=== PATIENT | female | born 1935 | race Caucasian/White ===

== ENCOUNTER → 2016-08-23 | Outpatient (CLI) | payer MEDICARE ==
[~2016-08-23] MED LIST: ACHD5005 PO; AML5T; AMLO5TAB2 PO; BCL10T PO; CHOL2000 PO; CLON0.5T3 PO; CND32T; CODE-54 PO; GLIM4TAB PO; GLMP4T; GLYBURIDE/METFORMIN; HCT25T; HCT25T PO; INSU100C7 SQ; LISI20TA PO; LVT.05T PO; MAGN400C PO; MAGN400T6 PO; MELO-195 PO; MTF500T; MTF500T PO; NF-TYLARTH PO; OMEP20CA12; OMEP20TA2 PO; PRAV40TA PO; PRAV80TA2 PO; ROPI0.5T2 PO; ROSU10TA12; SITA100T PO; THYROID; TRAM50TA2 PO
--- NOTE | 2016-08-23 20:59 | Diagnostic Imaging Report ---
INDICATION: Abnormal calcifications. At this time there are no current complaints. EXAMINATION: Right breast digital diagnostic mammogram with CAD. The current study was also evaluated with a Computer Aided Detection (CAD) system. COMPARISON: This study was compared to the prior exams of 02/07/16, 07/14/15, 02/08/15 and 07/15/14. FINDINGS: The previous studies noted a small group of microcalcifications deep in the medial aspect of the right breast. Compression/magnification views of these calcifications show that they do not appear to have changed significantly since the prior exam. These calcifications have a generally benign appearance although they have increased slightly in number since the previous study of 07/15/14. If a tissue diagnosis is desired, then a stereotactic biopsy could be performed. If there is no intervention at this time, then a short-term (6 month) followup mammogram would be recommended for further study. The overall appearance of the right breast is otherwise stable. No new abnormality has developed. IMPRESSION: 1. The calcifications in the right breast are most likely benign, although technically indeterminate. Recommendations as above. 2. These results were discussed with Dr. Roxana No. ACR BI-RADS Category 4A: Low suspicion of malignancy. Follow Up Interval: Now Result letter will be mailed to the patient. Note: At least 10% of breast cancer is not imaged by mammography. Dictated by: Dictated on workstation # [id number]
== END ==
LOC: RAD 13:19
PROVIDERS: ATTEND Nurse Practitioner Family
DX: R92.1 Mammographic calcification found on diagnostic imaging of breast (principal)

== ENCOUNTER 2016-10-25 08:31 | Inpatient (IN) | payer MEDICARE ==
[~2016-10-25] VITALS: Ht 152.4 cm; Wt 80.3 kg
[~2016-10-25 08:31] MED LIST changes: +AMLO10TA2 PO; +INSU100I10 SQ; +LEVO50TA6 PO; +LISI40TA PO; +LOVA40TA2 PO; +MELO15TA39 PO; +METF500T4 PO
[2016-10-25] MEDS ORDERED: ENOXAPARIN 40 MG/0.4 ML (LOVENOX) SYR SC SCH (09:45)
[2016-10-25] MEDS ORDERED: fentaNYL INJECTION 100 MCG/2 ML AMP IVP PRN (09:45)
[2016-10-25] MEDS ORDERED: PROMETHAZINE INJ 25 MG/ML (PHENERGAN) AMP IVP PRN (09:45)
[2016-10-25] MEDS ORDERED: CATHETER FLUSH 10 ML SYR IV PRN (09:45)
[2016-10-25] MEDS ORDERED: HYDROcodone/APAP 5 MG/325 MG (LORTAB) TAB PO PRN (09:45)
[2016-10-25] MEDS ORDERED: ONDANSETRON 4 MG/2 ML (SDV) Z0FRAN IVP PRN (09:45)
[2016-10-25] MEDS ORDERED: PANTOPRAZOLE 40 MG/10 ML (PROTONIX) VIAL IV SCH ×2 (09:45→18:30)
[2016-10-25] MEDS ORDERED: clonazePAM 0.5 MG (KlonoPIN) TAB PO PRN (09:45)
[2016-10-25] MEDS ORDERED: PIPERACILLIN SODIUM/TAZOBACTAM 4.5 GM in NS (IVPB) 100 ML IV SCH (09:45)
[2016-10-25] MEDS ORDERED: ACETAMINOPHEN 325 MG TABLET/CAPLET (TYLENOL) PO PRN (09:45)
[2016-10-25] MEDS ORDERED: MAGNESIUM OXIDE (MAG-OX)400 MG TAB PO SCH (10:15)
[2016-10-25] MEDS: NS IV 1000 ML 1,000 ML IV SCH ×2 (10:42→16:40)
--- NOTE | 2016-10-25 11:13 | Physical Therapy Progress Note ---
Therapy Progress Note Date Seen by Provider: Oct 25, 2016 Time Seen by Provider: 11:10 Evaluation order received, chart reviewed. Patient at sink brushing her teeth, I believe she just got through with a shower. Evaluation attempted but patient says emphatically No, come back later!!! Will try back this afternoon. BRETT SCHMITT PT Oct 25, 2016 11:13
[2016-10-25] MEDS: inSUlin ASPART (NovoLOG) 1 UNIT/0.01 ML (CHARGE PER UNIT) SC SCH ×3 (11:53→20:59)
[2016-10-25] MEDS: MELOXICAM 7.5 MG (MOBIC) TABLET PO SCH (11:53)
[2016-10-25] MEDS: amLODIPine 10 MG (NORVASC) TAB PO SCH (11:53)
[2016-10-25] MEDS: MAGNESIUM OXIDE (MAG-OX)400 MG TAB PO SCH (11:53)
[2016-10-25] MEDS: PIPERACILLIN SODIUM/TAZOBACTAM 4.5 GM in NS (IVPB) 100 ML IV SCH ×2 (11:54→20:55)
[2016-10-25 12:08] VITALS: BP 148/80
--- NOTE | 2016-10-25 14:30 | Progress Note (SOAP) ---
Subjective Date Seen by Provider: Oct 25, 2016 Time Seen by Provider: 14:00 Subjective/Events-last exam doing well. no complaints at this time. tolerating diet. afebrile. Objective Exam Vital Signs Date Time Temp Pulse Resp B/P (MAP) Pulse Ox O2 Delivery O2 Flow Rate FiO2 10/25/16 12:08 99.3 73 20 148/80 95 Capillary Refill : General Appearance: No Apparent Distress HEENT: PERRL/EOMI Neck: Full Range of Motion Respiratory: Chest Non Tender, Normal Breath Sounds Cardiovascular: Regular Rate, Rhythm Gastrointestinal: normal bowel sounds, soft Extremity: Normal Capillary Refill Neurologic/Psychiatric: Alert, Oriented x3 Skin: Normal Color Lymphatic: No Adenopathy Assessment/Plan Assessment/Plan Assess & Plan/Chief Complaint diverticular abscess. responding well with IV abx. SWB now and will continue IV abx. colonoscopy as outpatient. gallbladder as OP if become symptomatic. JACKIE CHAU MD Oct 25, 2016 2:30 pm
--- NOTE | 2016-10-25 15:07 | Physical Therapy Evaluation ---
PT Evaluation-General Medical Diagnosis Admission Date Oct 25, 2016 at 09:37 Medical Diagnosis: sepsis, diverticular abscess Onset Date: Oct 22, 2016 Therapy Diagnosis Therapy Diagnosis: impaired mobility, endurance, strength Height/Weight Height (Feet): 5 Height (Inches): 0.00 Weight (Pounds): 177 Weight (Ounces): 2.0 Referral Physician: Roxana No MD Reason for Referral: Evaluation/Treatment Medical History Pertinent Medical History: Arthritis, DM, GERD, HTN, Hypothroidism Additional Medical History high cholesterol, UTI-chronic, [place], surg (thyroid, lap horace, cataracts, D&C, abdominal, orthopedic) Current History went to ER with 48 hours of illness and nausea, abdominal discomfort and chills and hot flashes Reviewed History: Yes Social History Home: Single Level Current Living Status: Alone Entry Into Home: Level Entry Prior/Core FIM Prior Level of Function Functional Powell Measure 0=Not Assessed/NA 4=Minimal Assistance 1=Total Assistance 5=Supervision or Setup 2=Maximal Assistance 6=Modified Powell 3=Moderate Assistance 7=Complete Powell Bed Mobility: 7 Transfers (B,C,W/C) (FIM): 7 Gait: 7 PT Evaluation-Current Subjective Patient in recliner pre tx, agrees to PT, no complaints of pain. Pt/Family Goals to get her infection better and go home Objective Patient Orientation: Person, Place, Situation Attachments: IV ROM/Strength ROM Lower Extremities WNL Strenght Lower Extremities right lower extremity (hip flexion 3+/5, knee flexion 4/5, knee extension 4/5, dorsiflexion 4-/5), left lower extremity (hip flexion 3+/5, knee flexion 4/5, knee extension 4/5, dorsiflexion 4-/5) Integumentary/Posture Bowel Incontinence: No Bladder Incontinence: No Neuromuscular (Tone, Coordination, Reflexes) WNL Sensory Vision: Wears Glasses Hearing: Impaired Sensation Right Lower Extremit: Impaired Sensation Left Lower Extremity: Impaired Sensation Lower Extremities Patient has intact light sensation bilaterally but states she has had protective sensation tested in her feet and she did not have that Transfers Functional Powell Measure 0=Not Assessed/NA 4=Minimal Assistance 1=Total Assistance 5=Supervision or Setup 2=Maximal Assistance 6=Modified Powell 3=Moderate Assistance 7=Complete Powell Transfers (B, C, W/C) (FIM): 5 Sit to/from Stand: 5 Sit to Stand (QC): 4 Gait Does the Patient Walk?: Yes Mode of Locomotion: Walk Anticipated Mode of Locomotion: Walk Gait (FIM): 4 Distance: 800' Walk 50 ft with 2 Turns(QC): 4 Walk 150 ft (QC): 4 Gait Level of Assist: 4 Gait Persons Needed: 1 Gait Assistive Device: None Comments/Gait Description CGA, patient has some unsteadiness when she is not paying attention to her ambulation Balance Sitting Static: Normal Sitting Dynamic: Normal Standing Static: Fair Standing Dynamic: Fair Assessment/Needs Patient has impaired mobility, strength, endurance, balance, she should probably be using a rolling walker from now on for safety. Rehab Potential: Fair PT Telegraph Dispatcher Goals Residential Goals PT Residential Goals Time Frame: Nov 01, 2016 Transfers (B,C,W/C) (FIM): 6 Sit to Lying (QC): 6 Lying-Sitting on Side/Bed(QC): 6 Sit to Stand (QC): 6 Rollin Does the Patient Walk: Yes Gait (FIM): 5 Distance: 800' Walk 50ft with 2 Turns (QC): 4 Walk 150 ft (QC): 4 Gait Level of Assist: 5 Gait Assistive Device: FWW PT Plan Problem List Problem List: Activity Tolerance, Functional Strength, Safety, Balance, Gait, Transfer, Bed Mobility Treatment/Plan Treatment Plan: Continue Plan of Care Treatment Plan: Bed Mobility, Education, Functional Activity Kevin, Functional Strength, Gait, Safety, Therapeutic Exercise, Transfers Treatment Duration: Nov 01, 2016 # of days/week 5-6 Visits Per Week: 5-6 Minutes/Day (M-F): 15-30 Minutes/Day (Sat/Santillan): 15-30 Pt/Family Agrees w/Plan: Yes Safety Risks/Education Patient Education: Gait Training, Transfer Techniques, Correct Positioning, Safety Issues Teaching Recipient: Patient Teaching Methods: Demonstration, Discussion Response to Teaching: Reinforcement Needed Discharge Recommendations Plan Patient will perform bed mobility and transfer training, balance and endurance training, functional strengthening, gait training, and education, to improve functional mobility and independence at home. Therapy D/C Recommendations: Assisted Living, Home w/ Family Support Time/GCodes Time In: 1435 Time Out: 1505 Total Billed Treatment Time: 30 Total Billed Treatment 1 visit CARMENCITAL 15' GT 15' BRETT SCHMITT PT Oct 25, 2016 15:07
[2016-10-25 18:22] VITALS: BP 150/77
[2016-10-25] MEDS: PANTOPRAZOLE 40 MG (PROTONIX) TAB PO SCH (20:59)
[2016-10-25] MEDS: inSUlin DETERMIR 1 UNIT/0.01 ML (LEVEMIR) CHARGE PER UNIT SQ SCH (20:59)
[2016-10-25] MEDS: ENOXAPARIN 40 MG/0.4 ML (LOVENOX) SYR SC SCH (20:59)
[2016-10-26] MEDS: PIPERACILLIN SODIUM/TAZOBACTAM 4.5 GM in NS (IVPB) 100 ML IV SCH ×3 (04:55→20:18)
[2016-10-26] MEDS: NS IV 1000 ML 1,000 ML IV SCH ×2 (04:56→13:29)
[2016-10-26] MEDS: inSUlin ASPART (NovoLOG) 1 UNIT/0.01 ML (CHARGE PER UNIT) SC SCH ×4 (06:06→21:26)
[2016-10-26 06:07] VITALS: BP 159/79
[2016-10-26] MEDS: LEVOTHYROXINE 50 MCG (LEVOTHROID) TAB PO SCH (06:10)
[2016-10-26] MEDS: VITAMIN D3 1,000 UNITS (CHOLECALCIFEROL) TABLET PO SCH (06:10)
[2016-10-26] MEDS: MAGNESIUM OXIDE (MAG-OX)400 MG TAB PO SCH (06:10)
--- NOTE | 2016-10-26 08:29 | Progress Note (SOAP) ---
Subjective Date Seen by Provider: Oct 26, 2016 Time Seen by Provider: 09:00 Subjective/Events-last exam PT REPORTS THAT SHE IS FEELING BETTER, BUT STILL HAS SOME "TWINGES OF PAIN" IN HER ABDOMEN Review of Systems General: Fatigue HEENT: No Head Aches Pulmonary: No Dyspnea, No Cough Cardiovascular: No: Chest Pain, Palpitations Gastrointestinal: Abdominal Pain, No: Nausea Genitourinary: No Dysuria Neurological: No: Confusion, Weakness Objective Exam Vital Signs Date Time Temp Pulse Resp B/P (MAP) Pulse Ox O2 Delivery O2 Flow Rate FiO2 10/26/16 06:07 97.2 84 19 159/79 97 10/25/16 18:22 99.3 77 18 150/77 96 10/25/16 16:15 99.1 10/25/16 12:08 99.3 73 20 148/80 95 I & O 10/26/16 07:00 Intake Total 1920 ml Output Total 500 ml Balance 1420 ml Capillary Refill : General Appearance: No Apparent Distress, WD/WN HEENT: PERRL/EOMI, Pharynx Normal Neck: Full Range of Motion, Supple Respiratory: Chest Non Tender, Lungs Clear, Normal Breath Sounds, No Accessory Muscle Use Cardiovascular: Regular Rate, Rhythm Gastrointestinal: normal bowel sounds, tenderness Extremity: Normal Capillary Refill, No Calf Tenderness, No Pedal Edema Neurologic/Psychiatric: Alert, Oriented x3, No Motor/Sensory Deficits, Normal Mood/Affect Skin: Warm/Dry Lymphatic: No Adenopathy Results Lab Laboratory Tests 10/25/16 16:19: Glucometer 154H 10/25/16 20:50: Glucometer 250H 10/26/16 05:58: Glucometer 58*L 10/26/16 06:34: Glucometer 135H Assessment/Plan Assessment/Plan Assess & Plan/Chief Complaint SEPSIS DUE TO ECOLI LACTIC ACIDOSIS LEUKOCYTOSIS DIVERTICULITIS WITH ABSCESS URINARY TRACT INFECTION ECOLI ELEVATED LIVER ENZYMES CHOLELITHIASIS NAUSEA ABDOMINAL PAIN HYPERTENSION DIABETES MELLITUS HYPERLIPIDEMIA ESOPHAGEAL REFLUX DISEASE SEPSIS WITH LACTIC ACIDOSIS - SYMPTOMS IMPROVED - PT ADMITTED TO THE HOSPITAL, SEPSIS PROTOCOL INITIATED, BLOOD CULTURES PENDING, URINE CULTURE SHOWS ECOLI. CONTINUE WITH ZOSYN IV. LEUKOCYTOSIS - MONITOR WHITE BLOOD CELL COUNT. ABDOMINAL PAIN AND DIVERTICULITIS WITH ABSCESS - CHECKED REPEAT CT OF ABDOMEN AND PELVIS WITH ORAL AND IV CONTRAST - SHOWED DIVERTICULAR ABSCESS - 4.6 X 2.7 X 3 CM IN SIGMOID COLON. - CONTINUE WITH IV ZOSYN. NAUSEA - ZOFRAN AND PHENERGAN IV ORDERED. UTI WITH ECOLI - ON ZOSYN, CONTINUE ANTIBIOTICS. HYPERTENSION - CHRONIC PROBLEM FOR PATIENT - PT CURRENTLY HYPOTENSIVE - WILL CONTINUE ON IV FLUIDS DIABETES MELLITUS - ANOTHER CHRONIC PROBLEM FOR PATIENT - WILL ADDRESS WITH SLIDING SCALE INSULIN PROTOCOL. HYPERLIPIDEMIA - CHRONIC ISSUE FOR PATIENT - CURRENTLY TAKES PRAVASTATIN AT HOME , WILL RESTART IN A FEW DAYS ONCE TAKING BETTER PO. ESOPHAGEAL REFLUX DISEASE - STARTED ON PROTONIX BID. DVT PROPHYLAXIS WITH SCD'S AND LOVENOX. TINA LEON MD Oct 26, 2016 08:29
[2016-10-26] MEDS: amLODIPine 10 MG (NORVASC) TAB PO SCH (08:57)
[2016-10-26] MEDS: MELOXICAM 7.5 MG (MOBIC) TABLET PO SCH (08:57)
[2016-10-26] MEDS: lisINopril 20 MG (ZESTRIL) TAB PO SCH (08:57)
[2016-10-26] MEDS: PANTOPRAZOLE 40 MG (PROTONIX) TAB PO SCH ×2 (08:57→21:25)
[2016-10-26] MEDS ORDERED: NON-FORMULARY MEDICATION 1 EA EA (Meloxicam 15 MG) PO SCH (09:00)
[2016-10-26] MEDS ORDERED: LEVOTHYROXINE 50 MCG (LEVOTHROID) TAB PO SCH (09:00)
[2016-10-26] MEDS ORDERED: CHOLECALCIFEROL 2000 UNIT PO SCH (09:00)
--- NOTE | 2016-10-26 11:23 | Physical Therapy Daily Note ---
PT Daily Note-Current Subjective Patient is up ad valencia in room. Agrees to PT. Pain Numeric Pain Scale: 0-No Pain Location: No Pain Reported Mental Status Patient Orientation: Normal For Age Attachments: IV Transfers Functional Evans Measure 0=Not Assessed/NA 4=Minimal Assistance 1=Total Assistance 5=Supervision or Setup 2=Maximal Assistance 6=Modified [place] 3=Moderate Assistance 7=Complete IndependenceIRFPAI Quality Coding Scale 6 Independent with activity with or without an assistive device 5 Patient requires set up or clean up by helper. Patient completes activity by themselves 4 Supervision or touching assist (CGA). [place] provide cues , steadying assist 3 The helper provides less than half the effort to complete the activity 2 The helper provides more than half the effort to complete the activity 1 Dependent. The helper does all the effort to complete an activity 7 Patient refused to complete or attempt activity 9 The patient did not perform the activity before the current illness or injury 88 Not attempted due to Medical conditions or safety concerns Transfers (B, C, W/C) (FIM): 7 Scootin Roll Left to Right (QC): 6 Supine to/from Sit: 7 Sit to/from Stand: 7 Sit to Lying (QC): 6 Sit to Stand (QC): 6 Chair/Gvj-ky-Fohhp Xfer(QC): 6 Gait Training Does the Patient Walk?: Yes Gait (FIM): 7 Distance (FIM): 3=150 ft Distance: 800' Walk 50 ft with 2 Turns(QC): 6 Walk 150 ft (QC): 6 Gait Level of Assist: 7 Gait Assistive Device: None Assessment Patient is currently at independent LOF safely with all gross motor skills. PT to dismiss patient from services at this time. SWB coordinator notified. PT Shelter Goals Shelter Goals PT Acquisitions Analyst Goals Time Frame: Nov 01, 2016 Transfers (B,C,W/C) (FIM): 6 (met 10/26/16) Sit to Lying (QC): 6 (met 7) Lying-Sitting on Side/Bed(QC): 6 (met 10/26/16) Sit to Stand (QC): 6 (met 10/26/16) Rollin (met 10/26/16) Does the Patient Walk: Yes Gait (FIM): 5 (met 10/26/16) Distance: 800' Walk 50ft with 2 Turns (QC): 4 (met 10/26/16) Walk 150 ft (QC): 4 (met 10/26/16) Gait Level of Assist: 5 (met 10/26/16) Gait Assistive Device: FWW PT Plan Treatment/Plan Treatment Plan: Discontinue PT, goals met Treatment Plan: Bed Mobility, Education, Functional Activity Kevin, Functional Strength, Gait, Safety, Therapeutic Exercise, Transfers Treatment Duration: Nov 01, 2016 Visits Per Week: 5-6 Minutes/Day (M-F): 15-30 Minutes/Day (Sat/Santillan): 15-30 Time/GCodes Time In: 946 Time Out: 1001 Total Billed Treatment Time: 15 Total Billed Treatment 1 visit FA 15 min SHERRON KHALIL PT Oct 26, 2016 11:23
--- NOTE | 2016-10-26 11:24 | Therapy Team Discharge Summary ---
Therapy Discharge Summary Discharge Recommendations Date of Discharge 10/26/16 (from PT services) Therapy D/C Recommendations: Assisted Living, Home w/ Family Support Physical Therapy Patient is currently at independent LOF safely with all gross motor skills. PT to dismiss patient from services at this time. SWB coordinator notified. PT Cat Scan Technologist Goals Cat Scan Technologist Goals PT Senior Care Goals Time Frame: Nov 01, 2016 Transfers (B,C,W/C) (FIM): 6 (met 10/26/16) Sit to Lying (QC): 6 (met ) Lying-Sitting on Side/Bed(QC): 6 (met 10/26/16) Sit to Stand (QC): 6 (met 10/26/16) Rollin (met 10/26/16) Does the Patient Walk: Yes Gait (FIM): 5 (met 10/26/16) Distance: 800' Walk 50ft with 2 Turns (QC): 4 (met 10/26/16) Walk 150 ft (QC): 4 (met 10/26/16) Gait Level of Assist: 5 (met 10/26/16) Gait Assistive Device: FWW OT Cat Scan Technologist Goals Senior Care Goals 1=Demonstrate adherence to instructed precautions during ADL tasks. 2=Patient will verbalize/demonstrate understanding of assistive devices/ modifications for ADL. 3=Patient will improve strength/tolerance for activity to enable patient to perform ADL's. SHERRON MCKEON PT Oct 26, 2016 11:24
[2016-10-26 18:05] VITALS: BP 150/74
[2016-10-26] MEDS: SIMvastatin 20 MG (ZOCOR) TAB PO SCH (21:25)
[2016-10-26] MEDS: inSUlin DETERMIR 1 UNIT/0.01 ML (LEVEMIR) CHARGE PER UNIT SQ SCH (21:26)
[2016-10-26] MEDS: ENOXAPARIN 40 MG/0.4 ML (LOVENOX) SYR SC SCH (21:26)
[2016-10-27] MEDS: NS IV 1000 ML 1,000 ML IV SCH ×3 (01:54→21:45)
[2016-10-27] MEDS: PIPERACILLIN SODIUM/TAZOBACTAM 4.5 GM in NS (IVPB) 100 ML IV SCH ×3 (04:26→20:50)
[2016-10-27] MEDS: inSUlin ASPART (NovoLOG) 1 UNIT/0.01 ML (CHARGE PER UNIT) SC SCH ×4 (05:29→22:11)
[2016-10-27] MEDS: LEVOTHYROXINE 50 MCG (LEVOTHROID) TAB PO SCH (05:46)
[2016-10-27] MEDS: MAGNESIUM OXIDE (MAG-OX)400 MG TAB PO SCH (05:46)
[2016-10-27] MEDS: VITAMIN D3 1,000 UNITS (CHOLECALCIFEROL) TABLET PO SCH (05:46)
[2016-10-27 06:25] VITALS: BP 151/72
[2016-10-27] MEDS: amLODIPine 10 MG (NORVASC) TAB PO SCH (09:51)
[2016-10-27] MEDS: MELOXICAM 7.5 MG (MOBIC) TABLET PO SCH (09:51)
[2016-10-27] MEDS: lisINopril 20 MG (ZESTRIL) TAB PO SCH (09:51)
[2016-10-27] MEDS: PANTOPRAZOLE 40 MG (PROTONIX) TAB PO SCH ×2 (09:51→20:49)
--- NOTE | 2016-10-27 10:16 | Progress Note (SOAP) ---
Subjective Date Seen by Provider: Oct 27, 2016 Time Seen by Provider: 09:15 Subjective/Events-last exam PT REPORTS THAT SHE IS STILL HAVING THE DISCOMFORT IN HER LEFT LOWER ABDOMEN, BUT SHE IS FEELING BETTER TODAY. SHE DENIES CHEST PAIN OR SHORTNESS OF BREATH, BOWELS ARE MOVING. Review of Systems General: Fatigue, No Malaise Pulmonary: No Dyspnea, No Cough Cardiovascular: No: Chest Pain Gastrointestinal: Abdominal Pain Genitourinary: No Dysuria Neurological: No: Confusion, Weakness Objective Exam Vital Signs Date Time Temp Pulse Resp B/P (MAP) Pulse Ox O2 Delivery O2 Flow Rate FiO2 10/27/16 06:25 99.1 72 18 151/72 93 10/26/16 18:05 98.9 73 22 150/74 96 I & O 10/27/16 07:00 Intake Total 3480 ml Balance 3480 ml Capillary Refill : General Appearance: No Apparent Distress, WD/WN HEENT: PERRL/EOMI, Pharynx Normal Neck: Full Range of Motion, Supple Respiratory: Chest Non Tender, Lungs Clear, Normal Breath Sounds, No Accessory Muscle Use Cardiovascular: Regular Rate, Rhythm, No Edema Gastrointestinal: normal bowel sounds, tenderness (LLQ) Extremity: Normal Capillary Refill, Normal Inspection, Normal Range of Motion, Non Tender, No Calf Tenderness, No Pedal Edema Neurologic/Psychiatric: Alert, Oriented x3, No Motor/Sensory Deficits, Normal Mood/Affect Skin: Warm/Dry Lymphatic: No Adenopathy Results Lab Laboratory Tests 10/26/16 10:49: Glucometer 98 10/26/16 16:03: Glucometer 180H 10/26/16 21:12: Glucometer 207H 10/27/16 05:27: Glucometer 100 Assessment/Plan Assessment/Plan Assess & Plan/Chief Complaint SEPSIS DUE TO ECOLI LACTIC ACIDOSIS LEUKOCYTOSIS DIVERTICULITIS WITH ABSCESS URINARY TRACT INFECTION ECOLI ELEVATED LIVER ENZYMES CHOLELITHIASIS NAUSEA ABDOMINAL PAIN HYPERTENSION DIABETES MELLITUS HYPERLIPIDEMIA ESOPHAGEAL REFLUX DISEASE SEPSIS WITH LACTIC ACIDOSIS - SYMPTOMS IMPROVED - PT ADMITTED TO THE HOSPITAL, SEPSIS PROTOCOL INITIATED, BLOOD CULTURES PENDING, URINE CULTURE SHOWS ECOLI. CONTINUE WITH ZOSYN IV. LEUKOCYTOSIS - MONITOR WHITE BLOOD CELL COUNT. ABDOMINAL PAIN AND DIVERTICULITIS WITH ABSCESS - CHECKED REPEAT CT OF ABDOMEN AND PELVIS WITH ORAL AND IV CONTRAST - SHOWED DIVERTICULAR ABSCESS - 4.6 X 2.7 X 3 CM IN SIGMOID COLON. - CONTINUE WITH IV ZOSYN. - REPEAT CT SCAN ON SUNDAY. NAUSEA - ZOFRAN AND PHENERGAN IV ORDERED. UTI WITH ECOLI - ON ZOSYN, CONTINUE ANTIBIOTICS. HYPERTENSION - WILL CONTINUE ON IV FLUIDS - RESTARTED HOME MEDICATIONS, MONITOR PRESSURES DIABETES MELLITUS - ANOTHER CHRONIC PROBLEM FOR PATIENT - WILL ADDRESS WITH SLIDING SCALE INSULIN PROTOCOL. HYPERLIPIDEMIA - CHRONIC ISSUE FOR PATIENT - CURRENTLY TAKES PRAVASTATIN AT HOME , WILL RESTART IN A FEW DAYS ONCE TAKING BETTER PO. ESOPHAGEAL REFLUX DISEASE - STARTED ON PROTONIX BID. DVT PROPHYLAXIS WITH SCD'S AND LOVENOX. TINA LEON MD Oct 27, 2016 10:16
[2016-10-27 18:45] VITALS: BP 147/73
[2016-10-27] MEDS: SIMvastatin 20 MG (ZOCOR) TAB PO SCH (20:49)
[2016-10-27] MEDS: ENOXAPARIN 40 MG/0.4 ML (LOVENOX) SYR SC SCH (20:49)
[2016-10-27] MEDS: inSUlin DETERMIR 1 UNIT/0.01 ML (LEVEMIR) CHARGE PER UNIT SQ SCH (22:11)
[2016-10-28] MEDS: PIPERACILLIN SODIUM/TAZOBACTAM 4.5 GM in NS (IVPB) 100 ML IV SCH ×3 (04:47→20:20)
[2016-10-28 06:00] VITALS: BP 158/79
[2016-10-28] MEDS: MAGNESIUM OXIDE (MAG-OX)400 MG TAB PO SCH (06:17)
[2016-10-28] MEDS: LEVOTHYROXINE 50 MCG (LEVOTHROID) TAB PO SCH (06:17)
[2016-10-28] MEDS: VITAMIN D3 1,000 UNITS (CHOLECALCIFEROL) TABLET PO SCH (06:18)
[2016-10-28] MEDS: inSUlin ASPART (NovoLOG) 1 UNIT/0.01 ML (CHARGE PER UNIT) SC SCH ×4 (06:26→21:20)
[2016-10-28] MEDS: NS IV 1000 ML 1,000 ML IV SCH (08:30)
[2016-10-28] MEDS: MELOXICAM 7.5 MG (MOBIC) TABLET PO SCH (08:30)
[2016-10-28] MEDS: amLODIPine 10 MG (NORVASC) TAB PO SCH (08:30)
[2016-10-28] MEDS: lisINopril 20 MG (ZESTRIL) TAB PO SCH (08:30)
[2016-10-28] MEDS: PANTOPRAZOLE 40 MG (PROTONIX) TAB PO SCH ×2 (08:33→20:20)
--- NOTE | 2016-10-28 12:15 | Progress Note (SOAP) ---
Subjective Date Seen by Provider: Oct 28, 2016 Time Seen by Provider: 12:10 Subjective/Events-last exam F/U diverticulitis c diverticular abscess, HTN. C/o mild LLQ abd pain, multiple urination and 1 BM this AM. Taking orals well. Objective Exam Vital Signs Date Time Temp Pulse Resp B/P (MAP) Pulse Ox O2 Delivery O2 Flow Rate FiO2 10/28/16 06:00 99.3 89 18 158/79 98 Room Air 10/27/16 18:45 98.9 85 20 147/73 97 Room Air I & O 10/28/16 07:00 Intake Total 1560 ml Balance 1560 ml Capillary Refill : General Appearance: No Apparent Distress Neck: Supple Respiratory: Lungs Clear Cardiovascular: Regular Rate, Rhythm, No Murmur Peripheral Pulses: 2+ Dorsalis Pedis (R), 2+ Left Dors-Pedis (L) Gastrointestinal: normal bowel sounds, soft, tenderness (LLQ) Extremity: No Normal Capillary Refill, No Normal Inspection, No Normal Range of Motion, No Non Tender, No No Calf Tenderness, No No Pedal Edema, No Calf Tenderness, No Inflammation, No Pedal Edema, No Pelvis Stable, No Slow Capillary Refill, No Swelling, No Other Neurologic/Psychiatric: Alert, Oriented x3 Skin: Normal Color, Warm/Dry Results Lab Laboratory Tests 10/27/16 16:21: Glucometer 188H 10/27/16 22:02: Glucometer 213H 10/28/16 06:24: Glucometer 68L 10/28/16 07:26: Glucometer 191H 10/28/16 11:01: Glucometer 219H Assessment/Plan Assessment/Plan Assess & Plan/Chief Complaint 1) Diverticulits c diverticular abscess -continue ABX, check CBC in AM. Heplock IV as taking PO well c adequate Urine output. 2) HTN- continue lisinopril and amloipine and add low dose coreg. SHANE VICENTE DO Oct 28, 2016 12:15
[2016-10-28] MEDS: CARVEDILOL 3.125 MG (COREG) TABLET PO SCH ×2 (12:47→20:25)
[2016-10-28 17:49] VITALS: BP 160/78
[2016-10-28] MEDS: SIMvastatin 20 MG (ZOCOR) TAB PO SCH (20:20)
[2016-10-28] MEDS: ENOXAPARIN 40 MG/0.4 ML (LOVENOX) SYR SC SCH (20:20)
[2016-10-28] MEDS: inSUlin DETERMIR 1 UNIT/0.01 ML (LEVEMIR) CHARGE PER UNIT SQ SCH (21:20)
[2016-10-29] MEDS: PIPERACILLIN SODIUM/TAZOBACTAM 4.5 GM in NS (IVPB) 100 ML IV SCH ×3 (03:24→20:47)
[2016-10-29] MEDS: VITAMIN D3 1,000 UNITS (CHOLECALCIFEROL) TABLET PO SCH (06:02)
[2016-10-29] MEDS: LEVOTHYROXINE 50 MCG (LEVOTHROID) TAB PO SCH (06:02)
[2016-10-29] MEDS: MAGNESIUM OXIDE (MAG-OX)400 MG TAB PO SCH (06:03)
[2016-10-29 06:08] LABS: BASOPHILS % (AUTO) 0 % (0-10); EOSINOPHILS # (AUTO) 0.1 10^3/uL (0.0-0.3); EOSINOPHILS % (AUTO) 2 % (0-10); LYMPHOCYTES # (AUTO) 2.4 X 10^3 (1.0-4.0); LYMPHOCYTES % (AUTO) 32 % (12-44); MEAN CORPUSCULAR HEMOGLOBIN 31 PG (25-34); MEAN CORPUSCULAR HGB CONC 34 G/DL (32-36); MEAN CORPUSCULAR VOLUME 91 FL (80-99); MONOCYTES # (AUTO) 0.9 X 10^3 (0.0-1.0); MONOCYTES % (AUTO) 12 % (0-12); NEUTROPHILS % (AUTO) 53 % (42-75); PLATELET COUNT 297 10^3/uL (130-400); RED BLOOD COUNT 3.81 10^6/uL (4.35-5.85); RED CELL DISTRIBUTION WIDTH 12.8 % (10.0-14.5); WHITE BLOOD COUNT 7.4 10^3/uL (4.3-11.0)
[2016-10-29 06:16] VITALS: BP 147/66
[2016-10-29 06:29] LABS: ALANINE AMINOTRANSFERASE 34 U/L (0-55); ALBUMIN 3.2 G/DL (3.2-4.5); ANION GAP 11 MMOL/L (5-14); ASPARTATE AMINO TRANSFERASE 21 U/L (5-34); BILIRUBIN,TOTAL 0.6 MG/DL (0.1-1.0); BLOOD UREA NITROGEN 3 MG/DL (7-18); BUN/CREATININE RATIO 4; CALCIUM 8.9 MG/DL (8.5-10.1); CARBON DIOXIDE 29 MMOL/L (21-32); CHLORIDE 106 MMOL/L (98-107); CREATININE SERUM 0.79 MG/DL (0.60-1.30); GFR ESTIMATED > 60; GLUCOSE 77 MG/DL (70-105); SODIUM 146 MMOL/L (135-145); TOTAL PROTEIN 6.2 G/DL (6.4-8.2)
[2016-10-29 06:34] LABS: POTASSIUM 2.4 MMOL/L (3.6-5.0)
[2016-10-29] MEDS: inSUlin ASPART (NovoLOG) 1 UNIT/0.01 ML (CHARGE PER UNIT) SC SCH ×4 (06:35→21:37)
[2016-10-29] MEDS ORDERED: KCL 10 MEQ TAB (MICRO K) PO NR ×2 (08:00→12:00)
[2016-10-29] MEDS: lisINopril 20 MG (ZESTRIL) TAB PO SCH (08:35)
[2016-10-29] MEDS: amLODIPine 10 MG (NORVASC) TAB PO SCH (08:35)
[2016-10-29] MEDS: MELOXICAM 7.5 MG (MOBIC) TABLET PO SCH (08:35)
[2016-10-29] MEDS: CARVEDILOL 3.125 MG (COREG) TABLET PO SCH ×2 (08:35→20:47)
[2016-10-29] MEDS: PANTOPRAZOLE 40 MG (PROTONIX) TAB PO SCH ×2 (08:35→20:47)
[2016-10-29 16:42] LABS: MAGNESIUM 1.5 MG/DL (1.8-2.4); POTASSIUM 3.1 MMOL/L (3.6-5.0)
[2016-10-29] MEDS: MAGNESIUM 1 GM/100 ML IVPB 100 ML IV SCH ×2 (17:24→18:30)
[2016-10-29] MEDS ORDERED: KCL 10 MEQ TAB (MICRO K) PO ONE (17:30)
[2016-10-29 17:41] VITALS: BP 134/68
[2016-10-29] MEDS: ENOXAPARIN 40 MG/0.4 ML (LOVENOX) SYR SC SCH (20:47)
[2016-10-29] MEDS: SIMvastatin 20 MG (ZOCOR) TAB PO SCH (20:47)
[2016-10-29] MEDS: inSUlin DETERMIR 1 UNIT/0.01 ML (LEVEMIR) CHARGE PER UNIT SQ SCH (21:52)
[2016-10-30] MEDS: PIPERACILLIN SODIUM/TAZOBACTAM 4.5 GM in NS (IVPB) 100 ML IV SCH ×2 (04:17→13:00)
[2016-10-30] MEDS: LEVOTHYROXINE 50 MCG (LEVOTHROID) TAB PO SCH (05:56)
[2016-10-30] MEDS: MAGNESIUM OXIDE (MAG-OX)400 MG TAB PO SCH (05:56)
[2016-10-30] MEDS: VITAMIN D3 1,000 UNITS (CHOLECALCIFEROL) TABLET PO SCH (05:56)
[2016-10-30 06:00] VITALS: BP 101/55
[2016-10-30 06:11] LABS: ANION GAP 11 MMOL/L (5-14); BLOOD UREA NITROGEN 5 MG/DL (7-18); BUN/CREATININE RATIO 6; CARBON DIOXIDE 25 MMOL/L (21-32); CHLORIDE 110 MMOL/L (98-107); CREATININE SERUM 0.82 MG/DL (0.60-1.30); GFR ESTIMATED > 60; GLUCOSE 97 MG/DL (70-105); POTASSIUM 3.9 MMOL/L (3.6-5.0); SODIUM 146 MMOL/L (135-145)
[2016-10-30] MEDS: inSUlin ASPART (NovoLOG) 1 UNIT/0.01 ML (CHARGE PER UNIT) SC SCH ×3 (06:18→16:43)
--- NOTE | 2016-10-30 08:11 | Discharge Summary ---
Diagnosis/Chief Complaint Date of Admission Oct 25, 2016 at 09:37 Date of Discharge Discharge Date: Oct 30, 2016 Discharge Time: 16:00 Admission Diagnosis Admission Diagnosis SEPSIS DUE TO ECOLI LACTIC ACIDOSIS LEUKOCYTOSIS DIVERTICULITIS WITH ABSCESS URINARY TRACT INFECTION ECOLI ELEVATED LIVER ENZYMES CHOLELITHIASIS NAUSEA ABDOMINAL PAIN HYPERTENSION DIABETES MELLITUS HYPERLIPIDEMIA ESOPHAGEAL REFLUX DISEASE Discharge Diagnosis SEPSIS DUE TO ECOLI LACTIC ACIDOSIS LEUKOCYTOSIS DIVERTICULITIS WITH ABSCESS URINARY TRACT INFECTION ECOLI ELEVATED LIVER ENZYMES CHOLELITHIASIS NAUSEA ABDOMINAL PAIN HYPERTENSION DIABETES MELLITUS HYPERLIPIDEMIA ESOPHAGEAL REFLUX DISEASE Reason Hospital Visit PT IS AN 81 Y/O FEMALE WHO IS KNOWN TO ME FROM CLINIC. SHE HAS A DIVERTICULAR ABSCESS - URINARY TRACT INFECTION - CONTINUED NEED OF IV ANTIBIOTICS AND THERAPY FOR STRENGTHENING. Discharge Summary Consultations Discharge Physical Examination Allergies: Coded Allergies: No Known Drug Allergies (Verified , 02/27/07) Vitals & I&Os Vital Signs Date Time Temp Pulse Resp B/P (MAP) Pulse Ox O2 Delivery O2 Flow Rate FiO2 10/30/16 17:27 98.9 83 18 158/77 96 Room Air General Appearance: Alert, Oriented X3, Cooperative HEENT: Atraumatic, PERRLA Respiratory: Clear to Auscultation Cardiovascular: Regular Rate Abdominal: Normal Bowel Sounds, Soft, Other (nontender - llq) Extremities: No Clubbing, No Cyanosis Skin: No Rashes, No Breakdown Neuro: Strength at 5/5 X4 Ext Psych/Mental Status: Mental Status NL Hospital Course SEPSIS DUE TO ECOLI LACTIC ACIDOSIS LEUKOCYTOSIS DIVERTICULITIS WITH ABSCESS URINARY TRACT INFECTION ECOLI ELEVATED LIVER ENZYMES CHOLELITHIASIS NAUSEA ABDOMINAL PAIN HYPERTENSION DIABETES MELLITUS HYPERLIPIDEMIA ESOPHAGEAL REFLUX DISEASE SEPSIS WITH LACTIC ACIDOSIS - SYMPTOMS IMPROVED - PT ADMITTED TO THE HOSPITAL, SEPSIS PROTOCOL INITIATED, BLOOD CULTURES PENDING, URINE CULTURE SHOWS ECOLI. CONTINUE WITH ZOSYN IV. LEUKOCYTOSIS - MONITOR WHITE BLOOD CELL COUNT. ABDOMINAL PAIN AND DIVERTICULITIS WITH ABSCESS - CHECKED REPEAT CT OF ABDOMEN AND PELVIS WITH ORAL AND IV CONTRAST - SHOWED DIVERTICULAR ABSCESS - 4.6 X 2.7 X 3 CM IN SIGMOID COLON. - CONTINUE WITH IV ZOSYN. - REPEAT CT SCAN SHOWED NO CHANGE IN DIVERTICULAR ABSCESS SIZE - PT TO START ON ORAL ANTIBIOTICS OUTPATIENT - FOLLOW UP WITH DR. CHAU IN 2 WEEKS NAUSEA - ZOFRAN AND PHENERGAN IV ORDERED. UTI WITH ECOLI - ON ZOSYN, CONTINUE ANTIBIOTICS. - . HYPERTENSION - WILL CONTINUE ON IV FLUIDS - RESTARTED HOME MEDICATIONS, MONITOR PRESSURES DIABETES MELLITUS - ANOTHER CHRONIC PROBLEM FOR PATIENT - WILL ADDRESS WITH SLIDING SCALE INSULIN PROTOCOL. HYPERLIPIDEMIA - CHRONIC ISSUE FOR PATIENT - CURRENTLY TAKES PRAVASTATIN AT HOME , WILL RESTART IN A FEW DAYS ONCE TAKING BETTER PO. ESOPHAGEAL REFLUX DISEASE - STARTED ON PROTONIX BID. DVT PROPHYLAXIS WITH SCD'S AND LOVENOX. Pending Labs Laboratory Tests 10/30/16 11:31: Glucometer 74 10/30/16 16:37: Glucometer 192 Discharge Condition at discharge IMPROVING Instructions to patient/family Please see electonic discharge instructions given to patient. Discharge Medications Reviewed and agree with Discharge Medication list on patient's Discharge Instruction sheet TINA LEON MD Oct 30, 2016 08:11
[2016-10-30] MEDS ORDERED: CIPR500T4 PO (08:17)
[2016-10-30] MEDS ORDERED: METR500T21 PO (08:17)
[2016-10-30] MEDS ORDERED: LACT1CAP53 PO (08:17)
[2016-10-30] MEDS ORDERED: METF500T4 PO (08:17)
--- NOTE | 2016-10-30 08:20 | Discharge Inst-Complex ---
PDI Med Rec & Follow Up Appt. New Medications: Ciprofloxacin HCl (Ciprofloxacin HCl) 500 Mg Tablet 500 MG PO BID for 7 Days, #14 TAB Lactobacillus Acidophilus (Acidophilus Probiotic) 1 Mg Tablet 1 MG PO TIDAC, #60 TAB Metronidazole (Metronidazole) 500 Mg Tablet 500 MG PO TID for 10 Days, #30 TAB Changed Medications: Metformin HCl (Metformin HCl) 500 Mg Tablet 500 MG PO BID for 30 Days, #60 TAB 6 Refills (Changed from: Refills: ) RESTART ON 11/01/16 Continued Medications: Amlodipine Besylate (Amlodipine Besylate) 10 Mg Tablet 10 MG PO DAILY Cholecalciferol (Vitamin D) 2,000 Unit Capsule 2000 UNIT PO DAILY Clonazepam (Clonazepam) 0.5 Mg Tablet 0.5 MG PO HS Insulin Glargine,Hum.rec.anlog (Lantus Solostar) 100 Unit/1 Ml Insuln.pen 18 UNITS SQ HS Levothyroxine Sodium (Levothyroxine Sodium) 50 Mcg Tablet 50 MCG PO DAILY Lisinopril (Lisinopril) 40 Mg Tablet 40 MG PO DAILY Lovastatin (Lovastatin) 40 Mg Tablet 40 MG PO HS Magnesium Oxide (Mag Ox 400) 400 Mg Tablet 400 MG PO Q48H Magnesium Oxide (Magnesium) 400 Mg Capsule 800 MG PO Q48H TAKES 2 (400MG) TABLETS EVERY OTHER DAY Meloxicam (Meloxicam) 15 Mg Tablet 15 MG PO DAILY Tramadol HCl (Tramadol HCl) 50 Mg Tablet 50 MG PO Q8H PRN for PAIN-MODERATE Prescription: Transmitted to Pharmacy Patient Instructions: hold metformin until 11/01/16 low residue, low gas producing diet until after appt with Dr. morales Activity, Diet and PDI Resume Normal Activity: Yes Discharge Diet: Low Residue Drink 6-8 Glasses of Fluid/Day: Yes Driving Instructions: No Driving for 24 Hours Return to The Hospital For: any concern for worsening illness, increase in abdominal pain, severe bloating, or concern for lifethreatening illness or injury Symptoms to Reoprt to : Pain Increased, Fever Over 101 Degrees F, Pain/ Pressure in Chest, Cough Up/Vomit Blood, Diarrhea(Persistant), Shortness of Breath For Problems or Questions: Contact Your Physician, Go to Emergency Room TINA LEON MD Oct 30, 2016 08:20
[2016-10-30] MEDS: CARVEDILOL 3.125 MG (COREG) TABLET PO SCH (09:30)
[2016-10-30] MEDS ORDERED: CATHETER FLUSH 10 ML SYR IV PRN (09:30)
[2016-10-30] MEDS: lisINopril 20 MG (ZESTRIL) TAB PO SCH (09:30)
[2016-10-30] MEDS ORDERED: NS 100 ML (IVPB) BAG IV ONE (09:30)
[2016-10-30] MEDS ORDERED: IOHEXOL 350 MG/ML 100 ML (OMNIPAQUE 350) VIAL IV ONE (09:30)
[2016-10-30] MEDS: amLODIPine 10 MG (NORVASC) TAB PO SCH (09:30)
[2016-10-30] MEDS: PANTOPRAZOLE 40 MG (PROTONIX) TAB PO SCH (09:30)
[2016-10-30] MEDS: MELOXICAM 7.5 MG (MOBIC) TABLET PO SCH (09:35)
--- NOTE | 2016-10-30 11:43 | Diagnostic Imaging Report ---
PROCEDURE: CT abdomen and pelvis with contrast. TECHNIQUE: Multiple contiguous axial images were obtained through the abdomen and pelvis after administration of intravenous contrast. INDICATION: Followup diverticular abscess. 100 mL of Omnipaque 350 administered intravenously. COMPARISON: 10/23/2016. FINDINGS: The lung bases appear clear. The liver, the gallbladder, the spleen, the adrenals, and the pancreas appear unremarkable. The kidneys have symmetric enhancement and excretion. No hydronephrosis. The abdominal aorta is normal in caliber. No para-aortic significantly enlarged lymph node is seen. Oral contrast is opacifying most small bowel loops and the proximal colon. There is no bowel obstruction. In the sigmoid colon there is still significant thickening and enhancement. There is improvement in the inflammatory changes in the pelvis. There is a persistent adjacent abscess measuring 4.6 x 4.6 x 3.7 cm. It is minimally larger compared to the previous study with multiloculated appearance. There is no significant free fluid or fluid collection in the abdomen or pelvis. Background diverticulosis seen. The urinary bladder appears unremarkable. Tiny umbilical fat-containing hernia. The osseous structures, scoliosis, and prominent degenerative changes of the lumbar spine. IMPRESSION: Sigmoid diverticulitis with an adjacent multiloculated abscess minimally larger compared to 10/23/2016, exam. The inflammation otherwise in adjacent tissues within the pelvis has improved. Dictated by: Dictated on workstation # [id number]
[2016-10-30 17:27] VITALS: BP 158/77
[2016-10-30 19:00] VITALS: BP 158/77
== END 2016-10-30 19:20 | disposition home or self-care (01) | DRG 872 ==
LOC: 4TH 09:37 → ENPENDDIS 10-30 14:00 → EDPENDDISTM 10-30 16:00
PROVIDERS: ADMIT Family Medicine; ATTEND Family Medicine
DX: A41.51 Sepsis due to Escherichia coli [E. coli] (principal); R65.20 Severe sepsis without septic shock; K57.80 Diverticulitis of intestine, part unspecified, with perforation and abscess without bleeding; K80.10 Calculus of gallbladder with chronic cholecystitis without obstruction; N39.0 Urinary tract infection, site not specified; E87.2 Acidosis; I10 Essential (primary) hypertension; E11.9 Type 2 diabetes mellitus without complications; E78.5 Hyperlipidemia, unspecified; K21.9 Gastro-esophageal reflux disease without esophagitis; E89.0 Postprocedural hypothyroidism; M19.91 Primary osteoarthritis, unspecified site; M54.5 Low back pain; H91.90 Unspecified hearing loss, unspecified ear; Z79.4 Long term (current) use of insulin; D72.829 Elevated white blood cell count, unspecified; I95.9 Hypotension, unspecified
CPT/HCPCS: 36415; 74177; 80048; 80053; 82962; 83735; 84132; 85025; 94664

== ENCOUNTER 2016-11-27 05:40 | Outpatient (CLI) | payer MEDICARE ==
[~2016-11-27] VITALS: Ht 152.4 cm; Wt 80.3 kg
[~2016-11-27 05:40] MED LIST changes: +ACIDOPHILUS PROB1 M1 PO; +CIPR500T4 PO; +METR500T21 PO
[2016-11-27] MEDS ORDERED: METF500T4 PO (11:06)
[2016-11-29] MEDS ORDERED: METR500T21 PO (12:04)
[2016-11-29] MEDS ORDERED: CIPR-225 PO (12:04)
== END 2016-11-27 11:08 ==
LOC: PREOP 05:40
PROVIDERS: ATTEND Surgery
DX: Z01.818 Encounter for other preprocedural examination; Z86.010 Personal history of colon polyps; Z87.19 Personal history of other diseases of the digestive system; Z80.0 Family history of malignant neoplasm of digestive organs

== ENCOUNTER 2016-11-29 08:52 | Day surgery (SDC) | payer MEDICARE ==
[~2016-11-29] VITALS: Ht 152.4 cm; Wt 80.3 kg
[2016-11-29] MEDS ORDERED: NS IV 500 ML 500 ML ONE (08:59)
--- OUTSIDE RECORDS SUMMARY | 2016-11-29 09:01 | XMS REPORT | Continuity of Care Document ---
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 (moles/volume) 3.6 mmol/L 3.6-5.0 Serum or plasma chloride measurement (moles/volume) 110 mmol /L 98-107 Carbon dioxide 16 mmol/L 21-32 Serum or plasma anion gap determination (moles/volume) 13 mmol/L 5-14 Serum or plasma urea nitrogen measurement (mass/volume) 20 mg/dL 7-18 Serum or plasma creatinine measurement (mass/volume) 1.24 mg /dL 0.60-1.30 Serum or plasma urea nitrogen/creatinine mass ratio 16 NRG Serum or plasma creatinine measurement with calculation of estimated glomerular filtration rate 42 NRG Serum or plasma glucose measurement (mass/volume) 223 mg/dL 70-105 Serum or plasma calcium measurement (mass/volume) 7.9 mg/dL 8.5-10.1 Serum or plasma total bilirubin measurement (mass/volume) 1.0 mg/dL 0.1-1.0 Serum or plasma alkaline phosphatase measurement (enzymatic activity/volume) 148 U/L 40-136 Serum or plasma aspartate aminotransferase measurement (enzymatic activity/ volume) 348 U/L 5-34 Serum or plasma alanine aminotransferase measurement (enzymatic activity/volume ) 221 U/L 0-55 Serum or plasma protein measurement (mass/volume) 5.6 g/dL 6.4-8.2 Serum or plasma albumin measurement (mass/volume) 2.9 g/dL 3.2-4.5 Serum or plasma phosphate measurement (mass/volume) - 10/23/16 03:43 Serum or plasma phosphate measurement (mass/volume) 2.9 mg/ dL 2.3-4.7 Magnesium - 10/23/16 03:43 Magnesium 1.5 mg/dL 1.8-2.4 Blood manual differential performed detection - 10/23/16 03:43 Blood monocytes/100 leukocytes 3 % NRG Manual blood segmented neutrophils/100 leukocytes 57 % NRG Blood band neutrophils/100 leukocytes 38 % NRG Manual blood lymphocytes/100 leukocytes 2 % NRG Blood erythrocyte morphology finding identification NORMAL NRG Blood lactic acid measurement (moles/volume) - 10/23/16 06:00 Blood lactic acid measurement (moles/volume) 2.96 mmol/L 0.50-2.00 Blood lactic acid measurement (moles/volume) - 10/23/16 10:12 Blood lactic acid measurement (moles/volume) 2.51 mmol/L 0.50-2.00 Capillary blood glucose measurement by glucometer (mass/volume) - 10/23/16 10: 42 Capillary blood glucose measurement by glucometer (mass/volume) 161 mg/dL 70-110 Capillary blood glucose measurement by glucometer (mass/volume) - 10/23/16 12: 14 Capillary blood glucose measurement by glucometer (mass/volume) 123 mg/dL 70-110 Serum or plasma lactate measurement (moles/volume) - 10/23/16 13:21 Serum or plasma lactate measurement (moles/volume) 1.09 mmol /L 0.50-2.00 Capillary blood glucose measurement by glucometer (mass/volume) - 10/23/16 18: 07 Capillary blood glucose measurement by glucometer (mass/volume) 86 mg/dL 70-110 Complete blood count (CBC) with automated white blood cell (WBC) differential - 10/24/16 04:20 Blood leukocytes automated count (number/volume) 11.5 10*3/ uL 4.3-11.0 Blood erythrocytes automated count (number/volume) 3.16 10*6 /uL 4.35-5.85 Venous blood hemoglobin measurement (mass/volume) 9.9 g/dL 11.5-16.0 Blood hematocrit (volume fraction) 30 % 35-52 Automated erythrocyte mean corpuscular volume 95 [foz_us] 80-99 Automated erythrocyte mean corpuscular hemoglobin (mass per erythrocyte) 31 pg 25-34 Automated erythrocyte mean corpuscular hemoglobin concentration measurement ( mass/volume) 33 g/dL 32-36 Automated erythrocyte distribution width ratio 13.1 % 10.0-14.5 Automated blood platelet count (count/volume) 152 10*3/uL 130-400 Automated blood platelet mean volume measurement 11.2 [foz_ us] 7.4-10.4 Automated blood neutrophils/100 leukocytes 84 % 42-75 Automated blood lymphocytes/100 leukocytes 10 % 12-44 Blood monocytes/100 leukocytes 7 % 0-12 Automated blood eosinophils/100 leukocytes 0 % 0-10 Automated blood basophils/100 leukocytes 0 % 0-10 Blood neutrophils automated count (number/volume) 9.6 10*3 1.8-7.8 Blood lymphocytes automated count (number/volume) 1.1 10*3 1.0-4.0 Blood monocytes automated count (number/volume) 0.8 10*3 0.0-1.0 Automated eosinophil count 0.0 10*3/uL 0.0-0.3 Automated blood basophil count (count/volume) 0.0 10*3/uL 0.0-0.1 PT panel in platelet poor plasma by coagulation assay - 10/24/16 04:20 Prothrombin time (PT) in platelet poor plasma by coagulation assay 14.8 s 12.2-14.7 INR in platelet poor plasma or blood by coagulation assay 1.2 0.8-1.4 Activated partial thromboplastin time (aPTT) in platelet poor plasma bycoagulation assay - 10/24/16 04:20 Activated partial thromboplastin time (aPTT) in platelet poor plasma bycoagulation assay 37 s 24-35 Comprehensive metabolic panel - 10/24/16 04:20 Serum or plasma sodium measurement (moles/volume) 143 mmol/ L 135-145 Serum or plasma potassium measurement (moles/volume) 3.4 mmol/L 3.6-5.0 Serum or plasma chloride measurement (moles/volume) 119 mmol /L 98-107 Carbon dioxide 17 mmol/L 21-32 Serum or plasma anion gap determination (moles/volume) 7 mmol/L 5-14 Serum or plasma urea nitrogen measurement (mass/volume) 12 mg/dL 7-18 Serum or plasma creatinine measurement (mass/volume) 0.83 mg /dL 0.60-1.30 Serum or plasma urea nitrogen/creatinine mass ratio 14 NRG Serum or plasma creatinine measurement with calculation of estimated glomerular filtration rate > NRG Serum or plasma glucose measurement (mass/volume) 91 mg/dL 70-105 Serum or plasma calcium measurement (mass/volume) 7.8 mg/dL 8.5-10.1 Serum or plasma total bilirubin measurement (mass/volume) 0.7 mg/dL 0.1-1.0 Serum or plasma alkaline phosphatase measurement (enzymatic activity/volume) 111 U/L 40-136 Serum or plasma aspartate aminotransferase measurement (enzymatic activity/ volume) 88 U/L 5-34 Serum or plasma alanine aminotransferase measurement (enzymatic activity/volume ) 115 U/L 0-55 Serum or plasma protein measurement (mass/volume) 4.9 g/dL 6.4-8.2 Serum or plasma albumin measurement (mass/volume) 2.5 g/dL 3.2-4.5 Magnesium - 10/24/16 04:20 Magnesium 1.8 mg/dL 1.8-2.4 Capillary blood glucose measurement by glucometer (mass/volume) - 10/24/16 11: 51 Capillary blood glucose measurement by glucometer (mass/volume) 122 mg/dL 70-110 Capillary blood glucose measurement by glucometer (mass/volume) - 10/24/16 15: 27 Capillary blood glucose measurement by glucometer (mass/volume) 136 mg/dL 70-110 Capillary blood glucose measurement by glucometer (mass/volume) - 10/24/16 20: 43 Capillary blood glucose measurement by glucometer (mass/volume) 114 mg/dL 70-110 Automated blood complete blood count (hemogram) panel - 10/25/16 05:30 Blood leukocytes automated count (number/volume) 9.5 10*3/ uL 4.3-11.0 Blood erythrocytes automated count (number/volume) 3.24 10*6 /uL 4.35-5.85 Venous blood hemoglobin measurement (mass/volume) 10.3 g/dL 11.5-16.0 Blood hematocrit (volume fraction) 30 % 35-52 Automated erythrocyte mean corpuscular volume 94 [foz_us] 80-99 Automated erythrocyte mean corpuscular hemoglobin (mass per erythrocyte) 32 pg 25-34 Automated erythrocyte mean corpuscular hemoglobin concentration measurement ( mass/volume) 34 g/dL 32-36 Automated erythrocyte distribution width ratio 12.9 % 10.0-14.5 Automated blood platelet count (count/volume) 182 10*3/uL 130-400 Automated blood platelet mean volume measurement 11.2 [foz_ us] 7.4-10.4 Comprehensive metabolic panel - 10/25/16 05:30 Serum or plasma sodium measurement (moles/volume) 144 mmol/ L 135-145 Serum or plasma potassium measurement (moles/volume) 3.0 mmol/L 3.6-5.0 Serum or plasma chloride measurement (moles/volume) 117 mmol /L 98-107 Carbon dioxide 17 mmol/L 21-32 Serum or plasma anion gap determination (moles/volume) 10 mmol/L 5-14 Serum or plasma urea nitrogen measurement (mass/volume) 8 mg /dL 7-18 Serum or plasma creatinine measurement (mass/volume) 0.75 mg /dL 0.60-1.30 Serum or plasma urea nitrogen/creatinine mass ratio 11 NRG Serum or plasma creatinine measurement with calculation of estimated glomerular filtration rate > NRG Serum or plasma glucose measurement (mass/volume) 116 mg/dL 70-105 Serum or plasma calcium measurement (mass/volume) 8.6 mg/dL 8.5-10.1 Serum or plasma total bilirubin measurement (mass/volume) 0.6 mg/dL 0.1-1.0 Serum or plasma alkaline phosphatase measurement (enzymatic activity/volume) 114 U/L 40-136 Serum or plasma aspartate aminotransferase measurement (enzymatic activity/ volume) 46 U/L 5-34 Serum or plasma alanine aminotransferase measurement (enzymatic activity/volume ) 79 U/L 0-55 Serum or plasma protein measurement (mass/volume) 5.3 g/dL 6.4-8.2 Serum or plasma albumin measurement (mass/volume) 2.8 g/dL 3.2-4.5 Magnesium - 10/25/16 05:30 Magnesium 1.5 mg/dL 1.8-2.4 Capillary blood glucose measurement by glucometer (mass/volume) - 10/25/16 11: 22 Capillary blood glucose measurement by glucometer (mass/volume) 194 mg/dL 70-110 Capillary blood glucose measurement by glucometer (mass/volume) - 10/25/16 16: 19 Capillary blood glucose measurement by glucometer (mass/volume) 154 mg/dL 70-110 Capillary blood glucose measurement by glucometer (mass/volume) - 10/25/16 20: 50 Capillary blood glucose measurement by glucometer (mass/volume) 250 mg/dL 70-110 Capillary blood glucose measurement by glucometer (mass/volume) - 10/26/16 05: 58 Capillary blood glucose measurement by glucometer (mass/volume) 58 mg/dL 70-110 Capillary blood glucose measurement by glucometer (mass/volume) - 10/26/16 06: 34 Capillary blood glucose measurement by glucometer (mass/volume) 135 mg/dL 70-110 Capillary blood glucose measurement by glucometer (mass/volume) - 10/26/16 10: 49 Capillary blood glucose measurement by glucometer (mass/volume) 98 mg/dL 70-110 Capillary blood glucose measurement by glucometer (mass/volume) - 10/26/16 16: 03 Capillary blood glucose measurement by glucometer (mass/volume) 180 mg/dL 70-110 Capillary blood glucose measurement by glucometer (mass/volume) - 10/26/16 21: 12 Capillary blood glucose measurement by glucometer (mass/volume) 207 mg/dL 70-110 Capillary blood glucose measurement by glucometer (mass/volume) - 10/27/16 05: 27 Capillary blood glucose measurement by glucometer (mass/volume) 100 mg/dL 70-110 Capillary blood glucose measurement by glucometer (mass/volume) - 10/27/16 11: 00 Capillary blood glucose measurement by glucometer (mass/volume) 143 mg/dL 70-110 Capillary blood glucose measurement by glucometer (mass/volume) - 10/27/16 16: 21 Capillary blood glucose measurement by glucometer (mass/volume) 188 mg/dL 70-110 Capillary blood glucose measurement by glucometer (mass/volume) - 10/27/16 22: 02 Capillary blood glucose measurement by glucometer (mass/volume) 213 mg/dL 70-110 Capillary blood glucose measurement by glucometer (mass/volume) - 10/28/16 06: 24 Capillary blood glucose measurement by glucometer (mass/volume) 68 mg/dL 70-110 Capillary blood glucose measurement by glucometer (mass/volume) - 10/28/16 07: 26 Capillary blood glucose measurement by glucometer (mass/volume) 191 mg/dL 70-110 Capillary blood glucose measurement by glucometer (mass/volume) - 10/28/16 11: 01 Capillary blood glucose measurement by glucometer (mass/volume) 219 mg/dL 70-110 Capillary blood glucose measurement by glucometer (mass/volume) - 10/28/16 16: 23 Capillary blood glucose measurement by glucometer (mass/volume) 141 mg/dL 70-110 Capillary blood glucose measurement by glucometer (mass/volume) - 10/28/16 21: 11 Capillary blood glucose measurement by glucometer (mass/volume) 213 mg/dL 70-110 Complete blood count (CBC) with automated white blood cell (WBC) differential - 10/29/16 06:00 Blood leukocytes automated count (number/volume) 7.4 10*3/ uL 4.3-11.0 Blood erythrocytes automated count (number/volume) 3.81 10*6 /uL 4.35-5.85 Venous blood hemoglobin measurement (mass/volume) 11.9 g/dL 11.5-16.0 Blood hematocrit (volume fraction) 35 % 35-52 Automated erythrocyte mean corpuscular volume 91 [foz_us] 80-99 Automated erythrocyte mean corpuscular hemoglobin (mass per erythrocyte) 31 pg 25-34 Automated erythrocyte mean corpuscular hemoglobin concentration measurement ( mass/volume) 34 g/dL 32-36 Automated erythrocyte distribution width ratio 12.8 % 10.0-14.5 Automated blood platelet count (count/volume) 297 10*3/uL 130-400 Automated blood platelet mean volume measurement 10.0 [foz_ us] 7.4-10.4 Automated blood neutrophils/100 leukocytes 53 % 42-75 Automated blood lymphocytes/100 leukocytes 32 % 12-44 Blood monocytes/100 leukocytes 12 % 0-12 Automated blood eosinophils/100 leukocytes 2 % 0-10 Automated blood basophils/100 leukocytes 0 % 0-10 Blood neutrophils automated count (number/volume) 4.0 10*3 1.8-7.8 Blood lymphocytes automated count (number/volume) 2.4 10*3 1.0-4.0 Blood monocytes automated count (number/volume) 0.9 10*3 0.0-1.0 Automated eosinophil count 0.1 10*3/uL 0.0-0.3 Automated blood basophil count (count/volume) 0.0 10*3/uL 0.0-0.1 Comprehensive metabolic panel - 10/29/16 06:00 Serum or plasma sodium measurement (moles/volume) 146 mmol/ L 135-145 Serum or plasma potassium measurement (moles/volume) 2.4 mmol/L 3.6-5.0 Serum or plasma chloride measurement (moles/volume) 106 mmol /L 98-107 Carbon dioxide 29 mmol/L 21-32 Serum or plasma anion gap determination (moles/volume) 11 mmol/L 5-14 Serum or plasma urea nitrogen measurement (mass/volume) 3 mg /dL 7-18 Serum or plasma creatinine measurement (mass/volume) 0.79 mg /dL 0.60-1.30 Serum or plasma urea nitrogen/creatinine mass ratio 4 NRG Serum or plasma creatinine measurement with calculation of estimated glomerular filtration rate > NRG Serum or plasma glucose measurement (mass/volume) 77 mg/dL 70-105 Serum or plasma calcium measurement (mass/volume) 8.9 mg/dL 8.5-10.1 Serum or plasma total bilirubin measurement (mass/volume) 0.6 mg/dL 0.1-1.0 Serum or plasma alkaline phosphatase measurement (enzymatic activity/volume) 99 U/L 40-136 Serum or plasma aspartate aminotransferase measurement (enzymatic activity/ volume) 21 U/L 5-34 Serum or plasma alanine aminotransferase measurement (enzymatic activity/volume ) 34 U/L 0-55 Serum or plasma protein measurement (mass/volume) 6.2 g/dL 6.4-8.2 Serum or plasma albumin measurement (mass/volume) 3.2 g/dL 3.2-4.5 Capillary blood glucose measurement by glucometer (mass/volume) - 10/29/16 11: 10 Capillary blood glucose measurement by glucometer (mass/volume) 157 mg/dL 70-110 Capillary blood glucose measurement by glucometer (mass/volume) - 10/29/16 16: 13 Capillary blood glucose measurement by glucometer (mass/volume) 320 mg/dL 70-110 Serum or plasma potassium measurement (moles/volume) - 10/29/16 16:15 Serum or plasma potassium measurement (moles/volume) 3.1 mmol/L 3.6-5.0 Magnesium - 10/29/16 16:15 Magnesium 1.5 mg/dL 1.8-2.4 Capillary blood glucose measurement by glucometer (mass/volume) - 10/29/16 21: 29 Capillary blood glucose measurement by glucometer (mass/volume) 128 mg/dL 70-110 Whole blood basic metabolic panel - 10/30/16 05:36 Serum or plasma sodium measurement (moles/volume) 146 mmol/ L 135-145 Serum or plasma potassium measurement (moles/volume) 3.9 mmol/L 3.6-5.0 Serum or plasma chloride measurement (moles/volume) 110 mmol /L 98-107 Carbon dioxide 25 mmol/L 21-32 Serum or plasma anion gap determination (moles/volume) 11 mmol/L 5-14 Serum or plasma urea nitrogen measurement (mass/volume) 5 mg /dL 7-18 Serum or plasma creatinine measurement (mass/volume) 0.82 mg /dL 0.60-1.30 Serum or plasma urea nitrogen/creatinine mass ratio 6 NRG Serum or plasma creatinine measurement with calculation of estimated glomerular filtration rate > NRG Serum or plasma glucose measurement (mass/volume) 97 mg/dL 70-105 Serum or plasma calcium measurement (mass/volume) 9.0 mg/dL 8.5-10.1 Capillary blood glucose measurement by glucometer (mass/volume) - 10/30/16 11: 31 Capillary blood glucose measurement by glucometer (mass/volume) 74 mg/dL 70-110 Capillary blood glucose measurement by glucometer (mass/volume) - 10/30/16 16: 37 Capillary blood glucose measurement by glucometer (mass/volume) 192 mg/dL 70-110 Encounters ACCT No. Visit Date/Time Discharge Status Pt. Type Provider Facility Loc./Unit Complaint [id number] 10/22/2016 14:52:00 2016 09:25:00 DIS Inpatient CAROLYN WHITLOCK, TINA [facility] 4TH SEVERE SEPSIS [id number] 02/08/2015 13:47:00 2014 23:59:59 CLS Outpatient AUGUST GARCIA [facility] RAD BILATERAL SCREENING MAMMOGRAM [id number] 11/26/2014 11:04:00 2014 13:11:00 DIS Outpatient CODY LYNN MD [facility] REHAB LUMBAR LAMINECTOMY [id number] 09/23/2014 18:14:00 2014 21:16:00 DIS Emergency LESTER TRIVEDI MD [facility] ER L LEG SWELLING [id number] 09/15/2014 04:42:00 2014 23:59:59 CLS Outpatient TINA LEON MD [facility] LABNPT [id number] 09/14/2014 11:07:00 2014 12:45:00 DIS Inpatient CODY LYNN MD [facility] SURGICAL STENOSIS [id number] 08/31/2014 11:42:00 2014 23:59:59 CLS Outpatient CODY LYNN MD [facility] PREOP STENOSIS [id number] 01/06/2014 11:22:00 2013 23:59:59 CLS Outpatient MARTINEZ MASTERS MD [facility] RAD RT CACIFICATIONS [id number] 12/29/2013 08:56:00 2013 23:59:59 CLS Outpatient MARTINEZ MASTERS MD [facility] RAD ABNORMAL MAMMO [id number] 12/23/2013 11:37:00 2013 23:59:59 CLS Outpatient MARTINEZ MASTERS MD [facility] RAD SCREENING [id number] 11/04/2013 07:35:00 2013 13:45:00 DIS Outpatient DEEPTI MURRIETA DO [facility] SDC THICKENED ENDOMETRIUM [id number] 10/28/2013 08:31:00 2013 23:59:59 CLS Outpatient DEEPTI MURRIETA DO [facility] PREOP THICKENED ENDOMETRIUM [id number] 10/14/2013 09:31:00 2013 23:59:59 CLS Outpatient DEEPTI MURRIETA DO [facility] RAD ENDOMETRIOSIS [id number] 09/17/2013 17:33:00 2013 23:59:59 CLS Outpatient MATRINEZ MASTERS MD [facility] RAD POSITIVE D-DIMER,RT CALF PAIN [id number] 03/10/2013 09:06:00 2012 23:59:59 CLS Outpatient MARTINEZ MASTERS MD [facility] RAD INCREASED ABD GIRTH [id number] 11/29/2016 11:00:00 PEN Preadmit KANDI WHITLOCK, JACKIE [facility] ENDO DIVERTICULITIS, HISTORY POLYPS, FAM HX CA [id number] 10/25/2016 09:37:00 ACT Inpatient CAROLYN WHITLOKC, TINA L[place] [facility] 4TH SWB-DIVERTICULAR ABSCESS [id number] 08/23/2016 13:19:00 ACT Outpatient HELLEN CHACON APRN [facility] RAD 6 MO F/U [id number] 02/07/2016 13:26:00 ACT Outpatient HELLEN CHACON APRN [facility] RAD FOLLOW UP TO ABNORMAL MAMMO [id number] 07/14/2015 13:55:00 ACT Outpatient HELLEN CHACON APRN [facility] RAD 6 MONTH FOLLOW UP,DENSITY IN RIGHT BREAST [id number] 07/15/2014 13:26:00 Document Registration [id number] 05/15/2012 10:57:00 Document Registration [id number] 03/18/2012 14:26:00 Document Registration [id number] 02/01/2012 05:55:00 Document Registration [id number] 01/25/2012 07:30:00 Document Registration [id number] 11/02/2011 06:59:00 Document Registration [id number] 11/01/2011 07:44:00 Document Registration [id number] 05/11/2011 12:42:00 Document Registration [id number] 05/05/2010 10:37:00 Document Registration [id number] 02/14/2010 05:54:00 Document Registration [id number] 02/09/2010 07:34:00 Document Registration [id number] 11/30/2009 08:28:00 Document Registration
[2016-11-29 09:08] VITALS: BP 134/68
[2016-11-29] MEDS ORDERED: NS IV 500 ML 500 ML IV PRN (09:15)
[2016-11-29] MEDS ORDERED: LIDOCAINE JELLY 2% (XYLOCAINE) 5 ML TUBE MM PRN (09:15)
[2016-11-29] MEDS ORDERED: fentaNYL INJECTION 100 MCG/2 ML AMP ONE ×2 (10:44→10:45)
[2016-11-29] MEDS ORDERED: LIDOCAINE JELLY 2% (XYLOCAINE) 5 ML TUBE ONE (10:44)
--- NOTE | 2016-11-29 10:44 | Progress Note-Pre Operative ---
Pre-Operative Progress Note H&P Reviewed The H&P was reviewed, patient examined and no changes noted. Date Seen by Provider: Nov 29, 2016 Time Seen by Provider: 10:00 Date H&P Reviewed: Nov 29, 2016 Time H&P Reviewed: 10:00 Pre-Operative Diagnosis: pelvic mass JACKIE CHAU MD Nov 29, 2016 10:44 am
--- NOTE | 2016-11-29 10:44 | Conscious Sedation/ASA ---
Conscious Sedation Pre-Proced Time Reviewed: 10:00 ASA Class: 2 Airway Mallampati Classification: ([place] appropriate class) I. II. III, IV Lungs Heart ASA score ASA 1: a normal healthy patient ASA 2: a patient with a mild systemic disease (mid diabetes, controlled hypertension, obesity ASA 3: a patient with a severe systemic disease that limits activity (angina , COPD, prior Myocardial infarction) ASA 4: a patient with an incapacitating disease that is a constant threat to life (CHF, renal failure) ASA 5: a moribund patient not expected to survive 24 hrs. (ruptured aneurysm) ASA 6: a declared brain patient whose organs are being harvested. For emergent operations, add the letter E after the classification Grade 2 Sedation Plan: Analgesia, Amnesia, Plan communicated to team members, Discussed options with patient/fam, Discussed risks with patient/fam Note The patient is an appropriate candidate to undergo the planned procedure, sedation, and anesthesia. The patient immediately re-assessed prior to indication. JACKIE CHAU MD Nov 29, 2016 10:44 am
[2016-11-29] MEDS ORDERED: morphine INJ 10 MG/ML 1ML (SYR OR VIAL) IV PRN (10:45)
[2016-11-29] MEDS ORDERED: ONDANSETRON 4 MG/2 ML (SDV) Z0FRAN IV PRN (10:45)
[2016-11-29] MEDS ORDERED: MIDAZOLAM 2 MG/2 ML (VERSED) VIAL ONE ×5 (10:45→11:01)
[2016-11-29] MEDS ORDERED: HYDROcodone/APAP 5 MG/325 MG (LORTAB) TAB PO PRN (10:45)
[2016-11-29] MEDS ORDERED: ACETAMINOPHEN 325 MG TABLET/CAPLET (TYLENOL) PO PRN (10:45)
[2016-11-29] MEDS: fentaNYL INJECTION 100 MCG/2 ML AMP IVP PRN ×4 (11:00→11:25)
[2016-11-29] MEDS: MIDAZOLAM 2 MG/2 ML (VERSED) VIAL IVP PRN ×5 (11:02→11:15)
--- NOTE | 2016-11-29 12:02 | Progress Note-Post Operative ---
Post-Operative Progess Note Surgeon (s)/Radio Interference Expert (s) Surgeon JACKIE CHAU MD Radio Interference Expert: none Pre-Operative Diagnosis pelvic mass Post-Operative Diagnosis same, diverticulitis, near obstructive mass. Procedure & Operative Findings Date of Procedure 11/29/16 Procedure Performed/Findings Sigmoidoscopy with bx and submucosal injection. Anesthesia Type CS Estimated Blood Loss Estimated blood loss (mL): minimal Specimens/Packing Specimens Removed sigmoid mass. JACKIE CHAU MD Nov 29, 2016 12:02 pm
[2016-11-29] MEDS ORDERED: CIPR-225 PO (12:04)
[2016-11-29] MEDS ORDERED: METR500T21 PO (12:04)
--- NOTE | 2016-11-29 12:05 | Discharge Inst-Surgical ---
D/C Lap Instructions-KANDI New, Converted, or Re-Newed RX: RX on Chart Follow Up Appt in 2 weeks Activity as tolerated High Fiber Diet 25g or more per day Avoid Alcohol, Caffeine, Spicy [place] and Acid foods. Drink 64 fluid oz or more of fluids per day. Symptoms to Report: Fever over 101 degree F, Nausea/Vomiting If any problems/questions: Contact your physician or go to Emergency Room JACKIE CHAU MD Nov 29, 2016 12:05 pm
[2016-11-29 12:15] VITALS: BP 117/68
[2016-11-29 12:50] VITALS: BP 120/69
[2016-11-29 12:55] VITALS: BP 120/69
--- NOTE | 2016-11-30 13:36 | PROCEDURE REPORT ---
PROCEDURE PHYSICIAN: JACKIE SALAZAR DATE OF PROCEDURE: 11/29/2016 ATTENDING PHYSICIAN: Dr. No. PREOPERATIVE DIAGNOSIS: Pelvic mass. POSTOPERATIVE DIAGNOSIS: Pelvic mass with near obstructing lesion with significant diverticulosis, and what also appears to be active an diverticulitis. Colonic neoplasm cannot be excluded. PROCEDURE: Sigmoidoscopy with biopsy and submucosal injection. SURGEON: Dr. Salazar. ANESTHESIA: Conscious sedation. ESTIMATED BLOOD LOSS: Minimal. FINDINGS: Moderate to severe sigmoid diverticulosis and the near obstructing lesion of the sigmoid colon with multiple diverticula and fibrinoexudative rind which may indicate an active diverticulitis versus a possible mass. The endoscope was attempted to pass through this however this was strictured down and we decided to proceed with biopsy, submucosal injection as well as a repeat CT scan. DISPOSITION: The patient tolerated the procedure well. Mrs. Magalys Jeronimo is an 81-year-old female who presented to the emergency department on 10/22/2016 with a 2 day history of not feeling well. She had reported fevers and chills as well as pain in the left lower abdominal quadrant and nausea. A CT scan was performed and she did have 6.3 cm lesion of the pelvis adjacent to the sigmoid colon. This was hard to determine if this was diverticular abscess versus a colonic neoplasm versus an ovarian neoplasm. She was placed on IV antibiotics and fluids and did improve. She had reported having a previous history of constipation, as well as the last colonoscopy approximately 5 years ago which she believes to be normal. She also reports that she did have one in approximately in 2006 where polyps were identified and found to be benign. She does not report any family history of colon cancer. PROCEDURE: The patient was brought to the endoscopy suite, laid in the left lateral decubitus position. After adequate IV pain and sedative medications and conscious sedation anesthesia, a digital rectal examination was performed. No significant hemorrhoids were identified. Normal sphincter tone was felt and there were no palpable masses. The endoscope was then intubated into the anus and the rectum gently insufflated. The endoscope was then advanced through the valves of Gross the rectum with no polyps or any neoplasms identified. At the distal sigmoid colon a significant diverticulosis identified. As we proceeded more proximal there was what appeared to be an area of stricture, as well as a fibrinoexudative rind consistent with healing diverticulitis; however, a neoplasm could not be excluded. An attempt was made to pass through this; however this was strictured and we did not proceed further. Biopsies were taken of this area using forceps and electrocautery with visualization of good hemostasis. This was also some mucosal injection of black spot ink. The endoscope was slowly withdrawn while taking a second look and suctioning of residual air with no additional findings. The patient tolerated the procedure well. The inflammatory mass identified on CT scan during her last admission appears to still be there. We will proceed with Cipro and Flagyl b.i.d. for the next 10 days. However also schedule a follow-up CT scan with IV contrast within the next week. We will also await the biopsy results. Job ID: [id number] Dictated Date: 11/29/2016 12:11:19 Shade Bander Date: 11/30/2016 13:19:15 / russell
== END 2016-11-29 13:00 | disposition home or self-care (01) ==
LOC: ENDO 08:52
PROVIDERS: ATTEND Surgery
DX: K63.5 Polyp of colon (principal); K57.32 Diverticulitis of large intestine without perforation or abscess without bleeding; K21.9 Gastro-esophageal reflux disease without esophagitis; E78.00 Pure hypercholesterolemia, unspecified; I10 Essential (primary) hypertension; E11.9 Type 2 diabetes mellitus without complications; E03.9 Hypothyroidism, unspecified; Z79.899 Other long term (current) drug therapy
CPT/HCPCS: 88305

== ENCOUNTER → 2016-11-30 | Outpatient (CLI) | payer MEDICARE ==
[~2016-11-30] MED LIST changes: +CATHETER FLUSH 10 ML SYR IV PRN; +CIPR-225 PO; +IOHEXOL 350 MG/ML 100 ML (OMNIPAQUE 350) VIAL IV ONE; +NS 100 ML (IVPB) BAG IV ONE
[2016-11-30 11:49] LABS: BASOPHILS % (AUTO) 0 % (0-10); EOSINOPHILS # (AUTO) 0.1 10^3/uL (0.0-0.3); EOSINOPHILS % (AUTO) 1 % (0-10); LYMPHOCYTES # (AUTO) 2.8 X 10^3 (1.0-4.0); LYMPHOCYTES % (AUTO) 34 % (12-44); MEAN CORPUSCULAR HEMOGLOBIN 32 PG (25-34); MEAN CORPUSCULAR HGB CONC 34 G/DL (32-36); MEAN CORPUSCULAR VOLUME 93 FL (80-99); MEAN PLATELET VOLUME 10.3 FL (7.4-10.4); MONOCYTES # (AUTO) 0.7 X 10^3 (0.0-1.0); MONOCYTES % (AUTO) 8 % (0-12); NEUTROPHILS # (AUTO) 4.7 X 10^3 (1.8-7.8); NEUTROPHILS % (AUTO) 57 % (42-75); PLATELET COUNT 246 10^3/uL (130-400); RED BLOOD COUNT 4.35 10^6/uL (4.35-5.85); RED CELL DISTRIBUTION WIDTH 13.6 % (10.0-14.5); WHITE BLOOD COUNT 8.2 10^3/uL (4.3-11.0)
[2016-11-30 12:05] LABS: CALCIUM 10.4 MG/DL (8.5-10.1); CREATININE SERUM 0.99 MG/DL (0.60-1.30); POTASSIUM 4.3 MMOL/L (3.6-5.0)
--- NOTE | 2016-11-30 14:18 | Diagnostic Imaging Report ---
PROCEDURE: CT abdomen and pelvis with and without contrast. TECHNIQUE: Precontrast acquisitions were acquired through the abdomen and pelvis. Multiple contiguous axial images were obtained through the abdomen and pelvis after the administration of intravenous contrast. INDICATION: Pelvic mass. 75 mL of Omnipaque 350 is administered intravenously. COMPARISON: 10/30/16 FINDINGS: The lung bases appear clear. The liver, the gallbladder, the spleen, and the adrenal glands appear unremarkable. The pancreas appears unremarkable. The kidneys have symmetric enhancement and contrast excretion. There is no hydronephrosis. The abdominal aorta is normal in caliber. No para-aortic significantly enlarged lymph nodes are seen. There is no bowel obstruction. There is diverticulosis. In the sigmoid region, there is less prominent wall thickening compared to the previous exam of 10/30/2016. There is a 4.6 x 2.2 cm area of soft tissue thickening seen in the left adnexa adjacent to the sigmoid colon. The previously seen fluid collection is resolved. This could be related to mild inflammation about in the tissues around the left adnexa. Its central aspect near the sigmoid colon demonstrates air bubbles which could relate to diverticula or a persistent sinus tract. A small persistent sinus tract is not entirely excluded. No drainable abscess is seen at this time. The right side of the pelvis and right adnexa demonstrate no significant abnormality. The appendix is normal. There is a tiny fat-containing umbilical hernia. The osseous structures demonstrate advanced degenerative changes. Sclerotic focus prominent in L4 vertebral body measuring 1 cm is stable from the prior exam, probably an incidental bony island. IMPRESSION: 1. There is improvement in findings of diverticulitis of the sigmoid colon with decreased but not completely resolved wall thickening. Correlation with colonoscopy is recommended to rule out lack of underlying lesion. 2. There is improvement in the previously suspected abscess along the left adnexa region with persistent enhancing nonspecific tissue, which is likely related to tissue inflammation and healing. Its central aspect demonstrates air bubbles which could relate to diverticula or a persistent sinus tract. No drainable abscess or significant fluid collection is seen. CT pelvis with rectal contrast can confirm a persistent sinus tract if needed. Dictated by: Dictated on workstation # [id number]
== END ==
LOC: RAD 11:30
PROVIDERS: ATTEND Surgery
DX: K57.32 Diverticulitis of large intestine without perforation or abscess without bleeding (principal); R19.09 Other intra-abdominal and pelvic swelling, mass and lump
CPT/HCPCS: 36415; 74178; 80048; 85025

== ENCOUNTER → 2016-12-19 | Outpatient (CLI) | payer MEDICARE ==
[~2016-12-19] MED LIST changes: -CATHETER FLUSH 10 ML SYR IV PRN; +DIATRIZOATE MEGLUM/SODIUM 37% 120 ML (GASTROGRAFIN) PO ONE; -IOHEXOL 350 MG/ML 100 ML (OMNIPAQUE 350) VIAL IV ONE; -NS 100 ML (IVPB) BAG IV ONE
--- NOTE | 2016-12-19 14:14 | Diagnostic Imaging Report ---
PROCEDURE: CT pelvis without intravenous and with rectal contrast. TECHNIQUE: Multiple contiguous axial images were obtained through the pelvis without the use of intravenous and with the use of rectal contrast. Sagittal and coronal reformations were performed. INDICATION: Pelvic mass. COMPARISON: 11/30/2016. FINDINGS: There is rectal contrast seen passing into the proximal colon through an area of narrowing within the sigmoid colon lined by thickened colonic wall. When compared to previous exam, there is improvement in the inflammatory changes in the surrounding fat. To the left side of this sigmoid colon segment, there is an area of abnormality with thickened rim of tissue and central air bubbles. This is probably communicating with the sigmoid colon through a small channel representing a sinus tract. This is not a large communication as the contrast within the colon does not extend into this lesion. This is also not associated with a significant fluid collection or abscess. Numerous diverticula are seen with no evidence of an acute episode of diverticulitis. Minimal fluid content, however, in it is present. This is inseparable from the left adnexa. The urinary bladder appears unremarkable. Osseous structures demonstrate advanced degenerative changes in the lumbar spine and SI joints. IMPRESSION: 1. Findings compatible with sequelae of diverticulitis with remaining wall thickening in the sigmoid colon and suggestion of sigmoid luminal narrowing or stricture. Correlate with sigmoidoscopy. 2. There is also suggestion of a sinus tract that probably communicates with the sigmoid colon through a very small channel surrounded by thickened soft tissue, inseparable from the left adnexa. Dictated by: Dictated on workstation # [id number]
== END ==
LOC: RAD 13:00
PROVIDERS: ATTEND Surgery
DX: K57.32 Diverticulitis of large intestine without perforation or abscess without bleeding (principal); R93.3 Abnormal findings on diagnostic imaging of other parts of digestive tract
CPT/HCPCS: 72192

== ENCOUNTER 2016-12-29 11:39 | Outpatient (CLI) | payer MEDICARE ==
[~2016-12-29] VITALS: Ht 152.4 cm; Wt 67.1 kg
[~2016-12-29 11:39] MED LIST changes: -DIATRIZOATE MEGLUM/SODIUM 37% 120 ML (GASTROGRAFIN) PO ONE
[2016-12-29 11:55] VITALS: BP 138/69
[2016-12-29] MEDS ORDERED: CIPR500T4 PO (12:19)
[2016-12-29] MEDS ORDERED: METR500T21 PO (12:19)
== END 2016-12-29 12:15 | disposition home or self-care (01) ==
LOC: PREOP 11:39
PROVIDERS: ATTEND Surgery
DX: Z01.818 Encounter for other preprocedural examination (principal); Z11.2 Encounter for screening for other bacterial diseases; K57.32 Diverticulitis of large intestine without perforation or abscess without bleeding
CPT/HCPCS: 87081

== ENCOUNTER 2017-01-04 08:40 | Inpatient (IN) | payer MEDICARE ==
[~2017-01-04] VITALS: Ht 152.4 cm; Wt 77.7 kg
[2017-01-04] VITALS (10 sets, daily range): BP systolic 125–162; BP diastolic 61–86
[2017-01-04] MEDS ORDERED: ceFAZolin 1 GM/NS 50 ML IVPB IV ONE ×2 (09:00)
[2017-01-04] MEDS ORDERED: CATHETER FLUSH 10 ML SYR IV PRN (09:00)
[2017-01-04] MEDS ORDERED: metroNIDAZOLE 500 MG/100 ML IVPB (PRE-MIX) IV ONE (09:00)
[2017-01-04] MEDS ORDERED: LACTATED RINGERS 1,000 ML IV PRN ×2 (09:05→11:34)
[2017-01-04] MEDS ORDERED: BUP/EPI 0.5% 1:200,000 (MARCAINE) 10ML VIAL IJ ONE (11:43)
[2017-01-04] MEDS ORDERED: ATRACURIUM 50 MG/5 ML (TRACRIUM) IV ONE ×2 (12:11→14:18)
[2017-01-04] MEDS ORDERED: LACTATED RINGERS 1,000 ML IV ONE ×3 (12:14→16:37)
[2017-01-04] MEDS ORDERED: LIDOCAINE PF 2% 5 ML (XYLOCAINE) VIAL ONE ×3 (12:14→13:09)
[2017-01-04] MEDS ORDERED: SEVOFLURANE (ULTANE) 15 ML INHAL SOLN ONE ×10 (12:14→16:38)
[2017-01-04] MEDS ORDERED: proPOfol 200 MG/20 ML (DIPRIVAN) VIAL IV ONE (12:14)
[2017-01-04] MEDS ORDERED: MIDAZOLAM 2 MG/2 ML (VERSED) VIAL ONE (12:14)
[2017-01-04] MEDS ORDERED: fentaNYL INJECTION 100 MCG/2 ML AMP ONE ×3 (12:14→19:37)
[2017-01-04] MEDS ORDERED: HURRICAINE EXT TUBE (BENZOCAINE) ONE (12:14)
--- NOTE | 2017-01-04 13:16 | Progress Note-Pre Operative ---
Pre-Operative Progress Note H&P Reviewed The H&P was reviewed, patient examined and no changes noted. Date Seen by Provider: Jan 04, 2017 Time Seen by Provider: 13:00 Date H&P Reviewed: Jan 04, 2017 Time H&P Reviewed: 13:00 Pre-Operative Diagnosis: sigmoid colonic mass JACKIE CHAU MD Jan 04, 2017 1:16 pm
[2017-01-04] MEDS ORDERED: ONDANSETRON 4 MG/2 ML (SDV) Z0FRAN ONE ×2 (15:23→16:25)
[2017-01-04] MEDS ORDERED: morphine INJ 10 MG/ML 1ML (SYR OR VIAL) ONE (15:23)
[2017-01-04] MEDS ORDERED: GLYCOPYRROLATE 0.2 MG/ML (ROBINUL) 2 ML VIAL ONE (16:31)
[2017-01-04] MEDS ORDERED: NEOSTIGMINE (BLOXIVERZ ) 1 MG/1ML 10 ML VIAL ONE (16:31)
[2017-01-04] MEDS ORDERED: ROCURONIUM 50 MG/5 ML (ZEMURON) VIAL IV ONE (16:38)
[2017-01-04] MEDS ORDERED: ceFAZolin 1,000 MG (ANCEF) VIAL ONE (16:41)
[2017-01-04] MEDS ORDERED: metroNIDAZOLE 500MG/100ML IVPB 100 ML ONE (16:41)
--- NOTE | 2017-01-04 16:59 | Progress Note-Post Operative ---
Post-Operative Progess Note Surgeon (s)/Gas Station Manager (s) Surgeon JACKIE CHAU MD Gas Station Manager: apolinar morrison GRAIN UNLOADER MACHINE Pre-Operative Diagnosis sigmoid colonic mass Post-Operative Diagnosis sigmoid colonic mass, left ovarian mass. Procedure & Operative Findings Date of Procedure 01/04/17 Procedure Performed/Findings laparoscopic low anterior colorectal resection with en-bloc left tubo- oophorectomy. Anesthesia Type GET Estimated Blood Loss Estimated blood loss (mL): minimal Specimens/Packing Specimens Removed sigmoid-colon, left tube and ovary, proximal and distal rings. JACKIE CHAU MD Jan 04, 2017 4:59 pm
[2017-01-04] MEDS ORDERED: RT-ALBUTEROL SULF 2.5 MG/3 ML PRE-MIX VIAL INH SCH (17:00)
[2017-01-04] MEDS ORDERED: fentaNYL INJECTION 5,000 MCG in NS (IVPB) 0 ML IV SCH (17:00)
[2017-01-04] MEDS ORDERED: PROMETHAZINE INJ 25 MG/ML (PHENERGAN) AMP IVP PRN (17:15)
[2017-01-04] MEDS ORDERED: HYDROmorphone (DILAUDID) 2 MG/ML VIAL IVP PRN (17:15)
[2017-01-04] MEDS ORDERED: ONDANSETRON 4 MG/2 ML (SDV) Z0FRAN IVP PRN (17:15)
[2017-01-04] MEDS: MEPERIDINE (DEMEROL) INJ 50 MG/ML IVP PRN ×2 (17:16→17:42)
[2017-01-04] MEDS: morphine INJ 10 MG/ML 1ML (SYR OR VIAL) IVP PRN ×2 (17:22→17:31)
--- NOTE | 2017-01-04 17:31 | Diagnostic Imaging Report ---
INDICATION: Central line placement. FINDINGS: Portable chest shows placement of a central line from the left. The tip is in the SVC at the level of the innominate vein. Chest is otherwise normal. IMPRESSION: Central line tip is in the SVC. Dictated by: Dictated on workstation # [id number]
[2017-01-04] MEDS: 1/2 NS W/KCL 20 MEQ/L 1,000 ML IV SCH (17:53)
[2017-01-04] MEDS: RT-ALBUTEROL SULF 2.5 MG/3 ML PRE-MIX VIAL INH SCH ×2 (18:53→21:37)
[2017-01-04] MEDS ORDERED: fentaNYL INJECTION 100 MCG/2 ML AMP IVP ONE (19:45)
[2017-01-04] MEDS: fentaNYL PCA 300 MCG/30 ML VIAL IV PRN (20:17)
[2017-01-04] MEDS ORDERED: ENOXAPARIN 30 MG/0.3 ML (LOVENOX) SYR SC SCH (21:00)
[2017-01-04] MEDS: oxyCODONE 20 MG/1 ML ORAL CONC (RoxiCODONE) CHARGE PER 1 ML PO PRN (21:14)
[2017-01-04] MEDS: meTOprolol 5 MG/5 ML (LOPRESSOR) VIAL IVP SCH (21:14)
[2017-01-05] VITALS (17 sets, daily range): BP systolic 92–148; BP diastolic 43–113
[2017-01-05] MEDS: inSUlin (REGULAR) HUMAN 1 UNIT/0.01 ML (CHARGE PER UNIT) SC SCH ×6 (00:08→20:12)
[2017-01-05] MEDS: 1/2 NS W/KCL 20 MEQ/L 1,000 ML IV SCH ×4 (00:09→15:42)
[2017-01-05] MEDS ORDERED: NS IV 1000 ML 1,000 ML ONE ×2 (00:17→06:07)
[2017-01-05] MEDS: ceFAZolin 2 GM/50 ML NS 50 ML IV SCH ×3 (00:54→18:13)
[2017-01-05] MEDS: meTOprolol 5 MG/5 ML (LOPRESSOR) VIAL IVP SCH ×6 (00:54→20:12)
[2017-01-05] MEDS: metroNIDAZOLE 500MG/100ML IVPB 100 ML IV SCH ×3 (00:54→17:12)
[2017-01-05 00:57] LABS: MEAN PLATELET VOLUME 10.8 FL (7.4-10.4); RED BLOOD COUNT 3.66 10^6/uL (4.35-5.85); RED CELL DISTRIBUTION WIDTH 13.3 % (10.0-14.5)
[2017-01-05 01:17] LABS: ALBUMIN 3.2 GM/DL (3.2-4.5); CALCIUM 8.4 MG/DL (8.5-10.1); CREATININE SERUM 1.01 MG/DL (0.60-1.30); MAGNESIUM 1.6 MG/DL (1.8-2.4); PHOSPHORUS 3.2 MG/DL (2.3-4.7); POTASSIUM 4.5 MMOL/L (3.6-5.0)
--- NOTE | 2017-01-05 01:58 | OPERATIVE REPORT ---
DATE OF SERVICE: 01/04/2017 ATTENDING PRIMARY CARE PHYSICIAN: Dr. Roxana No. PREOPERATIVE DIAGNOSIS: Near obstructing sigmoid colonic mass as well as a left ovarian mass. POSTOPERATIVE DIAGNOSIS: Near obstructing sigmoid colonic mass as well as a left ovarian mass. PROCEDURE: Placement of left subclavian central venous catheter, laparoscopic low anterior colorectal resection with en bloc resection of the left tube and ovary as well as mass. SURGEON: Dr. Salazar. CARTON STAMPER: Angelo Cabrera APRN. ANESTHESIA: General endotracheal. ESTIMATED BLOOD LOSS: 100 mL. FINDINGS: A large mass encompassing the sigmoid colon as well as the left ovary and tubes. There were some mild inflammatory changes as well. We could not differentiate this mass from a severe diverticulitis; however, this lesion is concerning for a neoplasm. DISPOSITION: The patient tolerated the procedure well. The patient is an 81-year-old female who initially presented to [facility] Emergency Department on 10/22/2016 with a two-day history of fever, chills as well as intermittent left lower abdominal quadrant pain and nausea. A CT scan showed a 6.3 cm lesion of the pelvis adjacent to the sigmoid colon. It was hard to determine what this lesion represented, however, may have been a diverticular abscess versus the colonic neoplasm versus an ovarian neoplasm. She was placed on IV antibiotics as well as IV fluids and did improve. She had reported that she had had a colonoscopy approximately 5 years previous and believe that to be normal. She states that the one before that was in 2006 where polyps were identified; however, benign. She does report a family history of colon cancer with her mother having the disease. On 11/29/2016, she underwent a sigmoidoscopy with biopsy with submucosal injection. Findings were moderate to severe sigmoid diverticulosis as well as a near obstructing lesion of the sigmoid colon with multiple diverticula and fibrinopurulent exudative rind which may indicate an active diverticulitis versus a possible neoplastic mass. The endoscope was attempted to pass through this area; however, unable to. Biopsies were taken as well as a submucosal injection. A repeat CT scan was also performed, which showed persistence of the lesion. Biopsies came back negative for malignancy. We then had her undergo a CT scan with rectal contrast on 12/19/2016, which again showed narrowing of the sigmoid colon lined by a thickened colonic wall as well as an area of abnormality and thickened rim of tissue with central air bubbles left of the sigmoid colon segment. She states that she has decreased her appetite somewhat and has lost some weight; however, does not have signs of obstruction. She is tolerating a regular diet and having normal bowel movements at this time. Due to the near obstructing nature of the lesion as well as the inability to properly identify the lesion, the patient was given the choices of conservative management versus surgery and she wished to proceed with excision of the mass. DESCRIPTION OF PROCEDURE: The patient was brought to the operating room, laid supine on the table. After adequate IV pain and sedative medications and general endotracheal intubation, the chest and neck were prepped and draped in standard surgical fashion. The left subclavian vein was cannulated with drawing of venous blood. The guidewire was then inserted without any resistance. The cannulated needle removed and a small transverse skin incision made using an 11 blade. A tract was then created using a venous dilator. Using the Seldinger technique, a triple lumen central venous catheter was placed over the guidewire using the Seldinger technique. The guidewire was then removed and all three ports sammie venous blood and flushed briskly without any resistance. The catheter was sutured to the skin using 3-0 silk interrupted sutures. The catheter was then cleaned and covered with sterile gauze followed by Op-Site. The abdomen and perineum were then prepped and draped in standard surgical fashion. The patient was placed in modified lithotomy position. 0.5% Marcaine with epinephrine was used to anesthetize the overlying skin in the left upper abdominal quadrant. A small transverse skin incision made using a 15 blade. An 0-silk suture was applied to the medial aspect of the incision for retraction and a Veress needle inserted with a low opening pressure of 0 mmHg and the abdomen was insufflated to 15 mmHg pressure. The Veress needle removed and a 5 mm Xcel trocar placed followed by a 5 mm 45 degree angle laparoscope visualizing the peritoneal cavity. A large phlegmon was identified at the sigmoid colon, which was also encompassing the entirety of the left ovary and tube. This was very hard and worrisome for neoplastic process. There were no peritoneal implants throughout the greater omentum, peritoneal lining or visceral lining as well as no obvious liver lesions indicate carcinomatosis from a tubo-ovarian source. There was no obvious lymphadenopathy as well. Under direct visualization, we then proceeded to place a supraumbilical 10 mm port after the skin and peritoneum were anesthetized using 0.5% Marcaine and a transverse skin incision made using a 15 blade. In a similar manner, a 10 mm suprapubic port was placed. The patient was then placed in Trendelenburg position as well as plane left side up, right side down. We then proceeded with dissection. The sigmoid colon as well as the large phlegmon encompassing the tubes and ovaries were then dissected en bloc using Sonicision. The iliac vein and artery were identified and spared as was the left ureter. The peritoneal reflection was dissected as well using the Sonicision as well as a total mesorectal excision using the Sonicision with visualization of good hemostasis. First we proceeded with excision of the left tube and ovary using a MAXIMO 3.5mm thickness 60 mm in length stapler. We then proceeded to staple and transect the proximal colon with the same stapler and reload. Good hemostasis was observed. The 5 mm port incision was then extended and the sigmoid rectum as well as the phlegmonous mass was then eviscerated out of the abdomen and excised using a 10 blade after a pursestring suture was applied to good area of colon encompassing minimal diverticulosis. The specimen was excised with a 10 blade and sent to pathology. The distal colon was dilated to 31 mm and it was decided to use a 29 mm EEA stapler. The anvil was placed and the pursestring tie. This portion of the bowel was then placed back into the abdomen and sharp towel clamps were applied to the skin. We then went to the rectum and placed the EEA stapler and the stem opened under direct visualization. The stem was then connected to the anvil, closed without tension, fired and removed with both proximal and distal anastomotic rings identified and intact. The area was then copiously irrigated and suctioned out with visualization of good hemostasis. A 19-Welsh Perez-Rivera drain was placed near the area of the anastomosis and brought out through the suprapubic 10 mm port site. The abdomen was desufflated. The two 10 mm port site fascia and peritoneum were then closed under direct visualization using a Grant-Eduin device and 0 Vicryl suture. The larger extended incision along the left upper abdomen was closed using #1 looped PDS suture. All skin incisions were closed using skin abigail. Wounds were then cleaned and covered with dry sterile dressing. The patient tolerated the procedure well. We will get a post-procedure chest x-ray after placement of central venous catheter. We will also start DVT prophylaxis with calf SCDs, early ambulation as well as Lovenox injections. We will continue with bowel rest with NG tube decompression, IV fluids and wait for bowel function before removing the NG tube and starting a clear liquid diet. We will also consult her primary care physician for medical management including diabetes. Job ID: [id number] DocumentID: [id number] Dictated Date: 01/04/2017 17:20:03 Elevator Constructor Supervisor Date: 01/04/2017 19:52:42 Dictated By: JACKIE SALAZAR MD MTDD
[2017-01-05] MEDS ORDERED: NS IV 1000 ML 1,000 ML IV SCH ×2 (02:00→07:45)
[2017-01-05] MEDS: RT-ALBUTEROL SULF 2.5 MG/3 ML PRE-MIX VIAL INH SCH ×6 (02:10→22:00)
[2017-01-05] MEDS: MAGNESIUM 1 GM/100 ML IVPB 100 ML IV SCH (02:57)
[2017-01-05] MEDS ORDERED: ONDANSETRON 4 MG/2 ML (SDV) Z0FRAN ONE (05:28)
[2017-01-05] MEDS: ONDANSETRON 4 MG/2 ML (SDV) Z0FRAN IVP PRN (05:36)
[2017-01-05] MEDS: oxyCODONE 20 MG/1 ML ORAL CONC (RoxiCODONE) CHARGE PER 1 ML PO PRN ×2 (05:39→09:38)
[2017-01-05] MEDS ORDERED: MAGNESIUM 1 GM/100 ML IVPB 100 ML IV SCH (06:00)
[2017-01-05] MEDS ORDERED: POTASSIUM CL 10MEQ/50ML IVPB 50 ML IV SCH (06:00)
[2017-01-05] MEDS ORDERED: KCL 20 MEQ TAB (K-DUR) PO SCH (06:00)
[2017-01-05] MEDS ORDERED: NS IV 1000 ML 1,000 ML IV ONE (06:15)
[2017-01-05] MEDS: fentaNYL PCA 300 MCG/30 ML VIAL IV PRN ×3 (06:51→14:52)
[2017-01-05 07:28] LABS: BASOPHILS % (AUTO) 0 % (0-10); EOSINOPHILS % (AUTO) 0 % (0-10); LYMPHOCYTES # (AUTO) 1.7 X 10^3 (1.0-4.0); LYMPHOCYTES % (AUTO) 17 % (12-44); MEAN CORPUSCULAR HEMOGLOBIN 32 PG (25-34); MEAN CORPUSCULAR HGB CONC 34 G/DL (32-36); MEAN CORPUSCULAR VOLUME 94 FL (80-99); MEAN PLATELET VOLUME 10.6 FL (7.4-10.4); MONOCYTES % (AUTO) 10 % (0-12); NEUTROPHILS # (AUTO) 7.1 X 10^3 (1.8-7.8); NEUTROPHILS % (AUTO) 72 % (42-75); PLATELET COUNT 234 10^3/uL (130-400); RED BLOOD COUNT 3.46 10^6/uL (4.35-5.85); RED CELL DISTRIBUTION WIDTH 13.4 % (10.0-14.5); WHITE BLOOD COUNT 9.9 10^3/uL (4.3-11.0)
[2017-01-05 07:48] LABS: CALCIUM 8.1 MG/DL (8.5-10.1); CREATININE SERUM 1.08 MG/DL (0.60-1.30); MAGNESIUM 2.3 MG/DL (1.8-2.4); POTASSIUM 4.5 MMOL/L (3.6-5.0)
--- NOTE | 2017-01-05 07:52 | Diagnostic Imaging Report ---
INDICATION: Shortness of air. TECHNIQUE: Single view chest 5:48 AM. CORRELATION STUDY: 01/04/2017 FINDINGS: Left-sided Dxxnhj-q-Qkwn catheter is stable. Heart size, mediastinum and vasculature appearing unchanged given difference in technique. Slight area of nodularity left perihilar region unchanged. Some crowding in the lung bases likely hypoventilation with atelectasis. IMPRESSION: 1. Relatively stable portable chest demonstrates no acute abnormality. Dictated by: Dictated on workstation # [id number]
[2017-01-05] MEDS: PANTOPRAZOLE 40 MG/10 ML (PROTONIX) VIAL IV SCH (09:38)
[2017-01-05] MEDS: ENOXAPARIN 30 MG/0.3 ML (LOVENOX) SYR SC SCH ×2 (09:40→20:12)
[2017-01-05] MEDS: diphenhydrAMINE 50 MG/ML INJ (BENADRYL) IVP PRN (09:47)
--- NOTE | 2017-01-05 11:19 | Progress Note (SOAP) ---
Subjective Date Seen by Provider: Jan 05, 2017 Time Seen by Provider: 11:00 Subjective/Events-last exam doing better. pain better controlled with increased fentanyl CCU NURSE. mild SS drain output. Objective Exam Vital Signs Date Time Temp Pulse Resp B/P (MAP) Pulse Ox O2 Delivery O2 Flow Rate FiO2 01/05/17 10:54 92 Room Air 01/05/17 08:00 Room Air 01/05/17 07:18 99 Room Air 01/05/17 07:00 82 01/05/17 07:00 100.1 86 27 133/85 98 Room Air 01/05/17 07:00 27 01/05/17 06:51 23 01/05/17 06:00 71 23 147/113 100 Room Air 01/05/17 05:00 71 18 99/48 95 Room Air 01/05/17 04:00 Room Air 01/05/17 04:00 79 26 92/50 94 Room Air 01/05/17 04:00 98.4 01/05/17 03:00 82 18 110/57 97 Room Air 01/05/17 02:11 95 Room Air 01/05/17 02:00 68 17 123/65 96 Room Air 01/05/17 01:00 78 13 116/58 95 Room Air 01/05/17 01:00 78 01/05/17 00:00 84 11 118/63 93 Room Air 01/05/17 00:00 Room Air 01/04/17 23:00 89 23 130/70 93 Room Air 01/04/17 22:00 87 18 125/61 96 Room Air 01/04/17 21:38 95 Room Air 01/04/17 21:00 15 01/04/17 21:00 81 15 152/78 100 Room Air 01/04/17 20:17 15 01/04/17 20:00 Room Air 01/04/17 20:00 93 23 161/74 99 Room Air 01/04/17 19:00 80 16 145/77 100 Room Air 01/04/17 19:00 80 01/04/17 18:53 100 Room Air 01/04/17 18:45 73 17 143/64 99 Room Air 01/04/17 18:30 68 25 140/68 100 Room Air 01/04/17 18:15 67 18 139/68 100 Room Air 01/04/17 18:05 Room Air 01/04/17 18:00 98.8 67 10 141/70 100 Room Air I & O 01/06/17 06:59 Intake Total 1060 ml Output Total 850 ml Balance 210 ml Capillary Refill : General Appearance: No Apparent Distress HEENT: PERRL/EOMI Neck: Full Range of Motion Respiratory: Chest Non Tender, Lungs Clear Cardiovascular: Regular Rate, Rhythm Gastrointestinal: soft, tenderness, other (wounds clean/dry) Extremity: Normal Capillary Refill Neurologic/Psychiatric: Alert, Oriented x3 Skin: Normal Color Lymphatic: No Adenopathy Results Lab Laboratory Tests 01/04/17 12:24: Glucometer 100 01/04/17 21:22: Glucometer 255H 01/05/17 00:45: White Blood Count 12.0H, Red Blood Count 3.66L, Hemoglobin 11.5, Hematocrit 34L , Mean Corpuscular Volume 93, Mean Corpuscular Hemoglobin 31, Mean Corpuscular Hemoglobin Concent 34, Red Cell Distribution Width 13.3, Platelet Count 241, Mean Platelet Volume 10.8H, Sodium Level 134L, Potassium Level 4.5, Chloride Level 106, Carbon Dioxide Level 18L, Anion Gap 10, Blood Urea Nitrogen 8, Creatinine 1.01, Estimat Glomerular Filtration Rate 53, BUN/Creatinine Ratio 8, Glucose Level 264H, Lactic Acid Level 1.89, Calcium Level 8.4L, Phosphorus Level 3.2, Magnesium Level 1.6L, Albumin 3.2 01/05/17 07:15: White Blood Count 9.9, Red Blood Count 3.46L, Hemoglobin 11.0L, Hematocrit 32L, Mean Corpuscular Volume 94, Mean Corpuscular Hemoglobin 32, Mean Corpuscular Hemoglobin Concent 34, Red Cell Distribution Width 13.4, Platelet Count 234, Mean Platelet Volume 10.6H, Sodium Level 134L, Potassium Level 4.5, Chloride Level 108H, Carbon Dioxide Level 17L, Anion Gap 9, Blood Urea Nitrogen 8, Creatinine 1.08, Estimat Glomerular Filtration Rate 49, BUN/Creatinine Ratio 7, Glucose Level 135H, Calcium Level 8.1L, Magnesium Level 2.3, Neutrophils (%) ( Auto) 72, Lymphocytes (%) (Auto) 17, Monocytes (%) (Auto) 10, Eosinophils (%) ( Auto) 0, Basophils (%) (Auto) 0, Neutrophils # (Auto) 7.1, Lymphocytes # (Auto) 1.7, Monocytes # (Auto) 1.0, Eosinophils # (Auto) 0.0, Basophils # (Auto) 0.0 Assessment/Plan Assessment/Plan Assess & Plan/Chief Complaint s/p lap LAR and en-bloc left tubo-oophorectomy. ambulate and OOB-chair. continue DVT prophylaxis. transfer to floor. Clinical Quality Measures DVT/VTE Risk/Contraindication: Risk Factor Score Per Nursin RFS Level Per Nursing on Admit: 4+=Very High JACKIE CHAU MD Jan 05, 2017 11:18 am
[2017-01-05] MEDS ORDERED: METOCLOPRAMIDE INJ 10 MG/2 ML (REGLAN) IVP PRN (17:00)
[2017-01-06] VITALS: BP 138/83
[2017-01-06] MEDS: inSUlin (REGULAR) HUMAN 1 UNIT/0.01 ML (CHARGE PER UNIT) SC SCH ×5 (00:03→18:00)
[2017-01-06] MEDS: meTOprolol 5 MG/5 ML (LOPRESSOR) VIAL IVP SCH ×6 (00:20→20:38)
[2017-01-06] MEDS: fentaNYL PCA 300 MCG/30 ML VIAL IV PRN ×3 (00:20→12:49)
[2017-01-06] MEDS: 1/2 NS W/KCL 20 MEQ/L 1,000 ML IV SCH ×4 (00:36→21:57)
[2017-01-06] MEDS: RT-ALBUTEROL SULF 2.5 MG/3 ML PRE-MIX VIAL INH SCH ×4 (02:18→14:45)
[2017-01-06 04:36] VITALS: BP 140/72
[2017-01-06 08:00] VITALS: BP 135/86
[2017-01-06] MEDS: ENOXAPARIN 30 MG/0.3 ML (LOVENOX) SYR SC SCH ×2 (08:25→20:38)
[2017-01-06] MEDS: PANTOPRAZOLE 40 MG/10 ML (PROTONIX) VIAL IV SCH (08:25)
--- NOTE | 2017-01-06 12:08 | Progress Note ---
Subjective Date Seen by Provider: Jan 06, 2017 Time Seen by Provider: 12:06 Subjective/Events-last exam Patient with a little more pain today with increasing activity. Sitting in chair and moving to bed. Using incentive spirometer some. AWILDA serous/sang. Denies n/v fever sweats chills shortness of breath or chest pain. No flatus or BM. Objective Exam Vital Signs Date Time Temp Pulse Resp B/P (MAP) Pulse Ox O2 Delivery O2 Flow Rate FiO2 01/06/17 10:54 96 Room Air 01/06/17 08:00 98.4 97 20 135/86 96 Room Air 01/06/17 07:04 93 Room Air 01/06/17 04:40 16 01/06/17 04:36 99.8 97 16 140/72 94 Room Air 01/06/17 02:19 98 Room Air 01/06/17 01:00 74 01/06/17 00:20 16 01/06/17 00:00 Room Air 01/06/17 00:00 99.3 80 16 138/83 96 Room Air 01/05/17 21:00 16 01/05/17 20:45 98.9 01/05/17 20:00 Room Air 01/05/17 19:20 100.0 84 20 125/68 95 Room Air 01/05/17 19:00 81 01/05/17 18:30 27 01/05/17 18:19 95 Room Air 01/05/17 16:42 133/61 01/05/17 15:55 99.3 77 18 148/63 94 Room Air 01/05/17 15:23 100.1 01/05/17 15:14 94 Room Air 01/05/17 14:52 18 01/05/17 14:31 100.1 91 18 115/54 96 Room Air 01/05/17 13:50 Room Air Capillary Refill : General Appearance: No Apparent Distress HEENT: PERRL/EOMI Neck: Full Range of Motion Respiratory: Chest Non Tender, Lungs Clear Cardiovascular: Regular Rate, Rhythm Gastrointestinal: soft, distended (slight), tenderness, other (wounds clean/dry ) Extremity: Normal Capillary Refill Neurologic/Psychiatric: Alert, Oriented x3 Skin: Normal Color Lymphatic: No Adenopathy Results Lab Laboratory Tests 01/05/17 12:06: Glucometer 178H 01/05/17 15:56: Glucometer 119H 01/05/17 20:03: Glucometer 152H 01/05/17 23:57: Glucometer 133H 01/06/17 04:02: Glucometer 128H 01/06/17 08:19: Glucometer 146H Assessment/Plan Assessment/Plan Assessment/Plan s/p lap LAR and en-bloc left tubo-oophorectomy. ambulate and OOB-chair. continue DVT prophylaxis. await bowel function pain control Clinical Quality Measures DVT/VTE Risk/Contraindication: Risk Factor Score Per Nursin RFS Level Per Nursing on Admit: 4+=Very High STEFAN BLACK DO Jan 06, 2017 12:08
[2017-01-06] MEDS ORDERED: morphine INJ 4 MG/ML 1 ML (VIAL/SYRINGE) IVP NR (13:00)
[2017-01-06] MEDS: morphine PCA 30 MG/30 ML VIAL IV PRN (14:50)
--- NOTE | 2017-01-06 15:06 | Consultation ---
History of Present Illness History of Present Illness Patient Consulted On(michelle/time) 01/06/17 15:01 Date Seen by Provider: Jan 06, 2017 Time Seen by Provider: 15:01 Reason for Visit: abdominal pain left lower quadrant History of Present Illness 81 yo F admitted for abdominal issues including colonic stenosis, recent diverticulitis- with intention of surgical intervention for a left lower quadrant mass. Dr. No was consulted as PCP for medical management specifically diabetes. Pt is on lantus 18units at bedtime and metformin as her home regimen- we will hold the metformin while inpt and do regular insulin sliding scale while pt is not eating. Pt underwent laparoscopic low anterior colorectal resection with en-bloc left tubo-oophorectomy on 01/04/[address] Salazar. A sigmoid colon mass and left ovarian mass have been sent to pathology for identification as there is concern for malignancy. Pt also has hypothyroidism from history of thyroidectomy- she is on levothyroxine. Pt currently complaining abdominal pain- Allergies and Home Medications Allergies Coded Allergies: No Known Drug Allergies (Verified , 02/27/07) Home Medications Amlodipine Besylate 10 Mg Tablet, 10 MG PO DAILY, (Reported) Cholecalciferol 2,000 Unit Capsule, 2,000 UNIT PO DAILY, (Reported) Clonazepam 0.5 Mg Tablet, 0.5 MG PO HS, (Reported) Insulin Glargine,Hum.rec.anlog 100 Unit/1 Ml Insuln.pen, 18 UNITS SQ HS, ( Reported) Levothyroxine Sodium 50 Mcg Tablet, 50 MCG PO DAILY, (Reported) Lisinopril 40 Mg Tablet, 40 MG PO DAILY, (Reported) Lovastatin 40 Mg Tablet, 40 MG PO DAILY, (Reported) Magnesium Oxide 400 Mg Capsule, 800 MG PO Q48H, (Reported) TAKES 2 (400MG) TABLETS EVERY OTHER DAY Meloxicam 15 Mg Tablet, 15 MG PO DAILY, (Reported) Metformin HCl 500 Mg Tablet, 500 MG PO BID, (Reported) Tramadol HCl 50 Mg Tablet, 50 MG PO Q8H PRN for PAIN-MODERATE, (Reported) Past Guoqsla-[id number]-Glpqyf Hx Patient Social History Alcohol Use: Denies Use Recreational Drug Use: No Smoking Status: Never a Smoker 2nd Hand Smoke Exposure: No Recent Foreign Travel: No Contact w/Someone Who Travel: No Recent Infectious Disease Expo: No Recent Hopitalizations: No Physical Abuse Screen: No Sexual Abuse: No Immunizations Up To Date Tetanus Booster (TDap): Unknown Seasonal Allergies Seasonal Allergies: No Surgeries HX Surgeries: Yes (L3-L5 Lami 2014, / THYROID REMOVED, LAP TUSHAR, CATARACTS , D&C) Surgeries: Abdominal, Orthopedic Respiratory Hx Respiratory Disorders: No Cardiovascular Hx Cardiac Disorders: Yes Cardiac Disorders: High Cholesterol, Hypertension Neurological Hx Neurological Disorders: No Reproductive System Hx Reproductive Disorders: No Sexually Transmitted Disease: No HIV/AIDS: No Female Reproductive Disorders: Denies Genitourinary Hx Genitourinary Disorders: No Genitourinary Disorders: UTI-Chronic Gastrointestinal Hx Gastrointestinal Disorders: Yes (HX OF LAP TUSHAR) Gastrointestinal Disorders: Gastroesophageal Reflux, Diverticulosis Musculoskeletal Hx Musculoskeletal Disorders: Yes (ARTHRITIS/HAS ALOT OF LOW BACK PAIN RADIATING DOWN HER LEG) Musculoskeletal Disorders: Arthritis, Chronic Back Pain Endocrine Hx Endocrine Disorders: Yes Endocrine Disorders: Diabetes, Insulin dep, Hypothyroidsim HEENT HX ENT Disorders: Yes (GLASSES) HEENT Disorders: Cataract Loss of Vision: Denies Hearing Impairment: Hard of Hearing Cancer Hx Cancer: No Psychosocial Hx Psychiatric Problems: No Integumentary HX Skin/Integumentary Disorder: No Blood Transfusions Hx Blood Disorders: No Adverse Reaction to a Blood Tr: No Family Medical History Significant Family History: Heart Disease Family Medial History: Cardiovascular disease 19 FATHER Colon cancer 19 MOTHER Diabetes mellitus 19 MOTHER G8 BROTHER FH: cancer 19 MOTHER (brain) G8 BROTHER (prostate, ) G8 SISTER (breast) Myocardial infarction 19 FATHER Review of Systems Review of Systems General: No Chills, No Night Sweats HEENT: No Head Aches Pulmonary: No Dyspnea, No Cough Cardiovascular: No: Chest Pain, Palpitations, Orthopnea Gastrointestinal: Nausea, Abdominal Pain Genitourinary: No Dysuria Musculoskeletal: No: neck pain, shoulder pain Neurological: Weakness Physical Exam Vital Signs Vital Sign - Last 12Hours 01/04/17 01/06/17 09:21 14:47 Temp 99.3 Pulse 92 Resp 16 B/P (MAP) 162/86 Pulse Ox 100 O2 Delivery Room Air O2 Flow Rate 2.00 Capillary Refill : General Appearance: Mild Distress HEENT: PERRL/EOMI Neck: Supple Respiratory: Chest Non Tender, Lungs Clear, Normal Breath Sounds Cardiovascular: Regular Rate, Rhythm, No Edema Gastrointestinal: Soft, Distended, Tenderness Rectal: Deferred Back: No CVA Tenderness Extremity: Non Tender, No Calf Tenderness Neurologic/Psychiatric: Alert, Oriented x3, Normal Mood/Affect Skin: Warm/Dry Assessment/Plan Assessment/Plan Assessment/Plan 81 yo F left lower quadrant pain- surgery is managing pain. left lower quadrant mass- sigmoid colonic, left ovarian mass sent to pathology -diabetes melllitus with hyperglycemia- regular insulin sliding scale, holding metformin, will substitute levemir (for lantus) hypertension- resuming home meds. lisinopril 40mg, amlodipine 10mg, metoprolol 5mg hyperlipidemia- will resume statin on discharge hypothyroidism-continue levothyroxine 50mcg GERD- protonix 40mg Dispo: surgery managing pain, blood sugars overall good on SSI. will start levemir 10 units qhs -await pathology results form left ovarian and sigmoid mass. -will follow along. Appreciate the consult. Problems: Clinical Quality Measures DVT/VTE Risk/Contraindication: Risk Factor Score Per Nursin RFS Level Per Nursing on Admit: 4+=Very High REINA LYNCH MD Jan 06, 2017 15:06
[2017-01-06 16:03] VITALS: BP 128/62
[2017-01-06] MEDS ORDERED: MILK OF MAGNESIA 400 MG/5 ML 30 ML UDC PO PRN (17:00)
[2017-01-06 20:00] VITALS: BP 146/73
[2017-01-06] MEDS: clonazePAM 0.5 MG (KlonoPIN) TAB PO SCH (20:38)
[2017-01-06] MEDS ORDERED: inSUlin DETERMIR 1 UNIT/0.01 ML (LEVEMIR) CHARGE PER UNIT SQ SCH (21:00)
[2017-01-07] VITALS (8 sets, daily range): BP systolic 108–176; BP diastolic 61–92
[2017-01-07] MEDS: inSUlin (REGULAR) HUMAN 1 UNIT/0.01 ML (CHARGE PER UNIT) SC SCH ×4 (00:35→18:05)
[2017-01-07] MEDS: meTOprolol 5 MG/5 ML (LOPRESSOR) VIAL IVP SCH ×6 (00:35→21:18)
[2017-01-07] MEDS: 1/2 NS W/KCL 20 MEQ/L 1,000 ML IV SCH ×3 (04:42→18:34)
[2017-01-07] MEDS: LEVOTHYROXINE 50 MCG (LEVOTHROID) TAB PO SCH (06:22)
[2017-01-07] MEDS: ONDANSETRON 4 MG/2 ML (SDV) Z0FRAN IVP PRN (08:02)
[2017-01-07] MEDS: ENOXAPARIN 30 MG/0.3 ML (LOVENOX) SYR SC SCH ×2 (08:04→21:19)
[2017-01-07] MEDS: PANTOPRAZOLE 40 MG/10 ML (PROTONIX) VIAL IV SCH (08:14)
[2017-01-07] MEDS ORDERED: lisINopril 20 MG (ZESTRIL) TAB PO SCH (09:00)
[2017-01-07] MEDS: morphine PCA 30 MG/30 ML VIAL IV PRN (09:36)
--- NOTE | 2017-01-07 10:22 | Progress Note ---
Subjective Date Seen by Provider: Jan 07, 2017 Time Seen by Provider: 10:17 Subjective/Events-last exam Pain better controlled than yesterday. Hypoglycemic this am. Patient more distended. No flatus or bm. Having some nausea. Denies fever sweats chills shortness of breath or chest pain. Ambulating some. Using IS some. Objective Exam Vital Signs Date Time Temp Pulse Resp B/P (MAP) Pulse Ox O2 Delivery O2 Flow Rate FiO2 01/07/17 10:08 100 Nasal Cannula 2.00 01/07/17 09:54 20 01/07/17 08:00 98.8 89 20 171/76 98 Nasal Cannula 2.00 01/07/17 07:00 95 01/07/17 06:10 98 Nasal Cannula 2.00 01/07/17 04:25 99.6 01/07/17 04:00 100.0 93 15 142/65 98 Nasal Cannula 2.00 01/07/17 02:19 98 Nasal Cannula 2.00 01/07/17 01:00 78 01/07/17 00:00 99.5 91 22 145/65 91 Nasal Cannula 2.00 01/06/17 22:27 97 Nasal Cannula 2.00 01/06/17 21:00 20 01/06/17 21:00 Room Air 01/06/17 20:00 99.5 97 20 146/73 94 Nasal Cannula 2.00 01/06/17 19:00 87 01/06/17 18:39 99 Nasal Cannula 2.00 01/06/17 16:03 99.3 99 22 128/62 98 Nasal Cannula 2.00 01/06/17 14:50 26 01/06/17 14:47 100 Nasal Cannula 2.00 01/06/17 13:00 94 01/06/17 12:49 20 01/06/17 10:54 96 Room Air 01/06/17 10:30 32 Capillary Refill : General Appearance: No Apparent Distress HEENT: PERRL/EOMI Neck: Supple Respiratory: Chest Non Tender, Lungs Clear, Normal Breath Sounds Cardiovascular: Regular Rate, Rhythm, No Edema Gastrointestinal: soft, distended (more distended today), tenderness, other ( wounds clean/dry) Extremity: Non Tender, No Calf Tenderness Neurologic/Psychiatric: Alert, Oriented x3, Normal Mood/Affect Skin: Warm/Dry Lymphatic: No Adenopathy Results Lab Laboratory Tests 01/06/17 12:05: Glucometer 144H 01/06/17 16:07: Glucometer 119H 01/07/17 00:26: Glucometer 148H 01/07/17 04:30: Magnesium Level 1.4L 01/07/17 06:03: Glucometer 61L 01/07/17 06:49: Glucometer 75 Assessment/Plan Assessment/Plan Assessment/Plan s/p lap LAR and en-bloc left tubo-oophorectomy. likely postoperative ileus await bowel function ambulate and OOB-chair. continue DVT prophylaxis. 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 Clinical Quality Measures DVT/VTE Risk/Contraindication: Risk Factor Score Per Nursin RFS Level Per Nursing on Admit: 4+=Very High STEFAN BLACK DO Jan 07, 2017 10:22
--- NOTE | 2017-01-07 11:32 | Progress Note (SOAP) ---
Subjective Subjective Date Seen by Provider: Jan 07, 2017 Time Seen by Provider: 11:41 81 yo F no overnight events- she did have a blood sugar of 61 this AM after getting levemir 10units - this was stopped- Blood sugars today normal. Pt's pain is improved. But she is having more nausea, belching, hiccups and a little headache. Not passing flatus or bowel movement. Review of Systems General: No Chills, No Night Sweats HEENT: Head Aches (mild) Pulmonary: No Dyspnea, No Cough Cardiovascular: No: Chest Pain, Palpitations, Orthopnea Gastrointestinal: Nausea, Abdominal Pain, No: Vomiting Genitourinary: No Dysuria Musculoskeletal: No: neck pain, shoulder pain Neurological: Weakness Objective Exam Vital Signs Vital Signs Date Time Temp Pulse Resp B/P (MAP) Pulse Ox O2 Delivery O2 Flow Rate FiO2 01/07/17 10:08 100 Nasal Cannula 2.00 01/07/17 09:54 20 01/07/17 08:00 98.8 89 20 171/76 98 Nasal Cannula 2.00 01/07/17 07:00 95 01/07/17 06:10 98 Nasal Cannula 2.00 01/07/17 04:25 99.6 01/07/17 04:00 100.0 93 15 142/65 98 Nasal Cannula 2.00 01/07/17 02:19 98 Nasal Cannula 2.00 01/07/17 01:00 78 01/07/17 00:00 99.5 91 22 145/65 91 Nasal Cannula 2.00 01/06/17 22:27 97 Nasal Cannula 2.00 01/06/17 21:00 20 01/06/17 21:00 Room Air 01/06/17 20:00 99.5 97 20 146/73 94 Nasal Cannula 2.00 01/06/17 19:00 87 01/06/17 18:39 99 Nasal Cannula 2.00 01/06/17 16:03 99.3 99 22 128/62 98 Nasal Cannula 2.00 01/06/17 14:50 26 01/06/17 14:47 100 Nasal Cannula 2.00 01/06/17 13:00 94 01/06/17 12:49 20 General Appearance: No Apparent Distress HEENT: PERRL/EOMI Neck: Supple Respiratory: Chest Non Tender, Lungs Clear, Normal Breath Sounds Cardiovascular: Regular Rate, Rhythm, No Edema Gastrointestinal: Soft, Distended, Tenderness Rectal: Deferred Back: No CVA Tenderness Extremity: Non Tender, No Calf Tenderness Neurologic/Psychiatric: Alert, Oriented x3, Normal Mood/Affect Skin: Warm/Dry Lymphatic: No Adenopathy Results Lab Laboratory Tests 01/06/17 12:05: Glucometer 144H 01/06/17 16:07: Glucometer 119H 01/07/17 00:26: Glucometer 148H 01/07/17 04:30: Magnesium Level 1.4L 01/07/17 06:03: Glucometer 61L 01/07/17 06:49: Glucometer 75 Assessment/Plan Assessment/Plan Assessment/Plan 81 yo F left lower quadrant pain- surgery is managing pain. 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 lisinopril 40mg, amlodipine 10mg, metoprolol 5mg hyperlipidemia- will resume statin on discharge hypothyroidism-continue levothyroxine 50mcg GERD- protonix 40mg hypomagnesemia- replacing Dispo: surgery managing pain, blood sugars overall good on SSI. -await pathology results form left ovarian and sigmoid mass. -will follow along. Appreciate the consult. Problems: Clinical Quality Measures DVT/VTE Risk/Contraindication: Risk Factor Score Per Nursin RFS Level Per Nursing on Admit: 4+=Very High REINA LYNCH MD Jan 07, 2017 11:32
[2017-01-07] MEDS: MAGNESIUM 1 GM/100 ML IVPB 100 ML IV SCH ×2 (11:33→12:56)
[2017-01-07] MEDS: amLODIPine 10 MG (NORVASC) TAB PO SCH (13:39)
[2017-01-07] MEDS: clonazePAM 0.5 MG (KlonoPIN) TAB PO SCH (21:18)
[2017-01-08] MEDS: morphine PCA 30 MG/30 ML VIAL IV PRN ×2 (02:37→17:10)
[2017-01-08 03:50] VITALS: BP 132/80
[2017-01-08 04:35] VITALS: BP 115/67
[2017-01-08] MEDS: meTOprolol 5 MG/5 ML (LOPRESSOR) VIAL IVP SCH ×6 (04:36→20:10)
[2017-01-08 04:57] LABS: MEAN PLATELET VOLUME 10.9 FL (7.4-10.4); RED BLOOD COUNT 3.45 10^6/uL (4.35-5.85); RED CELL DISTRIBUTION WIDTH 13.8 % (10.0-14.5); WHITE BLOOD COUNT 11.2 10^3/uL (4.3-11.0)
[2017-01-08 05:06] LABS: CALCIUM 8.2 MG/DL (8.5-10.1); CREATININE SERUM 0.94 MG/DL (0.60-1.30); MAGNESIUM 1.5 MG/DL (1.8-2.4)
[2017-01-08] MEDS: inSUlin (REGULAR) HUMAN 1 UNIT/0.01 ML (CHARGE PER UNIT) SC SCH ×4 (05:25→17:37)
[2017-01-08] MEDS: LEVOTHYROXINE 50 MCG (LEVOTHROID) TAB PO SCH (05:36)
[2017-01-08] MEDS: 1/2 NS W/KCL 20 MEQ/L 1,000 ML IV SCH ×2 (05:37)
[2017-01-08 05:56] LABS: CALCIUM 8.2 MG/DL (8.5-10.1); CREATININE SERUM 0.97 MG/DL (0.60-1.30); POTASSIUM 5.9 MMOL/L (3.6-5.0)
[2017-01-08] MEDS ORDERED: MAGNESIUM 1 GM/100 ML IVPB 100 ML IV ONE (06:15)
[2017-01-08] MEDS ORDERED: FUROSEMIDE 40 MG/4 ML INJ (LASIX) ONE (06:27)
[2017-01-08] MEDS: NS IV 1000 ML 1,000 ML IV SCH ×3 (06:38→20:04)
[2017-01-08] MEDS ORDERED: FUROSEMIDE 40 MG/4 ML INJ (LASIX) IVP ONE (06:45)
[2017-01-08 07:45] VITALS: BP 126/58
--- NOTE | 2017-01-08 08:53 | Progress Note (SOAP) ---
Subjective Date Seen by Provider: Jan 08, 2017 Time Seen by Provider: 08:30 Subjective/Events-last exam PT IS AN 81 Y/O FEMALE WHO IS KNOWN TO ME FROM CLINIC. SHE PRESENTED TO THE HOSPITAL FOR SURGICAL INTERVENTION OF DIVERTICULAR ABSCESS AFTER FAILED IMPROVEMENT POST 6 WEEKS OF IV ANTIBIOTIC THERAPY. TODAY MK STATES THAT SHE FEELS WEAK, HAS ABDOMINAL PAIN, NO BOWEL MOVEMENT. Review of Systems General: Fatigue, Malaise HEENT: No Head Aches Pulmonary: No Dyspnea, No Cough Cardiovascular: No: Chest Pain, Palpitations Gastrointestinal: Abdominal Pain, No: Nausea Neurological: Weakness, No: Confusion Objective Exam Vital Signs Date Time Temp Pulse Resp B/P (MAP) Pulse Ox O2 Delivery O2 Flow Rate FiO2 01/08/17 07:45 96.4 103 19 126/58 96 Room Air 01/08/17 07:45 90 01/08/17 06:36 94 Room Air 01/08/17 05:37 18 01/08/17 04:35 90 115/67 01/08/17 03:50 98.5 99 18 132/80 97 Room Air 01/08/17 02:37 18 01/08/17 02:02 96 Room Air 01/08/17 01:00 98 01/07/17 23:53 99.0 99 18 110/69 96 Room Air 01/07/17 22:45 94 Room Air 01/07/17 21:18 105 108/61 01/07/17 21:00 Room Air 01/07/17 20:00 98.6 96 19 113/68 98 Nasal Cannula 2.00 01/07/17 19:00 99 01/07/17 18:55 93 Room Air 01/07/17 18:33 16 01/07/17 16:00 98.4 102 16 161/72 98 Nasal Cannula 2.00 01/07/17 14:15 95 Room Air 01/07/17 13:00 93 01/07/17 10:08 100 Nasal Cannula 2.00 01/07/17 09:54 20 01/07/17 09:00 98 Room Air Capillary Refill : General Appearance: No Apparent Distress, WD/WN HEENT: PERRL/EOMI, Pharynx Normal Neck: Full Range of Motion, Supple Respiratory: Chest Non Tender, Lungs Clear, Normal Breath Sounds, No Accessory Muscle Use Cardiovascular: Regular Rate, Rhythm Gastrointestinal: other (NO BOWEL SOUNDS, DISTENDED, TYMPANIC) Extremity: Normal Capillary Refill, Non Tender, No Calf Tenderness, No Pedal Edema Neurologic/Psychiatric: Alert, Oriented x3, No Motor/Sensory Deficits, Normal Mood/Affect Skin: Warm/Dry Lymphatic: No Adenopathy Results Lab Laboratory Tests 01/07/17 11:38: Glucometer 87 01/07/17 18:01: Glucometer 115H 01/07/17 23:59: Glucometer 129H 01/08/17 04:30: White Blood Count 11.2H, Red Blood Count 3.45L, Hemoglobin 10.8L, Hematocrit 33L , Mean Corpuscular Volume 96, Mean Corpuscular Hemoglobin 31, Mean Corpuscular Hemoglobin Concent 33, Red Cell Distribution Width 13.8, Platelet Count 269, Mean Platelet Volume 10.9H, Sodium Level 123*L, Potassium Level 6.0H, Chloride Level 102, Carbon Dioxide Level 12L, Anion Gap 9, Blood Urea Nitrogen 11, Creatinine 0.94, Estimat Glomerular Filtration Rate 57, BUN/Creatinine Ratio 12 , Glucose Level 138H, Calcium Level 8.2L, Magnesium Level 1.5L 01/08/17 05:30: Sodium Level 124*L, Potassium Level 5.9H, Chloride Level 102, Carbon Dioxide Level 12L, Anion Gap 10, Blood Urea Nitrogen 11, Creatinine 0.97, Estimat Glomerular Filtration Rate 55, BUN/Creatinine Ratio 11, Glucose Level 139H, Calcium Level 8.2L Assessment/Plan Assessment/Plan Assess & Plan/Chief Complaint DIVERTICULAR ABSCESS POST OP DAY #3 HYPONATREMIA HYPERTENSION HYPERKALEMIA DIABETES MELLITUS HYPOTHYROIDISM ELEVATED WHITE COUNT DIVERTICULAR ABSCESS POST OP DAY #3 - SIGNIFICANT ABDOMINAL DRAIN OUTPUT WITH WEEPING FROM LOWER ABDOMINAL SURGICAL SITE, SUPPORTIVE CARE, FREQUENT DRAIN CHECKS BY STAFF, INCREASE PHYSICAL ACTIVITY - WILL HAVE STAFF WALK HER THREE TIMES TODAY. HYPONATREMIA AND HYPERKALEMIA AND HYPOMAGNESEMIA - CHANGED IV FLUIDS THIS MORNING FROM 1/2 NORMAL PLUS POTASSIUM TO NORMAL SALINE, CONTINUE WITH MAGNESIUM. CHECK LABS IN THE MORNING. HYPERTENSION - MONITOR BLOOD PRESSURES, STOP LISINOPRIL, CONTINUE WITH AMLODIPINE, IV METOPROLOL PRN. DIABETES MELLITUS - MONITOR SYMPTOMS OF DM WILL NPO, WHEN TAKING ORAL MEDS, WILL RESTART INSULIN. HYPOTHYROIDISM - ON LEVOTHYROXINE. ELEVATED WHITE COUNT UP FROM 9 ON 01/07 UP TO 11 TODAY 01/08 - CHECK LABS TOMORROW MORNING. Clinical Quality Measures DVT/VTE Risk/Contraindication: Risk Factor Score Per Nursin RFS Level Per Nursing on Admit: 4+=Very High TINA LEON MD Jan 08, 2017 08:53
[2017-01-08] MEDS: amLODIPine 10 MG (NORVASC) TAB PO SCH ×4 (09:46→10:50)
[2017-01-08] MEDS: ENOXAPARIN 30 MG/0.3 ML (LOVENOX) SYR SC SCH ×2 (09:46→20:11)
[2017-01-08] MEDS: PANTOPRAZOLE 40 MG/10 ML (PROTONIX) VIAL IV SCH (09:46)
[2017-01-08 10:42] LABS: CALCIUM 8.3 MG/DL (8.5-10.1); CREATININE SERUM 1.09 MG/DL (0.60-1.30); POTASSIUM 5.3 MMOL/L (3.6-5.0)
--- NOTE | 2017-01-08 10:44 | Physical Therapy Evaluation ---
PT Evaluation-General Medical Diagnosis Admission Date Jan 04, 2017 at 08:40 Medical Diagnosis: diverticular abscess Onset Date: Jan 04, 2017 Therapy Diagnosis Therapy Diagnosis: generalized weakness/debility Height/Weight Height (Feet): 5 Height (Inches): 0.00 Weight (Pounds): 171 Weight (Ounces): 4.0 Precautions Precautions/Isolations: Fall Prevention, Standard Precautions Referral Physician: Marybel Reason for Referral: Evaluation/Treatment Medical History Pertinent Medical History: Arthritis, DM, GERD, HTN, Hypothroidism Additional Medical History multiple hospital admits for abdominal pain and procedures Current History s/p drainage/removal diverticular abscess Reviewed History: Yes Social History Home: Apartment Current Living Status: Alone Entry Into Home: Level Entry Prior/Core FIM Prior Level of Function Functional [place] Measure 0=Not Assessed/NA 4=Minimal Assistance 1=Total Assistance 5=Supervision or Setup 2=Maximal Assistance 6=Modified [place] 3=Moderate Assistance 7=Complete [place] Bed Mobility: 6 Transfers (B,C,W/C) (FIM): 6 Gait: 6 uses FWW PLOF PT Evaluation-Current Subjective Patient initially declined PT intervention, however, with much encouragement, patient reluctantly agrees. 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 Objective Patient Orientation: Normal For Age Problem Solving: Fair Attachments: Drains, Penny Catheter, IV ROM/Strength ROM Lower Extremities bilateral LE WNL Strenght Lower Extremities right knee extension/flexion 4-/5; hip flexion NT due to abdominal pain; ankle dorsi/plantarflexion 4-/5 left knee extension/flexion 4-/5; hip flexion NT due to abdominal pain; ankle dorsi/plantarflexion 4-/5 Integumentary/Posture Integumentary refer to nursing notes Bladder Incontinence: Penny Cath Posture flexed hip posture due to lower abdominal pain Neuromuscular (Tone, Coordination, Reflexes) grossly intact Sensory Vision: Functional Hearing: Impaired Sensation Right Lower Extremit: Intact Sensation Left Lower Extremity: Intact Transfers Functional [place] Measure 0=Not Assessed/NA 4=Minimal Assistance 1=Total Assistance 5=Supervision or Setup 2=Maximal Assistance 6=Modified [place] 3=Moderate Assistance 7=Complete [place] Transfers (B, C, W/C) (FIM): 4 Scootin Rollin Supine to/from Sit: 4 Sit to/from Stand: 5 CGA with bed mobility; gait belt no placed due to multiple abdominal incisions and patient refusal. Gait Mode of Locomotion: Walk Anticipated Mode of Locomotion: Walk Gait (FIM): 5 Distance (FIM): 3=150 ft Distance: 150' Gait Level of Assist: 5 Gait Persons Needed: 1 Gait Assistive Device: FWW Comments/Gait Description very slow due to abdominal pain; safe and functional Balance Sitting Static: Normal Sitting Dynamic: Normal Standing Static: Normal Standing Dynamic: Normal Assessment/Needs 81 y.o. female, will benefit from skilled PT to address functional strength and mobility to improve current LOF and to safely return to home at maximum LOF. 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 Rehab Potential: Good PT Nursing Home Goals Supervisor Uranium Processing Goals PT Nursing Home Goals Time Frame: Jan 19, 2017 Transfers (B,C,W/C) (FIM): 6 Gait (FIM): 6 Gait distance (FIM): 3=150 ft Gait Level of Assist: 6 Gait Assistive Device: FWW PT Plan Problem List Problem List: Activity Tolerance Treatment/Plan Treatment Plan: Continue Plan of Care Treatment Plan: Bed Mobility, Education, Functional Activity Kevin, Functional Strength, Gait, Safety, Therapeutic Exercise, Transfers Treatment Duration: Jan 19, 2017 Frequency: Twice Daily (M-F) Estimated Hrs Per Day: .25 hour per day Patient and/or Family Agrees t: Yes Time/GCodes Time In: 1015 Time Out: 1035 Total Billed Treatment Time: 20 Total Billed Treatment 1 visit EVModC 20 min G Codes Necessary: No SHERRON MCKEON PT Jan 08, 2017 10:44
[2017-01-08 11:57] VITALS: BP 86/52
--- NOTE | 2017-01-08 15:36 | Physical Therapy Daily Note ---
PT Daily Note-Current Subjective Patient states she has ambulated x 2 today and reluctantly agrees. Pain Numeric Pain Scale: 5-Moderate Pain Location: Lower Location Body Site: Abdomen Pain Description: Acute Mental Status Patient Orientation: Normal For Age Attachments: Drains, Penny Catheter, IV Transfers Functional [place] Measure 0=Not Assessed/NA 4=Minimal Assistance 1=Total Assistance 5=Supervision or Setup 2=Maximal Assistance 6=Modified [place] 3=Moderate Assistance 7=Complete IndependenceIRFPAI Quality Coding Scale 6 Independent with activity with or without an assistive device 5 Patient requires set up or clean up by helper. Patient completes activity by themselves 4 Supervision or touching assist (CGA). [place] provide cues , steadying assist 3 The helper provides less than half the effort to complete the activity 2 The helper provides more than half the effort to complete the activity 1 Dependent. The helper does all the effort to complete an activity 7 Patient refused to complete or attempt activity 9 The patient did not perform the activity before the current illness or injury 88 Not attempted due to Medical conditions or safety concerns Transfers (B, C, W/C) (FIM): 4 Scootin Rollin Supine to/from Sit: 4 Sit to/from Stand: 5 Gait Training Gait (FIM): 5 Distance (FIM): 3=150 ft Distance: 250' Gait Level of Assist: 5 Gait Assistive Device: FWW safe and functional Assessment Current Status: Excellent Progress PT Assisted Goals Aerobics Teacher Goals PT Assisted Goals Time Frame: Jan 19, 2017 Transfers (B,C,W/C) (FIM): 6 Gait (FIM): 6 Gait distance (FIM): 3=150 ft Gait Level of Assist: 6 Gait Assistive Device: FWW PT Plan Treatment/Plan Treatment Plan: Continue Plan of Care Treatment Plan: Bed Mobility, Education, Functional Activity Kevin, Functional Strength, Gait, Safety, Therapeutic Exercise, Transfers Treatment Duration: Jan 19, 2017 Frequency: Twice Daily (M-F) Estimated Hrs Per Day: .25 hour per day Patient and/or Family Agrees t: Yes Time/GCodes Time In: 1520 Time Out: 1530 Total Billed Treatment Time: 10 Total Billed Treatment 1 visit FA 10 min SHERRON MCKEON PT Jan 08, 2017 15:36
[2017-01-08 16:00] VITALS: BP 103/63
--- NOTE | 2017-01-08 17:52 | Progress Note (SOAP) ---
Subjective Date Seen by Provider: Jan 08, 2017 Time Seen by Provider: 14:00 Subjective/Events-last exam doing better today. less abdominal cramping. no nausea/vomiting. electrolytes being corrected. pain controlled. Objective Exam Vital Signs Date Time Temp Pulse Resp B/P (MAP) Pulse Ox O2 Delivery O2 Flow Rate FiO2 01/08/17 17:10 20 01/08/17 16:00 97.3 98 20 103/63 97 Room Air 01/08/17 13:00 95 01/08/17 11:57 98.3 87 19 86/52 95 Room Air 01/08/17 10:19 93 Room Air 01/08/17 09:00 Room Air 01/08/17 07:45 96.4 103 19 126/58 96 Room Air 01/08/17 07:45 90 01/08/17 06:36 94 Room Air 01/08/17 05:37 18 01/08/17 04:35 90 115/67 01/08/17 03:50 98.5 99 18 132/80 97 Room Air 01/08/17 02:37 18 01/08/17 02:02 96 Room Air 01/08/17 01:00 98 01/07/17 23:53 99.0 99 18 110/69 96 Room Air 01/07/17 22:45 94 Room Air 01/07/17 21:18 105 108/61 01/07/17 21:00 Room Air 01/07/17 20:00 98.6 96 19 113/68 98 Nasal Cannula 2.00 01/07/17 19:00 99 01/07/17 18:55 93 Room Air 01/07/17 18:33 16 I & O 01/09/17 07:00 Intake Total 130 ml Output Total 1140 ml Balance -1010 ml Capillary Refill : General Appearance: No Apparent Distress HEENT: PERRL/EOMI Neck: Full Range of Motion Respiratory: Chest Non Tender, Lungs Clear, Normal Breath Sounds Cardiovascular: Regular Rate, Rhythm Gastrointestinal: normal bowel sounds, soft, distended Extremity: Normal Capillary Refill Neurologic/Psychiatric: Alert, Oriented x3 Skin: Normal Color Lymphatic: No Adenopathy Results Lab Laboratory Tests 01/07/17 18:01: Glucometer 115H 01/07/17 23:59: Glucometer 129H 01/08/17 04:30: White Blood Count 11.2H, Red Blood Count 3.45L, Hemoglobin 10.8L, Hematocrit 33L , Mean Corpuscular Volume 96, Mean Corpuscular Hemoglobin 31, Mean Corpuscular Hemoglobin Concent 33, Red Cell Distribution Width 13.8, Platelet Count 269, Mean Platelet Volume 10.9H, Sodium Level 123*L, Potassium Level 6.0H, Chloride Level 102, Carbon Dioxide Level 12L, Anion Gap 9, Blood Urea Nitrogen 11, Creatinine 0.94, Estimat Glomerular Filtration Rate 57, BUN/Creatinine Ratio 12 , Glucose Level 138H, Calcium Level 8.2L, Magnesium Level 1.5L 01/08/17 05:30: Sodium Level 124*L, Potassium Level 5.9H, Chloride Level 102, Carbon Dioxide Level 12L, Anion Gap 10, Blood Urea Nitrogen 11, Creatinine 0.97, Estimat Glomerular Filtration Rate 55, BUN/Creatinine Ratio 11, Glucose Level 139H, Calcium Level 8.2L 01/08/17 10:10: Sodium Level 125*L, Potassium Level 5.3H, Chloride Level 102, Carbon Dioxide Level 14L, Anion Gap 9, Blood Urea Nitrogen 12, Creatinine 1.09, Estimat Glomerular Filtration Rate 48, BUN/Creatinine Ratio 11, Glucose Level 171H, Calcium Level 8.3L, Magnesium Level 1.5L 01/08/17 11:53: Glucometer 143H 01/08/17 17:33: Glucometer 140H Assessment/Plan Assessment/Plan Assess & Plan/Chief Complaint s/p lap LAR and en-bloc left tubo-oophorectomy. ambulate and OOB-chair. continue DVT prophylaxis. await bowel fxn. correct electrolytes. drain output SS. monitor labs and path Clinical Quality Measures DVT/VTE Risk/Contraindication: Risk Factor Score Per Nursin RFS Level Per Nursing on Admit: 4+=Very High JACKIE CHAU MD Jan 08, 2017 5:52 pm
[2017-01-08 20:05] VITALS: BP 125/58
[2017-01-08] MEDS: clonazePAM 0.5 MG (KlonoPIN) TAB PO SCH (20:11)
[2017-01-09] VITALS: BP 144/64
[2017-01-09] MEDS: inSUlin (REGULAR) HUMAN 1 UNIT/0.01 ML (CHARGE PER UNIT) SC SCH ×4 (00:03→18:08)
[2017-01-09] MEDS: meTOprolol 5 MG/5 ML (LOPRESSOR) VIAL IVP SCH ×6 (00:03→20:26)
[2017-01-09] MEDS: NS IV 1000 ML 1,000 ML IV SCH ×4 (02:22→21:50)
[2017-01-09 04:04] VITALS: BP 145/64
[2017-01-09] MEDS: LEVOTHYROXINE 50 MCG (LEVOTHROID) TAB PO SCH (05:44)
[2017-01-09 06:08] LABS: MEAN PLATELET VOLUME 10.8 FL (7.4-10.4); RED BLOOD COUNT 3.34 10^6/uL (4.35-5.85); RED CELL DISTRIBUTION WIDTH 13.9 % (10.0-14.5); WHITE BLOOD COUNT 8.5 10^3/uL (4.3-11.0)
[2017-01-09 06:18] LABS: CALCIUM 8.3 MG/DL (8.5-10.1); CREATININE SERUM 1.03 MG/DL (0.60-1.30); MAGNESIUM 1.4 MG/DL (1.8-2.4)
[2017-01-09 08:00] VITALS: BP 135/63
--- NOTE | 2017-01-09 08:38 | Progress Note (SOAP) ---
Subjective Date Seen by Provider: Jan 09, 2017 Time Seen by Provider: 08:33 Subjective/Events-last exam PT IS AN 81 Y/O FEMALE WHO IS KNOWN TO ME FROM CLINIC. SHE HAD A DIVERTICULAR ABSCESS - HAD SURGERY FOR DRAINAGE OF ABSCESS AND FIXATION OF FISTULA. TODAY SHE STATES THAT SHE FEELS BETTER, HAS NOT PASSED GAS OR STOOL. STAFF NOTES THAT SHE IS MOVING BETTER TODAY THAN YESTERDAY. Review of Systems General: Fatigue HEENT: No Head Aches Pulmonary: No Dyspnea, No Cough Gastrointestinal: Abdominal Pain, No: Nausea Genitourinary: No Dysuria Neurological: Weakness, No: Confusion Objective Exam Vital Signs Date Time Temp Pulse Resp B/P (MAP) Pulse Ox O2 Delivery O2 Flow Rate FiO2 01/09/17 06:54 94 Room Air 01/09/17 06:00 18 01/09/17 04:04 98.6 103 19 145/64 96 Room Air 01/09/17 02:52 92 Room Air 01/09/17 01:00 90 01/09/17 00:00 99.1 97 20 144/64 97 Room Air 01/08/17 22:00 96 Room Air 01/08/17 20:05 96 Room Air 01/08/17 20:05 99.5 107 20 125/58 96 Room Air 01/08/17 19:00 106 01/08/17 18:32 20 01/08/17 18:30 95 Room Air 01/08/17 17:10 20 01/08/17 16:00 97.3 98 20 103/63 97 Room Air 01/08/17 13:00 95 01/08/17 11:57 98.3 87 19 86/52 95 Room Air 01/08/17 10:19 93 Room Air 01/08/17 09:00 Room Air Capillary Refill : General Appearance: No Apparent Distress, WD/WN HEENT: PERRL/EOMI, Pharynx Normal Neck: Full Range of Motion, Supple Respiratory: Chest Non Tender, Lungs Clear, Normal Breath Sounds, No Accessory Muscle Use Cardiovascular: Regular Rate, Rhythm Gastrointestinal: other (IMPROVED BOWEL SOUNDS, DISTENDED, TTP) Extremity: Normal Capillary Refill, No Calf Tenderness, No Pedal Edema Neurologic/Psychiatric: Alert, Oriented x3, No Motor/Sensory Deficits, Normal Mood/Affect Skin: Warm/Dry Lymphatic: No Adenopathy Results Lab Laboratory Tests 01/08/17 10:10: Sodium Level 125*L, Potassium Level 5.3H, Chloride Level 102, Carbon Dioxide Level 14L, Anion Gap 9, Blood Urea Nitrogen 12, Creatinine 1.09, Estimat Glomerular Filtration Rate 48, BUN/Creatinine Ratio 11, Glucose Level 171H, Calcium Level 8.3L, Magnesium Level 1.5L 01/08/17 11:53: Glucometer 143H 01/08/17 17:33: Glucometer 140H 01/09/17 00:02: Glucometer 117H 01/09/17 05:35: White Blood Count 8.5, Red Blood Count 3.34L, Hemoglobin 10.5L, Hematocrit 32L, Mean Corpuscular Volume 96, Mean Corpuscular Hemoglobin 31, Mean Corpuscular Hemoglobin Concent 33, Red Cell Distribution Width 13.9, Platelet Count 282, Mean Platelet Volume 10.8H, Sodium Level 128L, Potassium Level 5.0, Chloride Level 106, Carbon Dioxide Level 11L, Anion Gap 11, Blood Urea Nitrogen 14, Creatinine 1.03, Estimat Glomerular Filtration Rate 52, BUN/Creatinine Ratio 14 , Glucose Level 147H, Calcium Level 8.3L, Magnesium Level 1.4L Assessment/Plan Assessment/Plan Assess & Plan/Chief Complaint DIVERTICULAR ABSCESS POST OP DAY #4 HYPONATREMIA HYPERTENSION HYPERKALEMIA DIABETES MELLITUS HYPOTHYROIDISM ELEVATED WHITE COUNT DIVERTICULAR ABSCESS POST OP DAY #4 - SIGNIFICANT ABDOMINAL DRAIN OUTPUT WITH WEEPING FROM LOWER ABDOMINAL SURGICAL SITE, SUPPORTIVE CARE, FREQUENT DRAIN CHECKS BY STAFF, INCREASE PHYSICAL ACTIVITY - THERAPY ORDERED, AND BETWEEN PT AND NURSING STAFF, WE WILL HAVE HER AMBULATED AT LEAST THREE TIMES DAILY. MILD INCREASE IN TEMPERATURE - CHECK CHEST XRAY TODAY HYPONATREMIA AND HYPERKALEMIA AND HYPOMAGNESEMIA - IMPROVING SLIGHLY - CONTINUE WITH NORMAL SALINE, CONTINUE WITH REPLACEMENT WITH IV MAGNESIUM. CHECK LABS IN THE MORNING. HYPERTENSION - MONITOR BLOOD PRESSURES, STOPPED LISINOPRIL, CONTINUE WITH AMLODIPINE, IV METOPROLOL PRN. DIABETES MELLITUS - MONITOR SYMPTOMS OF DM PT CURRENTLY NPO, WILL RESTART INSULIN WHEN PT STARTS TO EAT. HYPOTHYROIDISM - ON LEVOTHYROXINE. ELEVATED WHITE COUNT - IMPROVED, MONITOR SYMPTOMS. TACHYCARDIA - DUE TO ACUTE ILLNESS - MONITOR HEART RATE CONTINUE WITH FLUIDS. SWING BED EVAL TODAY. Clinical Quality Measures DVT/VTE Risk/Contraindication: Risk Factor Score Per Nursin RFS Level Per Nursing on Admit: 4+=Very High TINA LEON MD Jan 09, 2017 08:38
[2017-01-09] MEDS: PANTOPRAZOLE 40 MG/10 ML (PROTONIX) VIAL IV SCH (09:07)
[2017-01-09] MEDS: amLODIPine 10 MG (NORVASC) TAB PO SCH (09:08)
[2017-01-09] MEDS: ENOXAPARIN 30 MG/0.3 ML (LOVENOX) SYR SC SCH ×2 (09:08→20:21)
[2017-01-09] MEDS: MAGNESIUM 1 GM/100 ML IVPB 100 ML IV SCH ×2 (09:19→10:25)
--- NOTE | 2017-01-09 09:22 | Physical Therapy Daily Note ---
PT Daily Note-Current Subjective Patient returned from [facility] and agrees to PT. Pain Numeric Pain Scale: 5-Moderate Pain Location: Lower Location Body Site: Abdomen Pain Description: Pressure Mental Status Patient Orientation: Normal For Age Attachments: Drains, Penny Catheter, IV Transfers Functional [place] Measure 0=Not Assessed/NA 4=Minimal Assistance 1=Total Assistance 5=Supervision or Setup 2=Maximal Assistance 6=Modified [place] 3=Moderate Assistance 7=Complete IndependenceIRFPAI Quality Coding Scale 6 Independent with activity with or without an assistive device 5 Patient requires set up or clean up by helper. Patient completes activity by themselves 4 Supervision or touching assist (CGA). [place] provide cues , steadying assist 3 The helper provides less than half the effort to complete the activity 2 The helper provides more than half the effort to complete the activity 1 Dependent. The helper does all the effort to complete an activity 7 Patient refused to complete or attempt activity 9 The patient did not perform the activity before the current illness or injury 88 Not attempted due to Medical conditions or safety concerns Transfers (B, C, W/C) (FIM): 5 Scootin Sit to/from Stand: 5 Bed to/from Chair: 5 Gait Training Gait (FIM): 5 Distance (FIM): 3=150 ft Distance: 275' Gait Level of Assist: 5 Gait Assistive Device: FWW slow, steady, functional Exercises Seated Therapy Exercises: Ankle pumps, Long arc quads Seated Reps: 25 (2 sets to improve functional mobility) Assessment Patient progressing with treatment plan. PT to continue to increase activity program to ensure safe return to home at [facility]. 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 PT Mcfp Goals Time Frame: Jan 19, 2017 Transfers (B,C,W/C) (FIM): 6 Gait (FIM): 6 Gait distance (FIM): 3=150 ft Gait Level of Assist: 6 Gait Assistive Device: FWW PT Plan Treatment/Plan Treatment Plan: Continue Plan of Care Treatment Plan: Bed Mobility, Education, Functional Activity Kevin, Functional Strength, Gait, Safety, Therapeutic Exercise, Transfers Treatment Duration: Jan 19, 2017 Frequency: Twice Daily (M-F) Estimated Hrs Per Day: .25 hour per day Patient and/or Family Agrees t: Yes Time/GCodes Time In: 845 Time Out: 908 Total Billed Treatment Time: 23 Total Billed Treatment 1 visit FA 15 min EX 8 min SHERRON MCKEON PT Jan 09, 2017 09:22
--- NOTE | 2017-01-09 10:58 | Diagnostic Imaging Report ---
EXAMINATION: PA and lateral chest. INDICATION: Fever. FINDINGS: The heart size is within normal limits and stable when compared to 01/05/2017. The prior exam did note crowding of the bronchovascular markings in both infrahilar regions. On this study, both lung bases do seem better aerated. There may be a very small amount of residual atelectasis/infiltrate in each lower lobe. There is no sign of a pleural effusion and the upper lungs remain clear. The mediastinum is not widened. The osseous structures are intact. The central venous catheter on the left noted previously remains in good position. IMPRESSION: The appearance of the chest has improved since the prior exam as the lung bases do seem better aerated. There may be a very small amount of residual atelectasis/infiltrate in each lower lobe. Clinical followup is recommended. Dictated by: Dictated on workstation # [id number]
[2017-01-09 12:00] VITALS: BP 132/53
--- NOTE | 2017-01-09 13:30 | Progress Note (SOAP) ---
Subjective Date Seen by Provider: Jan 09, 2017 Time Seen by Provider: 13:00 Subjective/Events-last exam doing ok. no BM yet. no nausea/vomiting. pain controlled. AWILDA output compared to urine by smell test and different. Objective Exam Vital Signs Date Time Temp Pulse Resp B/P (MAP) Pulse Ox O2 Delivery O2 Flow Rate FiO2 01/09/17 10:27 100 Room Air 01/09/17 08:00 99.1 97 18 135/63 98 Room Air 01/09/17 06:54 94 Room Air 01/09/17 06:00 18 01/09/17 04:04 98.6 103 19 145/64 96 Room Air 01/09/17 02:52 92 Room Air 01/09/17 01:00 90 01/09/17 00:00 99.1 97 20 144/64 97 Room Air 01/08/17 22:00 96 Room Air 01/08/17 20:05 96 Room Air 01/08/17 20:05 99.5 107 20 125/58 96 Room Air 01/08/17 19:00 106 01/08/17 18:32 20 01/08/17 18:30 95 Room Air 01/08/17 17:10 20 01/08/17 16:00 97.3 98 20 103/63 97 Room Air I & O 01/10/17 07:00 Intake Total 200 ml Balance 200 ml Capillary Refill : General Appearance: No Apparent Distress HEENT: PERRL/EOMI Neck: Full Range of Motion Respiratory: Chest Non Tender, Normal Breath Sounds Cardiovascular: Regular Rate, Rhythm Gastrointestinal: non tender, soft, distended, other (incisions clean/dry) Extremity: Normal Capillary Refill Neurologic/Psychiatric: Alert, Oriented x3 Skin: Normal Color Lymphatic: No Adenopathy Results Lab Laboratory Tests 01/08/17 17:33: Glucometer 140H 01/09/17 00:02: Glucometer 117H 01/09/17 05:35: White Blood Count 8.5, Red Blood Count 3.34L, Hemoglobin 10.5L, Hematocrit 32L, Mean Corpuscular Volume 96, Mean Corpuscular Hemoglobin 31, Mean Corpuscular Hemoglobin Concent 33, Red Cell Distribution Width 13.9, Platelet Count 282, Mean Platelet Volume 10.8H, Sodium Level 128L, Potassium Level 5.0, Chloride Level 106, Carbon Dioxide Level 11L, Anion Gap 11, Blood Urea Nitrogen 14, Creatinine 1.03, Estimat Glomerular Filtration Rate 52, BUN/Creatinine Ratio 14 , Glucose Level 147H, Calcium Level 8.3L, Magnesium Level 1.4L Assessment/Plan Assessment/Plan Assess & Plan/Chief Complaint s/p lap LAR and en-bloc left tubo-oophorectomy. ambulate and OOB-chair. continue DVT prophylaxis. await bowel fxn. correct electrolytes. AWILDA drain output compared to urine and odor different. most likely serous fluid. will continue to monitor. path benign severe diverticulitis. agree with SWB eval. Clinical Quality Measures DVT/VTE Risk/Contraindication: Risk Factor Score Per Nursin RFS Level Per Nursing on Admit: 4+=Very High JACKIE CHAU MD Jan 09, 2017 13:29
--- NOTE | 2017-01-09 14:13 | Physical Therapy Daily Note ---
PT Daily Note-Current Subjective Patient agrees to PT. Pain Numeric Pain Scale: 7 Location: Lower Location Body Site: Abdomen Pain Description: Acute Mental Status Patient Orientation: Normal For Age Attachments: Drains, Penny Catheter, IV Transfers Functional [place] Measure 0=Not Assessed/NA 4=Minimal Assistance 1=Total Assistance 5=Supervision or Setup 2=Maximal Assistance 6=Modified [place] 3=Moderate Assistance 7=Complete IndependenceIRFPAI Quality Coding Scale 6 Independent with activity with or without an assistive device 5 Patient requires set up or clean up by helper. Patient completes activity by themselves 4 Supervision or touching assist (CGA). [place] provide cues , steadying assist 3 The helper provides less than half the effort to complete the activity 2 The helper provides more than half the effort to complete the activity 1 Dependent. 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 Professor Of Business Administration Goals PT [facility] Goals Time Frame: Jan 19, 2017 Transfers (B,C,W/C) (FIM): 6 Gait (FIM): 6 Gait distance (FIM): 3=150 ft Gait Level of Assist: 6 Gait Assistive Device: FWW PT Plan Treatment/Plan Treatment Plan: Continue Plan of Care Treatment Plan: Bed Mobility, Education, Functional Activity Kevin, Functional Strength, Gait, Safety, Therapeutic Exercise, Transfers Treatment Duration: Jan 19, 2017 Frequency: Twice Daily (M-F) Estimated Hrs Per Day: .25 hour per day Patient and/or Family Agrees t: Yes Time/GCodes Time In: 1355 Time Out: 1405 Total Billed Treatment Time: 10 Total Billed Treatment 1 visit FA 10 min SHERRON MCKEON PT Jan 09, 2017 14:13
[2017-01-09] MEDS: oxyCODONE 20 MG/1 ML ORAL CONC (RoxiCODONE) CHARGE PER 1 ML PO PRN (14:15)
[2017-01-09 16:35] VITALS: BP 119/61
[2017-01-09] MEDS: clonazePAM 0.5 MG (KlonoPIN) TAB PO SCH (20:21)
[2017-01-09 20:25] VITALS: BP 105/54
[2017-01-09 21:39] LABS: BLOOD UREA NITROGEN 14 MG/DL (7-18); BUN/CREATININE RATIO 16; CREATININE SERUM 0.88 MG/DL (0.60-1.30); GFR ESTIMATED > 60
[2017-01-10] MEDS: oxyCODONE 20 MG/1 ML ORAL CONC (RoxiCODONE) CHARGE PER 1 ML PO PRN ×3 (00:01→14:40)
[2017-01-10] MEDS: meTOprolol 5 MG/5 ML (LOPRESSOR) VIAL IVP SCH ×6 (00:06→20:02)
[2017-01-10 00:30] VITALS: BP 129/58
[2017-01-10] MEDS: diphenhydrAMINE 50 MG/ML INJ (BENADRYL) IVP PRN (01:04)
[2017-01-10] MEDS: NS IV 1000 ML 1,000 ML IV SCH ×3 (03:47→18:21)
[2017-01-10 04:45] VITALS: BP 124/58
[2017-01-10 05:16] LABS: CALCIUM 8.1 MG/DL (8.5-10.1); CREATININE SERUM 0.92 MG/DL (0.60-1.30); MAGNESIUM 1.6 MG/DL (1.8-2.4); POTASSIUM 4.7 MMOL/L (3.6-5.0)
[2017-01-10] MEDS: inSUlin (REGULAR) HUMAN 1 UNIT/0.01 ML (CHARGE PER UNIT) SC SCH ×3 (05:48→18:32)
[2017-01-10] MEDS: LEVOTHYROXINE 50 MCG (LEVOTHROID) TAB PO SCH (05:50)
[2017-01-10 08:00] VITALS: BP 143/64
[2017-01-10] MEDS ORDERED: CATHETER FLUSH 10 ML SYR IV PRN (08:45)
[2017-01-10] MEDS ORDERED: IOHEXOL 350 MG/ML 100 ML (OMNIPAQUE 350) VIAL IV ONE (08:45)
[2017-01-10] MEDS ORDERED: NS 100 ML (IVPB) BAG IV ONE (08:45)
--- NOTE | 2017-01-10 09:04 | Progress Note (SOAP) ---
Subjective Date Seen by Provider: Jan 10, 2017 Time Seen by Provider: 08:50 Subjective/Events-last exam PT REPORTS THAT SHE IS FEELING STRANGE TODAY. SHE THINKS SHE IS HALLUCINATING - SHE REPORTS THAT THE TELEVISION SEEMS TO BE TELLING HER HOW AND WHEN TO ORDER FOOD. SHE STATES THAT SHE IS NOT DIZZY OR LIGHT HEADED, NO CHEST PAIN, NO SHORTNESS OF BREATH, JUST DOES NOT FEEL GOOD OVERALL. Review of Systems General: No Chills, Fatigue HEENT: No Head Aches Pulmonary: No Dyspnea, No Cough Cardiovascular: No: Chest Pain, Palpitations Gastrointestinal: Abdominal Pain, Other (NO BOWEL MOVEMENTS), No: Nausea Genitourinary: Frequency Neurological: Weakness, Confusion Objective Exam Vital Signs Date Time Temp Pulse Resp B/P (MAP) Pulse Ox O2 Delivery O2 Flow Rate FiO2 01/10/17 06:54 95 Room Air 01/10/17 04:45 97.9 99 18 124/58 95 Room Air 01/10/17 01:00 90 01/10/17 00:30 98.9 100 18 129/58 98 Room Air 01/09/17 20:30 96 Room Air 01/09/17 20:25 99.5 95 19 105/54 97 Room Air 01/09/17 19:00 94 01/09/17 18:58 97 Room Air 01/09/17 18:06 16 01/09/17 16:35 98.9 99 16 119/61 97 Room Air 01/09/17 14:29 99 Room Air 01/09/17 13:06 96 01/09/17 12:00 98.9 97 15 132/53 99 Room Air 01/09/17 10:27 100 Room Air Capillary Refill : General Appearance: No Apparent Distress, WD/WN, Anxious HEENT: PERRL/EOMI, Pharynx Normal Neck: Full Range of Motion, Supple Respiratory: Chest Non Tender, Lungs Clear, Normal Breath Sounds, No Accessory Muscle Use Cardiovascular: Regular Rate, Rhythm, Systolic Murmur Gastrointestinal: other (DECREASED BOWEL SOUNDS, YELLOW DRAINAGE IN AWILDA DRAIN) Extremity: Pedal Edema (TRACE) Neurologic/Psychiatric: Alert, Other (ORIENTED TO PERSON, PLACE TIME, BUT IS INTERMITTENTLY CONFUSED) Skin: Warm/Dry Lymphatic: No Adenopathy Results Lab Laboratory Tests 01/09/17 12:26: Glucometer 153H 01/09/17 18:01: Glucometer 150H 01/09/17 21:17: Blood Urea Nitrogen 14, Creatinine 0.88, Estimat Glomerular Filtration Rate > 60 , BUN/Creatinine Ratio 16 01/09/17 23:54: Glucometer 158H 01/10/17 04:20: Sodium Level 130L, Potassium Level 4.7, Chloride Level 109H, Carbon Dioxide Level 13L, Anion Gap 8, Blood Urea Nitrogen 14, Creatinine 0.92, Estimat Glomerular Filtration Rate 59, BUN/Creatinine Ratio 15, Glucose Level 127H, Calcium Level 8.1L, Magnesium Level 1.6L Assessment/Plan Assessment/Plan Assess & Plan/Chief Complaint DIVERTICULAR ABSCESS POST OP DAY #5 HYPONATREMIA HYPERTENSION HYPERKALEMIA DIABETES MELLITUS HYPOTHYROIDISM ELEVATED WHITE COUNT DIVERTICULAR ABSCESS POST OP DAY #5 - SIGNIFICANT ABDOMINAL DRAIN OUTPUT, SUPPORTIVE CARE, FREQUENT DRAIN CHECKS BY STAFF, INCREASE PHYSICAL ACTIVITY - THERAPY ORDERED, AND BETWEEN PT AND NURSING STAFF, WE WILL HAVE HER AMBULATED AT LEAST THREE TIMES DAILY. HYPONATREMIA AND HYPERKALEMIA AND HYPOMAGNESEMIA - IMPROVING SLIGHTLY - CONTINUE WITH NORMAL SALINE - DECREASE RATE, CONTINUE WITH REPLACEMENT WITH IV MAGNESIUM. CHECK LABS IN THE MORNING. HYPERTENSION - MONITOR BLOOD PRESSURES, STOPPED LISINOPRIL, CONTINUE WITH AMLODIPINE, IV METOPROLOL PRN. DIABETES MELLITUS - MONITOR SYMPTOMS OF DM PT CURRENTLY NPO, WILL RESTART INSULIN WHEN PT STARTS TO EAT. HYPOTHYROIDISM - ON LEVOTHYROXINE. ELEVATED WHITE COUNT - IMPROVED, MONITOR SYMPTOMS. TACHYCARDIA - DUE TO ACUTE ILLNESS - MONITOR HEART RATE CONTINUE WITH FLUIDS. SWING BED EVAL AND PLAN TO DISCHARGE TO SWING BED TOMORROW. Clinical Quality Measures DVT/VTE Risk/Contraindication: Risk Factor Score Per Nursin RFS Level Per Nursing on Admit: 4+=Very High TINA LEON MD Jan 10, 2017 09:04
--- NOTE | 2017-01-10 09:49 | Physician Query Clarification ---
PQ-Further Specificity Admission/Discharge Admission Date: Jan 04, 2017 at 08:40 Discharge Date: The medical record reflects the following clinical scenario: History/Risk Factors: Diverticulitis with abscess Phlegmon encompassing the left ovary and tube Clinical Findings: Pathology showing colon,sigmoid -severe diverticulitis with surrounding abscess formation Treatment: Removal of mass( sigmoid ), left ovary and left fallopian tube. Question: Can you further clarify, for coding specificity, whether your operative procedure removed all or only part of Sigmoid Colon? Please document below. 1. Laparoscopic Total Sigmoidectomy. 2. Laparoscopic Partial Sigmoidectomy. 3. Other, with explanation of the clinical findings. 4. Clinically undetermined, no explanation for the clinical findings. PHYSICIAN RESPONSE Can you specify per above: 1 In responding to this query, please exercise your independent professional judgment. The purpose of this communication is to more accurately reflect the complexity of your patients condition. The fact that a question is asked does not imply that any particular answer is desired or expected. Thank you for your timely response to this clarification. Requestors name: Luz Maria Mclaughlin [facility] Phone # ext [phone] or [phone] THIS PHYSICIAN QUERY FORM IS A PERMANENT PART OF THE MEDICAL RECORD LUZ MARIA MCLAUGHLIN Jan 10, 2017 09:49 JACKIE CHAU MD Jan 17, 2017 12:51
[2017-01-10] MEDS: PANTOPRAZOLE 40 MG/10 ML (PROTONIX) VIAL IV SCH (09:57)
[2017-01-10] MEDS: MAGNESIUM 1 GM/100 ML IVPB 100 ML IV SCH ×2 (09:57→11:10)
--- NOTE | 2017-01-10 10:26 | Physical Therapy Progress Note ---
Therapy Progress Note Patient is having some medical issues. Her nurse says that urine is draining into her AWILDA drain and she has some more testing due this morning. Patient is having a lot of pain. Recommends hold therapy this morning. Will check back this afternoon. BRETT SCHMITT PT Jan 10, 2017 10:26
--- NOTE | 2017-01-10 10:32 | Diagnostic Imaging Report ---
PROCEDURE: CT abdomen and pelvis with and without contrast. TECHNIQUE: Precontrast acquisitions were acquired through the abdomen and pelvis. Multiple contiguous axial images were obtained through the abdomen and pelvis after the administration of intravenous contrast. INDICATION: Abdominal pain. FINDINGS: The previous CT abdomen/pelvis exam performed on 11/30/2016 noted improvement in the findings of diverticulitis that were initially seen on the previous exam of 10/30/2016. There was also question of a small abscess in the left adnexa. The subsequent CT pelvis exam of 12/19/2016 indicated a sinus tract communicating between the sigmoid colon and the soft tissues in the left adnexa. Reportedly, the patient subsequently underwent a low anterior resection of the sigmoid colon. On the pre-intravenous contrast series of this exam, there is distortion of the mesenteric fat anterior to the aortic bifurcation. There is also a considerable amount of gas in both the large and small bowel. Most likely, this is due to a post operative ileus. There is also a small collection of fluid in this area measuring 2.0 x 3.7 cm. The suture lines involving the anastomosis between the rectum and the distal colon were also visualized. There is a Penny catheter within the bladder. Following injection of intravenous contrast, there was uptake by both kidneys. The delayed image revealed that there was excretion of the contrast by both kidneys as well. The 5 minute delayed image does show extravasation of the contrast from the left ureter at the level of the sacral promontory. The contrast accumulates just superior and posterior to the bladder. The area of extravasation measures approximately 3.3 x 3.4 cm. The right ureter is intact. The urinary bladder shows no abnormality. On the delayed series, there is a collection of fluid along the left psoas muscle measuring 6.8 x 2.2 cm. Just inferior and medial to this, there is another collection of fluid measuring 3.3 x 4.3 cm. Neither of these fluid collections contain any contrast on the delayed series and these may resent small hematomas or seromas. They do not appear to be infected. IMPRESSION: 1. There is extravasation of the contrast from the midportion of the left ureter. There is virtually no opacification of the distal left ureter and the left ureter may be completely torn in the region of the extravasation. 2. There is no sign of extravasation from the right ureter. 3. The fluid collections near the psoas muscle and in the left pelvis are of uncertain etiology but may be related to seromas or hematomas. They do not appear to be infected and there is no sign of contrast accumulation to suggest that they are related to urinomas. 4. These results were discussed with Dr. Salazar. Dictated by: Dictated on workstation # [id number]
[2017-01-10] MEDS: amLODIPine 10 MG (NORVASC) TAB PO SCH (10:52)
[2017-01-10] MEDS: ENOXAPARIN 30 MG/0.3 ML (LOVENOX) SYR SC SCH ×2 (11:02→20:01)
--- NOTE | 2017-01-10 11:45 | CONSULTATION REPORT ---
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 Her postoperative course was satisfactory, however, the drainage from the Hemovac started decreasing on 01/[address] Salazar sent the fluid to be checked for BUN and creatinine and it came back compatible with serum, definitely not the urine. However, he ordered a CT scan of the abdomen and pelvis with contrast which is highly suspicious for a leakage of urine from the mid ureter without a significant urinoma. The patient is afebrile and is not having abdominal pain. Her abdomen is soft. IMPRESSION: Possible laceration of the left mid ureter with leakage versus 3rd spacing. RECOMMENDATIONS: 1. Repeat the BUN and creatinine on the drainage fluid. 2. Would recommend a left percutaneous nephrostomy with a nephrostogram to achieve 2 purposes; 1, confirm the diagnosis of leakage or rule it out, 2; to drain the kidney and allow the healing of a possible laceration to the ureter, let it heal and deal with the consequence for example if she develops a stricture or so at that time. This was fully acceptable to Dr. Salazar and and was explained to the patient and later on will be also addressed and explained by Dr. Salazar himself. Job ID: [id number] DocumentID: [id number] Dictated Date: 01/10/2017 11:15:54 Chancery Clerk Date: 01/10/2017 11:44:38 Dictated By: ALEXANDRA KELLEY MD
[2017-01-10 12:00] VITALS: BP 121/56
--- NOTE | 2017-01-10 13:16 | Progress Note (SOAP) ---
Subjective Date Seen by Provider: Jan 10, 2017 Time Seen by Provider: 13:00 Subjective/Events-last exam doing ok. confused. good bowel sounds but no BM yet. left ureteral leak/injury and urology and IR consulted. percutaneuous left nephrostomy tube possible sunday. Objective Exam Vital Signs Date Time Temp Pulse Resp B/P (MAP) Pulse Ox O2 Delivery O2 Flow Rate FiO2 01/10/17 08:00 98.4 105 20 143/64 97 Room Air 01/10/17 06:54 95 Room Air 01/10/17 04:45 97.9 99 18 124/58 95 Room Air 01/10/17 01:00 90 01/10/17 00:30 98.9 100 18 129/58 98 Room Air 01/09/17 20:30 96 Room Air 01/09/17 20:25 99.5 95 19 105/54 97 Room Air 01/09/17 19:00 94 01/09/17 18:58 97 Room Air 01/09/17 18:06 16 01/09/17 16:35 98.9 99 16 119/61 97 Room Air 01/09/17 14:29 99 Room Air Capillary Refill : General Appearance: No Apparent Distress HEENT: PERRL/EOMI Neck: Full Range of Motion Respiratory: Chest Non Tender, Lungs Clear, Normal Breath Sounds Cardiovascular: Regular Rate, Rhythm Gastrointestinal: normal bowel sounds, soft, distended Extremity: Normal Capillary Refill Neurologic/Psychiatric: Alert, Oriented x3 Skin: Normal Color Lymphatic: No Adenopathy Results Lab Laboratory Tests 01/09/17 18:01: Glucometer 150H 01/09/17 21:17: Blood Urea Nitrogen 14, Creatinine 0.88, Estimat Glomerular Filtration Rate > 60 , BUN/Creatinine Ratio 16 01/09/17 23:54: Glucometer 158H 01/10/17 04:20: Blood Urea Nitrogen 14, Creatinine 0.92, Estimat Glomerular Filtration Rate 59, BUN/Creatinine Ratio 15, Sodium Level 130L, Potassium Level 4.7, Chloride Level 109H, Carbon Dioxide Level 13L, Anion Gap 8, Glucose Level 127H, Calcium Level 8.1L, Magnesium Level 1.6L 01/10/17 11:07: Body Fluid Creatinine 2 Assessment/Plan Assessment/Plan Assess & Plan/Chief Complaint s/p lap LAR and en-bloc left tubo-oophorectomy. ambulate and OOB-chair. continue DVT prophylaxis. await bowel fxn. correct electrolytes. path benign severe diverticulitis. CT with and without constrast with delayed films showed left ureteral leak/ injury. urology consulted. IR also consulted for percutaneous nephrostomy tube placement. Clinical Quality Measures DVT/VTE Risk/Contraindication: Risk Factor Score Per Nursin RFS Level Per Nursing on Admit: 4+=Very High JACKIE CHAU MD Jan 10, 2017 13:16
[2017-01-10] MEDS: METOCLOPRAMIDE INJ 10 MG/2 ML (REGLAN) IVP SCH ×3 (13:57→21:02)
[2017-01-10] MEDS: LEVOFLOXACIN 500 MG/100 ML IV 100 ML IV SCH (13:57)
--- NOTE | 2017-01-10 14:41 | Physical Therapy Daily Note ---
PT Daily Note-Current Subjective Pt was napping in recliner prior to tx and agreeable to PT. Pt was lethargic throughout tx. Pt was seated in recliner with nurse call, tray, all needs in reach post tx. Pain Comment: Pt reports she is having pain but is unable to rate due to confusion. Mental Status Patient Orientation: Person, Confused, Place, Situation Attachments: Drains, Penny Catheter, IV Transfers Functional [place] Measure 0=Not Assessed/NA 4=Minimal Assistance 1=Total Assistance 5=Supervision or Setup 2=Maximal Assistance 6=Modified [place] 3=Moderate Assistance 7=Complete IndependenceIRFPAI Quality Coding Scale 6 Independent with activity with or without an assistive device 5 Patient requires set up or clean up by helper. Patient completes activity by themselves 4 Supervision or touching assist (CGA). [place] provide cues , steadying assist 3 The helper provides less than half the effort to complete the activity 2 The helper provides more than half the effort to complete the activity 1 Dependent. The helper does all the effort to complete an activity 7 Patient refused to complete or attempt activity 9 The patient did not perform the activity before the current illness or injury 88 Not attempted due to Medical conditions or safety concerns Transfers (B, C, W/C) (FIM): 4 Sit to/from Stand: 4 Pt requires CGA with all transfers for safety. Min assist to stand. Gait Training Gait (FIM): 2 Distance (FIM): 1=up to 49 ft Distance: 15' Gait Level of Assist: 4 Gait Persons Needed: 1 Gait Assistive Device: FWW Pt ambulates with FWW and CGA for support. Assist guiding her walker and cues for direction. Treatments Pt completes gait training to increase functional mobility. Assessment Current Status: Poor Progress Pt had some medical issues in the morning which resulted in a decrease in ability to ambulate. 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 PT Detention Goals Time Frame: Jan 19, 2017 Transfers (B,C,W/C) (FIM): 6 Gait (FIM): 6 Gait distance (FIM): 3=150 ft Gait Level of Assist: 6 Gait Assistive Device: FWW PT Plan Problem List Problem List: Activity Tolerance, Functional Strength, Safety, Balance, Gait, Transfer, Bed Mobility Treatment/Plan Treatment Plan: Continue Plan of Care Treatment Plan: Bed Mobility, Education, Functional Activity Kevin, Functional Strength, Gait, Safety, Therapeutic Exercise, Transfers Treatment Duration: Jan 19, 2017 Frequency: Twice Daily (M-F) Estimated Hrs Per Day: .25 hour per day Patient and/or Family Agrees t: Yes Safety Risks/Education Patient Education: Gait Training, Transfer Techniques, Reviewed Precautions, Correct Positioning, Safety Issues Teaching Recipient: Patient Teaching Methods: Demonstration, Discussion Response to Teaching: Verbalize Understanding, Reinforcement Needed Time/GCodes Time In: 215 Time Out: 235 Total Billed Treatment Time: 20 Total Billed Treatment 1 visit 20 GT BRETT SCHMITT PT Jan 10, 2017 14:41
[2017-01-10 17:30] VITALS: BP 111/59
[2017-01-10 19:50] VITALS: BP 146/71
[2017-01-10] MEDS: clonazePAM 0.5 MG (KlonoPIN) TAB PO SCH (20:02)
[2017-01-11 00:13] VITALS: BP 145/73
[2017-01-11] MEDS: meTOprolol 5 MG/5 ML (LOPRESSOR) VIAL IVP SCH ×6 (00:15→20:37)
[2017-01-11] MEDS: fentaNYL INJECTION 100 MCG/2 ML AMP IVP PRN ×5 (00:16→17:14)
[2017-01-11] MEDS: inSUlin (REGULAR) HUMAN 1 UNIT/0.01 ML (CHARGE PER UNIT) SC SCH ×4 (02:08→18:40)
[2017-01-11 03:57] VITALS: BP 155/73
[2017-01-11 05:37] LABS: RED BLOOD COUNT 3.52 10^6/uL (4.35-5.85); RED CELL DISTRIBUTION WIDTH 13.7 % (10.0-14.5); WHITE BLOOD COUNT 13.3 10^3/uL (4.3-11.0)
[2017-01-11] MEDS: METOCLOPRAMIDE INJ 10 MG/2 ML (REGLAN) IVP SCH (05:37)
[2017-01-11] MEDS: LEVOTHYROXINE 50 MCG (LEVOTHROID) TAB PO SCH (05:37)
[2017-01-11 05:58] LABS: ALANINE AMINOTRANSFERASE 13 U/L (0-55); ALBUMIN 2.3 GM/DL (3.2-4.5); ANION GAP 8 MMOL/L (5-14); ASPARTATE AMINO TRANSFERASE 19 U/L (5-34); BILIRUBIN,TOTAL 0.4 MG/DL (0.1-1.0); BLOOD UREA NITROGEN 13 MG/DL (7-18); BUN/CREATININE RATIO 16; CALCIUM 8.6 MG/DL (8.5-10.1); CARBON DIOXIDE 13 MMOL/L (21-32); CHLORIDE 108 MMOL/L (98-107); CREATININE SERUM 0.82 MG/DL (0.60-1.30); GFR ESTIMATED > 60; GLUCOSE 180 MG/DL (70-105); MAGNESIUM 1.6 MG/DL (1.8-2.4); POTASSIUM 4.5 MMOL/L (3.6-5.0); SODIUM 129 MMOL/L (135-145); TOTAL PROTEIN 4.5 GM/DL (6.4-8.2)
[2017-01-11 08:00] VITALS: BP 146/66
--- NOTE | 2017-01-11 08:37 | Progress Note (SOAP) ---
Subjective Date Seen by Provider: Jan 11, 2017 Time Seen by Provider: 08:20 Subjective/Events-last exam PT REPORTS THAT SHE IS JUST NOT FEELING WELL TODAY. SHE DENIES CHEST PAIN, BUT DOES HAVE NAUSEA, ABDOMINAL PAIN, CONFUSION. Review of Systems General: Fatigue, Malaise HEENT: No Head Aches Pulmonary: Dyspnea, No Cough Cardiovascular: No: Chest Pain, Palpitations Gastrointestinal: Nausea, Abdominal Pain, Constipation Neurological: Weakness, No: Confusion Objective Exam Vital Signs Date Time Temp Pulse Resp B/P (MAP) Pulse Ox O2 Delivery O2 Flow Rate FiO2 01/11/17 08:00 97.3 98 20 146/66 98 Room Air 01/11/17 03:57 97.8 100 18 155/73 97 Room Air 01/11/17 01:00 85 01/11/17 00:13 98.1 99 18 145/73 97 Room Air 01/10/17 20:10 96 Room Air 01/10/17 19:50 98.9 91 18 146/71 98 Room Air 01/10/17 19:00 86 01/10/17 17:30 99.1 110 18 111/59 96 Room Air 01/10/17 13:40 95 01/10/17 12:00 97.8 92 20 121/56 96 Room Air Capillary Refill : General Appearance: No Apparent Distress, WD/WN HEENT: PERRL/EOMI Neck: Supple Respiratory: Chest Non Tender, Lungs Clear, Normal Breath Sounds, No Accessory Muscle Use Cardiovascular: Regular Rate, Rhythm, No Edema Gastrointestinal: distended (DECREASED BOWEL SOUNDS) Extremity: Normal Capillary Refill, No Calf Tenderness, No Pedal Edema Neurologic/Psychiatric: Alert, No Motor/Sensory Deficits Skin: Warm/Dry Lymphatic: No Adenopathy Results Lab Laboratory Tests 01/10/17 11:07: Body Fluid Creatinine 2 01/10/17 17:52: Glucometer 246H 01/11/17 05:30: White Blood Count 13.3H, Red Blood Count 3.52L, Hemoglobin 11.1L, Hematocrit 33L , Mean Corpuscular Volume 94, Mean Corpuscular Hemoglobin 32, Mean Corpuscular Hemoglobin Concent 34, Red Cell Distribution Width 13.7, Platelet Count 366, Mean Platelet Volume 10.0, Sodium Level 129L, Potassium Level 4.5, Chloride Level 108H, Carbon Dioxide Level 13L, Anion Gap 8, Blood Urea Nitrogen 13, Creatinine 0.82, Estimat Glomerular Filtration Rate > 60, BUN/Creatinine Ratio 16, Glucose Level 180H, Calcium Level 8.6, Magnesium Level 1.6L, Total Bilirubin 0.4, Aspartate Amino Transf (AST/SGOT) 19, Alanine Aminotransferase ( ALT/SGPT) 13, Alkaline Phosphatase 71, Total Protein 4.5L, Albumin 2.3L Assessment/Plan Assessment/Plan Assess & Plan/Chief Complaint DIVERTICULAR ABSCESS POST OP DAY #6 HYPONATREMIA HYPERTENSION HYPERKALEMIA DIABETES MELLITUS HYPOTHYROIDISM ELEVATED WHITE COUNT DIVERTICULAR ABSCESS POST OP DAY #6 - SIGNIFICANT ABDOMINAL DRAIN OUTPUT, SUPPORTIVE CARE, FREQUENT DRAIN CHECKS BY STAFF, INCREASE PHYSICAL ACTIVITY - THERAPY ORDERED, AND BETWEEN PT AND NURSING STAFF, WE WILL HAVE HER AMBULATED AT LEAST THREE TIMES DAILY. PLANS BY SURGERY STAFF IS FOR DRAIN IN LEFT KIDNEY TOMORROW. NG TUBE TO BE PLACED TODAY, DULCOLAX SUPPOSITORY. HYPONATREMIA AND HYPERKALEMIA AND HYPOMAGNESEMIA - IMPROVING SLIGHTLY - CONTINUE WITH NORMAL SALINE - DECREASE RATE, CONTINUE WITH REPLACEMENT WITH IV MAGNESIUM. CHECK LABS IN THE MORNING. HYPERTENSION - MONITOR BLOOD PRESSURES, STOPPED LISINOPRIL, CONTINUE WITH AMLODIPINE, IV METOPROLOL PRN. DIABETES MELLITUS - MONITOR SYMPTOMS OF DM PT CURRENTLY NPO, WILL RESTART INSULIN WHEN PT STARTS TO EAT. HYPOTHYROIDISM - ON LEVOTHYROXINE. ELEVATED WHITE COUNT - IMPROVED, MONITOR SYMPTOMS. TACHYCARDIA - DUE TO ACUTE ILLNESS - MONITOR HEART RATE CONTINUE WITH FLUIDS. SWING BED EVAL CANNOT PLACE YET DUE TO PLANS FOR INTERVENTION OF LEFT KIDNEY. Clinical Quality Measures DVT/VTE Risk/Contraindication: Risk Factor Score Per Nursin RFS Level Per Nursing on Admit: 4+=Very High TINA LEON MD Jan 11, 2017 08:37
--- NOTE | 2017-01-11 08:58 | Physical Therapy Daily Note ---
PT Daily Note-Current Subjective Patient is in bed and c/o 10/10 abdominal pain and states, "I just need to get up!" Pain Numeric Pain Scale: 10-Worst Possible Pain Location: Lower Location Body Site: Abdomen Pain Description: Pressure, Acute Comment: RN aware Mental Status Patient Orientation: Normal For Age Attachments: Penny Catheter, IV Transfers Functional [place] Measure 0=Not Assessed/NA 4=Minimal Assistance 1=Total Assistance 5=Supervision or Setup 2=Maximal Assistance 6=Modified [place] 3=Moderate Assistance 7=Complete IndependenceIRFPAI Quality Coding Scale 6 Independent with activity with or without an assistive device 5 Patient requires set up or clean up by helper. Patient completes activity by themselves 4 Supervision or touching assist (CGA). [place] provide cues , steadying assist 3 The helper provides less than half the effort to complete the activity 2 The helper provides more than half the effort to complete the activity 1 Dependent. The helper does all the effort to complete an activity 7 Patient refused to complete or attempt activity 9 The patient did not perform the activity before the current illness or injury 88 Not attempted due to Medical conditions or safety concerns Transfers (B, C, W/C) (FIM): 4 Scootin Supine to/from Sit: 4 Sit to/from Stand: 5 Bed to/from Chair: 5 Gait Training Gait (FIM): 5 Distance (FIM): 3=150 ft Distance: 250' Gait Level of Assist: 5 Gait Persons Needed: 1 Gait Assistive Device: FWW very slow and antalgic Exercises Seated Therapy Exercises: Ankle pumps, Long arc quads Seated Reps: 20 (to increase strength to improve mobility) Assessment Patient is up in recliner with needs met. Warm blankets placed on lower back and abdomen to relax and ease pain. Patient reports decrease in pain to 7/10 after treatment. 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 Double Ending Machine Operator Goals PT Retirement Goals Time Frame: Jan 19, 2017 Transfers (B,C,W/C) (FIM): 6 Gait (FIM): 6 Gait distance (FIM): 3=150 ft Gait Level of Assist: 6 Gait Assistive Device: FWW PT Plan Treatment/Plan Treatment Plan: Continue Plan of Care Treatment Plan: Bed Mobility, Education, Functional Activity Kevin, Functional Strength, Gait, Safety, Therapeutic Exercise, Transfers Treatment Duration: Jan 19, 2017 Frequency: Twice Daily (M-F) Estimated Hrs Per Day: .25 hour per day Patient and/or Family Agrees t: Yes Time/GCodes Time In: 815 Time Out: 838 Total Billed Treatment Time: 23 Total Billed Treatment 1 visit FA x 2 23 min SHERRON MCKEON PT Jan 11, 2017 08:58
[2017-01-11] MEDS: NS IV 1000 ML 1,000 ML IV SCH (09:10)
[2017-01-11] MEDS: PANTOPRAZOLE 40 MG/10 ML (PROTONIX) VIAL IV SCH (09:10)
[2017-01-11] MEDS: amLODIPine 10 MG (NORVASC) TAB PO SCH (09:10)
[2017-01-11] MEDS: ENOXAPARIN 30 MG/0.3 ML (LOVENOX) SYR SC SCH ×2 (09:10→20:37)
[2017-01-11] MEDS ORDERED: BISACODYL 10 MG SUPP (DULCOLAX) PR NR (09:37)
[2017-01-11 11:35] VITALS: BP 154/83
--- NOTE | 2017-01-11 12:17 | Progress Note-Urology ---
Progress Note-Urology Progress Notes/Assess & Plan Progress/Assessment & Plan DRAIN FLUID RECHECKED STILL COMPATIBLE WITH SERUM NOT URINE TO GET PCN TUBE AND NEPHROSTOGRAM TOMORROW Final Diagnosis POSSIBLE LT URETERAL INJURY ALEXANDRA KELLEY MD Jan 11, 2017 12:17 pm
[2017-01-11] MEDS: LEVOFLOXACIN 500 MG/100 ML IV 100 ML IV SCH (13:38)
[2017-01-11] MEDS ORDERED: CHLORASEPTIC SPRAY 177 ML LIQUID MC PRN (14:00)
--- NOTE | 2017-01-11 15:48 | Physical Therapy Progress Note ---
Therapy Progress Note Patient had NG tube placement and is not feeling well. No treatment per RN. PT will resume in a.m. SHERRON MCKEON PT Jan 11, 2017 15:48
[2017-01-11 16:00] VITALS: BP 145/63
--- NOTE | 2017-01-11 16:57 | Progress Note (SOAP) ---
Subjective Date Seen by Provider: Jan 11, 2017 Time Seen by Provider: 16:00 Subjective/Events-last exam doing ok. still has not had BM. AWILDA drain output still copious. no fever/chills. slight increase WBC. NGT placed due to ileus and abdominal distention. Objective Exam Vital Signs Date Time Temp Pulse Resp B/P (MAP) Pulse Ox O2 Delivery O2 Flow Rate FiO2 01/11/17 16:00 98.8 102 21 145/63 98 Room Air 01/11/17 11:35 97.6 97 18 154/83 98 Room Air 01/11/17 08:00 97.3 98 20 146/66 98 Room Air 01/11/17 08:00 Room Air 01/11/17 07:12 90 01/11/17 03:57 97.8 100 18 155/73 97 Room Air 01/11/17 01:00 85 01/11/17 00:13 98.1 99 18 145/73 97 Room Air 01/10/17 20:10 96 Room Air 01/10/17 19:50 98.9 91 18 146/71 98 Room Air 01/10/17 19:00 86 01/10/17 17:30 99.1 110 18 111/59 96 Room Air Capillary Refill : General Appearance: No Apparent Distress HEENT: PERRL/EOMI Neck: Full Range of Motion, Normal Inspection Respiratory: Lungs Clear, Normal Breath Sounds Cardiovascular: Regular Rate, Rhythm Gastrointestinal: soft, distended, other (wounds clean/dry) Extremity: Normal Capillary Refill Neurologic/Psychiatric: Alert, Oriented x3 Skin: Normal Color Lymphatic: No Adenopathy Results Lab Laboratory Tests 01/10/17 17:52: Glucometer 246H 01/11/17 05:30: White Blood Count 13.3H, Red Blood Count 3.52L, Hemoglobin 11.1L, Hematocrit 33L , Mean Corpuscular Volume 94, Mean Corpuscular Hemoglobin 32, Mean Corpuscular Hemoglobin Concent 34, Red Cell Distribution Width 13.7, Platelet Count 366, Mean Platelet Volume 10.0, Sodium Level 129L, Potassium Level 4.5, Chloride Level 108H, Carbon Dioxide Level 13L, Anion Gap 8, Blood Urea Nitrogen 13, Creatinine 0.82, Estimat Glomerular Filtration Rate > 60, BUN/Creatinine Ratio 16, Glucose Level 180H, Calcium Level 8.6, Magnesium Level 1.6L, Total Bilirubin 0.4, Aspartate Amino Transf (AST/SGOT) 19, Alanine Aminotransferase ( ALT/SGPT) 13, Alkaline Phosphatase 71, Total Protein 4.5L, Albumin 2.3L Assessment/Plan Assessment/Plan Assess & Plan/Chief Complaint s/p lap LAR and en-bloc left tubo-oophorectomy. ambulate and OOB-chair. continue DVT prophylaxis. await bowel fxn. correct electrolytes. path benign severe diverticulitis. CT with and without constrast with delayed films showed left ureteral leak/ injury. urology consulted. IR also consulted for percutaneous nephrostomy tube placement. continue NGT until develops definitive bowel function. continue reglan. Clinical Quality Measures DVT/VTE Risk/Contraindication: Risk Factor Score Per Nursin RFS Level Per Nursing on Admit: 4+=Very High JACKIE CHAU MD Jan 11, 2017 16:57
[2017-01-11 20:00] VITALS: BP 142/64
[2017-01-12] VITALS (13 sets, daily range): BP systolic 96–175; BP diastolic 41–92
[2017-01-12] MEDS: inSUlin (REGULAR) HUMAN 1 UNIT/0.01 ML (CHARGE PER UNIT) SC SCH ×4 (00:25→19:58)
[2017-01-12] MEDS: meTOprolol 5 MG/5 ML (LOPRESSOR) VIAL IVP SCH ×6 (00:31→21:11)
[2017-01-12] MEDS: fentaNYL INJECTION 100 MCG/2 ML AMP IVP PRN ×7 (01:52→17:26)
[2017-01-12] MEDS: NS IV 1000 ML 1,000 ML IV SCH ×2 (04:26→09:13)
[2017-01-12 05:08] LABS: BASOPHILS % (AUTO) 0 % (0-10); EOSINOPHILS % (AUTO) 0 % (0-10); LYMPHOCYTES # (AUTO) 0.9 X 10^3 (1.0-4.0); LYMPHOCYTES % (AUTO) 5 % (12-44); MEAN CORPUSCULAR HEMOGLOBIN 32 PG (25-34); MEAN CORPUSCULAR HGB CONC 34 G/DL (32-36); MEAN CORPUSCULAR VOLUME 92 FL (80-99); MEAN PLATELET VOLUME 10.1 FL (7.4-10.4); MONOCYTES % (AUTO) 6 % (0-12); NEUTROPHILS # (AUTO) 14.7 X 10^3 (1.8-7.8); NEUTROPHILS % (AUTO) 89 % (42-75); PLATELET COUNT 332 10^3/uL (130-400); RED BLOOD COUNT 3.23 10^6/uL (4.35-5.85); RED CELL DISTRIBUTION WIDTH 13.4 % (10.0-14.5); WHITE BLOOD COUNT 16.6 10^3/uL (4.3-11.0)
[2017-01-12 05:20] LABS: INR 1.7 (0.8-1.4); PROTHROMBIN TIME PATIENT 19.6 SEC (12.2-14.7)
[2017-01-12 05:31] LABS: ALANINE AMINOTRANSFERASE 11 U/L (0-55); ANION GAP 12 MMOL/L (5-14); ASPARTATE AMINO TRANSFERASE 18 U/L (5-34); BAND NEUTROPHILS 15 %; BILIRUBIN,TOTAL 0.4 MG/DL (0.1-1.0); BLOOD UREA NITROGEN 10 MG/DL (7-18); BUN/CREATININE RATIO 12; CALCIUM 8.1 MG/DL (8.5-10.1); CARBON DIOXIDE 13 MMOL/L (21-32); CHLORIDE 107 MMOL/L (98-107); CREATININE SERUM 0.83 MG/DL (0.60-1.30); GFR ESTIMATED > 60; GLUCOSE 175 MG/DL (70-105); LYMPHOCYTES % (MANUAL) 1 %; MAGNESIUM 1.1 MG/DL (1.8-2.4); NEUTROPHILS % (MANUAL) 82 %; SODIUM 132 MMOL/L (135-145); TOTAL PROTEIN 3.9 GM/DL (6.4-8.2)
[2017-01-12] MEDS: LEVOTHYROXINE 50 MCG (LEVOTHROID) TAB PO SCH (06:11)
[2017-01-12] MEDS ORDERED: MIDAZOLAM 2 MG/2 ML (VERSED) VIAL ONE (08:53)
[2017-01-12] MEDS ORDERED: LIDOCAINE 1% INJ 20 ML (XYLOCAINE) VIAL ONE (08:53)
[2017-01-12] MEDS: amLODIPine 10 MG (NORVASC) TAB PO SCH (09:12)
[2017-01-12] MEDS: PANTOPRAZOLE 40 MG/10 ML (PROTONIX) VIAL IV SCH (09:12)
[2017-01-12 09:27] LABS: INR 1.7 (0.8-1.4); PROTHROMBIN TIME PATIENT 19.6 SEC (12.2-14.7)
[2017-01-12] MEDS: metroNIDAZOLE 500MG/100ML IVPB 100 ML IV SCH ×2 (09:32→21:11)
--- NOTE | 2017-01-12 09:43 | Physical Therapy Progress Note ---
Therapy Progress Note Patient has declined in medical status and will have procedure. Hold PT per Dr. No until further orders. SHERRON MCKEON PT Jan 12, 2017 09:43
[2017-01-12] MEDS: CEFEPIME INJECTION 1,000 MG in NS (IVPB) 50 ML IV SCH (09:45)
[2017-01-12] MEDS ORDERED: NS IV 1000 ML 1,000 ML IV SCH (09:45)
[2017-01-12] MEDS ORDERED: LIDOCAINE 1% INJ 20 ML (XYLOCAINE) VIAL INJ ONE (09:45)
[2017-01-12 10:09] LABS: PHOSPHORUS 3.1 MG/DL (2.3-4.7)
[2017-01-12] MEDS: MIDAZOLAM 10 MG/2 ML (VERSED) VIAL IVP PRN ×2 (10:40→10:50)
[2017-01-12] MEDS ORDERED: IOHEXOL 300 MG/ML 30 ML (OMNIPAQUE 300) VIAL IV ONE (11:15)
--- NOTE | 2017-01-12 11:21 | Diagnostic Imaging Report ---
Procedure: Left nephrostogram and nephrostomy tube placement. Moderate IV conscious sedation. Indication: 81-year-old female with worsening abdominal pain and leukocytosis following recent low anterior resection with left ureteral injury. Prior to the procedure, the procedure as well as its risks, benefits, and alternatives were explained to the patient and written, witnessed informed consent was obtained. Prior to the procedure, the patient, procedure, and site were identified and verified in the presence of existing personnel. Proper timeout was performed. ASA code: 3. Conscious sedation: Intravenous moderate conscious sedation and analgesia was provided during the examination under the direct supervision of the doctor and administered by the sedation nurse. The patient was monitored with continuous direct observation, as well as appropriate physiologic monitoring throughout the exam. A total of 45 minutes of conscious sedation time was utilized. Fluoroscopy time: 69 seconds. Medications: Please see the nursing notes for times and dosages of intraoperative medications. Contrast media: 10 mL. Technique: The patient was placed on the fluoroscopy table in the prone position. The left flank was prepped and draped using maximal sterile barrier technique. Overlying soft tissues were anesthetized with 1% lidocaine. Utilizing sonographic guidance, a 21-gauge AccuStick needle was advanced into a peripheral calyx near the inferior pole left kidney. An image was archived. 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 Utilizing modified Seldinger technique, an 8.5 [place] nephrostomy tube was placed with the pigtail formed within the renal pelvis. Followup nephrostogram demonstrates good position of the tube. The tube was flushed with normal saline and placed to gravity drainage. The tube was secured in place with anchoring suture and adhesive dressing. Complications: None. Impression: 1. 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 2. Uneventful placement of an 8 [place] left nephrostomy tube with the pigtail formed within the renal pelvis and placed to gravity drainage. Dictated by: Dictated on workstation # [id number]
--- NOTE | 2017-01-12 11:27 | Progress Note (SOAP) ---
Subjective Date Seen by Provider: Jan 12, 2017 Time Seen by Provider: 09:00 Subjective/Events-last exam PATIENT IS SOMEWHAT CONFUSED THIS MORNING, GROGGY, SHE STATSE THAT SHE IS NOT HAVING ANY CHEST PAIN, DOES HAVE ABDOMINAL PAIN. SHE STATES THAT SHE THINKS SHE COULD HAVE A BOWEL MOVEMENT TODAY IF SAT UP ON THE COMMODE. Review of Systems General: No Chills, Fatigue, Malaise HEENT: No Dysphasia Pulmonary: No Dyspnea, No Cough Cardiovascular: No: Chest Pain, Palpitations Gastrointestinal: Abdominal Pain, Other (ABDOMINAL DISTENTION), No: Nausea Neurological: Weakness, Confusion Objective Exam Vital Signs Date Time Temp Pulse Resp B/P (MAP) Pulse Ox O2 Delivery O2 Flow Rate FiO2 01/12/17 08:00 99.8 109 16 175/74 96 Room Air 01/12/17 05:00 97.6 99 20 146/66 97 Room Air 01/12/17 01:00 98 01/12/17 00:00 99.6 109 16 138/62 97 Room Air 01/11/17 20:00 Room Air 01/11/17 20:00 99.6 97 18 142/64 96 Room Air 01/11/17 19:00 93 01/11/17 16:00 98.8 102 21 145/63 98 Room Air 01/11/17 13:00 87 01/11/17 11:35 97.6 97 18 154/83 98 Room Air I & O 01/13/17 07:00 Intake Total 400 ml Balance 400 ml Capillary Refill : General Appearance: WD/WN, Moderate Distress (DUE TO ABDOMINAL DISTENTION) HEENT: PERRL/EOMI Neck: Supple Respiratory: Chest Non Tender, Lungs Clear, Normal Breath Sounds, No Accessory Muscle Use Cardiovascular: Regular Rate, Rhythm Gastrointestinal: distended, tenderness, other (NO BOWEL SOUNDS) Extremity: Normal Capillary Refill Neurologic/Psychiatric: Alert Skin: Warm/Dry Results Lab Laboratory Tests 01/11/17 12:02: Glucometer 148H 01/11/17 18:18: Glucometer 131H 01/11/17 23:54: Glucometer 137H 01/12/17 04:58: White Blood Count 16.6H, Red Blood Count 3.23L, Hemoglobin 10.2L, Hematocrit 30L , Mean Corpuscular Volume 92, Mean Corpuscular Hemoglobin 32, Mean Corpuscular Hemoglobin Concent 34, Red Cell Distribution Width 13.4, Platelet Count 332, Mean Platelet Volume 10.1, Neutrophils (%) (Auto) 89H, Lymphocytes (%) (Auto) 5L , Monocytes (%) (Auto) 6, Eosinophils (%) (Auto) 0, Basophils (%) (Auto) 0, Neutrophils # (Auto) 14.7H, Lymphocytes # (Auto) 0.9L, Monocytes # (Auto) 1.0, Eosinophils # (Auto) 0.0, Basophils # (Auto) 0.0, Neutrophils % (Manual) 82, Lymphocytes % (Manual) 1, Monocytes % (Manual) 2, Band Neutrophils 15, Blood Morphology Comment NORMAL, Prothrombin Time 19.6H, INR Comment 1.7H, Activated Partial Thromboplast Time 38H, Sodium Level 132L, Potassium Level 4.0, Chloride Level 107, Carbon Dioxide Level 13L, Anion Gap 12, Blood Urea Nitrogen 10, Creatinine 0.83, Estimat Glomerular Filtration Rate > 60, BUN/Creatinine Ratio 12, Glucose Level 175H, Calcium Level 8.1L, Phosphorus Level 3.1, Magnesium Level 1.1L, Total Bilirubin 0.4, Aspartate Amino Transf (AST/SGOT) 18, Alanine Aminotransferase (ALT/SGPT) 11, Alkaline Phosphatase 76, Total Protein 3.9L, Albumin 2.0L, Triglycerides Level 89 01/12/17 09:05: Prothrombin Time 19.6H, INR Comment 1.7H Assessment/Plan Assessment/Plan Assess & Plan/Chief Complaint DIVERTICULAR ABSCESS POST OP DAY #7 HYPONATREMIA HYPERTENSION HYPERKALEMIA DIABETES MELLITUS HYPOTHYROIDISM ELEVATED WHITE COUNT DIVERTICULAR ABSCESS POST OP DAY #7 - SIGNIFICANT ABDOMINAL DRAIN OUTPUT, SUPPORTIVE CARE, FREQUENT DRAIN CHECKS BY STAFF,PLANS BY SURGERY STAFF IS FOR DRAIN IN LEFT KIDNEY TODAY. NG TUBE DRAINAGE DARK BROWN AND GREEN, CONTINUE WITH NG TUBE, START TPN TODAY DUE TO POOR INTAKE/NO INTAKE OVER THE PAST 72 HOURS, AND DECREASING ALBUMIN. DULCOLAX SUPPOSITORY PRN HYPONATREMIA AND HYPERKALEMIA AND HYPOMAGNESEMIA - IMPROVING SLIGHTLY - CONTINUE WITH NORMAL SALINE - AT DECREASED RATE, CONTINUE WITH REPLACEMENT WITH IV MAGNESIUM. CHECK LABS IN THE MORNING. HYPERTENSION - MONITOR BLOOD PRESSURES, STOPPED LISINOPRIL, CONTINUE WITH AMLODIPINE, IV METOPROLOL PRN. DIABETES MELLITUS - MONITOR SYMPTOMS OF DM PT CURRENTLY NPO, WILL RESTART INSULIN WHEN PT STARTS TO EAT. HYPOTHYROIDISM - ON LEVOTHYROXINE. ELEVATED WHITE COUNT - IMPROVED, MONITOR SYMPTOMS. TACHYCARDIA - DUE TO ACUTE ILLNESS - MONITOR HEART RATE CONTINUE WITH FLUIDS. SWING BED EVAL CANNOT PLACE YET DUE TO PLANS FOR INTERVENTION OF LEFT KIDNEY. Clinical Quality Measures DVT/VTE Risk/Contraindication: Risk Factor Score Per Nursin RFS Level Per Nursing on Admit: 4+=Very High TINA LEON MD Jan 12, 2017 11:27
[2017-01-12] MEDS ORDERED: MAGNESIUM 1 GM/100 ML IVPB 100 ML IV SCH (11:30)
[2017-01-12] MEDS ORDERED: TPN IV SCH (11:30)
[2017-01-12] MEDS: MAGNESIUM 1 GM/100 ML IVPB 100 ML IV SCH ×4 (12:34→18:18)
[2017-01-12] MEDS: BISACODYL 10 MG SUPP (DULCOLAX) PR PRN (12:59)
[2017-01-12] MEDS ORDERED: CHLORASEPTIC LOZENGE MM PRN (13:00)
--- NOTE | 2017-01-12 13:34 | Progress Note (SOAP) ---
Subjective Date Seen by Provider: Jan 12, 2017 Time Seen by Provider: 12:00 Subjective/Events-last exam doing ok, s/p perc nephrostomy tube placement. no fever/chills. small BM and flatus today. Objective Exam Vital Signs Date Time Temp Pulse Resp B/P (MAP) Pulse Ox O2 Delivery O2 Flow Rate FiO2 01/12/17 11:48 98.2 90 16 120/53 93 Room Air 01/12/17 10:55 100 18 154/72 99 Nasal Cannula 2.00 01/12/17 10:50 104 18 96/41 99 Nasal Cannula 2.00 01/12/17 10:45 100 18 155/75 100 Nasal Cannula 2.00 01/12/17 10:40 98 18 159/73 99 Nasal Cannula 2.00 01/12/17 10:35 98 18 152/74 99 Nasal Cannula 2.00 01/12/17 10:30 98 18 138/69 99 Nasal Cannula 2.00 01/12/17 10:25 98.8 98 18 155/75 99 Nasal Cannula 2.00 01/12/17 08:00 99.8 109 16 175/74 96 Room Air 01/12/17 07:00 100 01/12/17 05:00 97.6 99 20 146/66 97 Room Air 01/12/17 01:00 98 01/12/17 00:00 99.6 109 16 138/62 97 Room Air 01/11/17 20:00 Room Air 01/11/17 20:00 99.6 97 18 142/64 96 Room Air 01/11/17 19:00 93 01/11/17 16:00 98.8 102 21 145/63 98 Room Air I & O 01/13/17 07:00 Intake Total 400 ml Balance 400 ml Capillary Refill : General Appearance: No Apparent Distress HEENT: PERRL/EOMI Neck: Full Range of Motion Respiratory: Chest Non Tender, Lungs Clear Cardiovascular: Regular Rate, Rhythm Gastrointestinal: normal bowel sounds, soft Extremity: Normal Capillary Refill Neurologic/Psychiatric: Alert, Oriented x3 Skin: Normal Color Lymphatic: No Adenopathy Results Lab Laboratory Tests 01/11/17 18:18: Glucometer 131H 01/11/17 23:54: Glucometer 137H 01/12/17 04:58: White Blood Count 16.6H, Red Blood Count 3.23L, Hemoglobin 10.2L, Hematocrit 30L , Mean Corpuscular Volume 92, Mean Corpuscular Hemoglobin 32, Mean Corpuscular Hemoglobin Concent 34, Red Cell Distribution Width 13.4, Platelet Count 332, Mean Platelet Volume 10.1, Neutrophils (%) (Auto) 89H, Lymphocytes (%) (Auto) 5L , Monocytes (%) (Auto) 6, Eosinophils (%) (Auto) 0, Basophils (%) (Auto) 0, Neutrophils # (Auto) 14.7H, Lymphocytes # (Auto) 0.9L, Monocytes # (Auto) 1.0, Eosinophils # (Auto) 0.0, Basophils # (Auto) 0.0, Neutrophils % (Manual) 82, Lymphocytes % (Manual) 1, Monocytes % (Manual) 2, Band Neutrophils 15, Blood Morphology Comment NORMAL, Prothrombin Time 19.6H, INR Comment 1.7H, Activated Partial Thromboplast Time 38H, Sodium Level 132L, Potassium Level 4.0, Chloride Level 107, Carbon Dioxide Level 13L, Anion Gap 12, Blood Urea Nitrogen 10, Creatinine 0.83, Estimat Glomerular Filtration Rate > 60, BUN/Creatinine Ratio 12, Glucose Level 175H, Calcium Level 8.1L, Phosphorus Level 3.1, Magnesium Level 1.1L, Total Bilirubin 0.4, Aspartate Amino Transf (AST/SGOT) 18, Alanine Aminotransferase (ALT/SGPT) 11, Alkaline Phosphatase 76, Total Protein 3.9L, Albumin 2.0L, Triglycerides Level 89 01/12/17 09:05: Prothrombin Time 19.6H, INR Comment 1.7H 01/12/17 11:30: Prealbumin 4.3L Assessment/Plan Assessment/Plan Assess & Plan/Chief Complaint s/p lap LAR and en-bloc left tubo-oophorectomy. s/p left nephrostomy tube placement today. ambulate and OOB-chair. continue DVT prophylaxis. await bowel fxn. correct electrolytes. path benign severe diverticulitis. CT with and without constrast with delayed films showed left ureteral leak/ injury. urology consulted. IR also consulted for percutaneous nephrostomy tube placement. continue NGT until develops definitive bowel function. continue reglan. await more bowel fxn today then remove NGT and start clear. Clinical Quality Measures DVT/VTE Risk/Contraindication: Risk Factor Score Per Nursin RFS Level Per Nursing on Admit: 4+=Very High JACKIE CHAU MD Jan 12, 2017 1:34 pm
[2017-01-12] MEDS ORDERED: [UNRECOGNIZED DRUG - OTHER] IV SCH ×12 (17:00)
[2017-01-12] MEDS ORDERED: SODIUM CHLORIDE IV SCH ×12 (17:00)
[2017-01-12] MEDS ORDERED: SODIUM ACETATE IV SCH ×12 (17:00)
[2017-01-13 00:15] VITALS: BP 131/68
[2017-01-13] MEDS: meTOprolol 5 MG/5 ML (LOPRESSOR) VIAL IVP SCH ×6 (00:26→21:56)
[2017-01-13] MEDS: inSUlin (REGULAR) HUMAN 1 UNIT/0.01 ML (CHARGE PER UNIT) SC SCH ×4 (00:26→18:27)
[2017-01-13] MEDS: fentaNYL INJECTION 100 MCG/2 ML AMP IVP PRN ×4 (00:31→18:28)
[2017-01-13 04:15] VITALS: BP 148/71
[2017-01-13] MEDS: LEVOTHYROXINE 50 MCG (LEVOTHROID) TAB PO SCH (06:24)
[2017-01-13 06:55] LABS: BASOPHILS % (AUTO) 0 % (0-10); EOSINOPHILS % (AUTO) 0 % (0-10); LYMPHOCYTES # (AUTO) 0.4 X 10^3 (1.0-4.0); LYMPHOCYTES % (AUTO) 5 % (12-44); MEAN CORPUSCULAR HEMOGLOBIN 31 PG (25-34); MEAN CORPUSCULAR HGB CONC 34 G/DL (32-36); MEAN CORPUSCULAR VOLUME 91 FL (80-99); MEAN PLATELET VOLUME 9.9 FL (7.4-10.4); MONOCYTES # (AUTO) 0.5 X 10^3 (0.0-1.0); MONOCYTES % (AUTO) 5 % (0-12); NEUTROPHILS # (AUTO) 8.2 X 10^3 (1.8-7.8); NEUTROPHILS % (AUTO) 90 % (42-75); PLATELET COUNT 309 10^3/uL (130-400); RED BLOOD COUNT 2.78 10^6/uL (4.35-5.85); RED CELL DISTRIBUTION WIDTH 13.3 % (10.0-14.5); WHITE BLOOD COUNT 9.1 10^3/uL (4.3-11.0)
[2017-01-13 07:12] LABS: ALANINE AMINOTRANSFERASE 17 U/L (0-55); ALBUMIN 1.8 GM/DL (3.2-4.5); ANION GAP 8 MMOL/L (5-14); ASPARTATE AMINO TRANSFERASE 28 U/L (5-34); BILIRUBIN,TOTAL 0.3 MG/DL (0.1-1.0); BLOOD UREA NITROGEN 9 MG/DL (7-18); BUN/CREATININE RATIO 15; CALCIUM 7.6 MG/DL (8.5-10.1); CARBON DIOXIDE 19 MMOL/L (21-32); CHLORIDE 109 MMOL/L (98-107); GFR ESTIMATED > 60; GLUCOSE 223 MG/DL (70-105); MAGNESIUM 1.4 MG/DL (1.8-2.4); PHOSPHORUS 1.8 MG/DL (2.3-4.7); POTASSIUM 3.2 MMOL/L (3.6-5.0); SODIUM 136 MMOL/L (135-145); TOTAL PROTEIN 3.6 GM/DL (6.4-8.2)
[2017-01-13 08:25] VITALS: BP 142/63
[2017-01-13] MEDS: CEFEPIME INJECTION 1,000 MG in NS (IVPB) 50 ML IV SCH (08:29)
[2017-01-13] MEDS: ENOXAPARIN 30 MG/0.3 ML (LOVENOX) SYR SC SCH ×2 (08:29→21:57)
[2017-01-13] MEDS: MAGNESIUM 1 GM/100 ML IVPB 100 ML IV SCH ×4 (08:29→11:48)
[2017-01-13] MEDS: PANTOPRAZOLE 40 MG/10 ML (PROTONIX) VIAL IV SCH (08:29)
[2017-01-13] MEDS: amLODIPine 10 MG (NORVASC) TAB PO SCH (08:30)
[2017-01-13] MEDS: metroNIDAZOLE 500MG/100ML IVPB 100 ML IV SCH ×2 (08:30→21:57)
--- NOTE | 2017-01-13 09:50 | Progress Note (SOAP) ---
Subjective Date Seen by Provider: Jan 13, 2017 Time Seen by Provider: 09:40 Subjective/Events-last exam PT IS AN 81 Y/O FEMALE WHO IS KNOWN TO ME FROM CLINIC. SHE STATES THAT SHE IS FEELING MUCH BETTER TODAY. SHE REPORTS THAT HER STOMACH PAIN IS STILL PERSISTENT, BUT IT IS BETTER TODAY THAN YESTERDAY. SHE IS COMPLAINING OF PAIN NEAR THE NEPHROSTOMY SITE. SHE REPORTS THAT HER LEGS FEEL BETTER AND SHE DENIES CHEST PAIN, SHORTNESS OF BREATH. Review of Systems General: No Chills, Fatigue HEENT: No Head Aches Pulmonary: No Dyspnea, No Cough Cardiovascular: No: Chest Pain, Palpitations Gastrointestinal: Abdominal Pain, No: Nausea Musculoskeletal: No: back pain Neurological: Weakness, No: Confusion Objective Exam Vital Signs Date Time Temp Pulse Resp B/P (MAP) Pulse Ox O2 Delivery O2 Flow Rate FiO2 01/13/17 08:25 101.9 94 20 142/63 95 Room Air 01/13/17 07:00 93 01/13/17 04:15 98.6 101 20 148/71 95 Room Air 01/13/17 01:00 95 01/13/17 00:15 99.3 94 20 131/68 Room Air 01/12/17 20:30 96 Room Air 01/12/17 20:30 98.7 96 20 154/69 96 Room Air 01/12/17 19:00 91 01/12/17 16:00 97.3 115 20 126/92 96 Room Air 01/12/17 13:00 87 01/12/17 11:48 98.2 90 16 120/53 93 Room Air 01/12/17 10:55 100 18 154/72 99 Nasal Cannula 2.00 01/12/17 10:50 104 18 96/41 99 Nasal Cannula 2.00 01/12/17 10:45 100 18 155/75 100 Nasal Cannula 2.00 01/12/17 10:40 98 18 159/73 99 Nasal Cannula 2.00 01/12/17 10:35 98 18 152/74 99 Nasal Cannula 2.00 01/12/17 10:30 98 18 138/69 99 Nasal Cannula 2.00 01/12/17 10:25 98.8 98 18 155/75 99 Nasal Cannula 2.00 Capillary Refill : General Appearance: No Apparent Distress, WD/WN HEENT: PERRL/EOMI, Pharynx Normal Neck: Full Range of Motion, Supple Respiratory: Chest Non Tender, Lungs Clear, Normal Breath Sounds, No Accessory Muscle Use Cardiovascular: Regular Rate, Rhythm, No Edema Gastrointestinal: soft, tenderness, other (DECREASED BOWEL SOUNDS) Extremity: No Calf Tenderness, Pedal Edema Neurologic/Psychiatric: Alert, Oriented x3, No Motor/Sensory Deficits, Normal Mood/Affect Skin: Warm/Dry Lymphatic: No Adenopathy Results Lab Laboratory Tests 01/12/17 11:30: Prealbumin 4.3L 01/12/17 11:31: Glucometer 116H 01/12/17 19:12: Glucometer 240H 01/13/17 00:22: Glucometer 186H 01/13/17 06:30: White Blood Count 9.1, Red Blood Count 2.78L, Hemoglobin 8.7L, Hematocrit 25L, Mean Corpuscular Volume 91, Mean Corpuscular Hemoglobin 31, Mean Corpuscular Hemoglobin Concent 34, Red Cell Distribution Width 13.3, Platelet Count 309, Mean Platelet Volume 9.9, Neutrophils (%) (Auto) 90H, Lymphocytes (%) (Auto) 5L , Monocytes (%) (Auto) 5, Eosinophils (%) (Auto) 0, Basophils (%) (Auto) 0, Neutrophils # (Auto) 8.2H, Lymphocytes # (Auto) 0.4L, Monocytes # (Auto) 0.5, Eosinophils # (Auto) 0.0, Basophils # (Auto) 0.0, Sodium Level 136, Potassium Level 3.2L, Chloride Level 109H, Carbon Dioxide Level 19L, Anion Gap 8, Blood Urea Nitrogen 9, Creatinine 0.60, Estimat Glomerular Filtration Rate > 60, BUN/ Creatinine Ratio 15, Glucose Level 223H, Calcium Level 7.6L, Phosphorus Level 1.8L, Magnesium Level 1.4L, Total Bilirubin 0.3, Aspartate Amino Transf (AST/ SGOT) 28, Alanine Aminotransferase (ALT/SGPT) 17, Alkaline Phosphatase 76, Total Protein 3.6L, Albumin 1.8L 01/13/17 06:32: Glucometer 213H Assessment/Plan Assessment/Plan Assess & Plan/Chief Complaint DIVERTICULAR ABSCESS POST OP DAY #8 LEFT URETERAL INJURY HYPONATREMIA HYPERTENSION HYPERKALEMIA DIABETES MELLITUS HYPOTHYROIDISM ELEVATED WHITE COUNT DIVERTICULAR ABSCESS POST OP DAY #8 - SIGNIFICANT ABDOMINAL DRAIN OUTPUT, SUPPORTIVE CARE, FREQUENT DRAIN CHECKS BY STAFF,PLANS BY SURGERY STAFF IS FOR DRAIN IN LEFT KIDNEY TODAY. NG TUBE DRAINAGE DARK BROWN AND GREEN, NG TUBE REMOVED YESTERDAY, STARTED TPN ON SUNDAY DUE TO POOR INTAKE/NO INTAKE. DULCOLAX SUPPOSITORY PRN LEFT URETERAL INJURY - DISCUSSED WITH DR. KELLEY AND DR. CHAU TODAY - THE PLAN IS FOR PATIENT TO HAVE REPEAT URETERAL EVALUATION ON SUNDAY. HYPONATREMIA AND HYPERKALEMIA AND HYPOMAGNESEMIA - IMPROVING SLIGHTLY - CONTINUE WITH NORMAL SALINE - AT DECREASED RATE, CONTINUE WITH REPLACEMENT WITH IV MAGNESIUM. CHECK LABS IN THE MORNING. HYPERTENSION - MONITOR BLOOD PRESSURES, STOPPED LISINOPRIL, CONTINUE WITH AMLODIPINE, IV METOPROLOL PRN. DIABETES MELLITUS - MONITOR SYMPTOMS OF DM PT CURRENTLY NPO, WILL RESTART INSULIN WHEN PT STARTS TO EAT. HYPOTHYROIDISM - ON LEVOTHYROXINE. ELEVATED WHITE COUNT - IMPROVED, MONITOR SYMPTOMS. TACHYCARDIA - DUE TO ACUTE ILLNESS - MONITOR HEART RATE CONTINUE WITH FLUIDS. Clinical Quality Measures DVT/VTE Risk/Contraindication: Risk Factor Score Per Nursin RFS Level Per Nursing on Admit: 4+=Very High TINA LEON MD Jan 13, 2017 09:50
--- NOTE | 2017-01-13 11:33 | Progress Note-Urology ---
Progress Note-Urology Progress Notes/Assess & Plan Progress/Assessment & Plan HAD SUCCESSFUL PLACEMENT OF LT NEPHROSTOMY TUBE. RADIOLOGIST DESCRIBED COMPLETE TRANSECTION OF MID TO DISTAL URETER. I CANNOT DETERMINE THAT BY HARD FILMS. NEED TO DISCUSS WITH RADIOLOGIST ON SUNDAY AND IF ANY QUESTIONS WE WILL PERFORM FORMAL NEPHROSTOGRAM AND MANAGE ACCORDINGLY. WE HAD A LENGTHY DISCUSSION, DR LEON AND MYSELF WITH PATIENT AND NIECE ABOUT THE PROBLEM AND POSSIBILITIES OF TREATMENT DEPENDING ON ABOVE. I ALSO DISCUSS REFERRAL TO TERTIARY CENTER NOW OR LATER DEPENDING ON ABOVE AND PATIENT COURSE, INCLUDING [facility], [facility], OR [facility]. THEY FULLY UNDERSTOOD AND ALL THEIR QUESTIONS ANSWERED. Final Diagnosis LT URETERAL INJURY ALEXANDRA KELLEY MD Jan 13, 2017 11:33
[2017-01-13] MEDS: POTASSIUM PHOSPHATE INJ 6.8 MM in NS (IVPB) 50 ML IV SCH ×5 (11:48→18:28)
[2017-01-13 12:00] VITALS: BP 142/65
--- NOTE | 2017-01-13 12:01 | Progress Note ---
Subjective Time Seen by Provider: 11:51 Subjective/Events-last exam Pt seen and examined. States she is eating jello, no nausea or vomiting. She is passing flatus but still no BM. States she just got back from walk. Pain is well controlled. Review of Systems General: No Chills, No Night Sweats Cardiovascular: No: Chest Pain Gastrointestinal: Constipation, No: Nausea, Vomiting Objective Exam Vital Signs Date Time Temp Pulse Resp B/P (MAP) Pulse Ox O2 Delivery O2 Flow Rate FiO2 01/13/17 08:25 101.9 94 20 142/63 95 Room Air 01/13/17 07:00 93 01/13/17 04:15 98.6 101 20 148/71 95 Room Air 01/13/17 01:00 95 01/13/17 00:15 99.3 94 20 131/68 Room Air 01/12/17 20:30 96 Room Air 01/12/17 20:30 98.7 96 20 154/69 96 Room Air 01/12/17 19:00 91 01/12/17 16:00 97.3 115 20 126/92 96 Room Air 01/12/17 13:00 87 I & O 01/14/17 07:00 Intake Total 450 ml Balance 450 ml Capillary Refill : General Appearance: No Apparent Distress HEENT: PERRL/EOMI Respiratory: Chest Non Tender, Lungs Clear Cardiovascular: Regular Rate, Rhythm Gastrointestinal: normal bowel sounds, soft, other (incision clean, dry and intact) Neurologic/Psychiatric: Alert, Oriented x3 Skin: Normal Color Results Lab Laboratory Tests 01/12/17 19:12: Glucometer 240H 01/13/17 00:22: Glucometer 186H 01/13/17 06:30: White Blood Count 9.1, Red Blood Count 2.78L, Hemoglobin 8.7L, Hematocrit 25L, Mean Corpuscular Volume 91, Mean Corpuscular Hemoglobin 31, Mean Corpuscular Hemoglobin Concent 34, Red Cell Distribution Width 13.3, Platelet Count 309, Mean Platelet Volume 9.9, Neutrophils (%) (Auto) 90H, Lymphocytes (%) (Auto) 5L , Monocytes (%) (Auto) 5, Eosinophils (%) (Auto) 0, Basophils (%) (Auto) 0, Neutrophils # (Auto) 8.2H, Lymphocytes # (Auto) 0.4L, Monocytes # (Auto) 0.5, Eosinophils # (Auto) 0.0, Basophils # (Auto) 0.0, Sodium Level 136, Potassium Level 3.2L, Chloride Level 109H, Carbon Dioxide Level 19L, Anion Gap 8, Blood Urea Nitrogen 9, Creatinine 0.60, Estimat Glomerular Filtration Rate > 60, BUN/ Creatinine Ratio 15, Glucose Level 223H, Calcium Level 7.6L, Phosphorus Level 1.8L, Magnesium Level 1.4L, Total Bilirubin 0.3, Aspartate Amino Transf (AST/ SGOT) 28, Alanine Aminotransferase (ALT/SGPT) 17, Alkaline Phosphatase 76, Total Protein 3.6L, Albumin 1.8L 01/13/17 06:32: Glucometer 213H Assessment/Plan Assessment/Plan Assessment/Plan s/p lap LAR and en-bloc left tubo-oophorectomy. s/p left nephrostomy tube placement Encouraged pt ton continue ambulating; she is OOB-chair now. Increase IS use,continue DVT prophylaxis,await bowel fxn. correct electrolytes. Path benign severe diverticulitis. CT with and without constrast with delayed films showed left ureteral leak/ injury. urology consulted. IR also consulted for percutaneous nephrostomy tube placement. continue NGT until develops definitive bowel function. continue reglan. await more bowel fxn today then remove NGT and start clear. Clinical Quality Measures DVT/VTE Risk/Contraindication: Risk Factor Score Per Nursin RFS Level Per Nursing on Admit: 4+=Very High NIKI JOSÉ DO Jan 13, 2017 12:01
--- NOTE | 2017-01-13 15:06 | Physical Therapy Daily Note ---
PT Daily Note-Current Subjective Pt c/o 5/10 low abdominal pain but she also says she knows walking is important. Transfers Functional [place] Measure 0=Not Assessed/NA 4=Minimal Assistance 1=Total Assistance 5=Supervision or Setup 2=Maximal Assistance 6=Modified [place] 3=Moderate Assistance 7=Complete IndependenceIRFPAI Quality Coding Scale 6 Independent with activity with or without an assistive device 5 Patient requires set up or clean up by helper. Patient completes activity by themselves 4 Supervision or touching assist (CGA). [place] provide cues , steadying assist 3 The helper provides less than half the effort to complete the activity 2 The helper provides more than half the effort to complete the activity 1 Dependent. The helper does all the effort to complete an activity 7 Patient refused to complete or attempt activity 9 The patient did not perform the activity before the current illness or injury 88 Not attempted due to Medical conditions or safety concerns Transfers (B, C, W/C) (FIM): 4 needed minimal assist to come to sitting at edge of bed Gait Training Gait (FIM): 4 Distance (FIM): 3=150 ft Distance: 200 Gait Level of Assist: 4 Gait Persons Needed: 1 Gait Assistive Device: FWW slow, forward flexed posture Assessment Current Status: Good Progress Pt is motivated to improve function and return home. She showed good progress following a medical procedure yesterday. Pt will benefit from continued therapy to promote dc to home. PT Cryptographer Goals Cryptographer Goals PT Cryptographer Goals Time Frame: Jan 19, 2017 Transfers (B,C,W/C) (FIM): 6 Gait (FIM): 6 Gait distance (FIM): 3=150 ft Gait Level of Assist: 6 Gait Assistive Device: FWW PT Plan Treatment/Plan Treatment Plan: Continue Plan of Care Treatment Plan: Bed Mobility, Education, Functional Activity Kevin, Functional Strength, Gait, Safety, Therapeutic Exercise, Transfers Treatment Duration: Jan 19, 2017 Frequency: Twice Daily (M-F) Estimated Hrs Per Day: .25 hour per day Patient and/or Family Agrees t: Yes Time/GCodes Time In: 1045 Time Out: 1110 Total Billed Treatment Time: 25 Total Billed Treatment visit, gait x 25 min RAYMUNDO ZHOU PT Jan 13, 2017 15:06
[2017-01-13] MEDS: NS IV 1000 ML 1,000 ML IV SCH (15:46)
[2017-01-13] MEDS ORDERED: SODIUM CHLORIDE IV SCH ×12 (17:00)
[2017-01-13] MEDS ORDERED: SODIUM ACETATE IV SCH ×12 (17:00)
[2017-01-13] MEDS ORDERED: [UNRECOGNIZED DRUG - OTHER] IV SCH ×12 (17:00)
[2017-01-13 17:35] VITALS: BP 129/60
[2017-01-13] MEDS: ACETAMINOPHEN 500 MG TAB (TYLENOL) PO PRN (18:28)
[2017-01-13 19:30] VITALS: BP 121/58
[2017-01-14] VITALS (7 sets, daily range): BP systolic 117–147; BP diastolic 57–75
[2017-01-14] MEDS: fentaNYL INJECTION 100 MCG/2 ML AMP IVP PRN ×5 (00:30→20:49)
[2017-01-14] MEDS: meTOprolol 5 MG/5 ML (LOPRESSOR) VIAL IVP SCH ×6 (00:30→20:48)
[2017-01-14] MEDS: inSUlin (REGULAR) HUMAN 1 UNIT/0.01 ML (CHARGE PER UNIT) SC SCH ×3 (00:45→12:40)
[2017-01-14] MEDS: LEVOTHYROXINE 50 MCG (LEVOTHROID) TAB PO SCH (06:11)
[2017-01-14 06:12] LABS: BASOPHILS % (AUTO) 0 % (0-10); EOSINOPHILS # (AUTO) 0.1 10^3/uL (0.0-0.3); EOSINOPHILS % (AUTO) 1 % (0-10); LYMPHOCYTES # (AUTO) 0.9 X 10^3 (1.0-4.0); LYMPHOCYTES % (AUTO) 10 % (12-44); MEAN CORPUSCULAR HEMOGLOBIN 31 PG (25-34); MEAN CORPUSCULAR HGB CONC 34 G/DL (32-36); MEAN CORPUSCULAR VOLUME 91 FL (80-99); MEAN PLATELET VOLUME 9.7 FL (7.4-10.4); MONOCYTES # (AUTO) 0.8 X 10^3 (0.0-1.0); MONOCYTES % (AUTO) 9 % (0-12); NEUTROPHILS # (AUTO) 7.2 X 10^3 (1.8-7.8); NEUTROPHILS % (AUTO) 80 % (42-75); PLATELET COUNT 327 10^3/uL (130-400); RED CELL DISTRIBUTION WIDTH 13.8 % (10.0-14.5)
[2017-01-14 07:00] LABS: ALANINE AMINOTRANSFERASE 23 U/L (0-55); ALBUMIN 1.9 GM/DL (3.2-4.5); ANION GAP 7 MMOL/L (5-14); ASPARTATE AMINO TRANSFERASE 42 U/L (5-34); BILIRUBIN,TOTAL 0.2 MG/DL (0.1-1.0); BLOOD UREA NITROGEN 11 MG/DL (7-18); BUN/CREATININE RATIO 20; CALCIUM 7.1 MG/DL (8.5-10.1); CARBON DIOXIDE 24 MMOL/L (21-32); CHLORIDE 104 MMOL/L (98-107); CREATININE SERUM 0.55 MG/DL (0.60-1.30); GFR ESTIMATED > 60; GLUCOSE 167 MG/DL (70-105); MAGNESIUM 1.5 MG/DL (1.8-2.4); PHOSPHORUS 2.7 MG/DL (2.3-4.7); POTASSIUM 3.2 MMOL/L (3.6-5.0); SODIUM 135 MMOL/L (135-145); TOTAL PROTEIN 3.7 GM/DL (6.4-8.2)
[2017-01-14] MEDS ORDERED: SUCRALFATE 1 GM (CARAFATE) TAB PO STA (07:43)
[2017-01-14] MEDS: MAGNESIUM 1 GM/100 ML IVPB 100 ML IV SCH ×5 (08:20→15:50)
[2017-01-14] MEDS: CEFEPIME INJECTION 1,000 MG in NS (IVPB) 50 ML IV SCH (08:20)
--- NOTE | 2017-01-14 08:50 | Progress Note (SOAP) ---
Subjective Date Seen by Provider: Jan 14, 2017 Time Seen by Provider: 08:50 Subjective/Events-last exam PT IS AN 82 Y/O FEMALE WHO IS KNOWN TO ME FROM CLINIC. SHE STATES THAT SHE HAS HAD SOME DISCOMFORT IN HER ABDOMEN OFF AND ON TODAY. SHE REPORTS THAT SHE HAD AN EPISODE OF CHEST PAIN, ALL TESTING NEGATIVE THIS MORNING. Review of Systems General: No Chills, No Night Sweats, Fatigue HEENT: No Head Aches Pulmonary: No Dyspnea, No Cough Cardiovascular: Chest Pain (NOW RESOLVED) Gastrointestinal: Abdominal Pain, No: Nausea Genitourinary: No Dysuria Neurological: Weakness, No: Confusion Objective Exam Vital Signs Date Time Temp Pulse Resp B/P (MAP) Pulse Ox O2 Delivery O2 Flow Rate FiO2 01/14/17 04:00 99.8 86 20 139/64 96 Room Air 01/13/17 19:30 101.1 95 20 121/58 96 Room Air 01/13/17 17:35 101.8 92 20 129/60 96 Room Air 01/13/17 12:00 99.5 89 20 142/65 91 Room Air Capillary Refill : General Appearance: No Apparent Distress, WD/WN HEENT: PERRL/EOMI, Pharynx Normal Neck: Full Range of Motion, Supple Respiratory: Chest Non Tender, Lungs Clear, Normal Breath Sounds Cardiovascular: Regular Rate, Rhythm Gastrointestinal: normal bowel sounds, non tender, soft Extremity: Normal Capillary Refill, No Pedal Edema Neurologic/Psychiatric: Alert, Oriented x3, No Motor/Sensory Deficits, Normal Mood/Affect Skin: Warm/Dry Lymphatic: No Adenopathy Results Lab Laboratory Tests 01/13/17 11:44: Glucometer 267H 01/13/17 17:34: Glucometer 220H 01/14/17 00:39: Glucometer 166H 01/14/17 06:00: White Blood Count 9.0, Red Blood Count 3.00L, Hemoglobin 9.4L, Hematocrit 27L, Mean Corpuscular Volume 91, Mean Corpuscular Hemoglobin 31, Mean Corpuscular Hemoglobin Concent 34, Red Cell Distribution Width 13.8, Platelet Count 327, Mean Platelet Volume 9.7, Neutrophils (%) (Auto) 80H, Lymphocytes (%) (Auto) 10L , Monocytes (%) (Auto) 9, Eosinophils (%) (Auto) 1, Basophils (%) (Auto) 0, Neutrophils # (Auto) 7.2, Lymphocytes # (Auto) 0.9L, Monocytes # (Auto) 0.8, Eosinophils # (Auto) 0.1, Basophils # (Auto) 0.0, Sodium Level 135, Potassium Level 3.2L, Chloride Level 104, Carbon Dioxide Level 24, Anion Gap 7, Blood Urea Nitrogen 11, Creatinine 0.55L, Estimat Glomerular Filtration Rate > 60, BUN /Creatinine Ratio 20, Glucose Level 167H, Calcium Level 7.1L, Phosphorus Level 2.7, Magnesium Level 1.5L, Total Bilirubin 0.2, Aspartate Amino Transf (AST/SGOT ) 42H, Alanine Aminotransferase (ALT/SGPT) 23, Alkaline Phosphatase 86, Total Protein 3.7L, Albumin 1.9L 01/14/17 06:03: Glucometer 167H 01/14/17 08:13: Troponin I < 0.30 Assessment/Plan Assessment/Plan Assess & Plan/Chief Complaint DIVERTICULAR ABSCESS POST OP DAY #9 LEFT URETERAL INJURY HYPONATREMIA HYPERTENSION HYPERKALEMIA DIABETES MELLITUS HYPOTHYROIDISM ELEVATED WHITE COUNT DIVERTICULAR ABSCESS POST OP DAY #9 - SIGNIFICANT ABDOMINAL DRAIN OUTPUT, SUPPORTIVE CARE, FREQUENT DRAIN CHECKS BY STAFF,PLANS BY SURGERY STAFF IS FOR DRAIN IN LEFT KIDNEY TODAY. NG TUBE DRAINAGE DARK BROWN AND GREEN, NG TUBE REMOVED YESTERDAY, STARTED TPN ON SUNDAY DUE TO POOR INTAKE/NO INTAKE. DULCOLAX SUPPOSITORY PRN TPN STOPPED TODAY. LEFT URETERAL INJURY - DISCUSSED WITH DR. KELLEY AND DR. CHAU - THE PLAN IS FOR PATIENT TO HAVE REPEAT URETERAL EVALUATION ON SUNDAY. HYPONATREMIA AND HYPERKALEMIA AND HYPOMAGNESEMIA - IMPROVING SLIGHTLY - CONTINUE WITH NORMAL SALINE - AT DECREASED RATE, CONTINUE WITH REPLACEMENT WITH IV MAGNESIUM. CHECK LABS IN THE MORNING. HYPERTENSION - MONITOR BLOOD PRESSURES, STOPPED LISINOPRIL, CONTINUE WITH AMLODIPINE, IV METOPROLOL PRN. DIABETES MELLITUS - WILL RESTART INSULIN WHEN PT STARTS TO EAT MORE EFFECTIVELY HYPOTHYROIDISM - ON LEVOTHYROXINE. ELEVATED WHITE COUNT - IMPROVED, MONITOR SYMPTOMS. TACHYCARDIA - DUE TO ACUTE ILLNESS - MONITOR HEART RATE CONTINUE WITH FLUIDS. Clinical Quality Measures DVT/VTE Risk/Contraindication: Risk Factor Score Per Nursin RFS Level Per Nursing on Admit: 4+=Very High TINA LEON MD Jan 14, 2017 08:50
--- NOTE | 2017-01-14 09:23 | Diagnostic Imaging Report ---
EXAM: CHEST PA/LAT (2 VIEW) INDICATION: Fever. Weakness. COMPARISON: Chest radiographs 01/09/2017. FINDINGS: Mild residual atelectasis or infiltrate in the medial right lung base. No pleural effusion or pneumothorax. Normal heart size and pulmonary vascularity. Calcified aorta. Left subclavian CVC tip at the confluence. No acute osseous findings. IMPRESSION: Mild atelectasis or infiltrate in the right lung base. Dictated by: Dictated on workstation # [id number]
--- NOTE | 2017-01-14 10:02 | Progress Note-Urology ---
Progress Note-Urology Progress Notes/Assess & Plan Progress/Assessment & Plan SPIKED FEVER LAST NIGHT MANAGED PROPERLY BY DR LEON. PATIENT AND NIECE ELECTED [facility] FOR POSSIBLE FUTURE NEED. I WILL DISCUSS WITH RADIOLOGIST NEPHROSTOGRAM ISSUES Final Diagnosis LT URETERAL INJURY ALEXANDRA KELLEY MD Jan 14, 2017 10:02
[2017-01-14] MEDS: metroNIDAZOLE 500MG/100ML IVPB 100 ML IV SCH ×2 (10:27→20:48)
[2017-01-14] MEDS: amLODIPine 10 MG (NORVASC) TAB PO SCH (10:27)
[2017-01-14] MEDS: PANTOPRAZOLE 40 MG/10 ML (PROTONIX) VIAL IV SCH (10:27)
[2017-01-14] MEDS: ENOXAPARIN 30 MG/0.3 ML (LOVENOX) SYR SC SCH ×2 (10:27→20:49)
--- NOTE | 2017-01-14 11:45 | Progress Note ---
Subjective Time Seen by Provider: 10:41 Subjective/Events-last exam Pt seen and examined, sitting in chair comfortably. She states she had very bad abdominal pain for about 2 1/2 hours this am, but it is gone now. Tolerating clears. Her central line was leaking, so it was D/C'd. Review of Systems General: No Chills, No Night Sweats HEENT: Head Aches, No Visual Changes Cardiovascular: No: Chest Pain Gastrointestinal: Nausea, Vomiting, Abdominal Pain Objective Exam Vital Signs Date Time Temp Pulse Resp B/P (MAP) Pulse Ox O2 Delivery O2 Flow Rate FiO2 01/14/17 08:00 98.4 84 24 147/64 92 Room Air 01/14/17 04:00 99.8 86 20 139/64 96 Room Air 01/14/17 00:30 99.6 87 20 137/75 96 Room Air 01/13/17 20:45 Room Air 01/13/17 19:30 101.1 95 20 121/58 96 Room Air 01/13/17 17:35 101.8 92 20 129/60 96 Room Air 01/13/17 12:00 99.5 89 20 142/65 91 Room Air Capillary Refill : General Appearance: No Apparent Distress, Chronically ill HEENT: PERRL/EOMI, Pharynx Normal Neck: Full Range of Motion, Supple Respiratory: Chest Non Tender, Lungs Clear, Normal Breath Sounds, No Accessory Muscle Use Cardiovascular: Regular Rate, Rhythm, No Edema Gastrointestinal: soft, distended (very mild), tenderness (with deep palpation) , other (incisions are clean dry and intact) Extremity: No Calf Tenderness, Pedal Edema Neurologic/Psychiatric: Alert, Oriented x3, No Motor/Sensory Deficits, Normal Mood/Affect Skin: Warm/Dry Results Lab Laboratory Tests 01/13/17 11:44: Glucometer 267H 01/13/17 17:34: Glucometer 220H 01/14/17 00:39: Glucometer 166H 01/14/17 06:00: White Blood Count 9.0, Red Blood Count 3.00L, Hemoglobin 9.4L, Hematocrit 27L, Mean Corpuscular Volume 91, Mean Corpuscular Hemoglobin 31, Mean Corpuscular Hemoglobin Concent 34, Red Cell Distribution Width 13.8, Platelet Count 327, Mean Platelet Volume 9.7, Neutrophils (%) (Auto) 80H, Lymphocytes (%) (Auto) 10L , Monocytes (%) (Auto) 9, Eosinophils (%) (Auto) 1, Basophils (%) (Auto) 0, Neutrophils # (Auto) 7.2, Lymphocytes # (Auto) 0.9L, Monocytes # (Auto) 0.8, Eosinophils # (Auto) 0.1, Basophils # (Auto) 0.0, Sodium Level 135, Potassium Level 3.2L, Chloride Level 104, Carbon Dioxide Level 24, Anion Gap 7, Blood Urea Nitrogen 11, Creatinine 0.55L, Estimat Glomerular Filtration Rate > 60, BUN /Creatinine Ratio 20, Glucose Level 167H, Calcium Level 7.1L, Phosphorus Level 2.7, Magnesium Level 1.5L, Total Bilirubin 0.2, Aspartate Amino Transf (AST/SGOT ) 42H, Alanine Aminotransferase (ALT/SGPT) 23, Alkaline Phosphatase 86, Total Protein 3.7L, Albumin 1.9L 01/14/17 06:03: Glucometer 167H 01/14/17 08:13: Troponin I < 0.30 01/14/17 09:52: Lactic Acid Level 1.98 Assessment/Plan Assessment/Plan Assessment/Plan S/P LAR for ruptured Diverticulitis. Plan to increase PO intake, especially Ensure to increase protein intake. Left Ureteral injury - plan to repeat ureterogram tomorrow and may get transferred to [facility] - replace with IV Clinical Quality Measures DVT/VTE Risk/Contraindication: Risk Factor Score Per Nursin RFS Level Per Nursing on Admit: 4+=Very High NIKI JOSÉ DO Jan 14, 2017 11:45
[2017-01-14] MEDS: POTASSIUM CL 10MEQ/50ML IVPB 50 ML IV SCH ×5 (12:22→18:32)
[2017-01-14] MEDS: HYOSCYAMINE 0.125 MG (LEVSIN) TAB PO PRN ×2 (12:40→20:59)
[2017-01-14 13:10] LABS: BILIRUBIN,URINE NEGATIVE (NEGATIVE); KETONES,URINE 1+ (NEGATIVE); LEUKOCYTE ESTERASE ,URINE 3+ (NEGATIVE); NITRITE,URINE NEGATIVE (NEGATIVE); PH,URINE 5 (5-9); PROTEIN,URINE 2+ (NEGATIVE); UROBILINOGEN,URINE NORMAL (NORMAL)
[2017-01-14 13:11] LABS: BILIRUBIN,URINE NEGATIVE (NEGATIVE); KETONES,URINE NEGATIVE (NEGATIVE); LEUKOCYTE ESTERASE ,URINE 3+ (NEGATIVE); NITRITE,URINE NEGATIVE (NEGATIVE); PH,URINE 5 (5-9); PROTEIN,URINE 3+ (NEGATIVE); UROBILINOGEN,URINE NORMAL (NORMAL)
[2017-01-14 13:25] LABS: YEAST,URINE LARGE /HPF
[2017-01-14 13:26] LABS: YEAST,URINE MODERATE /HPF
[2017-01-14] MEDS: fluCOnazole (DIFLUCAN) 100 MG TAB PO SCH (15:49)
[2017-01-14] MEDS: LACTOBACILLUS Acidoph/Bulgar (LACTINEX/FLORANEX) TAB PO SCH (16:43)
[2017-01-14] MEDS: ACETAMINOPHEN 500 MG TAB (TYLENOL) PO PRN (16:43)
[2017-01-14] MEDS: NS IV 1000 ML 1,000 ML IV SCH (16:43)
[2017-01-14] MEDS: inSUlin ASPART (NovoLOG) 1 UNIT/0.01 ML (CHARGE PER UNIT) SC SCH ×2 (18:32→20:50)
[2017-01-15] MEDS: meTOprolol 5 MG/5 ML (LOPRESSOR) VIAL IVP SCH ×3 (00:24→11:11)
[2017-01-15] MEDS: fentaNYL INJECTION 100 MCG/2 ML AMP IVP PRN ×4 (04:38→22:24)
[2017-01-15 04:39] VITALS: BP 133/65
[2017-01-15] MEDS: HYOSCYAMINE 0.125 MG (LEVSIN) TAB PO PRN ×3 (06:33→20:37)
[2017-01-15] MEDS: LEVOTHYROXINE 50 MCG (LEVOTHROID) TAB PO SCH (06:34)
[2017-01-15] MEDS: LACTOBACILLUS Acidoph/Bulgar (LACTINEX/FLORANEX) TAB PO SCH ×3 (06:34→16:55)
[2017-01-15] MEDS: inSUlin ASPART (NovoLOG) 1 UNIT/0.01 ML (CHARGE PER UNIT) SC SCH ×4 (06:34→20:37)
[2017-01-15 08:00] VITALS: BP 137/63
--- NOTE | 2017-01-15 08:50 | Progress Note (SOAP) ---
Subjective Date Seen by Provider: Jan 15, 2017 Time Seen by Provider: 09:10 Subjective/Events-last exam PT REPORTS INTERMITTENT ABDOMINAL CRAMPING - EPISODIC, NOT CONSTANT PAIN. SHE DENIES CHEST PAIN, DENIES NAUSEA, DENIES LEG PAIN Review of Systems General: Fatigue HEENT: No Head Aches Pulmonary: No Dyspnea, No Cough Cardiovascular: No: Chest Pain, Palpitations Gastrointestinal: Abdominal Pain, No: Nausea Genitourinary: No Dysuria Neurological: Weakness, No: Confusion Objective Exam Vital Signs Date Time Temp Pulse Resp B/P (MAP) Pulse Ox O2 Delivery O2 Flow Rate FiO2 01/15/17 04:39 98.2 91 20 133/65 96 Room Air 01/14/17 23:35 99.2 72 18 126/68 95 Room Air 01/14/17 20:30 Room Air 01/14/17 19:20 98.7 71 16 117/61 97 Room Air 01/14/17 15:41 100.4 92 18 145/74 97 Room Air 01/14/17 12:00 99.8 72 20 120/57 95 Room Air Capillary Refill : General Appearance: No Apparent Distress, WD/WN HEENT: PERRL/EOMI Neck: Full Range of Motion, Supple Respiratory: Chest Non Tender, Lungs Clear Cardiovascular: Regular Rate, Rhythm Gastrointestinal: normal bowel sounds, soft, distended, tenderness Extremity: Pedal Edema Neurologic/Psychiatric: Alert, Oriented x3, No Motor/Sensory Deficits Skin: Warm/Dry Lymphatic: No Adenopathy Results Lab Laboratory Tests 01/14/17 09:52: Lactic Acid Level 1.98 01/14/17 11:00: Urine Color YELLOW, Urine Clarity VERY CLOUDYH, Urine pH 5, Urine Specific [place] 1.015L, Urine Protein 3+H, Urine Glucose (UA) NEGATIVE, Urine Ketones NEGATIVE, Urine Nitrite NEGATIVE, Urine Bilirubin NEGATIVE, Urine Urobilinogen NORMAL, Urine Leukocyte Esterase 3+H, Urine RBC (Auto) 5+H, Urine RBC 25-50H, Urine WBC 10-25H, Urine Squamous Epithelial Cells NONE, Urine Crystals NONE, Urine Bacteria NEGATIVE, Urine Casts NONE, Urine Mucus NEGATIVE, Urine Yeast MODERATEH, Urine Culture Indicated YES 01/14/17 11:40: Glucometer 164H 01/14/17 12:20: Urine Color YELLOW, Urine Clarity VERY CLOUDYH, Urine pH 5, Urine Specific [place] 1.020, Urine Protein 2+H, Urine Glucose (UA) NEGATIVE, Urine Ketones 1+H , Urine Nitrite NEGATIVE, Urine Bilirubin NEGATIVE, Urine Urobilinogen NORMAL, Urine Leukocyte Esterase 3+H, Urine RBC (Auto) 3+H, Urine RBC 5-10H, Urine WBC 5 -10H, Urine Squamous Epithelial Cells NONE, Urine Crystals NONE, Urine Bacteria NEGATIVE, Urine Casts NONE, Urine Mucus NEGATIVE, Urine Yeast LARGEH, Urine Culture Indicated YES 01/14/17 16:56: Glucometer 343H 01/14/17 18:29: Glucometer 289H 01/14/17 20:45: Glucometer 271H 01/15/17 05:45: Glucometer 169H Microbiology 01/14/17 Urine Culture - Preliminary, Resulted Yeast Species Assessment/Plan Assessment/Plan Assess & Plan/Chief Complaint DIVERTICULAR ABSCESS POST OP LEFT URETERAL INJURY HYPONATREMIA HYPERTENSION HYPERKALEMIA DIABETES MELLITUS HYPOTHYROIDISM ELEVATED WHITE COUNT DIVERTICULAR ABSCESS POST OP - SIGNIFICANT ABDOMINAL DRAIN OUTPUT, SUPPORTIVE CARE, FREQUENT DRAIN CHECKS BY STAFF,PLANS BY SURGERY STAFF IS FOR DRAIN IN LEFT KIDNEY TODAY. NG TUBE DRAINAGE DARK BROWN AND GREEN, NG TUBE REMOVED YESTERDAY, STARTED TPN ON SUNDAY DUE TO POOR INTAKE/NO INTAKE. DULCOLAX SUPPOSITORY PRN LEFT URETERAL INJURY - DISCUSSED WITH DR. KELLEY AND DR. CHAU - THE PLAN IS FOR PATIENT TO HAVE REPEAT URETERAL EVALUATION ON TODAY. HYPONATREMIA AND HYPERKALEMIA AND HYPOMAGNESEMIA - IMPROVING SLIGHTLY - CONTINUE WITH NORMAL SALINE - AT DECREASED RATE, CONTINUE WITH REPLACEMENT WITH IV MAGNESIUM. CHECK LABS IN THE MORNING. HYPERTENSION - MONITOR BLOOD PRESSURES, STOPPED LISINOPRIL, CONTINUE WITH AMLODIPINE, IV METOPROLOL PRN. DIABETES MELLITUS - WILL RESTART INSULIN WHEN PT STARTS TO EAT MORE EFFECTIVELY HYPOTHYROIDISM - ON LEVOTHYROXINE. ELEVATED WHITE COUNT - IMPROVED, MONITOR SYMPTOMS. TACHYCARDIA - DUE TO ACUTE ILLNESS - MONITOR HEART RATE CONTINUE WITH FLUIDS. Clinical Quality Measures DVT/VTE Risk/Contraindication: Risk Factor Score Per Nursin RFS Level Per Nursing on Admit: 4+=Very High TINA LEON MD Jan 15, 2017 08:50
--- NOTE | 2017-01-15 09:07 | Progress Note-Urology ---
Progress Note-Urology Progress Notes/Assess & Plan Progress/Assessment & Plan DISCUSSED CASE WITH RADIOLOGIST WHO AGREED ON NEPHROSTOGRAM THIS AM Final Diagnosis LT URETERAL INJURY ALEXANDRA KELLEY MD Jan 15, 2017 09:07
[2017-01-15 09:11] LABS: RED BLOOD COUNT 3.36 10^6/uL (4.35-5.85); RED CELL DISTRIBUTION WIDTH 13.6 % (10.0-14.5); WHITE BLOOD COUNT 9.9 10^3/uL (4.3-11.0)
--- NOTE | 2017-01-15 09:36 | Physical Therapy Daily Note ---
PT Daily Note-Current Transfers Functional [place] Measure 0=Not Assessed/NA 4=Minimal Assistance 1=Total Assistance 5=Supervision or Setup 2=Maximal Assistance 6=Modified [place] 3=Moderate Assistance 7=Complete IndependenceIRFPAI Quality Coding Scale 6 Independent with activity with or without an assistive device 5 Patient requires set up or clean up by helper. Patient completes activity by themselves 4 Supervision or touching assist (CGA). [place] provide cues , steadying assist 3 The helper provides less than half the effort to complete the activity 2 The helper provides more than half the effort to complete the activity 1 Dependent. The helper does all the effort to complete an activity 7 Patient refused to complete or attempt activity 9 The patient did not perform the activity before the current illness or injury 88 Not attempted due to Medical conditions or safety concerns Assessment Current Status: Hold Per Dr/Nursing Patient is on hold per Dr. No due to uncontrolled abdominal pain and patient's inability to participate with therapy at this time. PT will continue to monitor patient status and resume when medically stable. PT Short Term Goals Short Term Goals Time Frame: Jan 15, 2017 PT [employer] Goals Senior Care Goals PT Senior Care Goals Time Frame: Jan 19, 2017 Transfers (B,C,W/C) (FIM): 6 Gait (FIM): 6 Gait distance (FIM): 3=150 ft Gait Level of Assist: 6 Gait Assistive Device: FWW PT Plan Treatment/Plan Treatment Plan: Modify Plan, see comments (see assessment) Treatment Plan: Bed Mobility, Education, Functional Activity Kevin, Functional Strength, Gait, Safety, Therapeutic Exercise, Transfers Treatment Duration: Jan 19, 2017 Frequency: Twice Daily (M-F) Estimated Hrs Per Day: .25 hour per day Patient and/or Family Agrees t: Yes Time/GCodes Time In: 935 Time Out: 936 Total Billed Treatment Time: 1 Total Billed Treatment hold SHERRON MCKEON PT Jan 15, 2017 09:36
[2017-01-15 09:38] LABS: ALANINE AMINOTRANSFERASE 23 U/L (0-55); ALBUMIN 2.1 GM/DL (3.2-4.5); ANION GAP 11 MMOL/L (5-14); ASPARTATE AMINO TRANSFERASE 23 U/L (5-34); BILIRUBIN,TOTAL 0.4 MG/DL (0.1-1.0); BLOOD UREA NITROGEN 8 MG/DL (7-18); BUN/CREATININE RATIO 14; CALCIUM 7.2 MG/DL (8.5-10.1); CARBON DIOXIDE 21 MMOL/L (21-32); CHLORIDE 102 MMOL/L (98-107); CREATININE SERUM 0.58 MG/DL (0.60-1.30); GFR ESTIMATED > 60; GLUCOSE 255 MG/DL (70-105); MAGNESIUM 1.5 MG/DL (1.8-2.4); SODIUM 134 MMOL/L (135-145)
[2017-01-15] MEDS: PANTOPRAZOLE 40 MG/10 ML (PROTONIX) VIAL IV SCH (10:00)
[2017-01-15] MEDS: fluCOnazole (DIFLUCAN) 100 MG TAB PO SCH (10:00)
[2017-01-15] MEDS: amLODIPine 10 MG (NORVASC) TAB PO SCH (10:00)
[2017-01-15] MEDS: ENOXAPARIN 30 MG/0.3 ML (LOVENOX) SYR SC SCH ×2 (10:00→20:37)
[2017-01-15] MEDS: metroNIDAZOLE 500MG/100ML IVPB 100 ML IV SCH ×2 (10:04→20:37)
[2017-01-15] MEDS: CEFEPIME INJECTION 1,000 MG in NS (IVPB) 50 ML IV SCH (10:11)
[2017-01-15] MEDS: LORazepam INJ 2 MG/ML (ATIVAN) VIAL IVP PRN ×2 (11:11→22:38)
--- NOTE | 2017-01-15 11:53 | Diagnostic Imaging Report ---
INDICATION: Fever. COMPARISON: 01/14/2017 FINDINGS: Frontal and lateral radiographic views of the chest were obtained. Lungs are now clear. There is no focal consolidation, large effusion, nor pneumothorax. Cardiac silhouette and pulmonary vasculature are within normal limits. There is calcified aortic atherosclerosis. Bony structures show no gross acute abnormalities. IMPRESSION: 1. No acute cardiopulmonary process. Dictated by: Dictated on workstation # [id number]
[2017-01-15 12:00] VITALS: BP 111/63
[2017-01-15] MEDS ORDERED: IOHEXOL 300 MG/ML 50 ML (OMNIPAQUE 300) VIAL IV ONE (12:15)
[2017-01-15] MEDS: NS IV 1000 ML 1,000 ML IV SCH (12:35)
--- NOTE | 2017-01-15 13:21 | Diagnostic Imaging Report ---
INDICATION: Left ureteral injury. FINDINGS: The patient was placed on the table in the prone position. A nephrostogram was performed in the patient's indwelling nephrostomy tube catheter. The proximal collecting system is unremarkable. The nephrostomy tube is in satisfactory position. The proximal ureter is normal in course and caliber. The ureter appears to be completely transected just below the iliac brim. There is extravasation of contrast in the pelvis. 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 No contrast is seen distal to this level or within the bladder. Dictated by: Dictated on workstation # [id number]
[2017-01-15] MEDS: KCL 20 MEQ TAB (K-DUR) PO SCH (15:09)
--- NOTE | 2017-01-15 15:28 | Progress Note (SOAP) ---
Subjective Date Seen by Provider: Jan 15, 2017 Time Seen by Provider: 15:00 Subjective/Events-last exam doing ok. tolerating diet and having BM's. mild intermittent crampy abdominal pain. no fever/chills. Objective Exam Vital Signs Date Time Temp Pulse Resp B/P (MAP) Pulse Ox O2 Delivery O2 Flow Rate FiO2 01/15/17 12:00 99.2 71 18 111/63 92 Room Air 01/15/17 08:00 99.2 76 20 137/63 100 Room Air 01/15/17 04:39 98.2 91 20 133/65 96 Room Air 01/14/17 23:35 99.2 72 18 126/68 95 Room Air 01/14/17 20:30 Room Air 01/14/17 19:20 98.7 71 16 117/61 97 Room Air 01/14/17 15:41 100.4 92 18 145/74 97 Room Air Capillary Refill : General Appearance: No Apparent Distress HEENT: PERRL/EOMI Neck: Full Range of Motion Respiratory: Chest Non Tender, Lungs Clear, Normal Breath Sounds Cardiovascular: Regular Rate, Rhythm Gastrointestinal: normal bowel sounds, soft, other (wounds, clean/dry) Extremity: Normal Capillary Refill Neurologic/Psychiatric: Alert, Oriented x3 Skin: Normal Color Lymphatic: No Adenopathy Results Lab Laboratory Tests 01/14/17 16:56: Glucometer 343H 01/14/17 18:29: Glucometer 289H 01/14/17 20:45: Glucometer 271H 01/15/17 05:45: Glucometer 169H 01/15/17 09:04: White Blood Count 9.9, Red Blood Count 3.36L, Hemoglobin 10.3L, Hematocrit 31L, Mean Corpuscular Volume 91, Mean Corpuscular Hemoglobin 31, Mean Corpuscular Hemoglobin Concent 34, Red Cell Distribution Width 13.6, Platelet Count 326, Mean Platelet Volume 10.0, Sodium Level 134L, Potassium Level 3.0L, Chloride Level 102, Carbon Dioxide Level 21, Anion Gap 11, Blood Urea Nitrogen 8, Creatinine 0.58L, Estimat Glomerular Filtration Rate > 60, BUN/Creatinine Ratio 14, Glucose Level 255H, Calcium Level 7.2L, Magnesium Level 1.5L, Total Bilirubin 0.4, Aspartate Amino Transf (AST/SGOT) 23, Alanine Aminotransferase ( ALT/SGPT) 23, Alkaline Phosphatase 83, Total Protein 4.0L, Albumin 2.1L 01/15/17 11:11: Glucometer 229H Microbiology 01/14/17 Blood Culture - Preliminary, Resulted No growth 01/14/17 Urine Culture - Preliminary, Resulted Yeast Species Assessment/Plan Assessment/Plan Assess & Plan/Chief Complaint s/p lap LAR and en-bloc left tubo-oophorectomy. s/p left nephrostomy tube placement today. continue ambulation. continue DVT prophylaxis. correct electrolytes. path benign severe diverticulitis. CT with and without constrast with delayed films showed left ureteral leak/ injury. urology consulted. IR also consulted for percutaneous nephrostomy tube placement. dr. Mendez talked with dr. Navarrete at [facility]. recommend possible end to end repair over stent at outpatient after completely healed from colon resection in 6-8 weeks. will d/c montano in am then monitor AWILDA urine output. Clinical Quality Measures DVT/VTE Risk/Contraindication: Risk Factor Score Per Nursin RFS Level Per Nursing on Admit: 4+=Very High JACKIE CHAU MD Jan 15, 2017 15:28
[2017-01-15 16:15] VITALS: BP 131/76
[2017-01-15 19:30] VITALS: BP 122/71
[2017-01-16] VITALS: BP 138/74
[2017-01-16 04:00] VITALS: BP 132/82
[2017-01-16] MEDS: HYOSCYAMINE 0.125 MG (LEVSIN) TAB PO PRN ×2 (05:07→23:44)
[2017-01-16] MEDS: fentaNYL INJECTION 100 MCG/2 ML AMP IVP PRN ×3 (05:07→23:44)
[2017-01-16] MEDS: LEVOTHYROXINE 50 MCG (LEVOTHROID) TAB PO SCH (06:01)
[2017-01-16] MEDS: PANTOPRAZOLE 40 MG (PROTONIX) TAB PO SCH (06:01)
[2017-01-16] MEDS: KCL 20 MEQ TAB (K-DUR) PO SCH (06:01)
[2017-01-16] MEDS: inSUlin ASPART (NovoLOG) 1 UNIT/0.01 ML (CHARGE PER UNIT) SC SCH ×4 (06:02→20:35)
[2017-01-16] MEDS: LACTOBACILLUS Acidoph/Bulgar (LACTINEX/FLORANEX) TAB PO SCH ×3 (06:02→17:33)
[2017-01-16 08:58] VITALS: BP 147/65
--- NOTE | 2017-01-16 09:12 | Progress Note (SOAP) ---
Subjective Date Seen by Provider: Jan 16, 2017 Time Seen by Provider: 09:00 Subjective/Events-last exam PT REPORTS THAT SHE IS FEELING BETTER, DOES HAVE SOME ABDOMINAL BLOATING, BUT SHE HAS BEEN OTHERWISE FEELING BETTER. NO CHEST PAIN, INTERMITTENT ABDOMINAL PAIN, BUT HAVING BOWEL MOVEMENT AND SOME GAS PRODUCTION. Review of Systems General: No Chills, Fatigue HEENT: No Head Aches Pulmonary: No Dyspnea, No Cough Cardiovascular: No: Chest Pain Gastrointestinal: Abdominal Pain, Other (BLOATING), No: Nausea Neurological: Weakness Objective Exam Vital Signs Date Time Temp Pulse Resp B/P (MAP) Pulse Ox O2 Delivery O2 Flow Rate FiO2 01/16/17 08:58 99.1 89 20 147/65 100 Room Air 01/16/17 04:00 99.1 92 18 132/82 96 Room Air 01/16/17 00:00 99.1 89 21 138/74 95 Room Air 01/15/17 20:35 Room Air 01/15/17 19:30 99.1 91 18 122/71 97 Room Air 01/15/17 16:15 99.3 92 20 131/76 98 Room Air 01/15/17 12:00 99.2 71 18 111/63 92 Room Air Capillary Refill : General Appearance: No Apparent Distress, WD/WN HEENT: PERRL/EOMI, Pharynx Normal Neck: Full Range of Motion, Supple Respiratory: Chest Non Tender, Lungs Clear, Normal Breath Sounds Cardiovascular: Regular Rate, Rhythm Gastrointestinal: normal bowel sounds, distended, tenderness Extremity: Pedal Edema Neurologic/Psychiatric: Alert, Oriented x3, No Motor/Sensory Deficits, Normal Mood/Affect, public improvement inspector II-XII Norm as Tested, Other (HARD OF HEARING) Skin: Warm/Dry Lymphatic: No Adenopathy Results Lab Laboratory Tests 01/15/17 11:11: Glucometer 229H 01/15/17 16:13: Glucometer 272H 01/15/17 20:23: Glucometer 204H 01/16/17 05:32: Magnesium Level 1.3L 01/16/17 05:49: Glucometer 188H Microbiology 01/14/17 Blood Culture - Preliminary, Resulted Yeast Species 01/14/17 Urine Culture - Preliminary, Resulted Sukumar Albicans Assessment/Plan Assessment/Plan Assess & Plan/Chief Complaint DIVERTICULAR ABSCESS POST OP DAY #11 LEFT URETERAL INJURY HYPONATREMIA HYPERTENSION HYPERKALEMIA DIABETES MELLITUS HYPOTHYROIDISM ELEVATED WHITE COUNT SUKUMAR ALBICANS IN URINE, NEPHROSTOMY TUBE, AND BLOOD CULTURES DIVERTICULAR ABSCESS POST OP DAY #11 - SIGNIFICANT ABDOMINAL DRAIN OUTPUT, SUPPORTIVE CARE, FREQUENT DRAIN CHECKS BY STAFF, DULCOLAX SUPPOSITORY PRN CANDIDAL SEPSIS - IN BLOOD, URINE, TREATING WITH DIFLUCAN. LEFT URETERAL INJURY - DISCUSSED WITH DR. KELLEY AND DR. CHAU - PT HAS COMPLETE TRANSECTION OF THE URETER, PLAN - PER DR. KELLEY IS TO HAVE PATIENT GO UP TO [facility] IN ABOUT 6 WEEKS FOR EVALUATION PRIOR TO PLANNED REPAIR OF THE URETER. KEEP NEPHROSTOMY TUBE IN PLACE TO DRAIN URINE FROM LEFT KIDNEY. HYPONATREMIA AND HYPERKALEMIA AND HYPOMAGNESEMIA - IMPROVING SLIGHTLY - CONTINUE WITH NORMAL SALINE - AT DECREASED RATE, CONTINUE WITH REPLACEMENT WITH IV MAGNESIUM. CHECK LABS IN THE MORNING. HYPERTENSION - MONITOR BLOOD PRESSURES, STOPPED LISINOPRIL, CONTINUE WITH AMLODIPINE. DIABETES MELLITUS - WILL RESTART INSULIN WHEN PT STARTS TO EAT MORE EFFECTIVELY HYPOTHYROIDISM - ON LEVOTHYROXINE. ELEVATED WHITE COUNT - IMPROVED, MONITOR SYMPTOMS. TACHYCARDIA - DUE TO ACUTE ILLNESS - MONITOR HEART RATE CONTINUE WITH FLUIDS. BLOATING - RX FOR SIMETHICONE TODAY. Clinical Quality Measures DVT/VTE Risk/Contraindication: Risk Factor Score Per Nursin RFS Level Per Nursing on Admit: 4+=Very High TINA LEON MD Jan 16, 2017 09:12
--- NOTE | 2017-01-16 09:24 | Progress Note-Urology ---
Progress Note-Urology Progress Notes/Assess & Plan Progress/Assessment & Plan CONTINUES IMPROVING AND GETTING STRONGER. ON DIFLUCAN FOR YEAST INFECTIONS. I EXPLAINED TO PATIENT THAT I TALKED WITH DR MABRY AT [facility] WHO AGREED WITH OUR PLAN AND WILL SEE HER THERE IN ABOUT 6 WEEKS TO PLAN REPAIR. Final Diagnosis LT URETERAL INJURY ALEXANDRA KELLEY MD Jan 16, 2017 09:24
[2017-01-16] MEDS ORDERED: SIMETHICONE 80 MG (MYLICON) CHEW PO NR (09:30)
--- NOTE | 2017-01-16 09:35 | Physical Therapy Daily Note ---
PT Daily Note-Current Subjective Patient's pain is more controlled on this date. She agrees to PT. Pain Numeric Pain Scale: 3 Location: Left, Lower Location Body Site: Side Pain Description: Ache, Pressure Mental Status Patient Orientation: Normal For Age Transfers Functional [place] Measure 0=Not Assessed/NA 4=Minimal Assistance 1=Total Assistance 5=Supervision or Setup 2=Maximal Assistance 6=Modified [place] 3=Moderate Assistance 7=Complete IndependenceIRFPAI Quality Coding Scale 6 Independent with activity with or without an assistive device 5 Patient requires set up or clean up by helper. Patient completes activity by themselves 4 Supervision or touching assist (CGA). [place] provide cues , steadying assist 3 The helper provides less than half the effort to complete the activity 2 The helper provides more than half the effort to complete the activity 1 Dependent. The helper does all the effort to complete an activity 7 Patient refused to complete or attempt activity 9 The patient did not perform the activity before the current illness or injury 88 Not attempted due to Medical conditions or safety concerns Transfers (B, C, W/C) (FIM): 5 Scootin Sit to/from Stand: 5 Gait Training Gait (FIM): 5 Distance (FIM): 3=150 ft Distance: 350' Gait Level of Assist: 5 Gait Assistive Device: FWW slow, steady, functional Assessment Current Status: Excellent Progress PT Short Term Goals Short Term Goals Time Frame: Jan 15, 2017 PT Leather [employer]er Goals Residential Goals PT Residential Goals Time Frame: Jan 19, 2017 Transfers (B,C,W/C) (FIM): 6 Gait (FIM): 6 Gait distance (FIM): 3=150 ft Gait Level of Assist: 6 Gait Assistive Device: FWW PT Plan Treatment/Plan Treatment Plan: Continue Plan of Care Treatment Plan: Bed Mobility, Education, Functional Activity Kevin, Functional Strength, Gait, Safety, Therapeutic Exercise, Transfers Treatment Duration: Jan 19, 2017 Frequency: Twice Daily (M-F) Estimated Hrs Per Day: .25 hour per day Patient and/or Family Agrees t: Yes Time/GCodes Time In: 850 Time Out: 913 Total Billed Treatment Time: 23 Total Billed Treatment 1 visit FA x 2 23 min SHERRON MCKEON PT Jan 16, 2017 09:35
[2017-01-16] MEDS: ENOXAPARIN 30 MG/0.3 ML (LOVENOX) SYR SC SCH ×2 (10:02→20:36)
[2017-01-16] MEDS: amLODIPine 10 MG (NORVASC) TAB PO SCH (10:02)
[2017-01-16] MEDS: fluCOnazole (DIFLUCAN) 100 MG TAB PO SCH (10:03)
[2017-01-16] MEDS: CEFEPIME INJECTION 1,000 MG in NS (IVPB) 50 ML IV SCH (10:03)
[2017-01-16] MEDS: metroNIDAZOLE 500MG/100ML IVPB 100 ML IV SCH (10:42)
--- NOTE | 2017-01-16 11:20 | Progress Note (SOAP) ---
Subjective Date Seen by Provider: Jan 16, 2017 Time Seen by Provider: 11:00 Subjective/Events-last exam doing well. has been able to urinate on own since montano removed. tolerating diet and having BM's. no fever/chills. Objective Exam Vital Signs Date Time Temp Pulse Resp B/P (MAP) Pulse Ox O2 Delivery O2 Flow Rate FiO2 01/16/17 08:58 99.1 89 20 147/65 100 Room Air 01/16/17 04:00 99.1 92 18 132/82 96 Room Air 01/16/17 00:00 99.1 89 21 138/74 95 Room Air 01/15/17 20:35 Room Air 01/15/17 19:30 99.1 91 18 122/71 97 Room Air 01/15/17 16:15 99.3 92 20 131/76 98 Room Air 01/15/17 12:00 99.2 71 18 111/63 92 Room Air Capillary Refill : General Appearance: No Apparent Distress HEENT: PERRL/EOMI Neck: Full Range of Motion Respiratory: Chest Non Tender, Lungs Clear, Normal Breath Sounds Cardiovascular: Regular Rate, Rhythm Gastrointestinal: normal bowel sounds, soft Extremity: Normal Capillary Refill Neurologic/Psychiatric: Alert, Oriented x3 Skin: Normal Color Lymphatic: No Adenopathy Results Lab Laboratory Tests 01/15/17 16:13: Glucometer 272H 01/15/17 20:23: Glucometer 204H 01/16/17 05:32: Magnesium Level 1.3L 01/16/17 05:49: Glucometer 188H 01/16/17 10:47: Glucometer 273H Microbiology 01/14/17 Blood Culture - Preliminary, Resulted Yeast Species 01/14/17 Urine Culture - Preliminary, Resulted [place] Albicans Assessment/Plan Assessment/Plan Assess & Plan/Chief Complaint s/p lap LAR and en-bloc left tubo-oophorectomy. s/p left nephrostomy tube placement today. continue ambulation. continue DVT prophylaxis. path benign severe diverticulitis. CT with and without constrast with delayed films showed left ureteral leak/ injury. urology consulted. IR also consulted for percutaneous nephrostomy tube placement. dr. Mendez talked with dr. Navarrete at [facility]. recommend possible end to end repair over stent as outpatient after completely healed from colon resection in 6-8 weeks. pt has been able to urinate after montano removal. will now monitor AWILDA urine output. once this drainage stops, will then remove. nephrostomy tube will stay in place until ureteral repair surgery. plan is to increase ADL's until can go home with home health. Clinical Quality Measures DVT/VTE Risk/Contraindication: Risk Factor Score Per Nursin RFS Level Per Nursing on Admit: 4+=Very High JACKIE CHAU MD Jan 16, 2017 11:20 am
[2017-01-16 12:00] VITALS: BP 132/60
[2017-01-16] MEDS: SIMETHICONE 80 MG (MYLICON) CHEW PO SCH ×3 (14:25→20:36)
[2017-01-16] MEDS: LORazepam INJ 2 MG/ML (ATIVAN) VIAL IVP PRN (14:26)
--- NOTE | 2017-01-16 14:34 | Physical Therapy Daily Note ---
PT Daily Note-Current Subjective Patient agrees to PT. Pain Numeric Pain Scale: 5-Moderate Pain Location: Left, Lower Location Body Site: Abdomen Pain Description: Ache, Pressure Mental Status Patient Orientation: Normal For Age Transfers Functional [place] Measure 0=Not Assessed/NA 4=Minimal Assistance 1=Total Assistance 5=Supervision or Setup 2=Maximal Assistance 6=Modified [place] 3=Moderate Assistance 7=Complete IndependenceIRFPAI Quality Coding Scale 6 Independent with activity with or without an assistive device 5 Patient requires set up or clean up by helper. Patient completes activity by themselves 4 Supervision or touching assist (CGA). [place] provide cues , steadying assist 3 The helper provides less than half the effort to complete the activity 2 The helper provides more than half the effort to complete the activity 1 Dependent. The helper does all the effort to complete an activity 7 Patient refused to complete or attempt activity 9 The patient did not perform the activity before the current illness or injury 88 Not attempted due to Medical conditions or safety concerns Transfers (B, C, W/C) (FIM): 5 Scootin Sit to/from Stand: 5 Gait Training Gait (FIM): 5 Distance (FIM): 3=150 ft Distance: 500' Gait Level of Assist: 5 Gait Assistive Device: FWW slow, steady, safe and functional Assessment Current Status: Excellent Progress PT Short Term Goals Short Term Goals Time Frame: Jan 15, 2017 PT In[employer] Goals Senior Living Goals PT Inclusion Internship Goals Time Frame: Jan 19, 2017 Transfers (B,C,W/C) (FIM): 6 Gait (FIM): 6 Gait distance (FIM): 3=150 ft Gait Level of Assist: 6 Gait Assistive Device: FWW PT Plan Treatment/Plan Treatment Plan: Continue Plan of Care Treatment Plan: Bed Mobility, Education, Functional Activity Kevin, Functional Strength, Gait, Safety, Therapeutic Exercise, Transfers Treatment Duration: Jan 19, 2017 Frequency: Twice Daily (M-F) Estimated Hrs Per Day: .25 hour per day Patient and/or Family Agrees t: Yes Time/GCodes Time In: 1403 Time Out: 1426 Total Billed Treatment Time: 23 Total Billed Treatment 1 visit FA x 2 23 min SHERRON MCKEON PT Jan 16, 2017 14:34
[2017-01-16 16:00] VITALS: BP 137/63
[2017-01-16 20:00] VITALS: BP_SYST 132; BP_SYST 133; BP_DIAS 61; BP_DIAS 64
[2017-01-16] MEDS: metroNIDAZOLE 500 MG (FLAGYL) TAB PO SCH (20:36)
[2017-01-17] VITALS (7 sets, daily range): BP systolic 99–144; BP diastolic 58–73
[2017-01-17] MEDS: LORazepam INJ 2 MG/ML (ATIVAN) VIAL IVP PRN ×2 (00:22→05:01)
[2017-01-17] MEDS: HYOSCYAMINE 0.125 MG (LEVSIN) TAB PO PRN (04:16)
[2017-01-17] MEDS: fentaNYL INJECTION 100 MCG/2 ML AMP IVP PRN ×2 (04:16→08:08)
[2017-01-17] MEDS: LACTOBACILLUS Acidoph/Bulgar (LACTINEX/FLORANEX) TAB PO SCH ×3 (06:20→18:15)
[2017-01-17] MEDS: KCL 20 MEQ TAB (K-DUR) PO SCH (06:20)
[2017-01-17] MEDS: PANTOPRAZOLE 40 MG (PROTONIX) TAB PO SCH (06:20)
[2017-01-17] MEDS: inSUlin ASPART (NovoLOG) 1 UNIT/0.01 ML (CHARGE PER UNIT) SC SCH ×4 (06:20→21:27)
[2017-01-17] MEDS: LEVOTHYROXINE 50 MCG (LEVOTHROID) TAB PO SCH (06:20)
[2017-01-17 06:36] LABS: MEAN PLATELET VOLUME 10.2 FL (7.4-10.4); RED BLOOD COUNT 3.01 10^6/uL (4.35-5.85); RED CELL DISTRIBUTION WIDTH 13.6 % (10.0-14.5); WHITE BLOOD COUNT 10.4 10^3/uL (4.3-11.0)
[2017-01-17 06:44] LABS: ANION GAP 10 MMOL/L (5-14); BLOOD UREA NITROGEN 3 MG/DL (7-18); BUN/CREATININE RATIO 5; CALCIUM 7.2 MG/DL (8.5-10.1); CARBON DIOXIDE 23 MMOL/L (21-32); CHLORIDE 103 MMOL/L (98-107); CREATININE SERUM 0.63 MG/DL (0.60-1.30); GFR ESTIMATED > 60; GLUCOSE 290 MG/DL (70-105); MAGNESIUM 1.2 MG/DL (1.8-2.4); POTASSIUM 2.8 MMOL/L (3.6-5.0); SODIUM 136 MMOL/L (135-145)
[2017-01-17] MEDS: amLODIPine 10 MG (NORVASC) TAB PO SCH (08:08)
[2017-01-17] MEDS: CEFEPIME INJECTION 1,000 MG in NS (IVPB) 50 ML IV SCH (08:08)
[2017-01-17] MEDS: fluCOnazole (DIFLUCAN) 100 MG TAB PO SCH (08:08)
[2017-01-17] MEDS: metroNIDAZOLE 500 MG (FLAGYL) TAB PO SCH ×2 (08:09→21:55)
[2017-01-17] MEDS: SIMETHICONE 80 MG (MYLICON) CHEW PO SCH ×4 (08:09→21:55)
[2017-01-17] MEDS: ENOXAPARIN 30 MG/0.3 ML (LOVENOX) SYR SC SCH ×2 (08:17→21:55)
--- NOTE | 2017-01-17 09:03 | Progress Note (SOAP) ---
Subjective Date Seen by Provider: Jan 17, 2017 Time Seen by Provider: 09:00 Subjective/Events-last exam PT IS AN 82 Y/O FEMALE WHO IS HOSPITALIZED AFTER PERSISTENT ABDOMINAL ABSCESS - IS POST OP - HAD INCREASED PAIN- FOUND TO HAVE TRANSECTION OF URETER. TODAY SHE STATES THAT SHE IS FEELING BETTER, STILL HAVING SOME ABDOMINAL DISCOMFORT IN HER ABDOMEN - INTERMITTENT CRAMPING. Review of Systems General: Fatigue HEENT: No Head Aches, No Dysphasia Pulmonary: No Dyspnea, No Cough Cardiovascular: No: Chest Pain, Palpitations Gastrointestinal: Abdominal Pain, No: Nausea Genitourinary: No Dysuria Neurological: Weakness, No: Confusion Objective Exam Vital Signs Date Time Temp Pulse Resp B/P (MAP) Pulse Ox O2 Delivery O2 Flow Rate FiO2 01/17/17 07:46 99.7 90 20 135/73 99 Room Air 01/17/17 04:45 99.6 98 20 113/66 97 Room Air 01/17/17 00:40 98.2 88 22 116/67 98 Room Air 01/16/17 20:40 Room Air 01/16/17 20:00 100.4 100 18 133/64 98 Room Air 01/16/17 16:00 98.5 100 20 137/63 98 Room Air 01/16/17 12:00 99.5 94 20 132/60 98 Room Air Capillary Refill : General Appearance: No Apparent Distress, WD/WN HEENT: PERRL/EOMI Neck: Supple Respiratory: Chest Non Tender, Lungs Clear, Normal Breath Sounds Cardiovascular: Regular Rate, Rhythm Gastrointestinal: normal bowel sounds, soft, tenderness Extremity: Pedal Edema (TRACE) Neurologic/Psychiatric: Alert, Oriented x3, No Motor/Sensory Deficits Skin: Warm/Dry Lymphatic: No Adenopathy Results Lab Laboratory Tests 01/16/17 10:47: Glucometer 273H 01/16/17 17:26: Glucometer 249H 01/16/17 20:21: Glucometer 219H 01/17/17 05:33: Glucometer 304H 01/17/17 06:14: White Blood Count 10.4, Red Blood Count 3.01L, Hemoglobin 9.4L, Hematocrit 28L, Mean Corpuscular Volume 91, Mean Corpuscular Hemoglobin 31, Mean Corpuscular Hemoglobin Concent 34, Red Cell Distribution Width 13.6, Platelet Count 386, Mean Platelet Volume 10.2, Sodium Level 136, Potassium Level 2.8L, Chloride Level 103, Carbon Dioxide Level 23, Anion Gap 10, Blood Urea Nitrogen 3L, Creatinine 0.63, Estimat Glomerular Filtration Rate > 60, BUN/Creatinine Ratio 5 , Glucose Level 290H, Calcium Level 7.2L, Magnesium Level 1.2L Microbiology 01/14/17 Blood Culture - Preliminary, Resulted Yeast Species 01/14/17 Urine Culture - Preliminary, Resulted Sukumar Albicans Assessment/Plan Assessment/Plan Assess & Plan/Chief Complaint DIVERTICULAR ABSCESS POST OP DAY #12 LEFT URETERAL INJURY - COMPLETE TRANSECTION OF LEFT URETER HYPONATREMIA HYPERTENSION HYPERKALEMIA DIABETES MELLITUS HYPOTHYROIDISM ELEVATED WHITE COUNT SUKUMAR ALBICANS IN URINE, NEPHROSTOMY TUBE, AND BLOOD CULTURES DIVERTICULAR ABSCESS POST OP DAY #12 - SIGNIFICANT ABDOMINAL DRAIN OUTPUT, SUPPORTIVE CARE, FREQUENT DRAIN CHECKS BY STAFF, DULCOLAX SUPPOSITORY PRN CANDIDAL SEPSIS - IN BLOOD, URINE, TREATING WITH DIFLUCAN. LEFT URETERAL INJURY - DISCUSSED WITH DR. KELLEY AND DR. CHAU - PT HAS COMPLETE TRANSECTION OF THE URETER, PLAN - PER DR. KELLEY IS TO HAVE PATIENT GO UP TO [facility] IN ABOUT 6 WEEKS FOR EVALUATION PRIOR TO PLANNED REPAIR OF THE URETER. KEEP NEPHROSTOMY TUBE IN PLACE TO DRAIN URINE FROM LEFT KIDNEY. HYPONATREMIA AND HYPERKALEMIA AND HYPOMAGNESEMIA - IMPROVING SLIGHTLY - CONTINUE WITH NORMAL SALINE - AT DECREASED RATE, CONTINUE WITH REPLACEMENT WITH IV MAGNESIUM. CHECK LABS IN THE MORNING. HYPERTENSION - MONITOR BLOOD PRESSURES, STOPPED LISINOPRIL, CONTINUE WITH AMLODIPINE. DIABETES MELLITUS - WILL RESTART INSULIN WHEN PT STARTS TO EAT MORE EFFECTIVELY HYPOTHYROIDISM - ON LEVOTHYROXINE. ELEVATED WHITE COUNT - IMPROVED, MONITOR SYMPTOMS. TACHYCARDIA - DUE TO ACUTE ILLNESS - MONITOR HEART RATE CONTINUE WITH FLUIDS. BLOATING - RX FOR SIMETHICONE TODAY. Clinical Quality Measures DVT/VTE Risk/Contraindication: Risk Factor Score Per Nursin RFS Level Per Nursing on Admit: 4+=Very High TINA LEON MD Jan 17, 2017 09:03
[2017-01-17] MEDS ORDERED: HYDROcodone/APAP 5 MG/325 MG (LORTAB) TAB PO NR (09:15)
--- NOTE | 2017-01-17 10:26 | Physical Therapy Daily Note ---
PT Daily Note-Current Subjective Pt was sitting in recliner prior to tx and agreeable to PT. Pt reports being in less pain than this morning but is unable to rate current pain. Pt is sitting in recliner with nurse call, tray, all needs within reach post tx. Mental Status Patient Orientation: Normal For Age Attachments: Drains Transfers Functional [place] Measure 0=Not Assessed/NA 4=Minimal Assistance 1=Total Assistance 5=Supervision or Setup 2=Maximal Assistance 6=Modified [place] 3=Moderate Assistance 7=Complete IndependenceIRFPAI Quality Coding Scale 6 Independent with activity with or without an assistive device 5 Patient requires set up or clean up by helper. Patient completes activity by themselves 4 Supervision or touching assist (CGA). [place] provide cues , steadying assist 3 The helper provides less than half the effort to complete the activity 2 The helper provides more than half the effort to complete the activity 1 Dependent. The helper does all the effort to complete an activity 7 Patient refused to complete or attempt activity 9 The patient did not perform the activity before the current illness or injury 88 Not attempted due to Medical conditions or safety concerns Transfers (B, C, W/C) (FIM): 5 Scootin Sit to/from Stand: 5 Pt is SBA with all transfers. Gait Training Distance (FIM): 3=150 ft Distance: 500' Gait Level of Assist: 5 Gait Persons Needed: 1 Gait Assistive Device: FWW Pt ambulates with FWW and SBA for safety. Treatments Pt completes gait training to increase functional mobility and independence. Assessment Current Status: Good Progress Improving ambulation and endurance. PT Short Term Goals Short Term Goals Time Frame: Jan 15, 2017 PT Halfway Goals Able Bodied [place] Goals PT Able Bodied [place] Goals Time Frame: Jan 19, 2017 Transfers (B,C,W/C) (FIM): 6 Gait (FIM): 6 Gait distance (FIM): 3=150 ft Gait Level of Assist: 6 Gait Assistive Device: FWW PT Plan Problem List Problem List: Activity Tolerance, Functional Strength, Safety, Balance, Gait, Transfer, Bed Mobility, ROM Treatment/Plan Treatment Plan: Continue Plan of Care Treatment Plan: Bed Mobility, Education, Functional Activity Kevin, Functional Strength, Gait, Safety, Therapeutic Exercise, Transfers Treatment Duration: Jan 19, 2017 Frequency: Twice Daily (M-F) Estimated Hrs Per Day: .25 hour per day Patient and/or Family Agrees t: Yes Safety Risks/Education Patient Education: Gait Training, Transfer Techniques, Reviewed Precautions, Correct Positioning, Safety Issues Teaching Recipient: Patient Teaching Methods: Demonstration, Discussion Response to Teaching: Verbalize Understanding, Reinforcement Needed Time/GCodes Time In: 1005 Time Out: 1020 Total Billed Treatment Time: 15 Total Billed Treatment 1 visit GT 15 BRETT SCHMITT PT Jan 17, 2017 10:26
[2017-01-17] MEDS: HYDROcodone/APAP 5 MG/325 MG (LORTAB) TAB PO SCH ×2 (15:02→21:55)
--- NOTE | 2017-01-17 15:10 | Progress Note (SOAP) ---
Subjective Date Seen by Provider: Jan 17, 2017 Time Seen by Provider: 11:00 Subjective/Events-last exam doing ok. having intermittent crampy abdominal pain most likely related to irritable bowel. will have nursing separate and record AWILDA vs. nephrostomy tube output. Objective Exam Vital Signs Date Time Temp Pulse Resp B/P (MAP) Pulse Ox O2 Delivery O2 Flow Rate FiO2 01/17/17 12:00 99.6 106 20 99/60 97 Room Air 01/17/17 08:00 Room Air 01/17/17 07:46 99.7 90 20 135/73 99 Room Air 01/17/17 04:45 99.6 98 20 113/66 97 Room Air 01/17/17 00:40 98.2 88 22 116/67 98 Room Air 01/16/17 20:40 Room Air 01/16/17 20:00 100.4 100 18 133/64 98 Room Air 01/16/17 16:00 98.5 100 20 137/63 98 Room Air Capillary Refill : General Appearance: No Apparent Distress HEENT: PERRL/EOMI Neck: Full Range of Motion Respiratory: Chest Non Tender, Lungs Clear, Normal Breath Sounds Cardiovascular: Regular Rate, Rhythm Gastrointestinal: normal bowel sounds, non tender, soft Extremity: Normal Capillary Refill Neurologic/Psychiatric: Alert, Oriented x3 Skin: Normal Color Lymphatic: No Adenopathy Results Lab Laboratory Tests 01/16/17 17:26: Glucometer 249H 01/16/17 20:21: Glucometer 219H 01/17/17 05:33: Glucometer 304H 01/17/17 06:14: White Blood Count 10.4, Red Blood Count 3.01L, Hemoglobin 9.4L, Hematocrit 28L, Mean Corpuscular Volume 91, Mean Corpuscular Hemoglobin 31, Mean Corpuscular Hemoglobin Concent 34, Red Cell Distribution Width 13.6, Platelet Count 386, Mean Platelet Volume 10.2, Sodium Level 136, Potassium Level 2.8L, Chloride Level 103, Carbon Dioxide Level 23, Anion Gap 10, Blood Urea Nitrogen 3L, Creatinine 0.63, Estimat Glomerular Filtration Rate > 60, BUN/Creatinine Ratio 5 , Glucose Level 290H, Calcium Level 7.2L, Magnesium Level 1.2L Microbiology 01/14/17 Blood Culture - Preliminary, Resulted Kell Albicans 01/14/17 Urine Culture - Final, Complete Klel Albicans Assessment/Plan Assessment/Plan Assess & Plan/Chief Complaint s/p lap LAR and en-bloc left tubo-oophorectomy. s/p left nephrostomy tube placement today. continue ambulation. continue DVT prophylaxis. path benign severe diverticulitis. CT with and without constrast with delayed films showed left ureteral leak/ injury. urology consulted. IR also consulted for percutaneous nephrostomy tube placement. dr. Mendez talked with dr. Navarrete at [facility]. recommend possible end to end repair over stent as outpatient after completely healed from colon resection in 6-8 weeks. pt has been able to urinate after montano removal. will now monitor AWILDA urine output. once this drainage stops, will then remove. nephrostomy tube will stay in place until ureteral repair surgery. plan is to increase ADL's until can go home with home health. record separate AWILDA and nephrostomy tube urine outputs. can give ativan for anxiety or crampy abd pain PRN. Clinical Quality Measures DVT/VTE Risk/Contraindication: Risk Factor Score Per Nursin RFS Level Per Nursing on Admit: 4+=Very High JACKIE CHAU MD Jan 17, 2017 3:10 pm
--- NOTE | 2017-01-17 15:52 | Physical Therapy Daily Note ---
PT Daily Note-Current Subjective Pt sitting on toilet upon arrival. Pt agrees to PT for walk. Pain Numeric Pain Scale: 6 Location: Dorsal Location Body Site: Back Comment: Pt reports pain in kidney area. Mental Status Patient Orientation: Person, Place, Time, Situation Attachments: Drains Transfers Functional [place] Measure 0=Not Assessed/NA 4=Minimal Assistance 1=Total Assistance 5=Supervision or Setup 2=Maximal Assistance 6=Modified [place] 3=Moderate Assistance 7=Complete IndependenceIRFPAI Quality Coding Scale 6 Independent with activity with or without an assistive device 5 Patient requires set up or clean up by helper. Patient completes activity by themselves 4 Supervision or touching assist (CGA). [place] provide cues , steadying assist 3 The helper provides less than half the effort to complete the activity 2 The helper provides more than half the effort to complete the activity 1 Dependent. The helper does all the effort to complete an activity 7 Patient refused to complete or attempt activity 9 The patient did not perform the activity before the current illness or injury 88 Not attempted due to Medical conditions or safety concerns Scootin Sit to/from Stand: 5 Weight Bearing Weight Bearing Restriction: Full Weight Bearing Location Restriction: LE Bilateral Gait Training Distance (FIM): 3=150 ft Distance: 400' Gait Level of Assist: 5 Gait Persons Needed: 1 Gait Assistive Device: FWW Pt walks with normalized gait but report pain in kidney region that limits participation in tx. Treatments Pt transfers from toilet to standing and ambulates using FWW at SBA. Pt returns to room to rest in recliner at end of tx with all needs met. Assessment Current Status: Good Progress Pt able to ambulate well despite pain in kidneys. PT Short Term Goals Short Term Goals Time Frame: Jan 15, 2017 PT Care Home Goals Care Home Goals PT Provider Network Analyst Goals Time Frame: Jan 19, 2017 Transfers (B,C,W/C) (FIM): 6 Gait (FIM): 6 Gait distance (FIM): 3=150 ft Gait Level of Assist: 6 Gait Assistive Device: FWW PT Plan Problem List Problem List: Activity Tolerance Treatment/Plan Treatment Plan: Continue Plan of Care Treatment Plan: Bed Mobility, Education, Functional Activity Kevin, Functional Strength, Gait, Safety, Therapeutic Exercise, Transfers Treatment Duration: Jan 19, 2017 Frequency: Twice Daily (M-F) Estimated Hrs Per Day: .25 hour per day Patient and/or Family Agrees t: Yes Safety Risks/Education Patient Education: Gait Training, Safety Issues Teaching Recipient: Patient Teaching Methods: Discussion Response to Teaching: Verbalize Understanding Time/GCodes Time In: 1530 Time Out: 1545 Total Billed Treatment Time: 15 Total Billed Treatment visit, GT (15m) GILL SUAREZ GAME ARTIST Jan 17, 2017 15:52
[2017-01-18] MEDS: fentaNYL INJECTION 100 MCG/2 ML AMP IVP PRN ×6 (02:09→21:15)
[2017-01-18] MEDS: HYOSCYAMINE 0.125 MG (LEVSIN) TAB PO PRN (04:29)
[2017-01-18 06:11] VITALS: BP 122/63
[2017-01-18 06:14] VITALS: BP 122/63
[2017-01-18] MEDS: inSUlin ASPART (NovoLOG) 1 UNIT/0.01 ML (CHARGE PER UNIT) SC SCH ×4 (07:10→21:49)
[2017-01-18] MEDS: PANTOPRAZOLE 40 MG (PROTONIX) TAB PO SCH (07:10)
[2017-01-18] MEDS: LACTOBACILLUS Acidoph/Bulgar (LACTINEX/FLORANEX) TAB PO SCH ×3 (07:10→16:34)
[2017-01-18] MEDS: LEVOTHYROXINE 50 MCG (LEVOTHROID) TAB PO SCH (07:11)
[2017-01-18] MEDS: KCL 20 MEQ TAB (K-DUR) PO SCH (07:11)
[2017-01-18 08:00] VITALS: BP 137/84
--- NOTE | 2017-01-18 08:56 | Progress Note (SOAP) ---
Subjective Date Seen by Provider: Jan 18, 2017 Time Seen by Provider: 09:10 Subjective/Events-last exam PT NOT IN ROOM, FOUND AMBULATING HALLWAY WITH PHYSICAL THERAPY . PT ON WALKER - AMBULATING QUITE WELL, BUT WITH POOR POSTURE DUE TO ABDOMINAL DISCOMFORT. SHE STATES THAT SHE IS FEELING BETTER, HER ULTIMATE GOAL WOULD BE TO GO HOME WITH HOME HEALTH, BUT IS REALIZING THAT SHE CANNOT GO HOME BECAUSE SHE WOULD NEED MORE HELP THAN SHE CAN CURRENTLY GET FROM HOME HEALTH HER FAMILY ALL HAVE GAS MAIN AND LINE FITTER JOBS THAT THEY CANNOT PUT ON HOLD TO BE AT HOME WITH HER. SHE STATES THAT IF SHE HAD TO GO TO A [facility], SHE WOULD LIKE A PRIVATE ROOM. Review of Systems General: Fatigue HEENT: No Head Aches, No Dysphasia, No Sore Throat Pulmonary: No Dyspnea, No Cough Cardiovascular: No: Chest Pain, Palpitations Gastrointestinal: Abdominal Pain (INTERMITTENT - CRAMPING PAIN IN ABDOMEN, WORSE AFTER EATING.), No: Nausea Genitourinary: No Dysuria Neurological: Weakness, No: Confusion Objective Exam Vital Signs Date Time Temp Pulse Resp B/P (MAP) Pulse Ox O2 Delivery O2 Flow Rate FiO2 01/18/17 08:00 99.4 102 20 137/84 99 Room Air 01/18/17 06:14 98.7 87 18 122/63 9 Room Air 01/18/17 06:11 98.7 87 18 122/63 97 Room Air 01/17/17 23:50 99.2 95 18 121/58 98 Room Air 01/17/17 20:45 99.5 110 18 144/73 98 Room Air 01/17/17 16:35 99.1 105 18 121/66 98 Room Air 01/17/17 12:00 99.6 106 20 99/60 97 Room Air Capillary Refill : General Appearance: No Apparent Distress, WD/WN HEENT: PERRL/EOMI, Pharynx Normal Neck: Full Range of Motion, Supple Respiratory: Chest Non Tender, Lungs Clear, Normal Breath Sounds, No Accessory Muscle Use, No Respiratory Distress Cardiovascular: Regular Rate, Rhythm Gastrointestinal: normal bowel sounds, soft, tenderness (NEAR NEPHROSTOMY TUBE SITE LATERAL LEFT FLANK) Extremity: Pedal Edema (1+) Neurologic/Psychiatric: Alert, Oriented x3, Normal Mood/Affect Skin: Warm/Dry Lymphatic: No Adenopathy Results Lab Laboratory Tests 01/17/17 10:59: Glucometer 215H 01/17/17 16:37: Glucometer 380H 01/17/17 20:55: Glucometer 152H 01/18/17 05:08: Glucometer 299H 01/18/17 07:18: Magnesium Level 1.1L Microbiology 01/14/17 Blood Culture - Preliminary, Resulted Sukumar Albicans 01/14/17 Urine Culture - Final, Complete Sukumar Albicans Assessment/Plan Assessment/Plan Assess & Plan/Chief Complaint DIVERTICULAR ABSCESS POST OP DAY #13 LEFT URETERAL INJURY HYPONATREMIA HYPERTENSION HYPERKALEMIA DIABETES MELLITUS HYPOTHYROIDISM ELEVATED WHITE COUNT SUKUMAR ALBICANS IN URINE, NEPHROSTOMY TUBE, AND BLOOD CULTURES DIVERTICULAR ABSCESS POST OP DAY #13 - SIGNIFICANT ABDOMINAL DRAIN OUTPUT, SUPPORTIVE CARE, FREQUENT DRAIN CHECKS BY STAFF, DULCOLAX SUPPOSITORY PRN CANDIDAL SEPSIS - IN BLOOD, URINE, TREATING WITH DIFLUCAN. LEFT URETERAL INJURY - DISCUSSED WITH DR. KELLEY AND DR. CHAU - PT HAS COMPLETE TRANSECTION OF THE URETER, PLAN - PER DR. KELLEY IS TO HAVE PATIENT GO UP TO [facility] IN ABOUT 6 WEEKS FOR EVALUATION PRIOR TO PLANNED REPAIR OF THE URETER. KEEP NEPHROSTOMY TUBE IN PLACE TO DRAIN URINE FROM LEFT KIDNEY. AWILDA DRAIN ALSO IN PLACE, DRAINING URINE FROM ABDOMEN WELL. HYPONATREMIA AND HYPERKALEMIA AND HYPOMAGNESEMIA - IMPROVING SLIGHTLY - CONTINUE WITH ORAL SUPPLEMENTATION HYPERTENSION - MONITOR BLOOD PRESSURES, STOPPED LISINOPRIL, CONTINUE WITH AMLODIPINE. DIABETES MELLITUS - WILL RESTART INSULIN AT [facility] HYPOTHYROIDISM - ON LEVOTHYROXINE. ELEVATED WHITE COUNT - IMPROVED, MONITOR SYMPTOMS. TACHYCARDIA - DUE TO ACUTE ILLNESS - MONITOR HEART RATE CONTINUE WITH FLUIDS. BLOATING - RX FOR SIMETHICONE. EDEMA - ON LASIX TODAY. PLAN FOR [facility] - AFTER TALKING WITH [facility] AND PT MAY HAVE HER DOG VISIT HER IN THE [facility]. PLANNING ON DISCHARGE TO [place] ON SUNDAY. Clinical Quality Measures DVT/VTE Risk/Contraindication: Risk Factor Score Per Nursin RFS Level Per Nursing on Admit: 4+=Very High TINA LEON MD Jan 18, 2017 08:56
[2017-01-18] MEDS: fluCOnazole (DIFLUCAN) 100 MG TAB PO SCH (09:11)
[2017-01-18] MEDS: amLODIPine 10 MG (NORVASC) TAB PO SCH (09:11)
[2017-01-18] MEDS: metroNIDAZOLE 500 MG (FLAGYL) TAB PO SCH ×2 (09:11→21:26)
[2017-01-18] MEDS: HYDROcodone/APAP 5 MG/325 MG (LORTAB) TAB PO SCH ×3 (09:11→21:26)
[2017-01-18] MEDS: SIMETHICONE 80 MG (MYLICON) CHEW PO SCH ×4 (09:11→21:26)
[2017-01-18] MEDS: CEFEPIME INJECTION 1,000 MG in NS (IVPB) 50 ML IV SCH (09:12)
[2017-01-18] MEDS: ENOXAPARIN 30 MG/0.3 ML (LOVENOX) SYR SC SCH ×2 (09:12→21:27)
--- NOTE | 2017-01-18 09:54 | Physical Therapy Daily Note ---
PT Daily Note-Current Subjective Patient is up in recliner and agrees to PT. Pain Numeric Pain Scale: 3 Location: Lower Location Body Site: Abdomen Pain Description: Ache, Pressure Mental Status Patient Orientation: Normal For Age Transfers Functional [place] Measure 0=Not Assessed/NA 4=Minimal Assistance 1=Total Assistance 5=Supervision or Setup 2=Maximal Assistance 6=Modified [place] 3=Moderate Assistance 7=Complete IndependenceIRFPAI Quality Coding Scale 6 Independent with activity with or without an assistive device 5 Patient requires set up or clean up by helper. Patient completes activity by themselves 4 Supervision or touching assist (CGA). [place] provide cues , steadying assist 3 The helper provides less than half the effort to complete the activity 2 The helper provides more than half the effort to complete the activity 1 Dependent. The helper does all the effort to complete an activity 7 Patient refused to complete or attempt activity 9 The patient did not perform the activity before the current illness or injury 88 Not attempted due to Medical conditions or safety concerns Transfers (B, C, W/C) (FIM): 6 Scootin Sit to/from Stand: 6 Gait Training Gait (FIM): 6 Distance (FIM): 3=150 ft Distance: 500' Gait Level of Assist: 6 Gait Assistive Device: FWW safe and functional Assessment Current Status: Excellent Progress Dr. No in to assess patient upon completion of treatment. Patient will dismiss to [place] tomorrow for continued care. PT Short Term Goals Short Term Goals Time Frame: Jan 15, 2017 PT [facility] Goals Manager Maintenance Goals PT Manager Maintenance Goals Time Frame: Jan 19, 2017 Transfers (B,C,W/C) (FIM): 6 Gait (FIM): 6 Gait distance (FIM): 3=150 ft Gait Level of Assist: 6 Gait Assistive Device: FWW PT Plan Treatment/Plan Treatment Plan: Continue Plan of Care Treatment Plan: Bed Mobility, Education, Functional Activity Kevin, Functional Strength, Gait, Safety, Therapeutic Exercise, Transfers Treatment Duration: Jan 19, 2017 Frequency: Twice Daily (M-F) Estimated Hrs Per Day: .25 hour per day Patient and/or Family Agrees t: Yes Time/GCodes Time In: 900 Time Out: 910 Total Billed Treatment Time: 10 Total Billed Treatment 1 visit FA 10 min SHERRON MCKEON PT Jan 18, 2017 09:54
[2017-01-18] MEDS ORDERED: FUROSEMIDE 40 MG/4 ML INJ (LASIX) IVP NR (10:11)
[2017-01-18] MEDS: MAGNESIUM 1 GM/100 ML IVPB 100 ML IV SCH ×4 (10:27→13:29)
--- NOTE | 2017-01-18 10:29 | Progress Note-Urology ---
Progress Note-Urology Progress Notes/Assess & Plan Progress/Assessment & Plan TO NH TODAY WAS EXCELLENT IDEA Final Diagnosis LT URETERAL INJURY ALEXANDRA KELLEY MD Jan 18, 2017 10:29 am
[2017-01-18] MEDS: BISACODYL 10 MG SUPP (DULCOLAX) PR PRN (10:48)
[2017-01-18 12:00] VITALS: BP 114/64
--- NOTE | 2017-01-18 14:21 | Physical Therapy Daily Note ---
PT Daily Note-Current Subjective Patient agrees to PT. Pain Numeric Pain Scale: 8 Location: Left, Lower Location Body Site: Side Pain Description: Pressure, Sharp Mental Status Patient Orientation: Normal For Age Attachments: IV Transfers Functional [place] Measure 0=Not Assessed/NA 4=Minimal Assistance 1=Total Assistance 5=Supervision or Setup 2=Maximal Assistance 6=Modified [place] 3=Moderate Assistance 7=Complete IndependenceIRFPAI Quality Coding Scale 6 Independent with activity with or without an assistive device 5 Patient requires set up or clean up by helper. Patient completes activity by themselves 4 Supervision or touching assist (CGA). [place] provide cues , steadying assist 3 The helper provides less than half the effort to complete the activity 2 The helper provides more than half the effort to complete the activity 1 Dependent. The helper does all the effort to complete an activity 7 Patient refused to complete or attempt activity 9 The patient did not perform the activity before the current illness or injury 88 Not attempted due to Medical conditions or safety concerns Transfers (B, C, W/C) (FIM): 6 Scootin Sit to/from Stand: 6 Gait Training Gait (FIM): 6 Distance (FIM): 3=150 ft Distance: 500' Gait Level of Assist: 6 Gait Assistive Device: FWW safe and functional Assessment Current Status: Excellent Progress PT Short Term Goals Short Term Goals Time Frame: Jan 15, 2017 PT [facility] Goals Automobile Contract Clerk Goals PT [facility] Goals Time Frame: Jan 19, 2017 Transfers (B,C,W/C) (FIM): 6 Gait (FIM): 6 Gait distance (FIM): 3=150 ft Gait Level of Assist: 6 Gait Assistive Device: FWW PT Plan Treatment/Plan Treatment Plan: Continue Plan of Care Treatment Plan: Bed Mobility, Education, Functional Activity Kevin, Functional Strength, Gait, Safety, Therapeutic Exercise, Transfers Treatment Duration: Jan 19, 2017 Frequency: Twice Daily (M-F) Estimated Hrs Per Day: .25 hour per day Patient and/or Family Agrees t: Yes Time/GCodes Time In: 1400 Time Out: 1410 Total Billed Treatment Time: 10 Total Billed Treatment 1 visit FA 10 min SHERRON MCKEON PT Jan 18, 2017 14:21
[2017-01-18 16:00] VITALS: BP 115/65
--- NOTE | 2017-01-18 17:39 | Progress Note (SOAP) ---
Subjective Date Seen by Provider: Jan 18, 2017 Time Seen by Provider: 17:30 Subjective/Events-last exam doing ok. tolerating diet. having BM's. pain controlled for the most part except intermittent crampy episodes. no fever/chills. Objective Exam Vital Signs Date Time Temp Pulse Resp B/P (MAP) Pulse Ox O2 Delivery O2 Flow Rate FiO2 01/18/17 12:00 98.8 104 20 114/64 99 Room Air 01/18/17 08:00 99.4 102 20 137/84 99 Room Air 01/18/17 08:00 Room Air 01/18/17 06:14 98.7 87 18 122/63 9 Room Air 01/18/17 06:11 98.7 87 18 122/63 97 Room Air 01/17/17 23:50 99.2 95 18 121/58 98 Room Air 01/17/17 20:45 99.5 110 18 144/73 98 Room Air 01/17/17 20:30 99 Room Air I & O 01/19/17 07:00 Intake Total 1190 ml Output Total 830 ml Balance 360 ml Capillary Refill : General Appearance: No Apparent Distress HEENT: PERRL/EOMI Neck: Full Range of Motion Respiratory: Chest Non Tender, Normal Breath Sounds Cardiovascular: Regular Rate, Rhythm Gastrointestinal: normal bowel sounds, soft Extremity: Normal Capillary Refill Neurologic/Psychiatric: Alert, Oriented x3 Skin: Normal Color Lymphatic: No Adenopathy Results Lab Laboratory Tests 01/17/17 20:55: Glucometer 152H 01/18/17 05:08: Glucometer 299H 01/18/17 07:18: Magnesium Level 1.1L 01/18/17 11:00: Glucometer 258H 01/18/17 15:57: Glucometer 354H Microbiology 01/14/17 Blood Culture - Preliminary, Resulted Kell Albicans 01/14/17 Urine Culture - Final, Complete Kell Albicans Assessment/Plan Assessment/Plan Assess & Plan/Chief Complaint s/p lap LAR and en-bloc left tubo-oophorectomy. s/p left nephrostomy tube placement today. continue ambulation. continue DVT prophylaxis. path benign severe diverticulitis. CT with and without constrast with delayed films showed left ureteral leak/ injury. urology consulted. IR also consulted for percutaneous nephrostomy tube placement. dr. Mendez talked with dr. Navarrete at [facility]. recommend possible end to end repair over stent as outpatient after completely healed from colon resection in 6-8 weeks. pt has been able to urinate after montano removal. will now monitor AWILDA urine output. once this drainage stops, will then remove. nephrostomy tube will stay in place until ureteral repair surgery. plan is to increase ADL's until can go home with home health. record separate AWILDA and nephrostomy tube urine outputs. can give ativan for anxiety or crampy abd pain PRN. home with HH tomorrow. Clinical Quality Measures DVT/VTE Risk/Contraindication: Risk Factor Score Per Nursin RFS Level Per Nursing on Admit: 3=High JACKIE CHAU MD Jan 18, 2017 5:39 pm
[2017-01-18] MEDS: LORazepam INJ 2 MG/ML (ATIVAN) VIAL IVP PRN (21:15)
[2017-01-18 23:50] VITALS: BP 131/60
[2017-01-19 03:40] VITALS: BP 131/52
[2017-01-19] MEDS: KCL 20 MEQ TAB (K-DUR) PO SCH (06:00)
[2017-01-19] MEDS: PANTOPRAZOLE 40 MG (PROTONIX) TAB PO SCH (06:00)
[2017-01-19] MEDS: LEVOTHYROXINE 50 MCG (LEVOTHROID) TAB PO SCH (06:00)
[2017-01-19] MEDS: LACTOBACILLUS Acidoph/Bulgar (LACTINEX/FLORANEX) TAB PO SCH ×2 (06:01→11:21)
[2017-01-19] MEDS: inSUlin ASPART (NovoLOG) 1 UNIT/0.01 ML (CHARGE PER UNIT) SC SCH ×2 (06:53→11:20)
[2017-01-19 08:00] VITALS: BP 120/59
[2017-01-19] MEDS: HYDROcodone/APAP 5 MG/325 MG (LORTAB) TAB PO SCH (08:24)
[2017-01-19] MEDS: amLODIPine 10 MG (NORVASC) TAB PO SCH (09:26)
[2017-01-19] MEDS: SIMETHICONE 80 MG (MYLICON) CHEW PO SCH ×2 (09:26→12:50)
[2017-01-19] MEDS: fluCOnazole (DIFLUCAN) 100 MG TAB PO SCH (09:26)
[2017-01-19] MEDS: ENOXAPARIN 30 MG/0.3 ML (LOVENOX) SYR SC SCH (09:28)
[2017-01-19] MEDS: LORazepam INJ 2 MG/ML (ATIVAN) VIAL IVP PRN (09:40)
[2017-01-19] MEDS ORDERED: ACET-77 PO (09:53)
[2017-01-19] MEDS ORDERED: SIME80TA16 PO (09:53)
[2017-01-19] MEDS ORDERED: POTA20TA8 PO (09:53)
[2017-01-19] MEDS ORDERED: ACID1TAB PO (09:53)
[2017-01-19] MEDS ORDERED: HYOS0.1296 PO (09:53)
[2017-01-19] MEDS ORDERED: HYDR-3812 PO (09:53)
[2017-01-19] MEDS ORDERED: CLON0.5T3 PO (09:53)
[2017-01-19] MEDS ORDERED: FLUC100T6 PO (09:53)
[2017-01-19] MEDS ORDERED: BISA10SU12 PR (09:53)
--- NOTE | 2017-01-19 09:57 | Discharge Inst-Skilled Nursing ---
Discharge Inst-Skilled NF Patient Instructions Patient Problems: DIVERTICULAR ABSCESS POST OP LEFT URETERAL INJURY - COMPLETE TRANSECTION OF LEFT URETER - NEPHROSTOMY TUBE IN LEFT SIDE, AWILDA DRAIN IN LEFT LOWER ABDOMEN DRAINING URINE HYPONATREMIA HYPERTENSION HYPERKALEMIA DIABETES MELLITUS HYPOTHYROIDISM ELEVATED WHITE COUNT SUKUMAR ALBICANS IN URINE, NEPHROSTOMY TUBE, AND BLOOD CULTURES Goal: INCREASED STRENGTH, IMPROVED AMBULATION, IMPROVED PAIN CONTROL, GOAL IS FOR PATIENT TO SAFELY BE ABLE TO RETURN TO HOME. Patient Instructions: APPT WITH ALLIE IN 2 WEEKS, CAROLYN IN 1 WEEK, KANDI [address] CHAU WILL GIVE INSTRUCTIONS ON CARE AND CLEANING OF THE NEPHROSTOMY AND AWILDA DRAINS Consult/Follow Up/Orders Follow Up Appt.: APPT WITH ALLIE IN 2 WEEKS, CAROLYN IN 1 WEEK, KANDI 1 WEEK [place] [facility] [place] I certify that SNF services are required to be given on an inpatient basis because of the above named patient's need for fdc care on a continuing basis for the conditions(s) for which he/she was receiving inpatient hospital services prior to his/her transfer to the [facility]. [facility] Facility Order: Nursing Services, Chef & Owner-Evaluate & Treat, Physical Therapy-Evaluate & Treat, Speech Language-Evaluate & Treat Discharge Diet: Regular Diet Daily Activity as Tolerated: Yes New & Resume Previous Orders New & Resume Previous Orders ACCU CHECK TID X 1 WEEK THEN BID THEREAFTER Tina No Jan 19, 2017 09:53 Medication List: Active Scripts Active Floranex Tablet (L. Acidophilus/Bulgaricus) 1 Each Tablet 1 Tab.chew PO BID 30 Days Bisac-Evac (Bisacodyl) 10 Mg Supp.rect 10 Mg ND DAILY PRN 30 Days Simethicone 80 Mg Tab.chew 80 Mg PO PCHS 30 Days Klor-Con M20 (Potassium Chloride) 20 Meq Tab.er.prt 40 Meq PO DAILY@0700 30 Days Acetaminophen 500 Mg Tablet 500 Mg PO Q6HR PRN 30 Days Hydrocodon -Acetaminophen 5-325 (Hydrocodone/Acetaminophen) 1 Each Tablet 1 Tab PO TID 30 Days Oscimin (Hyoscyamine Sulfate) 0.125 Mg Tablet 0.125 Mg PO AC PRN 30 Days Fluconazole 100 Mg Tablet 100 Mg PO DAILY 5 Days Clonazepam 0.5 Mg Tablet 0.5 Mg PO UD 30 Days ONE PILL SCHEDULED AT HS AND PT MAY TAKE 2 PILL TID PRN ANXIETY OR ABDOMINAL CRAMPING Reported Metformin HCl 500 Mg Tablet 500 Mg PO BID Tramadol HCl 50 Mg Tablet 50 Mg PO Q8H PRN Amlodipine Besylate 10 Mg Tablet 10 Mg PO DAILY Lovastatin 40 Mg Tablet 40 Mg PO DAILY Meloxicam 15 Mg Tablet 15 Mg PO DAILY Lisinopril 40 Mg Tablet 40 Mg PO DAILY Levothyroxine Sodium 50 Mcg Tablet 50 Mcg PO DAILY Lantus Solostar (Insulin Glargine,Hum.rec.anlog) 100 Unit/1 Ml Insuln.pen 18 Units SQ HS Magnesium (Magnesium Oxide) 400 Mg Capsule 800 Mg PO Q48H TAKES 2 (400MG) TABLETS EVERY OTHER DAY Vitamin D (Cholecalciferol) 2,000 Unit Capsule 2,000 Unit PO DAILY Lab results: Laboratory Tests Test 01/18/17 11:00 01/18/17 15:57 01/18/17 21:33 01/19/17 05:46 Range/Units Glucometer 258 H 354 H 204 H 220 H 70-110 MG/DL Test 01/19/17 05:56 Range/Units Magnesium Level 1.7 L 1.8-2.4 MG/DL My orders: Orders - TINA NO MD Furosemide Injection (Lasix Injection) (01/18/17 10:11) Consulting Physician D/C Order (01/19/17 09:45) TINA NO MD Jan 19, 2017 09:57
--- NOTE | 2017-01-19 10:12 | Discharge Summary ---
Diagnosis/Chief Complaint Date of Admission Jan 04, 2017 at 08:40 Date of Discharge Discharge Date: Jan 19, 2017 Discharge Time: 12:00 Admission Diagnosis Admission Diagnosis sigmoid colonic mass, left ovarian mass. DIVERTICULAR ABSCESS Discharge Diagnosis DIVERTICULAR ABSCESS POST OP DAY #14 LEFT URETERAL INJURY - COMPLETE TRANSECTION OF LEFT URETER HYPONATREMIA HYPERTENSION HYPERKALEMIA DIABETES MELLITUS HYPOTHYROIDISM ELEVATED WHITE COUNT SUKUMAR ALBICANS IN URINE, NEPHROSTOMY TUBE, AND BLOOD CULTURES Reason Hospital Visit 82 Y/O FEMALE WHO WAS ADMITTED TO THE HOSPITAL FOR DIVERTICULAR ABSCESS WITH SIGMOID COLONIC MASS APPEARANCE WITH LEFT OVARIAN MASS FOUND ON SURGICAL EVALUATION - FOUND TO BE BENIGN ABSCESS ON COLON AND MASS. Discharge Summary Procedures: SEE DR. CHAU'S OPERATIVE NOTE - LEFT NEPHROSTOMY TUBE PLACEMENT Consultations DR. CHAU ADMITTING PHYSICIAN DR. LEON, DR. KELLEY Discharge Physical Examination Allergies: Coded Allergies: No Known Drug Allergies (Verified , 02/27/07) Vitals & I&Os Vital Signs Date Time Temp Pulse Resp B/P (MAP) Pulse Ox O2 Delivery O2 Flow Rate FiO2 01/19/17 08:00 99.1 104 16 120/59 99 Room Air General Appearance: Alert, Oriented X3, Cooperative, No Acute Distress HEENT: Atraumatic, PERRLA, Mucous Memb Moist/[place] Respiratory: Clear to Auscultation, Normal Air Movement Cardiovascular: Regular Rate Abdominal: Normal Bowel Sounds, Soft Extremities: No Clubbing, No Cyanosis, Other (TRACE EDEMA) Skin: No Rashes Neuro: Normal Speech, Strength at 5/5 X4 Ext, Cranial Nerves 3-12 NL Psych/Mental Status: Mental Status NL, Mood NL Hospital Course DIVERTICULAR ABSCESS POST OP DAY #13 LEFT URETERAL INJURY HYPONATREMIA HYPERTENSION HYPERKALEMIA DIABETES MELLITUS HYPOTHYROIDISM ELEVATED WHITE COUNT SUKUMAR ALBICANS IN URINE, NEPHROSTOMY TUBE, AND BLOOD CULTURES DIVERTICULAR ABSCESS POST OP DAY #13 - SIGNIFICANT ABDOMINAL DRAIN OUTPUT, SUPPORTIVE CARE, FREQUENT DRAIN CHECKS BY STAFF, DULCOLAX SUPPOSITORY PRN CANDIDAL SEPSIS - IN BLOOD, URINE, TREATING WITH DIFLUCAN. LEFT URETERAL INJURY - DISCUSSED WITH DR. KELLEY AND DR. CHAU - PT HAS COMPLETE TRANSECTION OF THE URETER, PLAN - PER DR. KELLEY IS TO HAVE PATIENT GO UP TO [facility] IN ABOUT 6 WEEKS FOR EVALUATION PRIOR TO PLANNED REPAIR OF THE URETER. KEEP NEPHROSTOMY TUBE IN PLACE TO DRAIN URINE FROM LEFT KIDNEY. AWILDA DRAIN ALSO IN PLACE, DRAINING URINE FROM ABDOMEN WELL. HYPONATREMIA AND HYPERKALEMIA AND HYPOMAGNESEMIA - IMPROVING SLIGHTLY - CONTINUE WITH ORAL SUPPLEMENTATION HYPERTENSION - MONITOR BLOOD PRESSURES, STOPPED LISINOPRIL, CONTINUE WITH AMLODIPINE OUTPATIENT DIABETES MELLITUS - WILL RESTART INSULIN AT PRISON HYPOTHYROIDISM - ON LEVOTHYROXINE. ELEVATED WHITE COUNT - IMPROVED, MONITOR SYMPTOMS. TACHYCARDIA - DUE TO ACUTE ILLNESS - MONITOR HEART RATE CONTINUE WITH FLUIDS. BLOATING - RX FOR SIMETHICONE. EDEMA - ON LASIX TODAY. PLAN FOR PRISON TODAY - AFTER TALKING WITH NIECE - THEY ARE WANTING [facility] DUE TO PRIVATE ROOM AND PT MAY HAVE HER DOG VISIT HER IN THE PRISON. - SURGICAL NOTE FROM DR. KELLEY FOLLOWS: PHYSICIAN: ALEXANDRA KELLEY MD Progress Note-Urology Progress Notes/Assess & Plan Progress/Assessment & Plan CONTINUES IMPROVING AND GETTING STRONGER. ON DIFLUCAN FOR YEAST INFECTIONS. I EXPLAINED TO PATIENT THAT I TALKED WITH DR NAVARRETE AT [facility] WHO AGREED WITH OUR PLAN AND WILL SEE HER THERE IN ABOUT 6 WEEKS TO PLAN REPAIR. Final Diagnosis LT URETERAL INJURY SURGICAL NOTE FROM DR. CHAU FOLLOWS: Assessment/Plan Assess & Plan/Chief Complaint s/p lap LAR and en-bloc left tubo-oophorectomy. s/p left nephrostomy tube placement today. continue ambulation. continue DVT prophylaxis. path benign severe diverticulitis. CT with and without constrast with delayed films showed left ureteral leak/ injury. urology consulted. IR also consulted for percutaneous nephrostomy tube placement. dr. Kelley talked with dr. Navarrete at [facility]. recommend possible end to end repair over stent as outpatient after completely healed from colon resection in 6-8 weeks. pt has been able to urinate after montano removal. will now monitor AWILDA urine output. once this drainage stops, will then remove. nephrostomy tube will stay in place until ureteral repair surgery. plan is to increase ADL's until can go home with home health. record separate AWILDA and nephrostomy tube urine outputs. can give ativan for anxiety or crampy abd pain PRN. home with tomorrow. JACKIE CHAU MD Jan 18, 2017 5:39 pm <Created by JACKIE CHAU MD> <Electronically signed by JACKIE CHAU MD> 01/18/17 [id number] Pending Labs Laboratory Tests 01/19/17 05:46: Glucometer 220 01/19/17 05:56: Magnesium Level 1.7 Discharge Condition at discharge IMPROVING SLOWLY - NEEDS PRISON Instructions to patient/family Please see electonic discharge instructions given to patient. Discharge Medications Reviewed and agree with Discharge Medication list on patient's Discharge Instruction sheet Medication List: Active Scripts Active Floranex Tablet (L. Acidophilus/Bulgaricus) 1 Each Tablet 1 Tab.chew PO BID 30 Days Bisac-Evac (Bisacodyl) 10 Mg Supp.rect 10 Mg [place] DAILY PRN 30 Days Simethicone 80 Mg Tab.chew 80 Mg PO PCHS 30 Days Klor-Con M20 (Potassium Chloride) 20 Meq Tab.er.prt 40 Meq PO DAILY@0700 30 Days Acetaminophen 500 Mg Tablet 500 Mg PO Q6HR PRN 30 Days Hydrocodon -Acetaminophen 5-325 (Hydrocodone/Acetaminophen) 1 Each Tablet 1 Tab PO TID 30 Days Oscimin (Hyoscyamine Sulfate) 0.125 Mg Tablet 0.125 Mg PO AC PRN 30 Days Fluconazole 100 Mg Tablet 100 Mg PO DAILY 5 Days Clonazepam 0.5 Mg Tablet 0.5 Mg PO UD 30 Days ONE PILL SCHEDULED AT HS AND PT MAY TAKE 1/2 PILL TID PRN ANXIETY OR ABDOMINAL CRAMPING Reported Metformin HCl 500 Mg Tablet 500 Mg PO BID Tramadol HCl 50 Mg Tablet 50 Mg PO Q8H PRN Amlodipine Besylate 10 Mg Tablet 10 Mg PO DAILY Lovastatin 40 Mg Tablet 40 Mg PO DAILY Meloxicam 15 Mg Tablet 15 Mg PO DAILY Lisinopril 40 Mg Tablet 40 Mg PO DAILY Levothyroxine Sodium 50 Mcg Tablet 50 Mcg PO DAILY Lantus Solostar (Insulin Glargine,Hum.rec.anlog) 100 Unit/1 Ml Insuln.pen 18 Units SQ HS Magnesium (Magnesium Oxide) 400 Mg Capsule 800 Mg PO Q48H TAKES 2 (400MG) TABLETS EVERY OTHER DAY Vitamin D (Cholecalciferol) 2,000 Unit Capsule 2,000 Unit PO DAILY Clinical Quality Measures DVT/VTE Risk/Contraindication: Risk Factor Score Per Nursin RFS Level Per Nursing on Admit: 3=High TINA LEON MD Jan 19, 2017 10:12
[2017-01-19] MEDS: fentaNYL INJECTION 100 MCG/2 ML AMP IVP PRN (10:16)
[2017-01-19] MEDS ORDERED: METHYLNALTREXONE 12 MG/0.6 ML (RELISTOR) VIAL SQ ONE (10:45)
[2017-01-19 12:00] VITALS: BP 126/58
--- NOTE | 2017-01-19 12:15 | Discharge Inst-Surgical ---
D/C Lap Instructions-KANDI New, Converted, or Re-Newed RX: RX on Chart Follow Up Appt in 1 week Activity as tolerated Incentive Spirometry use every 2 hours while awake Regular Diet record AWILDA drain and left urostomy tube drainage totals daily, drain sponge to both daily and PRN. Symptoms to Report: Fever over 101 degree F, Nausea/Vomiting Infection Signs and Symptoms to report: Increased redness, Foul odor of wound, Increased drainage Bathing instructions: May shower Operative Area Clean/Dry; Keep incision clean/dry If any problems/questions: Contact your physician or go to Emergency Room JACKIE CHAU MD Jan 19, 2017 12:15 pm
== END 2017-01-19 13:30 | DRG 329 ==
LOC: 4TH 08:40 → SURG 08:41 → ICU 18:10 → 4TH 01-05 13:45 → EDPENDDISTM 01-19 13:00
PROVIDERS: ADMIT Surgery; ATTEND Surgery
PROC: 0UT64ZZ Resection of Left Fallopian Tube, Percutaneous Endoscopic Approach (ICD-10-PCS; 2017-01-04)
PROC: 0DBP4ZX Excision of Rectum, Percutaneous Endoscopic Approach, Diagnostic (ICD-10-PCS; 2017-01-04)
PROC: 0DTN4ZZ Resection of Sigmoid Colon, Percutaneous Endoscopic Approach (ICD-10-PCS; principal; 2017-01-04 13:25)
PROC: 0UT14ZZ Resection of Left Ovary, Percutaneous Endoscopic Approach (ICD-10-PCS; 2017-01-04 13:25)
PROC: 0T9430Z Drainage of Left Kidney Pelvis with Drainage Device, Percutaneous Approach (ICD-10-PCS; 2017-01-12)
PROC: BT121ZZ Fluoroscopy of Left Kidney using Low Osmolar Contrast (ICD-10-PCS; 2017-01-12)
DX: K57.20 Diverticulitis of large intestine with perforation and abscess without bleeding (principal); N70.93 Salpingitis and oophoritis, unspecified; N99.72 Accidental puncture and laceration of a genitourinary system organ or structure during other procedure; B37.7 Candidal sepsis; B37.49 Other urogenital candidiasis; K56.7 Ileus, unspecified; E87.1 Hypo-osmolality and hyponatremia; I10 Essential (primary) hypertension; E11.65 Type 2 diabetes mellitus with hyperglycemia; E11.649 Type 2 diabetes mellitus with hypoglycemia without coma; R41.0 Disorientation, unspecified; R00.0 Tachycardia, unspecified; E78.00 Pure hypercholesterolemia, unspecified; K21.9 Gastro-esophageal reflux disease without esophagitis; E89.0 Postprocedural hypothyroidism; E78.5 Hyperlipidemia, unspecified; E87.5 Hyperkalemia; E83.42 Hypomagnesemia; F41.9 Anxiety disorder, unspecified; M19.91 Primary osteoarthritis, unspecified site; M54.9 Dorsalgia, unspecified; H91.90 Unspecified hearing loss, unspecified ear; R14.0 Abdominal distension (gaseous); R60.9 Edema, unspecified; Z86.010 Personal history of colon polyps; Z80.0 Family history of malignant neoplasm of digestive organs; Z79.4 Long term (current) use of insulin
CPT/HCPCS: 36415; 50430; 50433; 71010; 71020; 74178; 74425; 76942; 80048; 80053; 81000; 82040; 82565; 82570; 82962; 83605; 83735; 84100; 84134; 84478; 84484; 84520; 85007; 85025; 85027; 85610; 85730; 86850; 86900; 86901; 87040; 87077; 87088; 87106; 88305; 93005; 94640; 94664; 94760

== ENCOUNTER 2017-02-11 15:18 | Emergency (ER) | payer MEDICARE ==
[~2017-02-11] VITALS: Ht 152.4 cm; Wt 60.4 kg
[~2017-02-11 15:18] MED LIST changes: +ACET-77 PO; +ACID1TAB PO; +BISA10SU12 PR; +FLUC100T6 PO; +HYDR-3812 PO; +HYOS0.1296 PO; +POTA20TA8 PO; +SIME80TA16 PO
--- NOTE | 2017-02-11 16:51 | ED General ---
General Chief Complaint: Catheter/Drain/Tube Problems Stated Complaint: NEPHROSTOMY ISSUES Nursing Triage Note: Patient reports her nephrostomy tube is not draining as much and she has developed a 'lump' on her LUQ Nursing Sepsis Screen: No Definite Risk Source of Information: Patient, Family Exam Limitations: No Limitations History of Present Illness Time Seen by Provider: 16:20 Initial Comments 82 yo female patient presents to the ED with c/o her nephrostomy not draining as much as usual and is cloudy. Also c/o a "lump" in the LUQ that was not present before. Patient states she has been using weights and bands during PT. Denies abdominal pain. Niece states patient has an appointment with Dr. Zepeda on of this week and is waiting for the appointment to be scheduled with the specialist in [place]. Timing/Duration: 1 Day Allergies and Home Medications Allergies Coded Allergies: No Known Drug Allergies (Verified , 02/27/07) Home Medications Acetaminophen 500 Mg Tablet, 500 MG PO Q6HR PRN for PAIN-MILD for 30 Days, #120 Prescribed by: TINA LEON on 01/19/17952 Amlodipine Besylate 10 Mg Tablet, 10 MG PO DAILY, (Reported) Bisacodyl 10 Mg Supp.rect, 10 MG TN DAILY PRN for CONSTIPATION-4TH LINE for 30 Days, #30 Ref 1 Prescribed by: TINA LEON on 01/19/17952 Cefdinir 300 Mg Capsule, 300 MG PO BID, #14 Ref 0 Prescribed by: PATRICIA KINGSTON on 02/11/17 1808 Cholecalciferol 2,000 Unit Capsule, 2,000 UNIT PO DAILY, (Reported) Clonazepam 0.5 Mg Tablet, 0.5 MG PO UD for 30 Days, #90 ONE PILL SCHEDULED AT HS AND PT MAY TAKE 1/2 PILL TID PRN ANXIETY OR ABDOMINAL CRAMPING Prescribed by: TINA LEON on 01/19/17952 Fluconazole 100 Mg Tablet, 100 MG PO DAILY for 5 Days, #5 Prescribed by: TINA LEON on 01/19/1753 Hydrocodone/Acetaminophen 1 Each Tablet, 1 TAB PO TID for 30 Days, #90 Prescribed by: TINA LEON on 01/19/17 0953 Hyoscyamine Sulfate 0.125 Mg Tablet, 0.125 MG PO AC PRN for SPASMS for 30 Days, #90 Ref 1 Prescribed by: TINA LEON on 01/19/17 0953 Insulin Glargine,Hum.rec.anlog 100 Unit/1 Ml Insuln.pen, 18 UNITS SQ HS, ( Reported) L. Acidophilus/Bulgaricus 1 Each Tablet, 1 TAB.CHEW PO BID for 30 Days, #60 Ref 1 Prescribed by: TINA LEON on 01/19/17 0953 Levothyroxine Sodium 50 Mcg Tablet, 50 MCG PO DAILY, (Reported) Lisinopril 40 Mg Tablet, 40 MG PO DAILY, (Reported) Lovastatin 40 Mg Tablet, 40 MG PO DAILY, (Reported) Magnesium Oxide 400 Mg Capsule, 800 MG PO Q48H, (Reported) TAKES 2 (400MG) TABLETS EVERY OTHER DAY Potassium Chloride 20 Meq Tab.er.prt, 40 MEQ PO DAILY@0700 for 30 Days, #60 Ref 1 Prescribed by: TINA LEON on 01/19/17 0953 Simethicone 80 Mg Tab.chew, 80 MG PO PCHS for 30 Days, #120 Prescribed by: TINA LEON on 01/19/17 0953 Constitutional: No chills, No dizziness, No fever, No malaise Respiratory: No cough, No dyspnea on exertion, No short of breath Cardiovascular: No chest pain, No palpitations, No syncope Gastrointestinal: see HPI, No abdominal pain, No constipation, No diarrhea, No melena, No nausea, No vomiting Genitourinary: see HPI, No hematuria Musculoskeletal: No back pain Skin: no symptoms reported Psychiatric/Neurological: No Symptoms Reported All Other Systems Reviewed Negative Unless Noted: Yes (Negative excepted noted.) Past Mugpesn-Uujytv-Kwqgsg Hx Patient Social History Alcohol Use: Denies Use Recreational Drug Use: No Smoking Status: Never a Smoker 2nd Hand Smoke Exposure: No Recent Foreign Travel: No Contact w/Someone Who Travel: No Recent Infectious Disease Expo: No Recent Hopitalizations: No Immunizations Up To Date Tetanus Booster (TDap): Unknown Seasonal Allergies Seasonal Allergies: No Surgeries History of Surgeries: Yes (L3-L5 Lami 2014, 3/4 THYROID REMOVED, LAP TUSHAR, CATARACTS, D&C) Surgeries: Abdominal, Orthopedic Respiratory History of Respiratory Disorde: No Currently Using CPAP: No Currently Using BIPAP: No Cardiovascular History of Cardiac Disorders: Yes Cardiac Disorders: High Cholesterol, Hypertension Neurological History of Neurological Disord: No Reproductive System Hx Reproductive Disorders: No Sexually Transmitted Disease: No HIV/AIDS: No Female Reproductive Disorders: Denies Genitourinary History of Genitourinary Disor: Yes Genitourinary Disorders: UTI-Chronic Gastrointestinal History of Gastrointestinal Di: Yes (HX OF LAP TUSHAR) Gastrointestinal Disorders: Gastroesophageal Reflux, Diverticulosis Musculoskeletal History of Musculoskeletal Dis: Yes (ARTHRITIS/HAS ALOT OF LOW BACK PAIN RADIATING DOWN HER LEG) Musculoskeletal Disorders: Arthritis, Chronic Back Pain Endocrine History of Endocrine Disorders: Yes Endocrine Disorders: Diabetes, Insulin dep, Hypothyroidsim HEENT History of HEENT Disorders: Yes (corrected Laser eye surgery September 2016) HEENT Disorders: Cataract Loss of Vision: Denies Hearing Impairment: Hard of Hearing Cancer History of Cancer: No Psychosocial History of Psychiatric Problem: No Integumentary History of Skin or Integumenta: No Blood Transfusions History of Blood Disorders: No Adverse Reaction to a Blood Tr: No Reviewed Nursing Assessment Reviewed/Agree w Nursing PMH: Yes Family Medical History Significant Family History: Heart Disease Family Medial History: Cardiovascular disease 19 FATHER Colon cancer 19 MOTHER Diabetes mellitus 19 MOTHER G8 BROTHER FH: cancer 19 MOTHER (brain) G8 BROTHER (prostate, ) G8 SISTER (breast) Myocardial infarction 19 FATHER Physical Exam Vital Signs Vital Sign - Last 12Hours 02/11/17 15:24 Pulse 87 Resp 18 B/P (MAP) 117/54 Capillary Refill : Less Than 3 Seconds General Appearance: No Apparent Distress, WD/WN HEENT: PERRL/EOMI, Pharynx Normal Neck: Normal Inspection, Supple Respiratory: Lungs Clear, Normal Breath Sounds, No Accessory Muscle Use, No Respiratory Distress Cardiovascular: Regular Rate, Rhythm, No Murmur, Normal Peripheral Pulses Gastrointestinal: Normal Bowel Sounds, No Organomegaly, Non Tender, Soft, No Distended, No Guarding, Hernia (incision hernia noted in the LUQ without tenderness. well healed surgical scar of the LUQ with a fluctuant area of the lateral incision. No erythema, warmth, or tenderness noted. ), No Rebound Back: Normal Inspection, No CVA Tenderness Extremity: Normal Capillary Refill, No Calf Tenderness, No Pedal Edema Neurologic/Psychiatric: Alert, Oriented x3, Normal Mood/Affect Skin: Normal Color, Warm/Dry Progress/Results/Core Measures Results/Orders Lab Results Laboratory Tests Test 02/11/17 17:01 Range/Units Urine Color YELLOW Urine Clarity CLEAR Urine pH 7 5-9 Urine Specific [place] 1.010 L 1.016-1.022 Urine Protein NEGATIVE NEGATIVE Urine Glucose (UA) NEGATIVE NEGATIVE Urine Ketones NEGATIVE NEGATIVE Urine Nitrite NEGATIVE NEGATIVE Urine Bilirubin NEGATIVE NEGATIVE Urine Urobilinogen NORMAL NORMAL MG/DL Urine Leukocyte Esterase 3+ H NEGATIVE Urine RBC (Auto) NEGATIVE NEGATIVE Urine RBC NONE /HPF Urine WBC 5-10 H /HPF Urine Squamous Epithelial Cells 0-2 /HPF Urine Crystals NONE /LPF Urine Bacteria TRACE /HPF Urine Casts NONE /LPF Urine Mucus NEGATIVE /LPF Urine Culture Indicated YES Micro Results Microbiology 02/11/17 Urine Culture - Preliminary, Resulted Enterococcus Species 02/11/17 Gram Stain - Final, Resulted 02/11/17 Wound Culture - Preliminary, Resulted Gram Negative Israel Gram Negative Israel#2 Probable Enterococcus Species My Orders Orders - PATRICIA KINGSTON PA Ua Culture If Indicated (02/11/17 16:36) Ct Abdomen/Pelvis Wo (02/11/17 16:36) Urine Culture (02/11/17 17:01) Hydrocodone/Apap 5/325 Tablet (Lortab 5 (02/11/17 18:03) Rx-Cephalexin Capsule (Rx-Keflex Capsule (02/11/17 18:03) Wound Culture (02/11/17 18:03) Vital Signs/I&O Blood Pressure Mean: 75 Diagnostic Imaging Diagonstic Imaging: CT Plain Films/CT/US/NM/MRI: abdomen, pelvis Comments FINDINGS: There are limitations for evaluation of the abdominal organs, neoplastic processes, abscess, and limited evaluation of the vasculature relating to the lack of intravenous contrast. There are very mild linear opacities in the right middle lobe, right lower lobe and lingula which are compatible with very mild scarring or atelectasis. Additional visualized portions of the lung bases are clear. The heart is not enlarged. There is no identified pericardial effusion. The liver is normal in size and contour. The gallbladder is unremarkable. There is no identified intrahepatic or extrahepatic bile duct dilation. There is no dilation of the main pancreatic duct. Unremarkable noncontrast evaluation of the pancreatic parenchyma. The spleen is not enlarged. The adrenal glands are unremarkable. There is a left-sided nephrostomy tube. There is no hydronephrosis. There is no identified renal or ureteral stone. The urinary bladder is unremarkable in appearance. There are sutures at the level of the distal sigmoid colon and within the central pelvis. There is a left anterior abdominal wall hernia which does contain segments of large bowel. There is no associated obstruction. There is a fat-containing paraumbilical hernia. 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 There is a heterogeneous attenuation masslike area in the lower aspect of the abdomen centrally located which measures approximately 5.3 x 5.6 cm in size. On the prior exam, there was marked focal wall thickening of small bowel at this level with adjacent abnormal focal fluid. This is in the same distribution as noted on comparison CT abdomen and pelvis. The masslike area likely relates to a combination of abnormal small bowel wall thickening and subjacent abnormal focal fluid. The overall extent of the abnormalities is very similar to January 10, 2017. There is no identified free intraperitoneal air. There is no marked distention of the intestinal tract. There are extensive atherosclerotic calcifications. There is a small fat-containing left inguinal hernia. There is no identified lymph node in the abdomen or pelvis which specifically meets CT size criteria for adenopathy. There are postoperative changes of the lumbar spine. There is no identified acute bony abnormality. There is a lumbar dextroscoliosis. 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 IMPRESSION: CT ABDOMEN AND PELVIS: 1. Very prominent abnormal focal small bowel wall thickening at the level of the lower abdomen, centrally, with subjacent abnormal focal fluid. This is fairly similar in appearance comparing back to CT abdomen and pelvis of January 10, 2017. Differential diagnostic considerations would include an infectious or inflammatory enteritis. The subjacent fluid collection is not specific and measures approximately 2.8 x 2.7 cm in size. In the setting of infection, this may relate to phlegmon. Malignant etiology for the abnormal bowel wall thickening is a differential diagnostic consideration based on imaging. 2. Left anterior abdominal wall hernia which is at the area of focal patient concern which does contain segments of large bowel without associated obstruction. 3. Left nephrostomy tube noted. No hydronephrosis. Dictated by: Dictated on workstation # [id number] Reviewed: Reviewed by Me (radiology report reviewed by me) Departure Communication (Admissions) Progress Notes laboratory and diagnostic findings discussed with the patient and niece. plan for dsch to home. patient to f/u with dr. zepeda as previously scheduled. All return precautions were discussed with the patient and niece has described in the discharge instructions of this report. Both voice understanding and agree with the treatment plan. Impression Impression: Primary Impression: Incisional hernia without obstruction or gangrene Additional Impression: Urinary tract infection Qualified Codes: N30.00 - Acute cystitis without hematuria Disposition: HOME, SELF-CARE Condition: Improved Departure-Patient Inst. Decision time for Depature: 17:56 Referrals: TINA LEON MD (PCP/Family) Primary Care Physician JACKIE SALAZAR MD, ELIAS A MD Patient Instructions: Abdominal Hernia (DC), Urinary Tract Infection, Adult (DC ) Add. Discharge Instructions: All discharge instructions reviewed with patient and/or family. Voiced understanding. Medications as instructed. Continue usual medications and orders. Follow-up with Dr. Zepeda as previously scheduled this week. Follow-up with Dr. Salazar as an outpatient in his office. Call for appointment time. Return to the emergency department for worsened pain, fever, blood in the urine , decreased drainage from the nephrostomy tube, abdominal pain, vomiting, or any other concerns. Scripts Cefdinir (Cefdinir) 300 Mg Capsule 300 MG PO BID, #14 CAP 0 Refills Prov: PATRICIA KINGSTON 02/11/17 PATRICIA KINGSTON Feb 11, 2017 16:51
[2017-02-11 17:17] LABS: BILIRUBIN,URINE NEGATIVE (NEGATIVE); KETONES,URINE NEGATIVE (NEGATIVE); LEUKOCYTE ESTERASE ,URINE 3+ (NEGATIVE); NITRITE,URINE NEGATIVE (NEGATIVE); PH,URINE 7 (5-9); PROTEIN,URINE NEGATIVE (NEGATIVE); SQUAMOUS EPITHELIAL CELL,UR 0-2 /HPF; UROBILINOGEN,URINE NORMAL (NORMAL)
--- NOTE | 2017-02-11 17:32 | Diagnostic Imaging Report ---
PROCEDURE: CT abdomen and pelvis without contrast. TECHNIQUE: Multiple contiguous axial images were obtained through the abdomen and pelvis without the use of intravenous contrast. DATE: February 11, 2017. COMPARISON: CT abdomen and pelvis, January 10, 2017. INDICATION: 82-year-old female, palpable area of concern in the abdomen above the incision site. FINDINGS: There are limitations for evaluation of the abdominal organs, neoplastic processes, abscess, and limited evaluation of the vasculature relating to the lack of intravenous contrast. There are very mild linear opacities in the right middle lobe, right lower lobe and lingula which are compatible with very mild scarring or atelectasis. Additional visualized portions of the lung bases are clear. The heart is not enlarged. There is no identified pericardial effusion. The liver is normal in size and contour. The gallbladder is unremarkable. There is no identified intrahepatic or extrahepatic bile duct dilation. There is no dilation of the main pancreatic duct. Unremarkable noncontrast evaluation of the pancreatic parenchyma. The spleen is not enlarged. The adrenal glands are unremarkable. There is a left-sided nephrostomy tube. There is no hydronephrosis. There is no identified renal or ureteral stone. The urinary bladder is unremarkable in appearance. There are sutures at the level of the distal sigmoid colon and within the central pelvis. There is a left anterior abdominal wall hernia which does contain segments of large bowel. There is no associated obstruction. There is a fat-containing paraumbilical hernia. 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 There is a heterogeneous attenuation masslike area in the lower aspect of the abdomen centrally located which measures approximately 5.3 x 5.6 cm in size. On the prior exam, there was marked focal wall thickening of small bowel at this level with adjacent abnormal focal fluid. This is in the same distribution as noted on comparison CT abdomen and pelvis. The masslike area likely relates to a combination of abnormal small bowel wall thickening and subjacent abnormal focal fluid. The overall extent of the abnormalities is very similar to January 10, 2017. There is no identified free intraperitoneal air. There is no marked distention of the intestinal tract. There are extensive atherosclerotic calcifications. There is a small fat-containing left inguinal hernia. There is no identified lymph node in the abdomen or pelvis which specifically meets CT size criteria for adenopathy. There are postoperative changes of the lumbar spine. There is no identified acute bony abnormality. There is a lumbar dextroscoliosis. 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 IMPRESSION: CT ABDOMEN AND PELVIS: 1. Very prominent abnormal focal small bowel wall thickening at the level of the lower abdomen, centrally, with subjacent abnormal focal fluid. This is fairly similar in appearance comparing back to CT abdomen and pelvis of January 10, 2017. Differential diagnostic considerations would include an infectious or inflammatory enteritis. The subjacent fluid collection is not specific and measures approximately 2.8 x 2.7 cm in size. In the setting of infection, this may relate to phlegmon. Malignant etiology for the abnormal bowel wall thickening is a differential diagnostic consideration based on imaging. 2. Left anterior abdominal wall hernia which is at the area of focal patient concern which does contain segments of large bowel without associated obstruction. 3. Left nephrostomy tube noted. No hydronephrosis. Dictated by: Dictated on workstation # [id number]
[2017-02-11] MEDS ORDERED: RX-CEPHALEXIN (KEFLEX) 250 MG CAP PPK#4 PO STA (18:03)
[2017-02-11] MEDS ORDERED: HYDROcodone/APAP 5 MG/325 MG (LORTAB) TAB PO STA (18:03)
[2017-02-11] MEDS ORDERED: CEFD300C3 PO (18:08)
[2017-02-11 18:16] VITALS: BP 117/54
== END 2017-02-11 18:16 ==
LOC: EDUNIT# 15:18 → ER 15:19
DX: K43.2 Incisional hernia without obstruction or gangrene (principal); N39.0 Urinary tract infection, site not specified; E11.9 Type 2 diabetes mellitus without complications; K21.9 Gastro-esophageal reflux disease without esophagitis; E78.00 Pure hypercholesterolemia, unspecified; I10 Essential (primary) hypertension; Z79.4 Long term (current) use of insulin; Z93.6 Other artificial openings of urinary tract status; Z90.89 Acquired absence of other organs; Z80.0 Family history of malignant neoplasm of digestive organs; Z80.3 Family history of malignant neoplasm of breast; Z80.8 Family history of malignant neoplasm of other organs or systems
CPT/HCPCS: 74176; 81000; 87070; 87077; 87088; 87186; 87205; 99281; 99283

== ENCOUNTER → 2017-03-08 | Outpatient (CLI) | payer MEDICARE ==
[~2017-03-08] MED LIST changes: +CEFD300C3 PO
--- NOTE | 2017-03-08 14:39 | Diagnostic Imaging Report ---
EXAMINATION: Diagnostic mammogram with tomography. The current study was also evaluated with a Computer Aided Detection (CAD) system. COMPARISON: 02/07/2016 and multiple other exams were reviewed. INDICATION: Followup calcifications in the medial posterior aspect of the right breast. FINDINGS: The breasts are composed of scattered fibroglandular densities. There is an asymmetry in the upper aspect of the right breast which was evaluated with a focal compression view and demonstrates no definite underlying mass. Benign-appearing calcifications are generally seen in the breasts. In particular, a group of calcifications in the medial posterior aspect of the right breast is seen which has minimally increased from the prior exam. It demonstrates minimal heterogeneity. It is favored to be benign. IMPRESSION: 1. Asymmetry in the upper aspect of the right breast is not associated with a definite underlying lesion on additional compression evaluation and tomography. An ultrasound evaluation is pending. 2. Minimally more prominent calcifications in the posterior medial aspect of the right breast. These are favored to be benign. Another followup mammogram in 12 months would be recommended. ACR BI-RADS Category 0: Incomplete. (Needs additional imaging evaluation). Result letter will be mailed to the patient. Note: At least 10% of breast cancer is not imaged by mammography. Dictated by: Dictated on workstation # [id number]
--- NOTE | 2017-03-08 20:54 | Diagnostic Imaging Report ---
EXAMINATION: Right breast ultrasound. INDICATION: Asymmetry seen along the upper aspect of the right breast. FINDINGS: Upper aspect of the breast and retroareolar region were scanned with no abnormality seen. This is probably related to summation artifact of parenchyma. IMPRESSION: Negative study. The mammogram showed minimally more prominent, likely benign calcifications. 12 month followup mammogram is recommended to ensure further stability of the calcifications and stable or resolved asymmetry in the upper right breast. ACR BI-RADS Category 3: Probably benign findings. Result letter will be mailed to the patient. Note: At least 10% of breast cancer is not imaged by mammography. Dictated by: Dictated on workstation # [id number]
== END ==
LOC: RAD 08:23
PROVIDERS: ATTEND Nurse Practitioner Family
DX: R92.1 Mammographic calcification found on diagnostic imaging of breast (principal); N64.89 Other specified disorders of breast
CPT/HCPCS: 77066

== ENCOUNTER → 2017-04-09 | Outpatient (CLI) | payer MEDICARE ==
[~2017-04-09] VITALS: Ht 152.4 cm; Wt 60.3 kg
[~2017-04-09] MED LIST changes: +IOHEXOL 300 MG/ML 50 ML (OMNIPAQUE 300) VIAL IV ONE
[2017-04-09 13:00] VITALS: BP 114/70
[2017-04-09 13:44] VITALS: BP 120/71
--- NOTE | 2017-04-09 15:36 | Diagnostic Imaging Report ---
EXAMINATION: Nephrostomy tube change- left Nephrostogram INDICATION: Left flank pain at the site of the nephrostomy tube. CONSENT: Informed consent was obtained from the patient. The risks, benefits, potential complications and alternatives were reviewed and all questions answered to the patient's satisfaction. The patient's vital signs, cardiac rhythm, and pulse oximetry were observed throughout the procedure by qualified nursing personnel. Sedation: None. Other Medications: None. Contrast: 10 mL of Isovue 300. Fluoroscopy time: 2 minutes and 25 seconds. PROCEDURE: After maximal sterile barrier technique preparation and draping, though the area of the nephrostomy tube and the tube itself, contrast injection is performed via the existing tube. This demonstrates the pigtail loop to be displaced into the mid to lower from left kidney minor calyx. Under fluoroscopic guidance, a glide wire is advanced into the renal pelvis, and via the existing tube, which is within is removed over the guidewire. A new Mac lock 8.5 Azeri nephrostomy tube is introduced over the wire and the pigtail in the is formed within the renal pelvis. Contrast injection was performed subsequently to confirm positioning of the tube and perform a nephrostogram. The patient tolerated the procedure well with no immediate complications. FINDINGS: Assembly Riveter view of the abdomen demonstrates the the existing nephrostomy tube. The after contrast injection the pigtail appears to be within the renal pelvis. Nephrostogram demonstrates mild hydronephrosis and hydroureter. The distal ureter is not imaged on this exam. IMPRESSION: 1. Successful exchange of 8.5 Azeri left nephrostomy tube. 2. Nephrostogram demonstrates mild left hydronephrosis and hydroureter. Dictated by: Dictated on workstation # [id number]
--- NOTE | 2017-04-09 20:39 | Diagnostic Imaging Report ---
PROCEDURE: Left nephrostogram. INDICATION: Left flank pain. The patient has a left nephrostomy tube in place. 10 seconds of fluoroscopy time was provided with 5 cc of Omnipaque 300 administered. FINDINGS: The existing nephrostomy tube is pulled back into the minor calyx in the mid left kidney. That was probably the reason for the patient's pain. There is mild hydronephrosis. IMPRESSION: The left nephrostomy tube was pulled back into the mid to lower left kidney minor calyx. Dictated by: Dictated on workstation # [id number]
== END ==
LOC: RAD 12:42
PROVIDERS: ATTEND Nurse Practitioner Family
DX: Z43.6 Encounter for attention to other artificial openings of urinary tract (principal); R10.32 Left lower quadrant pain
CPT/HCPCS: 50431; 50435; 74425

== ENCOUNTER → 2017-08-27 | Outpatient (CLI) | payer MEDICARE ==
[~2017-08-27] MED LIST changes: -HYDR-3812 PO; -IOHEXOL 300 MG/ML 50 ML (OMNIPAQUE 300) VIAL IV ONE
[2017-08-29 14:56] LABS: CALCIUM 10.1 MG/DL (8.5-10.1); CREATININE SERUM 0.94 MG/DL (0.60-1.30); POTASSIUM 4.5 MMOL/L (3.6-5.0)
== END ==
LOC: HH 11:35
PROVIDERS: ATTEND Family Medicine
DX: I10 Essential (primary) hypertension (principal)

== ENCOUNTER → 2018-04-17 | Outpatient (CLI) | payer MEDICARE ==
[~2018-04-17] MED LIST changes: -AMLO10TA2 PO; +AMLO10TA6 PO; +CLON0.5T13 PO; +METF-397 PO; -METF500T4 PO; +METR-197 PO; -METR500T21 PO
--- NOTE | 2018-04-17 12:34 | Diagnostic Imaging Report ---
Indication: Followup right breast density and right breast calcifications. Correlation is made with prior mammogram from 03/08/2017, 08/23/2016 and 02/07/2016. 2-D and 3-D bilateral diagnostic mammography was performed with CAD. Previously noted density in the superior right breast appears stable and most likely superimposed tissue. No underlying mass is seen. There are benign appearing calcifications bilaterally. Calcification in the posterior medial right breast are similar to perhaps slightly increased however calcification appear to be fairly coarse and benign. No definite malignant-appearing micro-calcifications are seen. The axilla are unremarkable. Impression: BI-RADS category 2 No mammographic features suspicious for malignancy are identified. ACR BI-RADS Category 2: Benign findings. Result letter will be mailed to the patient. Note: At least 10% of breast cancer is not imaged by mammography. Dictated by: Dictated on workstation # [id number]
== END ==
LOC: RAD 08:07
PROVIDERS: ATTEND Family Medicine
DX: R92.2 Inconclusive mammogram (principal)
CPT/HCPCS: 77066

== ENCOUNTER → 2020-01-27 | Outpatient (CLI) | payer MEDICARE ==
[~2020-01-27] MED LIST changes: -ACET-77 PO; +ACET-78 PO; -AMLO10TA6 PO; +AMLO10TA7 PO; -CLON0.5T13 PO; +CLON0.5T4 PO; +METR-145 PO; -METR-197 PO; +TRM50T PO
--- NOTE | 2020-01-27 14:05 | Diagnostic Imaging Report ---
INDICATION: Hip pain. FINDINGS: The alignment is normal. There are mild degenerative changes. There is no fracture or dislocation. The soft tissues are unremarkable. IMPRESSION: Mild degenerative changes; otherwise, unremarkable. Dictated by: Dictated on workstation # [id number]
== END ==
LOC: RAD 12:06
PROVIDERS: ATTEND Family Medicine
DX: M16.12 Unilateral primary osteoarthritis, left hip (principal)

== ENCOUNTER 2022-11-17 21:14 | Emergency (ER) | payer MEDICARE ==
[~2022-11-17] VITALS: Ht 157 cm; Wt 72.5 kg
[~2022-11-17 21:14] MED LIST changes: +AMLO-251 PO; -AMLO10TA7 PO; -CIPR500T4 PO; +CIPR500T5 PO; +FLUC100T10 PO; -FLUC100T6 PO; -LISI40TA PO; +LISI40TA9 PO; +POTA-169 PO; -POTA20TA8 PO
--- NOTE | 2022-11-17 21:34 | ED Neurological Problem ---
General Chief Complaint: Neuro-Stroke Like Symptoms Stated Complaint: DISORIENTED/CLAMMY/SPEECH SLURRED Source: patient, family (niece) History of Present Illness Date Seen by Provider: Nov 17, 2022 Time Seen by Provider: 21:34 Initial Comments Patient is an 87-year-old female with a history of high blood pressure, high cholesterol, thyroid disease and diabetes who presents to the emergency room from home with her niece chief complaint of confusion. Niece states that the patient lives alone, is normally able to take care of herself and still drives. The patient normally will call or text her multiple times daily throughout the day to let her know that she is doing well. The last time the niece heard from her was approximately 9 AM this morning. When she did hear from her again this evening she decided to go over and check on her. She found her confused/ disoriented. Her skin was clammy she had some slurred speech. Niece states that she looks and sounds much better currently. Niece states that she has noted over the last couple of days as she is taking care of her bathroom trash that her depends have smelled a little off. Timing/Duration: other (unknown) Allergies and Home Medications Allergies Coded Allergies: No Known Drug Allergies (Verified , 02/27/07) Patient Home Medication List Home Medication List Reviewed: Yes Acetaminophen (Acetaminophen) 500 Mg Tablet, 500 MG PO Q6HR PRN for PAIN-MILD Prescribed by: TINA NO on 01/19/17 09 Amlodipine Besylate (Amlodipine Besylate) 10 Mg Tablet, 10 MG PO DAILY, (Reported) Entered as Reported by: TRACY VASQUEZ on 10/23/16 09 Bisacodyl (Bisac-Evac) 10 Mg Supp.rect, 10 MG IN DAILY PRN for CONSTIPATION-4TH LINE Prescribed by: TINA NO on 01/19/17 09 Cefdinir (Cefdinir) 300 Mg Capsule, 300 MG PO BID Prescribed by: PATRICIA KINGSTON on 02/11/17 180 Cefdinir (Cefdinir) 300 Mg Capsule, 300 MG PO BID Prescribed by: KAYCEE LEBLANC on 11/17/22 2257 Cholecalciferol (Vitamin D) 2,000 Unit Capsule, 2,000 UNIT PO DAILY, (Reported) Entered as Reported by: MAUREEN GAXIOLA on 02/09/10 0803 Clonazepam (Clonazepam) 0.5 Mg Tablet, 0.5 MG PO UD Prescribed by: TINA NO on 01/19/17 09 Fluconazole (Fluconazole) 100 Mg Tablet, 100 MG PO DAILY Prescribed by: TINA NO on 01/19/17 09 Hydrocodone Bit/Acetaminophen (Lortab 5 Mg Tablet) 1 Each Tablet, 1 TAB PO TID Prescribed by: TINA NO on 01/19/17 09 Hyoscyamine Sulfate (Oscimin) 0.125 Mg Tablet, 0.125 MG PO AC PRN for SPASMS Prescribed by: TINA NO on 01/19/17 09 Insulin Glargine,Hum.rec.anlog (Lantus Solostar) 100 Unit/1 Ml Insuln.pen, 18 UNITS SQ HS, (Reported) Entered as Reported by: TRACY VASQUEZ on 10/23/16 09 L. Acidophilus/Bulgaricus (Floranex Tablet) 1 Each Tablet, 1 TAB.CHEW PO BID Prescribed by: TINA NO on 01/19/17952 Levothyroxine Sodium (Levothyroxine Sodium) 50 Mcg Tablet, 50 MCG PO DAILY, (Reported) Entered as Reported by: TRACY VASQUEZ on 10/23/16 09 Lisinopril (Lisinopril) 40 Mg Tablet, 40 MG PO DAILY, (Reported) Entered as Reported by: TRACY VASQUEZ on 10/23/16910 Lovastatin (Lovastatin) 40 Mg Tablet, 40 MG PO DAILY, (Reported) Entered as Reported by: TRACY VASQUEZ on 10/23/16 09 Magnesium Oxide (Magnesium) 400 Mg Capsule, 800 MG PO Q48H, (Reported) Entered as Reported by: DIVINE SOL on 09/14/14 1210 Potassium Chloride (Klor-Con M20) 20 Meq Tab.er.prt, 40 MEQ PO DAILY@0700 Prescribed by: TINA NO on 01/19/17 09 Simethicone (Simethicone) 80 Mg Tab.chew, 80 MG PO PCHS Prescribed by: TINA NO on 01/19/17 09 Review of Systems Review of Systems Constitutional: see HPI Eyes: No Symptoms Reported Respiratory: no symptoms reported Cardiovascular: no symptoms reported Gastrointestinal: no symptoms reported Genitourinary: other ((uraine smells"not right" per neice)) Musculoskeletal: no symptoms reported Skin: no symptoms reported Psychiatric/Neurological: Headache (mild headache per patient), Other (confusion per neice) Past Pyodwrv-Qrhhaz-Zerpok Hx Immunizations Up To Date Tetanus Booster (TDap): Unknown Seasonal Allergies Seasonal Allergies: No Past Medical History Surgeries: Yes (L3-L5 Lami 2014, 3/ THYROID REMOVED, LAP TUSHAR, CATARACTS, D&C) Abdominal, Orthopedic Respiratory: No Currently Using CPAP: No Currently Using BIPAP: No Cardiac: Yes High Cholesterol, Hypertension Neurological: No Reproductive Disorders: No Female Reproductive Disorders: Denies Sexually Transmitted Disease: No HIV/AIDS: No Genitourinary: Yes UTI-Chronic Gastrointestinal: Yes (HX OF LAP TUSHAR) Gastroesophageal Reflux, Diverticulosis Musculoskeletal: Yes (ARTHRITIS/HAS ALOT OF LOW BACK PAIN RADIATING DOWN HER LEG) Arthritis, Chronic Back Pain Endocrine: Yes Diabetes, Insulin dep, Hypothyroidsim HEENT: Yes (corrected Laser eye surgery September 2016) Cataract Loss of Vision: Denies Hearing Impairment: Hard of Hearing Cancer: No Psychosocial: No Integumentary: No Blood Disorders: No Adverse Reaction/Blood Tranf: No Family Medical History Cardiovascular disease 19 FATHER Colon cancer 19 MOTHER Diabetes mellitus 19 MOTHER G8 BROTHER FH: cancer 19 MOTHER (brain) G8 BROTHER (prostate, ) G8 SISTER (breast) Myocardial infarction 19 FATHER Heart Disease Physical Exam Vital Signs Vital Signs - First Documented 11/17/22 21:27 Temp 36.4 Pulse 22 Resp 14 B/P (MAP) 143/89 (107) Pulse Ox 97 O2 Delivery Room Air Capillary Refill : Height, Weight, BMI Height: 5'0.00" Weight: 133lbs. 0.0oz. [id number]; 26.0 BMI Method:Stated General Appearance: WD/WN, no apparent distress, other (smiling, oriented; pleasant in NAD) HEENT: PERRL/EOMI, normal ENT inspection, pharynx normal, other (moist mucous membranes) Neck: normal inspection Respiratory: lungs clear, normal breath sounds, no respiratory distress, no accessory muscle use Cardiovascular: regular rate, rhythm Gastrointestinal: normal bowel sounds, non tender, soft Extremities: normal range of motion, non-tender, normal inspection, no pedal edema Neurologic/Psychiatric: alert, normal mood/affect, oriented x 3 Crainal Nerves: normal speech, PERRL; No abnormal speech, No facial asymmetry, No facial droop, No facial weakness; hearing deficit (R), hearing deficit (L); No tongue deviation to R, No tongue deviation to L; other (hard of hearing) Coordination/Gait: normal finger to nose Motor/Sensory: no motor deficit, no sensory deficit, no pronator drift Skin: normal color, warm/dry Stroke Onset of Symptoms Date of Onset of Symptoms: Nov 17, 2022 Onset of Symptoms: No Symptoms onset unknown: Yes NIH Stroke Scale Assessment Select: Initial Level of Consciousness: 0=Alert (0), Level of Consciousness-Questions: 0=Answers both month/age (0), LOC Commands: 0=Performs both tasks (0), Gaze: Normal (0), Visual Boss: 0=No visual loss (0), Facial Movement (Facial Paresis): 0=Normal symmetrical mnt (0), Motor Function-Arms Right: 0=No drift (0), Motor Function-Arms Left: 0=No drift (0), Motor Function-Legs Right: 0=No drift (0), Motor Function-Legs Left: 0=No drift (0), Limb Ataxia: 0=Absent (0), Sensory: 0=Normal:no loss (0), Best Language: 0=No aphasia (0), Dysarthria: 0=Normal (0), Extinction & Inattention: 0=No abnormality (0), Total: 0 Progress/Results/Core Measures Results/Orders Lab Results Laboratory Tests Test 11/17/22 21:30 11/17/22 21:49 11/17/22 22:00 Range/Units Glucometer 280 H 70-110 MG/DL White Blood Count 8.3 4.3-11.0 10^3/uL Red Blood Count 4.72 3.80-5.11 10^6/uL Hemoglobin 16.0 11.5-16.0 g/dL Hematocrit 46 35-52 % Mean Corpuscular Volume 98 80-99 fL Mean Corpuscular Hemoglobin 34 25-34 pg Mean Corpuscular Hemoglobin Concent 35 32-36 g/dL Red Cell Distribution Width 12.0 10.0-14.5 % Platelet Count 244 130-400 10^3/uL Mean Platelet Volume 11.1 9.0-12.2 fL Immature Granulocyte % (Auto) 1 % Neutrophils (%) (Auto) 66 42-75 % Lymphocytes (%) (Auto) 26 12-44 % Monocytes (%) (Auto) 7 0-12 % Eosinophils (%) (Auto) 1 0-10 % Basophils (%) (Auto) 0 0-10 % Neutrophils # (Auto) 5.5 1.8-7.8 10^3/uL Lymphocytes # (Auto) 2.1 1.0-4.0 10^3/uL Monocytes # (Auto) 0.5 0.0-1.0 10^3/uL Eosinophils # (Auto) 0.1 0.0-0.3 10^3/uL Basophils # (Auto) 0.0 0.0-0.1 10^3/uL Immature Granulocyte # (Auto) 0.1 0.0-0.1 10^3/uL Prothrombin Time 12.8 12.2-14.7 SEC INR Comment 0.9 0.8-1.4 Activated Partial Thromboplast Time 27 24-35 SEC D-Dimer 0.10 0.00-0.49 UG/ML Sodium Level 136 135-145 MMOL/L Potassium Level 3.8 3.6-5.0 MMOL/L Chloride Level 100 98-107 MMOL/L Carbon Dioxide Level 21 21-32 MMOL/L Anion Gap 15 H 5-14 MMOL/L Blood Urea Nitrogen 22 H 7-18 MG/DL Creatinine 1.85 H 0.60-1.30 MG/DL Estimat Glomerular Filtration Rate 26 BUN/Creatinine Ratio 12 Glucose Level 300 H 70-105 MG/DL Calcium Level 10.1 8.5-10.1 MG/DL Corrected Calcium 9.9 8.5-10.1 MG/DL Total Bilirubin 0.9 0.1-1.0 MG/DL Aspartate Amino Transf (AST/SGOT) 15 5-34 U/L Alanine Aminotransferase (ALT/SGPT) 11 0-55 U/L Alkaline Phosphatase 74 40-136 U/L Troponin I < 0.028 <0.028 NG/ML Total Protein 7.2 6.4-8.2 GM/DL Albumin 4.2 3.2-4.5 GM/DL Urine Color YELLOW Urine Clarity CLOUDY Urine pH 5.0 5-9 Urine Specific [place] >=1.030 1.016-1.022 Urine Protein 2+ H NEGATIVE Urine Glucose (UA) TRACE H NEGATIVE Urine Ketones TRACE H NEGATIVE Urine Nitrite NEGATIVE NEGATIVE Urine Bilirubin 2+ H NEGATIVE Urine Urobilinogen 1.0 < = 1.0 MG/DL Urine Leukocyte Esterase 1+ H NEGATIVE Urine RBC (Auto) 1+ H NEGATIVE Urine RBC 2-5 H /HPF Urine WBC 50-100 H /HPF Urine Squamous Epithelial Cells 25-50 H /HPF Urine Crystals NONE /LPF Urine Bacteria LARGE H /HPF Urine Casts PRESENT /LPF Urine Hyaline Casts 2-5 H /LPF Urine Mucus NEGATIVE /LPF Urine Other FEW TRANS EPI CELLS /HPF Urine Culture Indicated NO My Orders Orders - KAYCEE LEBLANC MD Cbc With Automated Diff (11/17/22 21:45) Protime With Inr (11/17/22 21:45) Partial Thromboplastin Time (11/17/22 21:45) Comprehensive Metabolic Panel (11/17/22 21:45) Fibrin Degradation Products (11/17/22 21:45) Troponin I Miri (11/17/22 21:45) Ua Culture If Indicated (11/17/22 21:45) Chest 1 View, Ap/Pa Only (11/17/22 21:45) Ekg Tracing (11/17/22 21:45) Accucheck Stat ONCE (11/17/22 21:45) Ed Iv/Invasive Line Start (11/17/22 21:45) Ed Iv/Invasive Line Start (11/17/22 21:45) Vital Signs Stroke Patient Q15M (11/17/22 21:45) Ct Head Wo-R/O Stroke (11/17/22 21:45) O2 (11/17/22 21:45) Monitor-Rhythm Ecg Trace Only (11/17/22 21:45) Dysphagia Screening Tool [id number] (11/17/22 21:45) Post Thrombolytic Adminstratio (11/17/22 21:45) Ns Iv 500 Ml (Sodium Chloride 0.9%) (11/17/22 21:45) Ceftriaxone Iv/Im (Rocephin Iv/Im) (11/17/22 22:45) Acetaminophen Tablet (Tylenol Tablet) (11/17/22 23:45) Medications Given in ED Current Medications Medications Dose Ordered Sig/Kary Route Start Time Stop Time Status Last Admin Dose Admin Acetaminophen 1,000 mg ONCE ONCE PO 11/17/22 23:45 11/17/22 23:46 DC 11/17/22 23:50 1,000 MG Ceftriaxone Sodium 1000 mg/ Sodium Chloride 50 ml @ 100 mls/hr ONCE ONCE IV 11/17/22 22:45 11/17/22 23:14 DC 11/17/22 22:45 100 MLS/HR Vital Signs/I&O 11/17/22 11/18/22 21:27 00:00 Temp 36.4 Pulse 22 87 Resp 14 18 B/P (MAP) 143/89 (107) 148/91 Pulse Ox 97 97 O2 Delivery Room Air Room Air Progress Progress Note : Time: 22:45 Progress Note Patient seen and evaluated by me. Evaluation today includes "stroke work-up" to include CBC, Chem-12, troponin, D-dimer, coag profile, urinalysis, EKG, chest x- ray and CT head noncontrast. Pertinent physical exam findingswell-developed well-nourished female, alert and oriented. No focal neurologic deficits are noted on physical exam. Heart is regular, lungs are clear. Abdomen is soft. No lower extremity edema. Vital signs are stable. Differential diagnosis based on history and physical exam, TIA versus occult infection/UTI. Labs independently reviewed and interpreted by me. CBC is normal, Chem-12 is pertinent for increased BUN of 22, creatinine of 1.85. Blood sugar is 300. Troponin is undetectable. D-dimer is negative, coags are negative. Urinalysis pertinent for specific gravity greater than 1.030, 2+ protein, trace glucose, 1+ leukocyte esterase, 2-5 red blood cells, 50-100 white blood cells, 25-50 squamous epithelial cells and large bacteria. Chest x-ray shows no focal infiltrates or effusions. CT head per stat rad read shows no acute intracranial hemorrhage, shift or mass effect. Patient continues to improve in mentation throughout her stay here in the emergency department. She is treated with 500 cc of normal saline as well as a gram of Rocephin for identified urinary tract infection. I recommended to her family member who is also her primary medicare biller that someone should probably stay with her tonight. Recommended close follow-up with her primary care physician next week. Home with a prescription for cefdinir antibiotics to start tomorrow evening. Low clinical suspicion for any cerebrovascular accident at this time, suspect that likely her episode of confusion earlier in the day is more related to her urinary tract infection. Patient and her niece are comfortable with the plan of care. All questions are sought and answered. Patient is stable for discharge Initial ECG Impression Date: Nov 17, 2022 Initial ECG Impression Time: 22:00 Initial ECG Rate: 92 Initial ECG Rhythm: Normal Sinus Initial ECG Intervals: Normal Comment Q waves inferiorly; no ST elevation or depression Diagnostic Imaging Diagonstic Imaging: CT Comments Per Stat Rad - no acute intracranial abnormality; Left cochlear implant Diagonstic Imaging: Xray Plain Films/CT/US/NM/MRI: chest Comments CHest xray - independently interpreted by me - no consolidated infiltrate Departure Impression Primary Impression: Urinary tract infection Qualified Codes: N30.01 - Acute cystitis with hematuria Disposition: HOME, SELF-CARE Condition: Stable Departure-Patient Inst. Decision time for Depature: 22:59 Referrals: TINA NO MD (PCP/Family) Primary Care Physician Add. Discharge Instructions: Drink plenty of Fluids to stay well-hydrated. Take the antibiotics, cefdinir 1 twice a day for 7 days. Cranberry juice which will help flush out bacteria. Call Dr. No's office for a follow-up appointment next week. If you develop a fever, abdominal pain or vomiting please return to the emergency department for reevaluation peer Continue your home daily medications Scripts Cefdinir (Cefdinir) 300 Mg Capsule 300 MG PO BID, #14 CAP 0 Refills Prov: KAYCEE LEBLANC MD 11/17/22 Copy Copies To 1: TINA NO MD, KATHRYN M MD Nov 17, 2022 21:34
[2022-11-17] MEDS ORDERED: NS IV 500 ML 500 ML IV STA (21:45)
[2022-11-17 21:55] LABS: BASOPHILS % (AUTO) 0 % (0-10); EOSINOPHILS # (AUTO) 0.1 10^3/uL (0.0-0.3); EOSINOPHILS % (AUTO) 1 % (0-10); HEMATOCRIT 46 % (35-52); LYMPHOCYTES # (AUTO) 2.1 10^3/uL (1.0-4.0); LYMPHOCYTES % (AUTO) 26 % (12-44); MEAN CORPUSCULAR HEMOGLOBIN 34 pg (25-34); MEAN CORPUSCULAR HGB CONC 35 g/dL (32-36); MEAN CORPUSCULAR VOLUME 98 fL (80-99); MEAN PLATELET VOLUME 11.1 fL (9.0-12.2); MONOCYTES # (AUTO) 0.5 10^3/uL (0.0-1.0); MONOCYTES % (AUTO) 7 % (0-12); NEUTROPHILS # (AUTO) 5.5 10^3/uL (1.8-7.8); NEUTROPHILS % (AUTO) 66 % (42-75); PLATELET COUNT 244 10^3/uL (130-400); WHITE BLOOD COUNT 8.3 10^3/uL (4.3-11.0)
[2022-11-17 22:07] LABS: ALBUMIN 4.2 GM/DL (3.2-4.5); CHLORIDE 100 MMOL/L (98-107); INR 0.9 (0.8-1.4); POTASSIUM 3.8 MMOL/L (3.6-5.0); PROTHROMBIN TIME PATIENT 12.8 SEC (12.2-14.7); SODIUM 136 MMOL/L (135-145)
[2022-11-17 22:08] LABS: CALCIUM 10.1 MG/DL (8.5-10.1)
[2022-11-17 22:09] LABS: GLUCOSE 300 MG/DL (70-105); TOTAL PROTEIN 7.2 GM/DL (6.4-8.2)
[2022-11-17 22:10] LABS: CARBON DIOXIDE 21 MMOL/L (21-32)
[2022-11-17 22:11] LABS: BILIRUBIN,TOTAL 0.9 MG/DL (0.1-1.0); FIBRIN DEGRADATION PRODUCTS 0.1 UG/ML (0.00-0.49)
[2022-11-17 22:12] LABS: CLARITY,URINE CLOUDY; COLOR,URINE YELLOW; GLUCOSE, URINE (UA) TRACE (NEGATIVE); KETONES,URINE TRACE (NEGATIVE); LEUKOCYTE ESTERASE ,URINE 1+ (NEGATIVE); NITRITE,URINE NEGATIVE (NEGATIVE); PROTEIN,URINE 2+ (NEGATIVE)
[2022-11-17 22:13] LABS: ALKALINE PHOSPHATASE 74 U/L (40-136); CREATININE SERUM 1.85 MG/DL (0.60-1.30); GFR ESTIMATED 26
[2022-11-17 22:14] LABS: BUN/CREATININE RATIO 12
[2022-11-17 22:16] LABS: ALANINE AMINOTRANSFERASE 11 U/L (0-55)
[2022-11-17 22:24] LABS: BILIRUBIN,URINE 2+ (NEGATIVE)
[2022-11-17 22:30] LABS: BACTERIA,URINE LARGE /HPF; SQUAMOUS EPITHELIAL CELL,UR 25-50 /HPF; WBC,URINE 50-100 /HPF
[2022-11-17 22:31] LABS: URINE OTHER FEW TRANS EPI CELLS /HPF
[2022-11-17] MEDS ORDERED: cefTRIAXone IV/IM 1,000 MG in NS (IVPB) 50 ML IV ONE (22:45)
[2022-11-17] MEDS ORDERED: CEFD300C3 PO (22:57)
--- NOTE | 2022-11-17 23:20 | Diagnostic Imaging Report ---
PROCEDURE: CT head wo r/o stroke. TECHNIQUE: Multiple contiguous axial images were obtained through the brain without the use of intravenous contrast. Auto Exposure Controls were utilized during the CT exam to meet ALARA standards for radiation dose reduction. INDICATION: Acute neurologic deficit The ventricles are normal in size, shape and position. There are no masses. There is a small low-density left subdural effusion. This measures 4 mm in thickness. This could be a chronic subdural hematoma. There is no acute hemorrhage seen. Patient has a left cochlear implant. 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 No acute abnormality seen. Dictated by: Dictated on workstation # [id number]
[2022-11-17] MEDS ORDERED: ACETAMINOPHEN 500 MG TAB (TYLENOL) PO ONE (23:45)
[2022-11-18] VITALS: BP 148/91
--- NOTE | 2022-11-18 06:35 | Diagnostic Imaging Report ---
INDICATION: Altered mental status Frontal chest obtained at 9:52 p.m. and compared to 01/15/2017. Heart and mediastinal silhouette are normal in appearance. The lungs are clear. There is no pneumothorax or pleural fluid. IMPRESSION: Negative chest. Dictated by: Dictated on workstation # [id number]
== END 2022-11-18 | disposition home or self-care (01) ==
LOC: EDUNIT# 21:14 → ER 21:16
DX: N39.0 Urinary tract infection, site not specified (principal); E11.9 Type 2 diabetes mellitus without complications; Z79.4 Long term (current) use of insulin
CPT/HCPCS: 36415; 70450; 71045; 80053; 81000; 82947; 84484; 85025; 85379; 85610; 85730; 93005; 93041

== ENCOUNTER 2023-03-18 13:42 | Inpatient (IN) | payer MEDICARE ==
[~2023-03-18] VITALS: Ht 154 cm; Wt 79.6 kg
--- NOTE | 2023-03-18 14:05 | ED Fall/Injury ---
General Chief Complaint: Trauma-Non Activation Stated Complaint: FALL Nursing Triage Note: PT TO [facility] BY [facility] WITH C/O UNWITTNESED FALL, UNKNOWN WHEN, AMS AND BLOOD SUGAR READING "HIGH". BILAT HIP PAIN UPON PALPATION FROM EMS Source: EMS Exam Limitations: physical impairment (hard of hearing) History of Present Illness Date Seen by Provider: Mar 18, 2023 Time Seen by Provider: 13:50 Initial Comments Patient is an 88-year-old female who presents to the emergency room with a chief complaint of fall at home. According to her niece they spoke via texting last night as "usual". This morning they did not hear from her so she went by after zoroastrianism and found her on the floor outside the bathroom door.. Unknown "downtime". Patient apparently was confused and altered unlike her normal self. EMS reported a blood sugar "too high to read". She is a known diabetic. Patient does not recall any falls or that she even fell last night (or this morn ing). She is extremely hard of hearing, hears only with loud voice from the left. She complains of pain to the bilateral hips. History is extremely difficult to obtain secondary to her hard of hearing state. Niece present (1520) and relates the story of finding her. States now she looks much better than when she found her. She is answering questions and more alert. Has a history of urinary tract infections. Has chronic right hip pain from where she had a surgery in the past related to her bladder/kidneys. Occurred: just prior to arrival Severity: moderate Injuries/Pain Location: pelvis Context: unknown Loss of Consciousness: unsure Associated Symptoms (Fall): Other (pelvic pain) Allergies and Home Medications Allergies Coded Allergies: No Known Drug Allergies (Verified , 02/27/07) Patient Home Medication List Home Medication List Reviewed: Yes Acetaminophen (Acetaminophen) 500 Mg Tablet, 500 MG PO Q6HR PRN for PAIN-MILD Prescribed by: TINA LEON on 01/19/17 09 Amlodipine Besylate (Amlodipine Besylate) 10 Mg Tablet, 10 MG PO DAILY, (Reported) Entered as Reported by: TRACY VASQUEZ on 10/23/16 09 Bisacodyl (Bisac-Evac) 10 Mg Supp.rect, 10 MG MA DAILY PRN for CONSTIPATION-4TH LINE Prescribed by: TINA LEON on 01/19/17 09 Cefdinir (Cefdinir) 300 Mg Capsule, 300 MG PO BID Prescribed by: PATRICIA KINGSTON on 02/11/17 1808 Cefdinir (Cefdinir) 300 Mg Capsule, 300 MG PO BID Prescribed by: KAYCEE LEBLANC on 11/17/22 225 Cholecalciferol (Vitamin D) 2,000 Unit Capsule, 2,000 UNIT PO DAILY, (Reported) Entered as Reported by: MAUREEN GAXIOLA on 02/09/10 0803 Clonazepam (Clonazepam) 0.5 Mg Tablet, 0.5 MG PO UD Prescribed by: TINA LEON on 01/19/17 09 Fluconazole (Fluconazole) 100 Mg Tablet, 100 MG PO DAILY Prescribed by: TINA LEON on 01/19/17 09 Hydrocodone Bit/Acetaminophen (Lortab 5 Mg Tablet) 1 Each Tablet, 1 TAB PO TID Prescribed by: TINA LEON on 01/19/17 09 Hyoscyamine Sulfate (Oscimin) 0.125 Mg Tablet, 0.125 MG PO AC PRN for SPASMS Prescribed by: TINA LEON on 01/19/17 09 Insulin Glargine,Hum.rec.anlog (Lantus Solostar) 100 Unit/1 Ml Insuln.pen, 18 UNITS SQ HS, (Reported) Entered as Reported by: TRACY VASQUEZ on 10/23/16910 L. Acidophilus/Bulgaricus (Floranex Tablet) 1 Each Tablet, 1 TAB.CHEW PO BID Prescribed by: TINA LEON on 01/19/17 09 Levothyroxine Sodium (Levothyroxine Sodium) 50 Mcg Tablet, 50 MCG PO DAILY, (Reported) Entered as Reported by: TRACY VASQUEZ on 10/23/16 09 Lisinopril (Lisinopril) 40 Mg Tablet, 40 MG PO DAILY, (Reported) Entered as Reported by: TRACY VASQUEZ on 10/23/16 09 Lovastatin (Lovastatin) 40 Mg Tablet, 40 MG PO DAILY, (Reported) Entered as Reported by: TRACY VASQUEZ on 10/23/16 09 Magnesium Oxide (Magnesium) 400 Mg Capsule, 800 MG PO Q48H, (Reported) Entered as Reported by: DIVINE SOL on 09/14/14 1210 Potassium Chloride (Klor-Con M20) 20 Meq Tab.er.prt, 40 MEQ PO DAILY@0700 Prescribed by: TINA LEON on 01/19/17 09 Simethicone (Simethicone) 80 Mg Tab.chew, 80 MG PO PCHS Prescribed by: TINA LEON on 01/19/17952 Review of Systems Review of Systems Constitutional: see HPI Musculoskeletal: other (pelvic and hip pain) ROS difficult to obtain due to hard of hearing and some confusion Past Lhtiztp-Ryiirw-Pbwwvt Hx Immunizations Up To Date Tetanus Booster (TDap): Unknown Seasonal Allergies Seasonal Allergies: No Past Medical History Surgery/Hospitalization HX: HTN, DM, HLD Surgeries: Yes (L3-L5 [facility] 2014, 07/22 THYROID REMOVED, LAP TUSHAR, CATARACTS, D&C) Abdominal, Orthopedic Respiratory: No Currently Using CPAP: No Currently Using BIPAP: No Cardiac: Yes High Cholesterol, Hypertension Neurological: No Reproductive Disorders: No Female Reproductive Disorders: Denies Sexually Transmitted Disease: No HIV/AIDS: No Genitourinary: Yes UTI-Chronic Gastrointestinal: Yes (HX OF LAP TUSHAR) Gastroesophageal Reflux, Diverticulosis Musculoskeletal: Yes (ARTHRITIS/HAS ALOT OF LOW BACK PAIN RADIATING DOWN HER LEG) Arthritis, Chronic Back Pain Endocrine: Yes Diabetes, Insulin dep, Hypothyroidsim HEENT: Yes (corrected Laser eye surgery September 2016) Cataract Loss of Vision: Denies Hearing Impairment: Hard of Hearing Cancer: No Psychosocial: No Integumentary: No Blood Disorders: No Adverse Reaction/Blood Tranf: No Family Medical History Cardiovascular disease 19 FATHER Colon cancer 19 MOTHER Diabetes mellitus 19 MOTHER G8 BROTHER FH: cancer 19 MOTHER (brain) G8 BROTHER (prostate, ) G8 SISTER (breast) Myocardial infarction 19 FATHER Heart Disease Physical Exam Vital Signs Vital Signs - First Documented 03/18/23 13:42 Temp 36.4 Pulse 107 Resp 20 B/P (MAP) 181/96 (124) Pulse Ox 97 O2 Delivery Room Air Capillary Refill : Height, Weight, BMI Height: 5'0.00" Weight: 133lbs. 0.0oz. 60.339319fo; 33.00 BMI Method:Stated General Appearance: WD/WN, moderate distress (tremoring/shaking), other (extremely hard of hearing) HEENT: PERRL/EOMI, other (cervical collar in place) Neck: other (cervical collar in place) Cardiovascular: regular rate, rhythm Respiratory: lungs clear, normal breath sounds, no respiratory distress, no accessory muscle use Gastrointestinal: normal bowel sounds, non tender, soft Back: normal inspection, no vertebral tenderness Extremities: normal range of motion, normal inspection, other (inititally grimaces with palpation of the left upper extremity - no obvious swelling - distal pulses intact) Neurologic/Psychiatric: alert, normal mood/affect, disoriented x 3 Skin: normal color, warm/dry (small bruise to right upper arm) Progress/Results/Core Measures Results/Orders Lab Results Laboratory Tests Test 03/18/23 00:45 03/18/23 13:49 03/18/23 14:55 03/18/23 15:42 Range/Units Sodium Level 142 142 135-145 MMOL/L Potassium Level 3.8 4.4 3.6-5.0 MMOL/L Chloride Level 116 H 105 98-107 MMOL/L Carbon Dioxide Level 12 L 8 *L 21-32 MMOL/L Anion Gap 14 29 H 5-14 MMOL/L Blood Urea Nitrogen 21 H 27 H 7-18 MG/DL Creatinine 1.25 2.02 H 0.60-1.30 MG/DL Estimat Glomerular Filtration Rate 42 23 BUN/Creatinine Ratio 17 13 Glucose Level 252 H 720 *H 70-105 MG/DL Calcium Level 8.5 10.3 H 8.5-10.1 MG/DL White Blood Count 14.5 H 4.3-11.0 10^3/uL Red Blood Count 4.82 3.80-5.11 10^6/uL Hemoglobin 15.9 11.5-16.0 g/dL Hematocrit 46 35-52 % Mean Corpuscular Volume 96 80-99 fL Mean Corpuscular Hemoglobin 33 25-34 pg Mean Corpuscular Hemoglobin Concent 34 32-36 g/dL Red Cell Distribution Width 13.2 10.0-14.5 % Platelet Count 236 130-400 10^3/uL Mean Platelet Volume 12.2 9.0-12.2 fL Immature Granulocyte % (Auto) 1 % Neutrophils (%) (Auto) 88 H 42-75 % Lymphocytes (%) (Auto) 6 L 12-44 % Monocytes (%) (Auto) 6 0-12 % Eosinophils (%) (Auto) 0 0-10 % Basophils (%) (Auto) 0 0-10 % Neutrophils # (Auto) 12.8 H 1.8-7.8 X 10^3 Lymphocytes # (Auto) 0.8 L 1.0-4.0 X 10^3 Monocytes # (Auto) 0.8 0.0-1.0 X 10^3 Eosinophils # (Auto) 0.0 0.0-0.3 10^3/uL Basophils # (Auto) 0.0 0.0-0.1 10^3/uL Immature Granulocyte # (Auto) 0.1 0.0-0.1 10^3/uL Neutrophils % (Manual) 89 % Lymphocytes % (Manual) 6 % Monocytes % (Manual) 5 % Eosinophils % (Manual) 0 % Basophils % (Manual) 0 % Band Neutrophils 0 % Blood Morphology Comment NORMAL Beta-Hydroxybutyrate (Chem panel) 10.83 H 0.00-0.27 MMOL/L Venous Blood pH 7.23 L 7.31-7.41 Venous Blood Partial Pressure CO2 26 L 40-52 MMHG Venous Blood HCO3 11 L 22-28 MMOL/L Glucometer 595 *H 70-110 MG/DL Test 03/18/23 15:45 Range/Units Urine Color YELLOW Urine Clarity CLEAR Urine pH 5.0 5-9 Urine Specific Orange 1.015 L 1.016-1.022 Urine Protein TRACE H NEGATIVE Urine Glucose (UA) 2+ H NEGATIVE Urine Ketones 4+ H NEGATIVE Urine Nitrite NEGATIVE NEGATIVE Urine Bilirubin 1+ H NEGATIVE Urine Urobilinogen 0.2 < = 1.0 MG/DL Urine Leukocyte Esterase NEGATIVE NEGATIVE Urine RBC (Auto) 1+ H NEGATIVE Urine RBC NONE /HPF Urine WBC 0-2 /HPF Urine Squamous Epithelial Cells NONE /HPF Urine Crystals NONE /LPF Urine Bacteria TRACE /HPF Urine Casts NONE /LPF Urine Mucus NEGATIVE /LPF Urine Culture Indicated NO My Orders Orders - KAYCEE LEBLANC MD Ed Iv/Invasive Line Start (03/18/23 14:01) Cbc And Automated Diff (03/18/23 14:01) Basic Metabolic Panel (03/18/23 14:01) Ua Culture If Indicated (03/18/23 14:01) Pelvis/Davion Hips 3-4 Views (03/18/23 14:01) Chest 1 View, Ap/Pa Only (03/18/23 14:01) Accucheck Prn (03/18/23 14:01) Beta Hydroxybutyrate (03/18/23 14:01) Venous Blood Gas (03/18/23 14:01) Ct Head/Cervical Spine Wo (03/18/23 14:01) Manual Differential (03/18/23 13:49) Ns Iv 1000 Ml (Ns Iv 1000 Ml) (03/18/23 14:34) Insulin (Regular) Per Unit (Insulin (Reg (03/18/23 14:35) Insulin (Regular) Per Unit (Insulin (Reg (03/18/23 14:35) Ed Admission (Communication) (03/18/23 15:27) Vital Signs/I&O 03/18/23 03/18/23 13:42 15:50 Temp 36.4 35.6 Pulse 107 83 Resp 20 22 B/P (MAP) 181/96 (124) 136/83 Pulse Ox 97 98 O2 Delivery Room Air Room Air 03/19/23 00:00 Intake Total 100 ml Balance 100 ml Blood Pressure Mean: 124 Progress Progress Note #1: Time: 15:03 Progress Note identified DKA - with bloog glucose >700 amd AG 29; insulin bolus ordered 5u Sc and 5u IV Progress Note #2: Time: 15:41 Progress Note Patient seen and evaluated by me. Evaluation today includes physical exam, CBC, basic metabolic panel, beta hydroxy butyrate level, venous blood gas, UA, head CT and cervical spine CT, single view chest x-ray, pelvis x-ray with bilateral hips. Independent history from niece. Pertinent physical exam findings well- developed well-nourished elderly female, pleasantly confused, alert following commands. She has dry oral mucosa, no signs of injury to the head or face. Cervical collar is in place at presentation per EMS. She has no hemotympanum, no echeverria sign. No bruising to the face. Chest is nontender, heart is regular mildly tachycardic. Lungs are clear. Abdomen is soft. She has tenderness to palpation bilateral hips with a stable pelvis. No lower extremity edema, neurovascularly intact to the bilateral lower extremities. She is extremely hard of hearing. Confused to location and circumstances. She does know her name. Glucose too high to read at presentation Differential diagnosis includes diabetic ketoacidosis, acute intracranial injury, hematoma, head bleed, hip/pelvic fractures, cervical spine injury, urinary tract infection, arrhythmia Labs, imaging independently reviewed and interpreted by me. Her CBC shows a leukocytosis of 14.5 with 88% segs. Normal hemoglobin, hematocrit and platelets. Basic metabolic panel remarkable for low CO2 at 8, elevated BUN and creatinine at 27 and 2.02. Anion gap is 29 with normal sodium and potassium. Her serum glucose is 720. Her beta hydroxybutyrate is 10.83. Her venous blood gas shows pH of 7.23 with bicarb of 11. Chest x-ray independently reviewed and interpreted by me shows no focal infiltrates or effusions. Her pelvis and bilateral hip x-rays reviewed by me no acute fracture. CT head and cervical spine read by the radiologist as negative. At approximately 3:20 PM I was able to remove her cervical collar. She was reexamined, no neuro deficits. Normal motor or sensory strength in the upper extremities and lower extremities. I reexamined her left arm that she had been guarding at initial evaluation. No tenderness and good range of motion. She is much more perky and alert at this time answering questions with a little bit more lucidity. She has completed 1 L of normal saline via EMS and will have a second liter hung. She has been given 5 units of subcutaneous insulin and 5 units of IV regular insulin. Penny catheter is being placed at this time per the request of Dr. West. Patient will be admitted to the ICU insulin drip protocol for DKA. Family at the bedside is comfortable with plan of care. All questions are sought and answered. Blood sugar at this time 595 Diagnostic Imaging Diagonstic Imaging: Xray Plain Films/CT/US/NM/MRI: chest Comments [facility], [place] NAME: MK RÍOS [facility] REC#: [id number] PT STATUS: REG ER : 1935 PHYSICIAN: KAYCEE LEBLANC MD ADMIT DATE: 03/18/23/ER Signed Date of Exam:03/18/23 CHEST 1 VIEW, AP/PA ONLY EXAMINATION: Chest radiograph, portable AP view. DATE: 03/18/2023 3:11 PM INDICATION: 88-year-old female, fall. Sudden onset chest pain. COMPARISON: November 17, 2022. FINDINGS: Heart size and mediastinal contours are grossly unchanged. There is no identified pneumothorax. There is no large pleural effusion. There is no identified focal airspace consolidation. IMPRESSION: 1. No identified acute cardiopulmonary abnormality. Dictated by: Dictated on workstation # [id number] Dict: 03/18/23 1517 Trans: 03/18/23 1537 [facility] [id number] Interpreted by: CURRY KING MD Electronically signed by: CURRY KING MD 03/18/23 1537 Diagonstic Imaging: CT Comments [facility] [place] NAME: MK RÍOS [facility] REC#: [id number] PT STATUS: REG ER : 1935 PHYSICIAN: KAYCEE LEBLANC MD ADMIT DATE: 03/18/23/ER Signed Date of Exam:03/18/23 CT HEAD/CERVICAL SPINE WO PROCEDURE: CT head and CT cervical spine without contrast. TECHNIQUE: Multiple contiguous axial images were obtained through the brain and cervical spine without the use of intravenous contrast. Sagittal and coronal reformations through the cervical spine were then performed. Auto Exposure Controls were utilized during the CT exam to meet ALARA standards for radiation dose reduction. INDICATION: Fall. Altered mental status. Head and neck pain. COMPARISON: 11/17/2022. FINDINGS: CT head: No large acute territorial ischemia, mass, or hemorrhage. No midline shift or mass effect. Decreased attenuation is seen in the periventricular and subcortical white matter. The ventricles and cortical sulci are prominent. The basilar cisterns are patent and unremarkable. The calvarium is intact. The visualized paranasal sinuses are clear. 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 CT cervical spine: No acute fracture or dislocation is seen in the cervical spine. No focal osseous lesions. Vertebral body heights are well-maintained. The craniocervical junction is well-maintained. Mild degenerative changes are seen in the cervical spine with disc osteophyte complexes and uncovertebral arthropathy. Multinodular thyroid is seen. The lungs are clear. IMPRESSION: 1. No hemorrhage or focal intra-axial mass. No CT evidence of large acute territorial ischemia. 2. No acute fracture or dislocation in the cervical spine. 3. Generalized parenchymal volume loss with chronic microvascular disease. 4. Nodular thyroid. Recommend correlation with TSH levels and if indicated thyroid ultrasound to further evaluate. Dictated by: Dictated on workstation # [id number] Dict: 03/18/23 1441 Trans: 03/18/23 1452 [place] [id number] Interpreted by: VIMAL MILLER DO Electronically signed by: VIMAL MILLER DO 03/18/23 145 Comments [facility] [place] NAME: MK RÍOS [facility] REC#: [id number] PT STATUS: REG ER : 1935 PHYSICIAN: KAYCEE LEBLANC MD ADMIT DATE: 03/18/23/ER Signed Date of Exam:03/18/23 PELVIS/DAVION HIPS 3-4 VIEWS EXAMINATION: Pelvis, single view. Right hip, 2 views. Left hip, 2 views. COMPARISON: April 27, 2020. HISTORY: 88-year-old female, fall. Bilateral hip pain. FINDINGS: There are degenerative related changes at the pubic symphysis. The pubic symphysis and sacral joints are normally aligned. The scoliosis. There are multilevel degenerative changes of the spine. The hips are not dislocated. There is no joint space loss of either hip, osteophyte formation, or subchondral cystic change. There is no identified acute fracture. IMPRESSION: 1. No acute bony abnormality of the pelvis or either hip. Dictated by: Dictated on workstation # [id number] Dict: 03/18/23 1514 Trans: 03/18/23 1537 [place] [id number] Interpreted by: CURRY KING MD Electronically signed by: CURRY KING MD 03/18/23 1537 Critical Care Note Critical Care Start Time: 13:50 Stop Time: 15:30 Total Time (minutes) 45min critical care time in the eval and management of this patient with DKA - time includes initial eval with fluid resuscitation; independent history from family; initiation of treatment for DKA, review and interpretation of labs, imaging; discussion with admitting provider Departure Communication (Admissions) Time/Spoke to Admitting Phy: 15:[address] West - Hospitalist [facility]; admit IP Impression Primary Impression: DKA (diabetic ketoacidosis) Qualified Codes: E13.10 - Other specified diabetes mellitus with ketoacidosis without coma Additional Impressions: Fall Qualified Codes: W19.XXXA - Unspecified fall, initial encounter JULITO (acute kidney injury) Disposition: ADMITTED INPATIENT Condition: Critical Admissions Decision to Admit Reason: Admit from ER (General) Decision to Admit/Date: Mar 18, 2023 Time/Decision to Admit Time: 15:38 Departure-Patient Inst. Referrals: TINA NELSON MD (PCP/Family) Primary Care Physician Copy Copies To 1: TINA NELSON MD, KATHRYN M MD Mar 18, 2023 14:05
[2023-03-18 14:13] LABS: BASOPHILS % (AUTO) 0 % (0-10); EOSINOPHILS % (AUTO) 0 % (0-10); HEMATOCRIT 46 % (35-52); HEMOGLOBIN 15.9 g/dL (11.5-16.0); LYMPHOCYTES # (AUTO) 0.8 X 10^3 (1.0-4.0); LYMPHOCYTES % (AUTO) 6 % (12-44); MEAN CORPUSCULAR HEMOGLOBIN 33 pg (25-34); MEAN CORPUSCULAR HGB CONC 34 g/dL (32-36); MEAN CORPUSCULAR VOLUME 96 fL (80-99); MEAN PLATELET VOLUME 12.2 fL (9.0-12.2); MONOCYTES # (AUTO) 0.8 X 10^3 (0.0-1.0); MONOCYTES % (AUTO) 6 % (0-12); NEUTROPHILS # (AUTO) 12.8 X 10^3 (1.8-7.8); NEUTROPHILS % (AUTO) 88 % (42-75); PLATELET COUNT 236 10^3/uL (130-400); WHITE BLOOD COUNT 14.5 10^3/uL (4.3-11.0)
[2023-03-18 14:15] LABS: POTASSIUM 4.4 MMOL/L (3.6-5.0)
[2023-03-18 14:16] LABS: CALCIUM 10.3 MG/DL (8.5-10.1)
[2023-03-18 14:21] LABS: CREATININE SERUM 2.02 MG/DL (0.60-1.30)
[2023-03-18] MEDS ORDERED: NS IV 1000 ML 1,000 ML IV STA (14:34)
[2023-03-18] MEDS ORDERED: inSUlin (REGULAR) HUMAN 1 UNIT/0.01 ML (CHARGE PER UNIT) SC STA (14:35)
[2023-03-18] MEDS ORDERED: inSUlin (REGULAR) HUMAN 1 UNIT/0.01 ML (CHARGE PER UNIT) IV STA (14:35)
[2023-03-18 14:54] LABS: BAND NEUTROPHILS 0 %; BASOPHILS % (MANUAL) 0 %; EOSINOPHILS % (MANUAL) 0 %; LYMPHOCYTES % (MANUAL) 6 %; MONOCYTES % (MANUAL) 5 %; NEUTROPHILS % (MANUAL) 89 %; RBC MORPH NORMAL
--- NOTE | 2023-03-18 14:54 | Diagnostic Imaging Report ---
PROCEDURE: CT head and CT cervical spine without contrast. TECHNIQUE: Multiple contiguous axial images were obtained through the brain and cervical spine without the use of intravenous contrast. Sagittal and coronal reformations through the cervical spine were then performed. Auto Exposure Controls were utilized during the CT exam to meet ALARA standards for radiation dose reduction. INDICATION: Fall. Altered mental status. Head and neck pain. COMPARISON: 11/17/2022. FINDINGS: CT head: No large acute territorial ischemia, mass, or hemorrhage. No midline shift or mass effect. Decreased attenuation is seen in the periventricular and subcortical white matter. The ventricles and cortical sulci are prominent. The basilar cisterns are patent and unremarkable. The calvarium is intact. The visualized paranasal sinuses are clear. 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 CT cervical spine: No acute fracture or dislocation is seen in the cervical spine. No focal osseous lesions. Vertebral body heights are well-maintained. The craniocervical junction is well-maintained. Mild degenerative changes are seen in the cervical spine with disc osteophyte complexes and uncovertebral arthropathy. Multinodular thyroid is seen. The lungs are clear. IMPRESSION: 1. No hemorrhage or focal intra-axial mass. No CT evidence of large acute territorial ischemia. 2. No acute fracture or dislocation in the cervical spine. 3. Generalized parenchymal volume loss with chronic microvascular disease. 4. Nodular thyroid. Recommend correlation with TSH levels and if indicated thyroid ultrasound to further evaluate. Dictated by: Dictated on workstation # [id number]
--- NOTE | 2023-03-18 15:17 | Diagnostic Imaging Report ---
EXAMINATION: Pelvis, single view. Right hip, 2 views. Left hip, 2 views. COMPARISON: April 27, 2020. HISTORY: 88-year-old female, fall. Bilateral hip pain. FINDINGS: There are degenerative related changes at the pubic symphysis. The pubic symphysis and sacral joints are normally aligned. The scoliosis. There are multilevel degenerative changes of the spine. The hips are not dislocated. There is no joint space loss of either hip, osteophyte formation, or subchondral cystic change. There is no identified acute fracture. IMPRESSION: 1. No acute bony abnormality of the pelvis or either hip. Dictated by: Dictated on workstation # [id number]
--- NOTE | 2023-03-18 15:19 | Diagnostic Imaging Report ---
EXAMINATION: Chest radiograph, portable AP view. DATE: 03/18/2023 3:11 PM INDICATION: 88-year-old female, fall. Sudden onset chest pain. COMPARISON: November 17, 2022. FINDINGS: Heart size and mediastinal contours are grossly unchanged. There is no identified pneumothorax. There is no large pleural effusion. There is no identified focal airspace consolidation. IMPRESSION: 1. No identified acute cardiopulmonary abnormality. Dictated by: Dictated on workstation # [id number]
[2023-03-18 16:17] LABS: CLARITY,URINE CLEAR; COLOR,URINE YELLOW; GLUCOSE, URINE (UA) 2+ (NEGATIVE); PROTEIN,URINE TRACE (NEGATIVE)
[2023-03-18 16:18] LABS: BACTERIA,URINE TRACE /HPF; BILIRUBIN,URINE 1+ (NEGATIVE); KETONES,URINE 4+ (NEGATIVE); LEUKOCYTE ESTERASE ,URINE NEGATIVE (NEGATIVE); NITRITE,URINE NEGATIVE (NEGATIVE); WBC,URINE 0-2 /HPF
[2023-03-18] MEDS ORDERED: NS IV 500 ML 500 ML IV PRN (16:30)
[2023-03-18] MEDS ORDERED: ANTACID SUSPENSION 30 ML UDC PO PRN (16:30)
[2023-03-18] MEDS ORDERED: HYDROmorphone INJECTION 2 MG/ML VIAL IV PRN (16:30)
[2023-03-18] MEDS ORDERED: cloNIDine 0.1 MG TABLET PO PRN (16:30)
[2023-03-18] MEDS ORDERED: ONDANSETRON 4 MG ORAL DISSOLVE TABLET PO PRN (16:30)
[2023-03-18] MEDS ORDERED: LIDOCAINE UROJET 2% GEL 10 ML PKG TOP ONE (16:30)
[2023-03-18] MEDS ORDERED: ACETAMINOPHEN 325 MG TABLET PO PRN (16:30)
[2023-03-18] MEDS ORDERED: MILK OF MAGNESIA 400 MG/5 ML 30 ML UDC PO PRN (16:30)
[2023-03-18] MEDS ORDERED: diphenhydrAMINE INJ 50 MG/ML VIAL IVP PRN (16:30)
[2023-03-18] MEDS ORDERED: hydrALAZINE INJECTION 20 MG/ML VIAL IV PRN (16:30)
[2023-03-18] MEDS ORDERED: CALCIUM CARBONATE 500 MG CHEW TABLET PO PRN (16:30)
[2023-03-18] MEDS ORDERED: NS IV 1000 ML 1,000 ML IV SCH (16:30)
[2023-03-18] MEDS ORDERED: BISACODYL 10 MG SUPPOSITORY PR PRN (16:30)
[2023-03-18] MEDS ORDERED: LACTULOSE SYRUP 10GM/15ML 30ML UDC PO PRN (16:30)
[2023-03-18] MEDS ORDERED: diphenhydrAMINE 25 MG TABLET PO PRN (16:30)
[2023-03-18] MEDS ORDERED: oxyCODONE IMMEDIATE RELEASE 5 MG TABLET PO PRN (16:30)
[2023-03-18] MEDS ORDERED: ONDANSETRON INJECTION 4 MG/2 ML (SDV) IV PRN (16:30)
[2023-03-18 16:50] VITALS: BP 136/83
[2023-03-18] MEDS: POTASSIUM CL 10MEQ/50ML IVPB 50 ML IV SCH ×5 (17:00→23:34)
[2023-03-18] MEDS: 1/2 NS IV SOLUTION 1000 ML 1,000 ML IV SCH ×2 (17:00→22:37)
[2023-03-18] MEDS: ENOXAPARIN 30 MG/0.3 ML SYRINGE SC SCH (17:01)
[2023-03-18 17:20] LABS: ALBUMIN 3.7 GM/DL (3.2-4.5); POTASSIUM 3.7 MMOL/L (3.6-5.0)
[2023-03-18 17:22] LABS: CALCIUM 9.3 MG/DL (8.5-10.1)
[2023-03-18 17:23] LABS: TOTAL PROTEIN 6.5 GM/DL (6.4-8.2)
[2023-03-18 17:25] LABS: BILIRUBIN,TOTAL 1.1 MG/DL (0.1-1.0)
[2023-03-18 17:27] LABS: CREATININE SERUM 1.76 MG/DL (0.60-1.30)
[2023-03-18 17:28] LABS: BILIRUBIN,DIRECT 0.4 MG/DL (0.0-0.3); BILIRUBIN,INDIRECT 0.7 MG/DL
--- NOTE | 2023-03-18 18:06 | Tele-ICU Progress Note ---
Subjective Date Seen by a Provider: Mar 18, 2023 Subjective/Events-last exam (Tele-ICU Physician , consultation as per request of PCP Service provided via interactive audio and video telecommunications E-CARE system to a patient admitted to ICU bed in [facility]. Available chart/ vitals / labs / Images reviewed H&P is from ER notes Patient's information available about PMH, Shx, Fhx allergy reviewed inEMR. ROS as per chart and RN report Now in ICU, hemodynamically stable Video assessment done using teleICU camera, rest of exam as per RN Discussed with RN. Hospital course: 88F:- unwittnessed Fall, AMS, DKA A/P DKA *Insulin drip, continue to monitor for resolution of acidosis, AG and electroly alex. Continue hydration. *Tx Gastroparesis - IVF given as per proptocol Confusion due to renetta - improved now AAO x4 - CTH - no acute finding JULITO - hydration - montano in place Very mild rabdo, cpk 800 - cont hydration Leukocytosis - reactive, chest x-ray was normal , UA unremarkable >off ABX , follow Lines : pwr , (Central Line Necessity Reviewed) Montano: 03/18 OG: Nutrition: npo Analgesia: Anxiety/ delirium VTE Prophylaxis: alea Stress Ulcer Prophylaxis: na Plans in collaboration with bedside consultants and IM MDs. Discussed with RN to reach out if any questions or concerns A total of 20 minutes of critical care time was devoted to this patient today, required to treat and/or prevent further deterioration of critical care condition ( as above ) . I am remotely monitoring this patient from another state. I am unable to do the bedside exam, and history/physical and pertinent information is taken from other notes in the computer and bedside staff. . Sepsis Event Evaluation Height, Weight, BMI Height: 5'0.00" Weight: 133lbs. 0.0oz. 60.393382dv; 29.13 BMI Method:Stated Exam Exam Patient acknowledged, consented, and participated in this virtual visit which was conducted using real time audio/video Vital Signs Date Time Temp Pulse Resp B/P (MAP) Pulse Ox O2 Delivery O2 Flow Rate FiO2 03/18/23 17:00 105 20 152/72 (102) 95 Room Air 03/18/23 16:50 35.6 115 98 03/18/23 16:49 115 03/18/23 16:15 115 24 147/81 (92) 98 Room Air 03/18/23 15:50 35.6 83 22 136/83 98 Room Air 03/18/23 13:42 36.4 107 20 181/96 (124) 97 Room Air Height & Weight Height: 5'0.00" Weight: 133lbs. 0.0oz. 60.401490iw; 29.13 BMI Method:Stated General Appearance: Other Gastrointestinal: normal bowel sounds, non tender, soft Results Lab Laboratory Tests 03/18/23 13:49 03/18/23 16:59 Assessment/Plan Assessment/Plan 1 HITESH REYES MD Mar 18, 2023 18:06
[2023-03-18 19:42] LABS: CALCIUM 8.7 MG/DL (8.5-10.1); CREATININE SERUM 1.47 MG/DL (0.60-1.30); POTASSIUM 3.8 MMOL/L (3.6-5.0)
[2023-03-18] MEDS: DOCUSATE SODIUM 100 MG CAPSULE PO SCH (21:03)
[2023-03-18] MEDS: MELATONIN 3 MG TABLET PO PRN (21:03)
[2023-03-18] MEDS: SENNOSIDES 8.6 MG TABLET PO SCH (21:03)
[2023-03-19] MEDS: D5 1/2 NS 1,000 ML IV 1,000 ML IV SCH ×3 (00:15→13:08)
[2023-03-19 01:20] LABS: CALCIUM 8.5 MG/DL (8.5-10.1); CREATININE SERUM 1.25 MG/DL (0.60-1.30); POTASSIUM 3.8 MMOL/L (3.6-5.0)
[2023-03-19] MEDS: POTASSIUM CL 10MEQ/50ML IVPB 50 ML IV SCH ×11 (01:25→23:07)
[2023-03-19] MEDS: 1/2 NS IV SOLUTION 1000 ML 1,000 ML IV SCH ×5 (04:30→20:35)
[2023-03-19 04:40] LABS: ABG BASE EXCESS -7.6 MMOL/L (-2.5-2.5); ABG OXYGEN SATURATION 99 % (94-100); ABG PCO2 24 MMHG (35-45); ABG PH 7.41 (7.37-7.43); ABG PO2 106 MMHG (79-93); ABG TCO2 15.9 MMOL/L (21.0-31.0)
[2023-03-19 04:43] LABS: INSPIRED O2 RA; VENTILATOR NO
[2023-03-19 04:54] LABS: BASOPHILS % (AUTO) 0 % (0-10); EOSINOPHILS % (AUTO) 0 % (0-10); HEMATOCRIT 38 % (35-52); HEMOGLOBIN 12.9 g/dL (11.5-16.0); LYMPHOCYTES # (AUTO) 1.8 10^3/uL (1.0-4.0); LYMPHOCYTES % (AUTO) 14 % (12-44); MEAN CORPUSCULAR HEMOGLOBIN 33 pg (25-34); MEAN CORPUSCULAR HGB CONC 34 g/dL (32-36); MEAN CORPUSCULAR VOLUME 97 fL (80-99); MEAN PLATELET VOLUME 12.1 fL (9.0-12.2); MONOCYTES % (AUTO) 8 % (0-12); NEUTROPHILS # (AUTO) 9.7 10^3/uL (1.8-7.8); NEUTROPHILS % (AUTO) 77 % (42-75); PLATELET COUNT 185 10^3/uL (130-400); WHITE BLOOD COUNT 12.6 10^3/uL (4.3-11.0)
[2023-03-19 05:14] LABS: ALBUMIN 3.2 GM/DL (3.2-4.5); CALCIUM 8.3 MG/DL (8.5-10.1); CREATININE SERUM 1.13 MG/DL (0.60-1.30); MAGNESIUM 1.4 MG/DL (1.6-2.4); PHOSPHORUS 1.6 MG/DL (2.3-4.7); POTASSIUM 3.7 MMOL/L (3.6-5.0); TOTAL PROTEIN 5.4 GM/DL (6.4-8.2)
[2023-03-19] MEDS: MAGNESIUM 1 GM/100 ML IVPB 100 ML IV SCH (05:41)
[2023-03-19] MEDS: POTASSIUM CHLORIDE 20 MEQ TABLET PO SCH (05:41)
[2023-03-19] MEDS ORDERED: FLU HIGH DOSE (65+ YOA) 240 MCG/0.7 ML 2023-24 (FLUZONE) IM ONE (07:30)
[2023-03-19 08:47] LABS: CALCIUM 8.2 MG/DL (8.5-10.1); CREATININE SERUM 1.04 MG/DL (0.60-1.30)
--- NOTE | 2023-03-19 08:55 | Diagnostic Imaging Report ---
EXAMINATION: Chest, 1 view. HISTORY: Fall. Chest pain. Altered mental status. COMPARISON: 03/18/2023. FINDINGS: Please note, the lateral aspect of the right chest is not included on this exam. The lung volumes are normal. No focal consolidation is seen. No large pleural effusion or pneumothorax is seen. Stable cardiac silhouette with stable congestion. No acute osseous abnormality is seen. IMPRESSION: Stable cardiomegaly and congestion. Dictated by: Dictated on workstation # [id number]
[2023-03-19] MEDS ORDERED: MAGNESIUM 2 GM/50 ML IVPB 50 ML IV ONE (09:30)
--- NOTE | 2023-03-19 09:31 | Tele-ICU Progress Note ---
Subjective Date Seen by a Provider: Mar 19, 2023 Time Seen by a Provider: 09:31 Subjective/Events-last exam (Tele-ICU Physician , Progress Note ) Service provided via interactive audio and video telecommunications E-CARE system to a patient admitted to ICU bed in [facility]. Patient is seen today due to persistent need of ICU care Available chart/ vitals / labs / Images reviewed Video assessment done using teleICU camera, rest of exam as per RN Discussed with RN Events overnight : Afebrile hemodynamically stable Respiratory - I/O = Drips: Pressors- no Hospital course: 88F:- unwittnessed Fall, AMS, DKA A/P DKA *Insulin drip, continue to monitor for resolution of acidosis, AG and electrolytes. Continue hydration. *Tx Gastroparesis - IVF given as per proptocol Confusion due to above - RESOLVED - improved now AAO x4 - CTH - no acute finding JULITO - RESOLVED - hydration - montano in place Very mild rabdo, cpk 800 - cont hydration Leukocytosis - reactive, chest x-ray was normal , UA unremarkable >off ABX , follow Lines : pwr , (Central Line Necessity Reviewed) Montano: 03/18 OG: Nutrition: npo Analgesia: Anxiety/ delirium VTE Prophylaxis: alea Stress Ulcer Prophylaxis: na Plans in collaboration with bedside consultants and IM MDs. Discussed with RN to reach out if any questions or concerns A total of 20 minutes of critical care time was devoted to this patient today, required to treat and/or prevent further deterioration of critical care condition ( as above ) . I am remotely monitoring this patient from another state. I am unable to do the bedside exam, and history/physical and pertinent information is taken from other notes in the computer and bedside staff. . Sepsis Event Evaluation Height, Weight, BMI Height: 5'0.00" Weight: 133lbs. 0.0oz. [id number]; 29.13 BMI Method:Stated Exam Exam Patient acknowledged, consented, and participated in this virtual visit which was conducted using real time audio/video Vital Signs Date Time Temp Pulse Resp B/P (MAP) Pulse Ox O2 Delivery O2 Flow Rate FiO2 03/19/23 09:00 96 18 117/108 (111) 95 Room Air 03/19/23 08:30 36.6 03/19/23 08:00 92 17 103/65 (78) 94 Room Air 03/19/23 07:00 95 21 126/70 (88) 96 Room Air 03/19/23 07:00 95 03/19/23 06:00 92 16 129/73 (88) 94 Room Air 03/19/23 05:00 90 26 125/80 (95) 94 Room Air 03/19/23 04:26 96 37 131/79 (86) 97 Room Air 03/19/23 04:18 97 Room Air 03/19/23 04:06 36.5 03/19/23 04:00 96 22 135/127 (129) 94 Room Air 03/19/23 03:00 24 123/71 (89) 95 Room Air 03/19/23 02:00 98 26 129/63 (88) 94 Room Air 03/19/23 01:00 93 26 125/67 (86) 95 Room Air 03/19/23 01:00 93 03/19/23 00:05 37.2 03/19/23 00:00 101 19 102/99 (100) 95 Room Air 03/18/23 23:59 97 Room Air 03/18/23 23:30 104 16 101/77 (85) 95 Room Air 03/18/23 23:00 101 24 126/74 (88) 96 Room Air 03/18/23 22:30 103 18 109/94 (96) 96 Room Air 03/18/23 22:00 96 23 115/59 (83) 94 Room Air 03/18/23 21:30 98 16 122/63 (98) 94 Room Air 03/18/23 21:00 102 24 140/64 (91) 94 Room Air 03/18/23 20:30 105 14 122/95 (104) 96 Room Air 03/18/23 20:05 97 Room Air 03/18/23 20:00 105 20 140/89 (100) 97 Room Air 03/18/23 19:51 36.8 03/18/23 19:00 109 03/18/23 18:00 98 19 144/87 (105) 97 Room Air 03/18/23 17:00 105 20 152/72 (102) 95 Room Air 03/18/23 16:50 35.6 115 98 03/18/23 16:49 115 03/18/23 16:15 115 24 147/81 (92) 98 Room Air 03/18/23 15:50 35.6 83 22 136/83 98 Room Air 03/18/23 13:42 36.4 107 20 181/96 (124) 97 Room Air I & O 03/19/23 07:00 Intake Total 2200 ml Output Total 925 ml Balance 1275 ml Height & Weight Height: 5'0.00" Weight: 133lbs. 0.0oz. 60.627652iv; 29.13 BMI Method:Stated General Appearance: Other Gastrointestinal: normal bowel sounds, non tender, soft Results Lab Laboratory Tests 03/18/23 00:45 03/18/23 13:49 03/18/23 16:59 03/18/23 19:23 03/19/23 04:07 03/19/23 08:10 Assessment/Plan Assessment/Plan 1 HITESH REYES MD Mar 19, 2023 09:31
[2023-03-19] MEDS: DOCUSATE SODIUM 100 MG CAPSULE PO SCH ×2 (09:52→20:32)
[2023-03-19] MEDS: SENNOSIDES 8.6 MG TABLET PO SCH ×2 (09:52→20:32)
--- NOTE | 2023-03-19 09:59 | Occupational Therapy Eval ---
OT Evaluation-General/PLF Medical Diagnosis Admission Date Mar 18, 2023 at 16:01 Medical Diagnosis: DKA Onset Date: Mar 18, 2023 Therapy Diagnosis Therapy Diagnosis: weakness, confusion Height/Weight Height (Feet): 5 Height (Inches): 0.00 Weight (Pounds): 133 Weight (Ounces): 0.0 Precautions Precautions/Isolations: Fall Prevention, Standard Precautions Referral Referral Reason: Activity Tolerance, Self Care, Evaluation/Treatment Medical History Pertinent Medical History: Arthritis, DM, GERD, HTN, Hypothroidism Additional Medical History 88-year-old female who presents to the emergency room with a chief complaint of fall at home. According to her niece they spoke via texting last night as "usual". This morning they did not hear from her so she went by after caodaism and found her on the floor outside the bathroom door.. Unknown "downtime". Patient apparently was confused and altered unlike her normal self. EMS reported a blood sugar "too high to read". She is a known diabetic. Patient does not recall any falls or that she even fell last night (or this morning). She is extremely hard of hearing, hears only with loud voice from the left. She complains of pain to the bilateral hips. History is extremely difficult to obtain secondary to her hard of hearing state Social History Home: Apartment Current Living Status: Alone ADL-Prior Level of Function SCALE: Activities may be completed with or without assistive devices. 3-Shgtcwptjw-cahsufr completes the activity by him/herself with no assistance from a helper. 5-Set-up or Clean-up Assistance-helper sets up or cleans up; patient completes activity. [place] assists only prior to or following the activity. 4-Supervision or Touching Assistance-helper provides verbal cues and/or touching/steadying and/or contact guard assistance as patient completes activity. Assistance may be provided throughout the activity or intermittently. 3-Partial/Moderate Assistance-helper does LESS THAN HALF the effort. [place] lifts, holds or supports trunk or limbs, but provides less than half the effort. 2-Substantial/Maximal Assistance-helper does MORE THAN HALF the effort. [place] lifts or holds trunk or limbs and provides more than half the effort. 1-Bpibfkbft-qrzpyy does ALL the effort. Patient does none of the effort to complete the activity. Or, the assistance of 2 or more helpers is required for the patient to complete the activity. If activity was not attempted, code reason: 7-Patient Refused. 9-Not Applicable-not attempted and the patient did not perform the activity before the current illness, exacerbation or injury. 10-Not Attempted due to Environmental Limitations-(lack of equipment, weather restraints, etc.). 88-Not Attempted due to Medical Conditions or Safety Concerns. Self Care: Needed Some Help (family assist) Functional Cognition: Needed Some Help Drive Self: Yes OT Current Status Subjective Hard of hearing, confused. Mental Status/Objective Patient Orientation: Person Attachments: Penny Catheter, IV, Telemetry Current Upper Extremity ROM WFLs BUE Upper Extremity Coordination FAIR, poor sitting balance, leans right and posteriorly Upper Extremity Strength +3/5 grossly ADL-Treatment Eating (QC): 5 Oral Hygiene (QC): 4 Upper Body Dressing (QC): 3 Lower Body Dressing (QC): 3 On/Off Footwear (QC): 2 Toileting Hygiene (QC): 2 Difficulty following commands and motor planning for tasks Education OT Patient Education: Correct positioning, Modified ADL techniques, Progress toward Goal/Update tx plan, Purpose of tx/functional activities, Reviewed precautions, Rehab process, Safety issues, Transfer techniques, Use of adapted equipment Teaching Recipient: Patient Teaching Methods: Demonstration, Discussion Response to Teaching: Reinforcement Needed OT Resource Development Manager Goals Resource Development Manager Goals Eating (QC): 5 Oral Hygiene (QC): 5 Toileting Hygiene (QC): 4 Shower/Bathe Self (QC): 4 Upper Body Dressing (QC): 4 Lower Body Dressing (QC): 4 On/Off Footwear (QC): 4 1=Demonstrate adherence to instructed precautions during ADL tasks. 2=Patient will verbalize/demonstrate understanding of assistive devices/modifications for ADL. 3=Patient will improve strength/tolerance for activity to enable patient to perform ADL's. OT Education/Plan Problem List/Assessment Assessment: Decreased Activ Tolerance, Decreased Safety Aware, Decreased UE Strength, Impaired Cognition, Impaired Coordination, Impaired Funct Balance, Impaired Self-Care Skills Discharge Recommendations Plan/Recommendations: Continue POC Therapy Discharge Recommendati: Post Acute OT Treatment Plan/Plan of Care Treatment,Training & Education: Yes Patient would benefit from OT for education, treatment and training to promote independence in ADL's, mobility, safety and/or upper extremity function for ADL's. Plan of Care: ADL Retraining, Cognitive Retraining, Concurrent Therapy, Functional Mobility, Group Exercise/Act as Ind, UE Funct Exercise/Act, UE Neuromus Re-Ed/Coord Treatment Duration: Mar 23, 2023 Frequency: 3 times per week (3-5 times per week) Estimated Hrs Per Day: .25 hour per day Agreement: Yes Rehab Potential: Guarded Time Start Time: 09:38 Stop Time: 10:00 DATE: Mar 19, 2023 Total Time Billed (hr/min): 21 Billed Treatment Time EVM 21 DANGELO CAMPOS OT Mar 19, 2023 09:59
[2023-03-19] MEDS ORDERED: METF-397 PO (10:06)
[2023-03-19] MEDS ORDERED: MELO10CA3 PO (10:06)
--- NOTE | 2023-03-19 10:07 | Physical Therapy Evaluation ---
PT Evaluation-General Medical Diagnosis Admission Date Mar 18, 2023 at 16:01 Medical Diagnosis: DKA Onset Date: Mar 18, 2023 Therapy Diagnosis Therapy Diagnosis: generalized weakness/impaired mobility Height/Weight Height (Feet): 5 Height (Inches): 0.00 Weight (Pounds): 133 Weight (Ounces): 0.0 Precautions Precautions/Isolations: Fall Prevention, Standard Precautions Weight Bear Status Right Lower Extremity: Right Weight Bearing/Tolerated Left Lower Extremity: Left Weight Bearing/Tolerated Referral Physician: Jenna Reason for Referral: Evaluation/Treatment Medical History Pertinent Medical History: Arthritis, DM, GERD, HTN, Hypothroidism Current History EMS secondary to unwitnessed fall, AMS Reviewed History: Yes Social History Home: Jail Prior Prior Level of Function SCALE: Activities may be completed with or without assistive devices. 6-Uxvhavevil-ltcvjim completes the activity by him/herself with no assistance from a helper. 5-Set-up or Clean-up Assistance-helper sets up or cleans up; patient completes activity. [place] assists only prior to or following the activity. 4-Supervision or Touching Assistance-helper provides verbal cues and/or touching/steadying and/or contact guard assistance as patient completes activity. Assistance may be provided throughout the activity or intermittently. 3-Partial/Moderate Assistance-helper does LESS THAN HALF the effort. [place] lifts, holds or supports trunk or limbs, but provides less than half the effort. 2-Substantial/Maximal Assistance-helper does MORE THAN HALF the effort. [place] lifts or holds trunk or limbs and provides more than half the effort. 0-Cceivqwfj-ojigwz does ALL the effort. Patient does none of the effort to complete the activity. Or, the assistance of 2 or more helpers is required for the patient to complete the activity. If activity was not attempted, code reason: 7-Patient Refused. 9-Not Applicable-not attempted and the patient did not perform the activity before the current illness, exacerbation or injury. 10-Not Attempted due to Environmental Limitations-(lack of equipment, weather restraints, etc.). 88-Not Attempted due to Medical Conditions or Safety Concerns. Bed Mobility: 4 Transfers (B,C,W/C): 4 Gait: 4 Indoor Mobility (Ambulation): Needed Some Help Prior Devices Use: Walker PT Evaluation-Current Subjective Patient agrees to therapy ROM/Strength ROM Lower Extremities bilateral LE WFL Strength Lower Extremities 3+/5 grossly bilateral LE all planes Integumentary/Posture Bladder Incontinence: Penny Cath Posture WFL Neuromuscular (Tone, Coordination, Reflexes) slightly diminished coordination Sensory Vision: Functional Hearing: Impaired Transfers Lying to Sitting/Side of Bed(Q: 3 Sit to Stand (QC): 3 Chair/Kfi-gr-Iujqu Xfer(QC): 3 Gait Does the Patient Walk?: No and Walking Goal IS indicated Mode of Locomotion: Walk Anticipated Mode of Locomotion: Walk Walk 10 feet (QC): 3 Walk 50 ft with 2 Turns(QC): 88 Distance: 10' Gait Assistive Device: FWW Comments/Gait Description slightly unsteady Balance Sitting Static: Fair Sitting Dynamic: Fair Standing Static: Fair Standing Dynamic: Fair Assessment/Needs Patient will benefit from skilled PT to address functional strength and mobility to improve current LOF. Patient currently requires minimal assist for safety with all mobility Rehab Potential: Fair PT Mcc Goals Mcc Goals PT Mcc Goals Time Frame: Mar 31, 2023 Roll Left & Right (QC): 4 Sit to Lying (QC): 4 Lying-Sitting on Side/Bed(QC): 4 Sit to Stand (QC): 4 Chair/Wsr-ap-Satcd Xfer(QC): 4 Toilet Transfer (QC): 4 Walk 10 feet (QC): 4 Walk 50ft with 2 Turns (QC): 4 Walk 150 ft (QC): 4 PT Plan Problem List Problem List: Activity Tolerance, Functional Strength, Safety, Balance, Gait, Transfer, Bed Mobility Treatment/Plan Treatment Plan: Continue Plan of Care Treatment Plan: Bed Mobility, Education, Functional Activity Kevin, Functional Strength, Gait, Safety, Therapeutic Exercise, Transfers Treatment Duration: Mar 31, 2023 Frequency: 5 times per week Estimated Hrs Per Day: .25 hour per day Time Time In: 856 Time Out: 906 DATE: Mar 19, 2023 Total Billed Treatment Time: 10 [facility] SHERRON MCKEON PT Mar 19, 2023 10:07
--- NOTE | 2023-03-19 11:50 | History & Physical ---
BRANDY SMITH 03/19/23 1150: History of Present Illness History of Present Illness Reason for visit/HPI CC: Fall at home HPI: Ms. Jeronimo is an 88 y/o female who fell at home the night of 03/17. She is extremely hard of hearing and has PMH of DM. She lives alone, but her niece checks in on her. 03/18 the niece did not hear from Ms. Jeronimo and went to her home to check on her. Ms. Jeronimo was found on the floor outside the bathroom door. She was reported confused and unlike herself when found down. EMS reported a blood glucose "too high to read". The PT does not recall any previous falls. CT shows nodular thyroid. There were no cardiopulmonary changes per chest XR. Today the patient has no complaints. She is alert and oriented x3 this morning, but obtaining a further history is difficult per hearing problems. Date of Admission Mar 18, 2023 at 16:01 I consulted on this patient on 03/19/23 11:44 Attending Physician Tina Sotvall MD Admitting Physician Admitting Physician: Allison Orellana DO Attending Physician: Allison Orellana DO Consult Allergies and Home Medications Allergies Coded Allergies: No Known Drug Allergies (Verified , 02/27/07) Patient Home Medication List Home Medication List Reviewed: Yes Acetaminophen (Acetaminophen) 500 Mg Tablet, 500 MG PO Q6HR PRN for PAIN-MILD Prescribed by: TINA LEON on 01/19/17 09 Amlodipine Besylate (Amlodipine Besylate) 10 Mg Tablet, 10 MG PO DAILY, (Reported) Entered as Reported by: TRACY VASQUEZ on 10/23/16 0911 Last Action: Reviewed Bisacodyl (Bisac-Evac) 10 Mg Supp.rect, 10 MG ME DAILY PRN for CONSTIPATION-4TH LINE Prescribed by: TINA LEON on 01/19/17 09 Cefdinir (Cefdinir) 300 Mg Capsule, 300 MG PO BID Prescribed by: PATRICIA KINGSTON on 02/11/17 180 Cefdinir (Cefdinir) 300 Mg Capsule, 300 MG PO BID Prescribed by: KAYCEE LEBLANC on 11/17/22 2257 Cholecalciferol (Vitamin D) 2,000 Unit Capsule, 2,000 UNIT PO DAILY, (Reported) Entered as Reported by: MAUREEN GAXIOLA on 02/09/10 08 Clonazepam (Clonazepam) 0.5 Mg Tablet, 0.5 MG PO UD Prescribed by: TINA LEON on 01/19/17952 Fluconazole (Fluconazole) 100 Mg Tablet, 100 MG PO DAILY Prescribed by: TINA LEON on 01/19/17952 Hydrocodone Bit/Acetaminophen (Lortab 5 Mg Tablet) 1 Each Tablet, 1 TAB PO TID Prescribed by: TINA LEON on 01/19/17952 Hyoscyamine Sulfate (Oscimin) 0.125 Mg Tablet, 0.125 MG PO AC PRN for SPASMS Prescribed by: TINA LEON on 01/19/17952 Insulin Glargine,Hum.rec.anlog (Lantus Solostar) 100 Unit/Ml (3 Ml) Insuln.pen, 38 UNITS SQ HS, (Reported) Entered as Reported by: TRACY VASQUEZ on 10/23/16910 Last Action: Edited L. Acidophilus/Bulgaricus (Floranex Tablet) 1 Each Tablet, 1 TAB.CHEW PO BID Prescribed by: TINA LEON on 01/19/17952 Levothyroxine Sodium (Levothyroxine Sodium) 50 Mcg Tablet, 50 MCG PO DAILY, (Reported) Entered as Reported by: TRACY VASQUEZ on 10/23/16910 Last Action: Reviewed Lisinopril (Lisinopril) 40 Mg Tablet, 40 MG PO DAILY, (Reported) Entered as Reported by: TRACY VASQUEZ on 10/23/16910 Last Action: Reviewed Lovastatin (Lovastatin) 40 Mg Tablet, 40 MG PO DAILY, (Reported) Entered as Reported by: TRACY VASQUEZ on 10/23/16910 Last Action: Reviewed Magnesium Oxide (Magnesium) 400 Mg Capsule, 800 MG PO Q48H, (Reported) Entered as Reported by: DIVINE SOL on 09/14/14 1210 Meloxicam, Submicronized (Meloxicam) 10 Mg Capsule, 15 MG PO DAILY, (Reported) Entered as Reported by: TRISHA PALOMO on 03/19/231005 Last Action: New Order Metformin HCl (Metformin HCl) 500 Mg Tablet, 500 MG PO DAILY, (Reported) Entered as Reported by: TRISHA PALOMO on 03/19/231005 Last Action: New Order Potassium Chloride (Klor-Con M20) 20 Meq Tab.er.prt, 40 MEQ PO DAILY@0700 Prescribed by: TINA LEON on 01/19/17 09 Simethicone (Simethicone) 80 Mg Tab.chew, 80 MG PO PCHS Prescribed by: TINA LEON on 01/19/17 0953 Past Xmrqwii-Mjcacf-Auqddx Hx Patient Social History Tobacco Use?: No Use of E-Cig and/or Vaping dev: No Substance use?: No Alcohol Use?: No Pt feels they are or have been: No Immunizations Up To Date Tetanus Booster (TDap): Unknown Hepatitis A: No Hepatitis B: No Seasonal Allergies Seasonal Allergies: No Current Status status: No status: No Advance Directives: Yes Advance Directive Location: Home Communicates: Verbally Primary Language: Russian Preferred Spoken Language: Russian Is interpretation needed?: No Sensory deficits: Vision impairment, Hearing impairment Implanted or Applied Medical D: Other Past Medical History Surgeries: Abdominal, Orthopedic Currently Using CPAP: No Currently Using BIPAP: No High Cholesterol, Hypertension Sexually Transmitted Disease: No HIV/AIDS: No UTI-Chronic Gastroesophageal Reflux, Diverticulosis Arthritis, Chronic Back Pain Diabetes, Insulin dep, Hypothyroidsim Cataract Loss of Vision: Denies Hearing Impairment: Hard of Hearing Blood Disorders: No Adverse Reaction/Blood Tranf: No Family Medical History Cardiovascular disease 19 FATHER Colon cancer 19 MOTHER Diabetes mellitus 19 MOTHER G8 BROTHER FH: cancer 19 MOTHER (brain) G8 BROTHER (prostate, ) G8 SISTER (breast) Myocardial infarction 19 FATHER Heart Disease Review of Systems Constitutional: No chills, No dizziness, No fever EENTM: dental problems Respiratory: No cough, No dyspnea on exertion Cardiovascular: No chest pain, No palpitations Gastrointestinal: no symptoms reported : No Physical Exam Vital Signs Vital Signs - First Documented 03/18/23 13:42 Temp 36.4 Pulse 107 Resp 20 B/P (MAP) 181/96 (124) Pulse Ox 97 O2 Delivery Room Air Capillary Refill : Height, Weight, BMI Height: 5'0.00" Weight: 133lbs. 0.0oz. 60.400238qd; 29.13 BMI Method:Stated General Appearance: No Apparent Distress HEENT: PERRL/EOMI Neck: Full Range of Motion Respiratory: Chest Non Tender, Lungs Clear, Normal Breath Sounds Cardiovascular: Regular Rate, Rhythm Gastrointestinal: Normal Bowel Sounds Extremity: Normal Capillary Refill Neurologic/Psychiatric: Alert, Oriented x3, Normal Mood/Affect Skin: Normal Color Assessment/Plan Assessment and Plan Assessment: Ms. Jeronimo is an 88 y/o female presenting for fall s/p DKA Plan: DKA -continue insulin drip -monitor for acidosis resolution -continue IV fluids -add beta hydroxybutyrate Confusion -s/p DKA -s/p fall. CT showed no findings -improved, A&O x3 JULITO - hydration - montano in place Leukocytosis -likely reactive -chest x-ray normal -UA unremarkable Transfer to fourth floor ALLISON ORELLANA DO 03/20/23 0451: History of Present Illness History of Present Illness Reason for visit/HPI Chief complaint: DKA with fall HPI: This is an 88-year-old female with past medical history of diabetes and presbycusis who presents after a fall at home found to be in DKA and placed on insulin drip in the ICU. Currently she is doing much better but having severe limitations with communication due to severe presbycusis. Date Seen by a Provider: Mar 19, 2023 Time Seen by a Provider: 10:00 Allergies and Home Medications Allergies Coded Allergies: No Known Drug Allergies (Verified , 02/27/07) Patient Home Medication List Home Medication List Reviewed: Yes Acetaminophen (Acetaminophen) 500 Mg Tablet, 500 MG PO Q6HR PRN for PAIN-MILD Prescribed by: TINA LEON on 01/19/17 09 Amlodipine Besylate (Amlodipine Besylate) 10 Mg Tablet, 10 MG PO DAILY, (Reported) Entered as Reported by: TRACY VASQUEZ on 10/23/16 09 Last Action: Reviewed Bisacodyl (Bisac-Evac) 10 Mg Supp.rect, 10 MG ME DAILY PRN for CONSTIPATION-4TH LINE Prescribed by: TINA LEON on 01/19/17 09 Cefdinir (Cefdinir) 300 Mg Capsule, 300 MG PO BID Prescribed by: PATRICIA KINGSTON on 02/11/17 180 Cefdinir (Cefdinir) 300 Mg Capsule, 300 MG PO BID Prescribed by: KAYCEE LEBLANC on 11/17/22 382 Cholecalciferol (Vitamin D) 2,000 Unit Capsule, 2,000 UNIT PO DAILY, (Reported) Entered as Reported by: MAUREEN GAXIOLA on 02/09/10 0803 Clonazepam (Clonazepam) 0.5 Mg Tablet, 0.5 MG PO UD Prescribed by: TINA LEON on 01/19/17952 Fluconazole (Fluconazole) 100 Mg Tablet, 100 MG PO DAILY Prescribed by: TINA LEON on 01/19/17952 Hydrocodone Bit/Acetaminophen (Lortab 5 Mg Tablet) 1 Each Tablet, 1 TAB PO TID Prescribed by: TINA LEON on 01/19/17952 Hyoscyamine Sulfate (Oscimin) 0.125 Mg Tablet, 0.125 MG PO AC PRN for SPASMS Prescribed by: TINA LEON on 01/19/17952 Insulin Glargine,Hum.rec.anlog (Lantus Solostar) 100 Unit/Ml (3 Ml) Insuln.pen, 38 UNITS SQ HS, (Reported) Entered as Reported by: TRACY VASQUEZ on 10/23/16910 Last Action: Edited L. Acidophilus/Bulgaricus (Floranex Tablet) 1 Each Tablet, 1 TAB.CHEW PO BID Prescribed by: TINA LEON on 01/19/17952 Levothyroxine Sodium (Levothyroxine Sodium) 50 Mcg Tablet, 50 MCG PO DAILY, (Reported) Entered as Reported by: TRACY VASQUEZ on 10/23/16910 Last Action: Reviewed Lisinopril (Lisinopril) 40 Mg Tablet, 40 MG PO DAILY, (Reported) Entered as Reported by: TRACY VASQUEZ on 10/23/16910 Last Action: Reviewed Lovastatin (Lovastatin) 40 Mg Tablet, 40 MG PO DAILY, (Reported) Entered as Reported by: TRACY VASQUEZ on 10/23/16910 Last Action: Reviewed Magnesium Oxide (Magnesium) 400 Mg Capsule, 800 MG PO Q48H, (Reported) Entered as Reported by: DIVINE SOL on 09/14/14 1210 Meloxicam, Submicronized (Meloxicam) 10 Mg Capsule, 15 MG PO DAILY, (Reported) Entered as Reported by: TRISHA PALOMO on 03/19/23 1006 Last Action: New Order Metformin HCl (Metformin HCl) 500 Mg Tablet, 500 MG PO DAILY, (Reported) Entered as Reported by: TRISHA PALOMO on 03/19/23 1006 Last Action: New Order Potassium Chloride (Klor-Con M20) 20 Meq Tab.er.prt, 40 MEQ PO DAILY@0700 Prescribed by: TINA LEON on 01/19/17 09 Simethicone (Simethicone) 80 Mg Tab.chew, 80 MG PO PCHS Prescribed by: TINA LEON on 01/19/17 0953 Past Pfoqihf-Btxrba-Nrowrn Hx Patient Social History Marrital Status: single Employed/Student: unemployed Past Medical History Diabetes, Insulin dep Family Medical History Cardiovascular disease 19 FATHER Colon cancer 19 MOTHER Diabetes mellitus 19 MOTHER G8 BROTHER FH: cancer 19 MOTHER (brain) G8 BROTHER (prostate, ) G8 SISTER (breast) Myocardial infarction 19 FATHER Review of Systems Constitutional: see HPI Physical Exam General Appearance: No Apparent Distress, WD/WN, Chronically ill Respiratory: Lungs Clear, Normal Breath Sounds Cardiovascular: Regular Rate, Rhythm Neurologic/Psychiatric: Alert, Oriented x3 Assessment/Plan Assessment and Plan Assessment: Fall DKA Severe presbycusis Plan: Insulin drip Monitor closely Admission Diagnosis Admission Status: Inpatient Order (span 2 midnights) Reason for Inpatient Admission: DKA Supervisory-Addendum Brief Verification & Attestation Participated in pt care: history, MDM, physical Personally performed: exam, history, MDM, supervision of care Care discussed with: Medical Student Procedures: n/a Results interpretation: Verified all documentation Verification and Attestation of Medical Student E/M Service A medical student performed and documented this service in my presence. I reviewed and verified all information documented by the medical student and made modifications to such information, when appropriate. I personally performed the physical exam and medical decision making. Allison Orellana, Mar 20, 2023,04:52 BRANDY SMITH Mar 19, 2023 11:50 ALLISON ORELLANA DO Mar 20, 2023 04:51
[2023-03-19 13:37] LABS: POTASSIUM 3.9 MMOL/L (3.6-5.0)
[2023-03-19 13:38] LABS: CALCIUM 8.1 MG/DL (8.5-10.1)
[2023-03-19 13:42] LABS: CREATININE SERUM 1.08 MG/DL (0.60-1.30)
[2023-03-19] MEDS: ENOXAPARIN 30 MG/0.3 ML SYRINGE SC SCH (17:13)
[2023-03-19 19:15] LABS: POTASSIUM 4.5 MMOL/L (3.6-5.0)
[2023-03-19 19:17] LABS: CALCIUM 8.2 MG/DL (8.5-10.1)
[2023-03-19 19:21] LABS: CREATININE SERUM 1.06 MG/DL (0.60-1.30)
[2023-03-19] MEDS: MELATONIN 3 MG TABLET PO PRN (20:32)
[2023-03-19 23:16] LABS: POTASSIUM 4.3 MMOL/L (3.6-5.0)
[2023-03-19 23:17] LABS: CALCIUM 8.2 MG/DL (8.5-10.1)
[2023-03-19 23:21] LABS: CREATININE SERUM 1.05 MG/DL (0.60-1.30)
[2023-03-20] MEDS: D5 1/2 NS 1,000 ML IV 1,000 ML IV SCH (00:55)
[2023-03-20] MEDS: POTASSIUM CL 10MEQ/50ML IVPB 50 ML IV SCH ×5 (00:55→07:43)
[2023-03-20] MEDS: 1/2 NS IV SOLUTION 1000 ML 1,000 ML IV SCH ×3 (00:57→08:45)
[2023-03-20 04:49] LABS: BASOPHILS % (AUTO) 0 % (0-10); EOSINOPHILS # (AUTO) 0.2 10^3/uL (0.0-0.3); EOSINOPHILS % (AUTO) 2 % (0-10); HEMATOCRIT 38 % (35-52); HEMOGLOBIN 12.7 g/dL (11.5-16.0); LYMPHOCYTES # (AUTO) 1.9 10^3/uL (1.0-4.0); LYMPHOCYTES % (AUTO) 26 % (12-44); MEAN CORPUSCULAR HEMOGLOBIN 33 pg (25-34); MEAN CORPUSCULAR HGB CONC 34 g/dL (32-36); MEAN CORPUSCULAR VOLUME 97 fL (80-99); MEAN PLATELET VOLUME 11.8 fL (9.0-12.2); MONOCYTES # (AUTO) 0.6 10^3/uL (0.0-1.0); MONOCYTES % (AUTO) 8 % (0-12); NEUTROPHILS # (AUTO) 4.7 10^3/uL (1.8-7.8); NEUTROPHILS % (AUTO) 63 % (42-75); PLATELET COUNT 153 10^3/uL (130-400); WHITE BLOOD COUNT 7.4 10^3/uL (4.3-11.0)
[2023-03-20 05:12] LABS: ALBUMIN 3.1 GM/DL (3.2-4.5); BILIRUBIN,TOTAL 0.7 MG/DL (0.1-1.0); CALCIUM 8.3 MG/DL (8.5-10.1); CREATININE SERUM 0.88 MG/DL (0.60-1.30); MAGNESIUM 1.6 MG/DL (1.6-2.4); PHOSPHORUS 1.6 MG/DL (2.3-4.7); POTASSIUM 4.5 MMOL/L (3.6-5.0); TOTAL PROTEIN 5.1 GM/DL (6.4-8.2)
[2023-03-20] MEDS: MAGNESIUM 1 GM/100 ML IVPB 100 ML IV SCH ×3 (06:14→09:07)
[2023-03-20] MEDS: POTASSIUM CHLORIDE 20 MEQ TABLET PO SCH (06:14)
[2023-03-20] MEDS: LEVOTHYROXINE 50 MCG TABLET PO SCH (07:43)
--- NOTE | 2023-03-20 08:24 | Tele-ICU Progress Note ---
Subjective Date Seen by a Provider: Mar 20, 2023 Time Seen by a Provider: 08:20 Subjective/Events-last exam 88 yo F with DKA now much better, glu 169, HCO3 14, was 11, Had fall pelvis CT, head CT show no acute process, has thyroid nodule, would do u/s in future Sepsis Event Evaluation Height, Weight, BMI Height: 5'0.00" Weight: 133lbs. 0.0oz. 60.442129yf; 29.13 BMI Method:Stated Exam Exam Patient acknowledged, consented, and participated in this virtual visit which was conducted using real time audio/video Vital Signs Date Time Temp Pulse Resp B/P (MAP) Pulse Ox O2 Delivery O2 Flow Rate FiO2 03/20/23 07:50 37.0 03/20/23 06:09 81 14 170/77 (111) 96 Room Air 03/20/23 05:22 85 18 169/82 (110) 96 Room Air 03/20/23 04:03 92 22 179/91 (116) 97 Room Air 03/20/23 04:00 97 Room Air 03/20/23 03:21 79 19 139/90 (111) 98 Room Air 03/20/23 02:00 105 32 186/146 (162) 93 Room Air 03/20/23 01:00 80 03/20/23 01:00 84 20 165/86 (102) 97 Room Air 03/20/23 00:32 74 19 158/85 (113) 95 Room Air 03/20/23 00:00 77 19 185/128 (139) 96 Room Air 03/19/23 23:59 97 Room Air 03/19/23 23:00 87 31 158/80 (110) 96 Room Air 03/19/23 22:00 81 22 141/72 (93) 98 Room Air 03/19/23 21:00 86 25 143/78 (110) 97 Room Air 03/19/23 20:08 93 19 160/89 (111) Room Air 03/19/23 20:00 97 Room Air 03/19/23 19:26 37.0 03/19/23 19:00 101 172/75 (117) 97 Room Air 03/19/23 19:00 101 03/19/23 18:00 103 22 151/111 (124) 96 Room Air 03/19/23 17:00 90 26 178/98 (124) 94 Room Air 03/19/23 16:35 96 Room Air 03/19/23 16:00 36.7 03/19/23 16:00 90 29 124/99 (107) 97 Room Air 03/19/23 15:00 92 25 131/105 (114) 94 Room Air 03/19/23 14:00 80 23 125/90 (102) 93 Room Air 03/19/23 13:00 84 22 117/56 (76) 93 Room Air 03/19/23 13:00 85 03/19/23 12:05 96 Room Air 03/19/23 12:00 93 26 94 Room Air 03/19/23 11:00 87 24 123/67 (85) 95 Room Air 03/19/23 10:47 36.4 03/19/23 10:00 89 31 134/64 (87) 96 Room Air 03/19/23 09:00 96 18 136/88 (104) 95 Room Air 03/19/23 08:30 36.6 I & O 03/20/23 07:00 Intake Total 1335 ml Output Total 4130 ml Balance -2795 ml Height & Weight Height: 5'0.00" Weight: 133lbs. 0.0oz. 60.329245aj; 29.13 BMI Method:Stated General Appearance: No Apparent Distress, WD/WN, Chronically ill HEENT: PERRL/EOMI, Other (hard of hearing) Neck: Full Range of Motion Respiratory: Lungs Clear, Normal Breath Sounds Cardiovascular: Regular Rate, Rhythm Gastrointestinal: normal bowel sounds, non tender, soft Extremity: Normal Capillary Refill, Pedal Edema, Other (minimal ankle edema) Neurologic/Psychiatric: Alert, Oriented x3 Skin: Normal Color Results Lab Laboratory Tests 03/18/23 13:49 03/18/23 16:59 03/18/23 19:23 03/19/23 04:07 03/19/23 08:10 03/19/23 13:08 03/19/23 19:00 03/19/23 23:00 03/20/23 04:15 Assessment/Plan Assessment/Plan DKA resolved, off insulin drip, to be put on sliding scale, to go general medical floor Critical Care: Critically Ill Patient Time spent with patient (mins): 20 AVRIL WILLINGHAM MD Mar 20, 2023 08:24
[2023-03-20] MEDS: SENNOSIDES 8.6 MG TABLET PO SCH ×2 (08:46→21:10)
[2023-03-20] MEDS: amLODIPine 10 MG TABLET PO SCH (08:46)
[2023-03-20] MEDS: DOCUSATE SODIUM 100 MG CAPSULE PO SCH ×2 (08:46→21:10)
[2023-03-20 09:23] LABS: CALCIUM 8.4 MG/DL (8.5-10.1); CREATININE SERUM 0.87 MG/DL (0.60-1.30); POTASSIUM 4.3 MMOL/L (3.6-5.0)
--- NOTE | 2023-03-20 10:24 | Progress Note - Hospitalist ---
BRANDY SMITH 03/20/23 1024: Subjective Subjective/Events-last exam CC: Found fallen on floor 2/2 DKA HPI: Ms. Jeronimo is doing much better this morning. She is alert and oriented x3 with no complaints. She denies excessive thirst, headache, dizziness, SOB, chest pain, or abdominal pain. She has been drinking adequate fluids. Objective Exam Vital Signs Vital Signs Date Time Temp Pulse Resp B/P (MAP) Pulse Ox O2 Delivery O2 Flow Rate FiO2 03/20/23 11:40 36.6 97 17 156/83 (107) 97 Room Air Capillary Refill : General Appearance: No Apparent Distress HEENT: PERRL/EOMI Neck: Full Range of Motion Respiratory: Chest Non Tender, Lungs Clear, Normal Breath Sounds Cardiovascular: Regular Rate, Rhythm Gastrointestinal: No Normal Bowel Sounds; Non Tender Neurologic/Psychiatric: Alert, Oriented x3, Normal Mood/Affect Skin: Normal Color Results/Procedures Lab Laboratory Tests 03/19/23 19:00 03/19/23 23:00 03/20/23 04:15 03/20/23 08:48 Patient resulted labs reviewed. Assessment/Plan Assessment and Plan Assess & Plan/Chief Complaint Assessment: Ms. Jeronimo is an 88 y/o female who was found down 2/2 likely DKA Plan: DKA -continue insulin drip -monitor for acidosis resolution -continue IV fluids JULITO - continue hydration - d/c montano catheter -possible 2/2 RTA Leukocytosis -likely reactive -chest x-ray normal -UA unremarkable Transfer to fourth floor Clinical Quality Measures Admission Status Admission Dx Assessment: Ms. Jeronimo is an 88 y/o female presenting for fall s/p DKA Plan: DKA -continue insulin drip -monitor for acidosis resolution -continue IV fluids -add beta hydroxybutyrate Confusion -s/p DKA -s/p fall. CT showed no findings -improved, A&O x3 JULITO - hydration - montano in place Leukocytosis -likely reactive -chest x-ray normal -UA unremarkable Transfer to fourth floor ALLISON ORELLANA DO 03/21/23 0458: Subjective HPI/CC On Admission Date Seen by Provider: Mar 20, 2023 Time Seen by Provider: 10:00 Subjective/Events-last exam Much improved PT OT ordered ARU? Sugars are still labile Review of Systems General: Fatigue, Malaise Objective Exam General Appearance: No Apparent Distress, WD/WN, Chronically ill Respiratory: Lungs Clear, Normal Breath Sounds Cardiovascular: Regular Rate, Rhythm Neurologic/Psychiatric: Alert, Oriented x3 Assessment/Plan Assessment and Plan Assess & Plan/Chief Complaint Move to 4th floor Monitor sugar Supervisory-Addendum Brief Verification & Attestation Participated in pt care: history, MDM, physical Personally performed: exam, history, MDM, supervision of care Care discussed with: Medical Student Procedures: n/a Results interpretation: Verified all documentation Verification and Attestation of Medical Student E/M Service A medical student performed and documented this service in my presence. I reviewed and verified all information documented by the medical student and made modifications to such information, when appropriate. I personally performed the physical exam and medical decision making. Allison Orellana, Mar 21, 2023,04:57 BRANDY SMITH Mar 20, 2023 10:24 ALLISON ORELLANA DO Mar 21, 2023 04:58
[2023-03-20] MEDS: inSUlin ASPART 1 UNIT/0.01 ML (PER UNIT) SC SCH ×3 (11:10→21:10)
--- NOTE | 2023-03-20 14:04 | Physical Therapy Daily Note ---
PT Daily Note-Current Subjective Pt found seated in recliner upon entry /c guests present. Agreed to PT. Pt reports that she is feeling good today. Pain Section J - Health Conditions 1. Rarely or not at all 2. Occasionally 3. Frequently 4. Almost constantly 8. Unable to answer Pain Effect on Sleep: 1 Pain Interference with Therapy: 1 Pain Interference w/Day-to-Day: 1 Mental Status Patient Orientation: Person Transfers SCALE: Activities may be completed with or without assistive devices. 7-Azhmyhkzmh-qggiuub completes the activity by him/herself with no assistance from a helper. 5-Set-up or Clean-up Assistance-helper sets up or cleans up; patient completes activity. [place] assists only prior to or following the activity. 4-Supervision or Touching Assistance-helper provides verbal cues and/or touching/steadying and/or contact guard assistance as patient completes activity. Assistance may be provided throughout the activity or intermittently. 3-Partial/Moderate Assistance-helper does LESS THAN HALF the effort. [place] lifts, holds or supports trunk or limbs, but provides less than half the effort. 2-Substantial/Maximal Assistance-helper does MORE THAN HALF the effort. [place] lifts or holds trunk or limbs and provides more than half the effort. 0-Rwrtylmtt-rlryiu does ALL the effort. Patient does none of the effort to complete the activity. Or, the assistance of 2 or more helpers is required for the patient to complete the activity. If activity was not attempted, code reason: 7-Patient Refused. 9-Not Applicable-not attempted and the patient did not perform the activity before the current illness, exacerbation or injury. 10-Not Attempted due to Environmental Limitations-(lack of equipment, weather restraints, etc.). 88-Not Attempted due to Medical Conditions or Safety Concerns. Sit to Stand (QC): 4 Weight Bearing Right Lower Extremity: Right Weight Bearing/Tolerated Left Lower Extremity: Left Weight Bearing/Tolerated Gait Training Does the Patient Walk?: Yes Distance: 350 Walk 10 feet (QC): 4 Walk 50 ft with 2 Turns(QC): 4 Walk 150 ft (QC): 4 Gait Persons Needed: 1 Gait Assistive Device: FWW Assessment Current Status: Good Progress Pt performs sit to stand transfer /c CGA for safety due to strength deficits. She ambulates /c use of a FWW up to 350 feet before needing to be seated. She displays a steady gait pattern /c good stride lengths during gait training but does required CGA due to strength strength deficits. Pt left in recliner /c guest present, call light in place, and all needs met post-treatment. Continue to progress pt per POC. PT Detention Goals Detention Goals PT Detention Goals Time Frame: Mar 31, 2023 Roll Left & Right (QC): 4 Sit to Lying (QC): 4 Lying-Sitting on Side/Bed(QC): 4 Sit to Stand (QC): 4 Chair/Ulh-qg-Vytnr Xfer(QC): 4 Toilet Transfer (QC): 4 Walk 10 feet (QC): 4 Walk 50ft with 2 Turns (QC): 4 Walk 150 ft (QC): 4 PT Plan Treatment/Plan Treatment Plan: Continue Plan of Care Treatment Plan: Bed Mobility, Education, Functional Activity Kevin, Functional Strength, Gait, Safety, Therapeutic Exercise, Transfers Treatment Duration: Mar 31, 2023 Frequency: 5 times per week Estimated Hrs Per Day: .25 hour per day Time Time In: 1344 Time Out: 1357 DATE: Mar 20, 2023 Total Billed Treatment Time: 13 Total Billed Treatment 1 visit GT x 1 MAJORCAMERON TUMOR REGISTRAR Mar 20, 2023 14:04
[2023-03-20 15:31] VITALS: BP 144/79
[2023-03-20] MEDS ORDERED: ENOXAPARIN 40 MG/0.4 ML SYRINGE SC SCH (17:00)
[2023-03-20] MEDS ORDERED: MELO15TA39 PO (17:13)
[2023-03-20 20:03] VITALS: BP 146/92
[2023-03-20] MEDS: MELATONIN 3 MG TABLET PO PRN (21:10)
[2023-03-20 23:48] VITALS: BP 151/79
[2023-03-21 03:20] VITALS: BP 162/86
[2023-03-21 06:05] LABS: BASOPHILS % (AUTO) 0 % (0-10); EOSINOPHILS # (AUTO) 0.1 10^3/uL (0.0-0.3); EOSINOPHILS % (AUTO) 2 % (0-10); HEMATOCRIT 37 % (35-52); HEMOGLOBIN 12.9 g/dL (11.5-16.0); LYMPHOCYTES # (AUTO) 1.6 10^3/uL (1.0-4.0); LYMPHOCYTES % (AUTO) 32 % (12-44); MEAN CORPUSCULAR HEMOGLOBIN 33 pg (25-34); MEAN CORPUSCULAR HGB CONC 35 g/dL (32-36); MEAN CORPUSCULAR VOLUME 97 fL (80-99); MEAN PLATELET VOLUME 12.1 fL (9.0-12.2); MONOCYTES # (AUTO) 0.4 10^3/uL (0.0-1.0); MONOCYTES % (AUTO) 9 % (0-12); NEUTROPHILS # (AUTO) 2.8 10^3/uL (1.8-7.8); NEUTROPHILS % (AUTO) 57 % (42-75); PLATELET COUNT 161 10^3/uL (130-400); WHITE BLOOD COUNT 4.9 10^3/uL (4.3-11.0)
[2023-03-21] MEDS: inSUlin ASPART 1 UNIT/0.01 ML (PER UNIT) SC SCH ×4 (06:14→12:06)
[2023-03-21] MEDS: LEVOTHYROXINE 50 MCG TABLET PO SCH (06:15)
[2023-03-21 06:27] LABS: BILIRUBIN,TOTAL 0.9 MG/DL (0.1-1.0); CALCIUM 8.7 MG/DL (8.5-10.1); CREATININE SERUM 0.99 MG/DL (0.60-1.30); MAGNESIUM 1.6 MG/DL (1.6-2.4); POTASSIUM 4.2 MMOL/L (3.6-5.0); TOTAL PROTEIN 5.2 GM/DL (6.4-8.2)
[2023-03-21 07:41] VITALS: BP 131/77
[2023-03-21] MEDS: SENNOSIDES 8.6 MG TABLET PO SCH (08:32)
[2023-03-21] MEDS: DOCUSATE SODIUM 100 MG CAPSULE PO SCH (08:32)
[2023-03-21] MEDS: amLODIPine 10 MG TABLET PO SCH (08:32)
[2023-03-21] MEDS ORDERED: inSUlin DETERMIR 1 UNIT/0.01 ML (CHARGE PER UNIT) SQ SCH (09:00)
--- NOTE | 2023-03-21 09:56 | Discharge Summary ---
Diagnosis/Chief Complaint Date of Admission Mar 18, 2023 at 16:01 Date of Discharge Discharge Date: Mar 21, 2023 Discharge Diagnosis DKA Falls Advanced age Reason Hospital Visit Chief complaint: DKA with fall HPI: This is an 88-year-old female with past medical history of diabetes and presbycusis who presents after a fall at home found to be in DKA and placed on insulin drip in the ICU. Currently she is doing much better but having severe limitations with communication due to severe presbycusis. Discharge Summary Discharge Physical Examination Allergies: Coded Allergies: No Known Drug Allergies (Verified , 02/27/07) Vitals & I&Os Vital Signs Date Time Temp Pulse Resp B/P (MAP) Pulse Ox O2 Delivery O2 Flow Rate FiO2 03/21/23 13:13 36.5 89 17 133/73 96 Room Air 03/21/23 07:41 0.00 03/21/23 07:41 21 General Appearance: Alert Respiratory: Clear to Auscultation Cardiovascular: Regular Rate Hospital Course Was the Problem List Reviewed?: Yes Uneventful hospital course after she was admitted for DKA in a fall. Patient ultimately returned back to baseline and insulin drip was transitioned to subcu insulin and patient was deemed stable for inpatient rehab admission. Labs (last 24 hrs) Laboratory Tests 03/18/23 00:45: Sodium Level 142, Potassium Level 3.8, Chloride Level 116H, Carbon Dioxide Level 12L, Anion Gap 14, Blood Urea Nitrogen 21H, Creatinine 1.25, Estimat Glomerular Filtration Rate 42, BUN/Creatinine Ratio 17, Glucose Level 252H, Calcium Level 8.5 03/18/23 13:49: Sodium Level 142, Potassium Level 4.4, Chloride Level 105, Carbon Dioxide Level 8*L, Anion Gap 29H, Blood Urea Nitrogen 27H, Creatinine 2.02H, Estimat Glomerular Filtration Rate 23, BUN/Creatinine Ratio 13, Glucose Level 720*H, Calcium Level 10.3H, White Blood Count 14.5H, Red Blood Count 4.82, Hemoglobin 15.9, Hematocrit 46, Mean Corpuscular Volume 96, Mean Corpuscular Hemoglobin 33, Mean Corpuscular Hemoglobin Concent 34, Red Cell Distribution Width 13.2, Platelet Count 236, Mean Platelet Volume 12.2, Immature Granulocyte % (Auto) 1, Neutrophils (%) (Auto) 88H, Lymphocytes (%) (Auto) 6L, Monocytes (%) (Auto) 6, Eosinophils (%) (Auto) 0, Basophils (%) (Auto) 0, Neutrophils # (Auto) 12.8H, Lymphocytes # (Auto) 0.8L, Monocytes # (Auto) 0.8, Eosinophils # (Auto) 0.0, Basophils # (Auto) 0.0, Immature Granulocyte # (Auto) 0.1, Neutrophils % (Manual) 89, Lymphocytes % (Manual) 6, Monocytes % (Manual) 5, Eosinophils % (Manual) 0, Basophils % (Manual) 0, Band Neutrophils 0, Blood Morphology Comment NORMAL, Beta-Hydroxybutyrate (Chem panel) 10.83H 03/18/23 14:55: Venous Blood pH 7.23L, Venous Blood Partial Pressure CO2 26L, Venous Blood HCO3 11L 03/18/23 15:42: Glucometer 595*H 03/18/23 15:45: Urine Color YELLOW, Urine Clarity CLEAR, Urine pH 5.0, Urine Specific [place] 1.015L, Urine Protein TRACEH, Urine Glucose (UA) 2+H, Urine Ketones 4+H, Urine Nitrite NEGATIVE, Urine Bilirubin 1+H, Urine Urobilinogen 0.2, Urine Leukocyte Esterase NEGATIVE, Urine RBC (Auto) 1+H, Urine RBC NONE, Urine WBC 0-2, Urine Squamous Epithelial Cells NONE, Urine Crystals NONE, Urine Bacteria TRACE, Urine Casts NONE, Urine Mucus NEGATIVE, Urine Culture Indicated NO 03/18/23 16:59: Sodium Level 146H, Potassium Level 3.7, Chloride Level 114H, Carbon Dioxide Level 11L, Anion Gap 21H, Blood Urea Nitrogen 25H, Creatinine 1.76H, Estimat Glomerular Filtration Rate 28, BUN/Creatinine Ratio 14, Glucose Level 467*H, Mean Blood Glucose 329H, Hemoglobin A1c 13.1H, Calcium Level 9.3, Total Bilirubin 1.1H, Direct Bilirubin 0.4H, Indirect Bilirubin 0.7, Aspartate Amino Transf (AST/SGOT) 28, Alanine Aminotransferase (ALT/SGPT) 26, Alkaline P hosphatase 70, Total Creatine Kinase 779H, Total Protein 6.5, Albumin 3.7, Beta- Hydroxybutyrate (Chem panel) 6.71H, Thyroid Stimulating Hormone (TSH) 1.87 03/18/23 17:07: Glucometer 434*H 03/18/23 17:59: Glucometer 401*H 03/18/23 19:07: Glucometer 396H 03/18/23 19:23: Sodium Level 144, Potassium Level 3.8, Chloride Level 114H, Carbon Dioxide Level 12L, Anion Gap 18H, Blood Urea Nitrogen 24H, Creatinine 1.47H, Estimat Glomerular Filtration Rate 34, BUN/Creatinine Ratio 16, Glucose Level 458*H, Calcium Level 8.7 03/18/23 20:00: Glucometer 413*H 03/18/23 21:00: Glucometer 315H 03/18/23 22:12: Glucometer 331H 03/18/23 22:59: Glucometer 302H 03/19/23 00:00: Glucometer 214H 03/19/23 00:51: Glucometer 226H 03/19/23 01:55: Glucometer 298H 03/19/23 03:02: Glucometer 239H 03/19/23 04:07: White Blood Count 12.6H, Red Blood Count 3.94, Hemoglobin 12.9, Hematocrit 38, Mean Corpuscular Volume 97, Mean Corpuscular Hemoglobin 33, Mean Corpuscular Hemoglobin Concent 34, Red Cell Distribution Width 13.3, Platelet Count 185, Mean Platelet Volume 12.1, Immature Granulocyte % (Auto) 0, Neutrophils (%) (Auto) 77H, Lymphocytes (%) (Auto) 14, Monocytes (%) (Auto) 8, Eosinophils (%) (Auto) 0, Basophils (%) (Auto) 0, Neutrophils # (Auto) 9.7H, Lymphocytes # (Auto) 1.8, Monocytes # (Auto) 1.0, Eosinophils # (Auto) 0.0, Basophils # (Auto) 0.0, Immature Granulocyte # (Auto) 0.1, Sodium Level 139, Potassium Level 3.7, Chloride Level 115H, Carbon Dioxide Level 14L, Anion Gap 10, Blood Urea Nitrogen 19H, Creatinine 1.13, Estimat Glomerular Filtration Rate 47, BUN/Creatinine Ratio 17, Glucose Level 249H, Calcium Level 8.3L, Corrected Calcium 8.9, Phosphorus Level 1.6L, Magnesium Level 1.4L, Total Bilirubin 1.0, Aspartate Amino Transf (AST/SGOT) 35H, Alanine Aminotransferase (ALT/SGPT) 24, Alkaline Phosphatase 56, Total Protein 5.4L, Albumin 3.2 03/19/23 04:08: Glucometer 254H 03/19/23 04:30: Arterial Blood pH 7.41, Arterial Blood Partial Pressure CO2 24L, Arterial Blood Partial Pressure O2 106H, Arterial Blood HCO3 15*L, Arterial Blood Total CO2 15.9L, Arterial Blood Oxygen Saturation 99, Arterial Blood Base Excess -7.6L, Blood Gas Ventilator Setting NO, Blood Gas Inspired Oxygen RA 03/19/23 05:02: Glucometer 182H 03/19/23 05:53: Glucometer 193H 03/19/23 06:56: Glucometer 232H 03/19/23 07:58: Glucometer 166H 03/19/23 08:10: Sodium Level 138, Potassium Level 4.0, Chloride Level 114H, Carbon Dioxide Level 15L, Anion Gap 9, Blood Urea Nitrogen 16, Creatinine 1.04, Estimat Glomerular Filtration Rate 52, BUN/Creatinine Ratio 15, Glucose Level 189H, Calcium Level 8.2L, Beta-Hydroxybutyrate (Chem panel) 0.07 03/19/23 09:04: Glucometer 331H 03/19/23 09:31: Glucometer 331H 03/19/23 10:26: Glucometer 311H 03/19/23 11:36: Glucometer 252H 03/19/23 13:02: Glucometer 230H 03/19/23 13:08: Sodium Level 135, Potassium Level 3.9, Chloride Level 111H, Carbon Dioxide Level 15L, Anion Gap 9, Blood Urea Nitrogen 15, Creatinine 1.08, Estimat Glomerular Filtration Rate 50, BUN/Creatinine Ratio 14, Glucose Level 176H, Calcium Level 8.1L 03/19/23 14:07: Glucometer 177H 03/19/23 16:26: Glucometer 276H 03/19/23 17:34: Glucometer 263H 03/19/23 18:26: Glucometer 244H 03/19/23 19:00: Sodium Level 136, Potassium Level 4.5, Chloride Level 116H, Carbon Dioxide Level 11L, Anion Gap 9, Blood Urea Nitrogen 13, Creatinine 1.06, Estimat Glomerular Filtration Rate 51, BUN/Creatinine Ratio 12, Glucose Level 296H, Calcium Level 8.2L 03/19/23 19:35: Glucometer 331H 03/19/23 20:39: Glucometer 296H 03/19/23 21:24: Glucometer 241H 03/19/23 22:40: Glucometer 149H 03/19/23 23:00: Sodium Level 137, Potassium Level 4.3, Chloride Level 118H, Carbon Dioxide Level 11L, Anion Gap 8, Blood Urea Nitrogen 12, Creatinine 1.05, Estimat Glomerular Filtration Rate 51, BUN/Creatinine Ratio 11, Glucose Level 129H, Calcium Level 8.2L 03/19/23 23:29: Glucometer 114H 03/20/23 00:30: Glucometer 130H 03/20/23 01:27: Glucometer 94 03/20/23 02:32: Glucometer 87 03/20/23 03:29: Glucometer 118H 03/20/23 04:15: White Blood Count 7.4, Red Blood Count 3.88, Hemoglobin 12.7, Hematocrit 38, Mean Corpuscular Volume 97, Mean Corpuscular Hemoglobin 33, Mean Corpuscular Hemoglobin Concent 34, Red Cell Distribution Width 13.5, Platelet Count 153, Mean Platelet Volume 11.8, Immature Granulocyte % (Auto) 1, Neutrophils (%) (Auto) 63, Lymphocytes (%) (Auto) 26, Monocytes (%) (Auto) 8, Eosinophils (%) (Auto) 2, Basophils (%) (Auto) 0, Neutrophils # (Auto) 4.7, Lymphocytes # (Auto) 1.9, Monocytes # (Auto) 0.6, Eosinophils # (Auto) 0.2, Basophils # (Auto) 0.0, Immature Granulocyte # (Auto) 0.0, Sodium Level 139, Potassium Level 4.5, Chloride Level 119H, Carbon Dioxide Level 14L, Anion Gap 6, Blood Urea Nitrogen 10, Creatinine 0.88, Estimat Glomerular Filtration Rate 64, BUN/Creatinine Ratio 11, Glucose Level 83, Calcium Level 8.3L, Corrected Calcium 9.0, Phosphorus Level 1.6L, Magnesium Level 1.6, Total Bilirubin 0.7, Aspartate Amino Transf (AST/SGOT) 34, Alanine Aminotransferase (ALT/SGPT) 30, Alkaline Phosphatase 56, Total Protein 5.1L, Albumin 3.1L, Beta-Hydroxybutyrate (Chem panel) 0.06 03/20/23 04:31: Glucometer 87 03/20/23 05:25: Glucometer 103 03/20/23 06:24: Glucometer 111H 03/20/23 07:39: Glucometer 160H 03/20/23 08:43: Glucometer 219H 03/20/23 08:48: Sodium Level 139, Potassium Level 4.3, Chloride Level 116H, Carbon Dioxide Level 15L, Anion Gap 8, Blood Urea Nitrogen 8, Creatinine 0.87, Estimat Glomerular Filtration Rate 64, BUN/Creatinine Ratio 9, Glucose Level 236H, Calcium Level 8.4L 03/20/23 10:30: Glucometer 221H 03/20/23 16:45: Glucometer 381H 03/20/23 20:23: Glucometer 432*H 03/21/23 05:35: White Blood Count 4.9, Red Blood Count 3.86, Hemoglobin 12.9, Hematocrit 37, Mean Corpuscular Volume 97, Mean Corpuscular Hemoglobin 33, Mean Corpuscular Hemoglobin Concent 35, Red Cell Distribution Width 13.7, Platelet Count 161, Mean Platelet Volume 12.1, Immature Granulocyte % (Auto) 1, Neutrophils (%) (Auto) 57, Lymphocytes (%) (Auto) 32, Monocytes (%) (Auto) 9, Eosinophils (%) (Auto) 2, Basophils (%) (Auto) 0, Neutrophils # (Auto) 2.8, Lymphocytes # (Auto) 1.6, Monocytes # (Auto) 0.4, Eosinophils # (Auto) 0.1, Basophils # (Auto) 0.0, Immature Granulocyte # (Auto) 0.0, Sodium Level 137, Potassium Level 4.2, Chloride Level 112H, Carbon Dioxide Level 17L, Anion Gap 8, Blood Urea Nitrogen 9, Creatinine 0.99, Estimat Glomerular Filtration Rate 55, BUN/Creatinine Ratio 9, Glucose Level 331H, Calcium Level 8.7, Corrected Calcium 9.5, Magnesium Level 1.6, Total Bilirubin 0.9, Aspartate Amino Transf (AST/SGOT) 21, Alanine Aminotransferase (ALT/SGPT) 28, Alkaline Phosphatase 57, Total Protein 5.2L, Albumin 3.0L 03/21/23 06:02: Glucometer 308H 03/21/23 11:48: Glucometer 258H Microbiology 03/18/23 MRSA Screen - Final, Complete MRSA not isolated Pending Labs Microbiology Date/Time Source Procedure Growth Status 03/18/23 17:38 Nasal MRSA Screen - Final MRSA not isolated Complete Laboratory Tests 03/18/23 00:45: Sodium Level 142, Potassium Level 3.8, Chloride Level 116, Carbon Dioxide Level 12, Anion Gap 14, Blood Urea Nitrogen 21, Creatinine 1.25, Estimat Glomerular Filtration Rate 42, BUN/Creatinine Ratio 17, Glucose Level 252, Calcium Level 8.5 03/18/23 13:49: Sodium Level 142, Potassium Level 4.4, Chloride Level 105, Carbon Dioxide Level 8, Anion Gap 29, Blood Urea Nitrogen 27, Creatinine 2.02, Estimat Glomerular Filtration Rate 23, BUN/Creatinine Ratio 13, Glucose Level 720, Calcium Level 10.3, White Blood Count 14.5, Red Blood Count 4.82, Hemoglobin 15.9, Hematocrit 46, Mean Corpuscular Volume 96, Mean Corpuscular Hemoglobin 33, Mean Corpuscular Hemoglobin Concent 34, Red Cell Distribution Width 13.2, Platelet Count 236, Mean Platelet Volume 12.2, Immature Granulocyte % (Auto) 1, Neutrophils (%) (Auto) 88, Lymphocytes (%) (Auto) 6, Monocytes (%) (Auto) 6, Eosinophils (%) (Auto) 0, Basophils (%) (Auto) 0, Neutrophils # (Auto) 12.8, Lymphocytes # (Auto) 0.8, Monocytes # (Auto) 0.8, Eosinophils # (Auto) 0.0, Basophils # (Auto) 0.0, Immature Granulocyte # (Auto) 0.1, Neutrophils % (Manual) 89, Lymphocytes % (Manual) 6, Monocytes % (Manual) 5, Eosinophils % (Manual) 0, Basophils % (Manual) 0, Band Neutrophils 0, Blood Morphology Comment NORMAL, Beta- Hydroxybutyrate (Chem panel) 10.83 03/18/23 14:55: Venous Blood pH 7.23, Venous Blood Partial Pressure CO2 26, Venous Blood HCO3 11 03/18/23 15:42: Glucometer 595 03/18/23 15:45: Urine Color YELLOW, Urine Clarity CLEAR, Urine pH 5.0, Urine Specific [place] 1.015, Urine Protein TRACE, Urine Glucose (UA) 2+, Urine Ketones 4+, Urine Nitrite NEGATIVE, Urine Bilirubin 1+, Urine Urobilinogen 0.2, Urine Leukocyte Esterase NEGATIVE, Urine RBC (Auto) 1+, Urine RBC NONE, Urine WBC 0-2, Urine Squamous Epithelial Cells NONE, Urine Crystals NONE, Urine Bacteria TRACE, Urine Casts NONE, Urine Mucus NEGATIVE, Urine Culture Indicated NO 03/18/23 16:59: Sodium Level 146, Potassium Level 3.7, Chloride Level 114, Carbon Dioxide Level 11, Anion Gap 21, Blood Urea Nitrogen 25, Creatinine 1.76, Estimat Glomerular Filtration Rate 28, BUN/Creatinine Ratio 14, Glucose Level 467, Mean Blood Glucose 329, Hemoglobin A1c 13.1, Calcium Level 9.3, Total Bilirubin 1.1, Direct Bilirubin 0.4, Indirect Bilirubin 0.7, Aspartate Amino Transf (AST/SGOT) 28, Alanine Aminotransferase (ALT/SGPT) 26, Alkaline Phosphatase 70, Total Creatine Kinase 779, Total Protein 6.5, Albumin 3.7, Beta-Hydroxybutyrate (Chem panel) 6.71, Thyroid Stimulating Hormone (TSH) 1.87 03/18/23 17:07: Glucometer 434 03/18/23 17:59: Glucometer 401 03/18/23 19:07: Glucometer 396 03/18/23 19:23: Sodium Level 144, Potassium Level 3.8, Chloride Level 114, Carbon Dioxide Level 12, Anion Gap 18, Blood Urea Nitrogen 24, Creatinine 1.47, Estimat Glomerular Filtration Rate 34, BUN/Creatinine Ratio 16, Glucose Level 458, Calcium Level 8.7 03/18/23 20:00: Glucometer 413 03/18/23 21:00: Glucometer 315 03/18/23 22:12: Glucometer 331 03/18/23 22:59: Glucometer 302 03/19/23 00:00: Glucometer 214 03/19/23 00:51: Glucometer 226 03/19/23 01:55: Glucometer 298 03/19/23 03:02: Glucometer 239 03/19/23 04:07: White Blood Count 12.6, Red Blood Count 3.94, Hemoglobin 12.9, Hematocrit 38, Mean Corpuscular Volume 97, Mean Corpuscular Hemoglobin 33, Mean Corpuscular Hemoglobin Concent 34, Red Cell Distribution Width 13.3, Platelet Count 185, Mean Platelet Volume 12.1, Immature Granulocyte % (Auto) 0, Neutrophils (%) (Auto) 77, Lymphocytes (%) (Auto) 14, Monocytes (%) (Auto) 8, Eosinophils (%) (Auto) 0, Basophils (%) (Auto) 0, Neutrophils # (Auto) 9.7, Lymphocytes # (Auto) 1.8, Monocytes # (Auto) 1.0, Eosinophils # (Auto) 0.0, Basophils # (Auto) 0.0, Immature Granulocyte # (Auto) 0.1, Sodium Level 139, Potassium Level 3.7, Chloride Level 115, Carbon Dioxide Level 14, Anion Gap 10, Blood Urea Nitrogen 19, Creatinine 1.13, Estimat Glomerular Filtration Rate 47, BUN/Creatinine Ratio 17, Glucose Level 249, Calcium Level 8.3, Corrected Calcium 8.9, Phosphorus Level 1.6, Magnesium Level 1.4, Total Bilirubin 1.0, Aspartate Amino Transf (AST/SGOT) 35, Alanine Aminotransferase (ALT/SGPT) 24, Alkaline Phosphatase 56, Total Protein 5.4, Albumin 3.2 03/19/23 04:08: Glucometer 254 03/19/23 04:30: Arterial Blood pH 7.41, Arterial Blood Partial Pressure CO2 24, Arterial Blood Partial Pressure O2 106, Arterial Blood HCO3 15, Arterial Blood Total CO2 15.9, Arterial Blood Oxygen Saturation 99, Arterial Blood Base Excess -7.6, Blood Gas Ventilator Setting NO, Blood Gas Inspired Oxygen RA 03/19/23 05:02: Glucometer 182 03/19/23 05:53: Glucometer 193 03/19/23 06:56: Glucometer 232 03/19/23 07:58: Glucometer 166 03/19/23 08:10: Sodium Level 138, Potassium Level 4.0, Chloride Level 114, Carbon Dioxide Level 15, Anion Gap 9, Blood Urea Nitrogen 16, Creatinine 1.04, Estimat Glomerular Filtration Rate 52, BUN/Creatinine Ratio 15, Glucose Level 189, Calcium Level 8.2, Beta-Hydroxybutyrate (Chem panel) 0.07 03/19/23 09:04: Glucometer 331 03/19/23 09:31: Glucometer 331 03/19/23 10:26: Glucometer 311 03/19/23 11:36: Glucometer 252 03/19/23 13:02: Glucometer 230 03/19/23 13:08: Sodium Level 135, Potassium Level 3.9, Chloride Level 111, Carbon Dioxide Level 15, Anion Gap 9, Blood Urea Nitrogen 15, Creatinine 1.08, Estimat Glomerular Filtration Rate 50, BUN/Creatinine Ratio 14, Glucose Level 176, Calcium Level 8.1 03/19/23 14:07: Glucometer 177 03/19/23 16:26: Glucometer 276 03/19/23 17:34: Glucometer 263 03/19/23 18:26: Glucometer 244 03/19/23 19:00: Sodium Level 136, Potassium Level 4.5, Chloride Level 116, Carbon Dioxide Level 11, Anion Gap 9, Blood Urea Nitrogen 13, Creatinine 1.06, Estimat Glomerular Filtration Rate 51, BUN/Creatinine Ratio 12, Glucose Level 296, Calcium Level 8.2 03/19/23 19:35: Glucometer 331 03/19/23 20:39: Glucometer 296 03/19/23 21:24: Glucometer 241 03/19/23 22:40: Glucometer 149 03/19/23 23:00: Sodium Level 137, Potassium Level 4.3, Chloride Level 118, Carbon Dioxide Level 11, Anion Gap 8, Blood Urea Nitrogen 12, Creatinine 1.05, Estimat Glomerular Filtration Rate 51, BUN/Creatinine Ratio 11, Glucose Level 129, Calcium Level 8.2 03/19/23 23:29: Glucometer 114 03/20/23 00:30: Glucometer 130 03/20/23 01:27: Glucometer 94 03/20/23 02:32: Glucometer 87 03/20/23 03:29: Glucometer 118 03/20/23 04:15: White Blood Count 7.4, Red Blood Count 3.88, Hemoglobin 12.7, Hematocrit 38, Mean Corpuscular Volume 97, Mean Corpuscular Hemoglobin 33, Mean Corpuscular Hemoglobin Concent 34, Red Cell Distribution Width 13.5, Platelet Count 153, Mean Platelet Volume 11.8, Immature Granulocyte % (Auto) 1, Neutrophils (%) (Auto) 63, Lymphocytes (%) (Auto) 26, Monocytes (%) (Auto) 8, Eosinophils (%) (Auto) 2, Basophils (%) (Auto) 0, Neutrophils # (Auto) 4.7, Lymphocytes # (Auto) 1.9, Monocytes # (Auto) 0.6, Eosinophils # (Auto) 0.2, Basophils # (Auto) 0.0, Immature Granulocyte # (Auto) 0.0, Sodium Level 139, Potassium Level 4.5, Chloride Level 119, Carbon Dioxide Level 14, Anion Gap 6, Blood Urea Nitrogen 10, Creatinine 0.88, Estimat Glomerular Filtration Rate 64, BUN/Creatinine Ratio 11, Glucose Level 83, Calcium Level 8.3, Corrected Calcium 9.0, Phosphorus Level 1.6, Magnesium Level 1.6, Total Bilirubin 0.7, Aspartate Amino Transf (AST/SGOT) 34, Alanine Aminotransferase (ALT/SGPT) 30, Alkaline Phosphatase 56, Total Protein 5.1, Albumin 3.1, Beta-Hydroxybutyrate (Chem panel) 0.06 03/20/23 04:31: Glucometer 87 03/20/23 05:25: Glucometer 103 03/20/23 06:24: Glucometer 111 03/20/23 07:39: Glucometer 160 03/20/23 08:43: Glucometer 219 03/20/23 08:48: Sodium Level 139, Potassium Level 4.3, Chloride Level 116, Carbon Dioxide Level 15, Anion Gap 8, Blood Urea Nitrogen 8, Creatinine 0.87, Estimat Glomerular Filtration Rate 64, BUN/Creatinine Ratio 9, Glucose Level 236, Calcium Level 8.4 03/20/23 10:30: Glucometer 221 03/20/23 16:45: Glucometer 381 03/20/23 20:23: Glucometer 432 03/21/23 05:35: White Blood Count 4.9, Red Blood Count 3.86, Hemoglobin 12.9, Hematocrit 37, Mean Corpuscular Volume 97, Mean Corpuscular Hemoglobin 33, Mean Corpuscular Hemoglobin Concent 35, Red Cell Distribution Width 13.7, Platelet Count 161, Mean Platelet Volume 12.1, Immature Granulocyte % (Auto) 1, Neutrophils (%) (Auto) 57, Lymphocytes (%) (Auto) 32, Monocytes (%) (Auto) 9, Eosinophils (%) (Auto) 2, Basophils (%) (Auto) 0, Neutrophils # (Auto) 2.8, Lymphocytes # (Auto) 1.6, Monocytes # (Auto) 0.4, Eosinophils # (Auto) 0.1, Basophils # (Auto) 0.0, Immature Granulocyte # (Auto) 0.0, Sodium Level 137, Potassium Level 4.2, Chloride Level 112, Carbon Dioxide Level 17, Anion Gap 8, Blood Urea Nitrogen 9, Creatinine 0.99, Estimat Glomerular Filtration Rate 55, BUN/Creatinine Ratio 9, Glucose Level 331, Calcium Level 8.7, Corrected Calcium 9.5, Magnesium Level 1.6, Total Bilirubin 0.9, Aspartate Amino Transf (AST/SGOT) 21, Alanine Aminotransferase (ALT/SGPT) 28, Alkaline Phosphatase 57, Total Protein 5.2, Albumin 3.0 03/21/23 06:02: Glucometer 308 03/21/23 11:48: Glucometer 258 Discharge Home Medications: Active Scripts Active Reported Meloxicam 15 Mg Tablet 15 Mg PO DAILY LAST FILLED 09-05-2022 #90/90 DAY SUPPLY Metformin HCl 500 Mg Tablet 500 Mg PO DAILY LAST FILLED 06-08-2022 #90/90 DAY SUPPLY Amlodipine Besylate 10 Mg Tablet 10 Mg PO DAILY LAST FILLED 09-16-2022 #90/90 DAY SUPPLY Lovastatin 40 Mg Tablet 40 Mg PO DAILY LAST FILLED 09-02-2022 #90/90 DAY SUPPLY Lisinopril 40 Mg Tablet 40 Mg PO DAILY LAST FILLED 09-02-2022 #90/90 DAY SUPPLY Levothyroxine Sodium 50 Mcg Tablet 50 Mcg PO DAILY Lantus Solostar (Insulin Glargine,Hum.rec.anlog) 100 Unit/Ml (3 Ml) Insuln.pen 38 Units SQ HS Instructions to patient/family Please see electronic discharge instructions given to patient. ANGELICA ORELLANA DO Mar 21, 2023 09:56
--- NOTE | 2023-03-21 11:50 | Physical Therapy Daily Note ---
PT Daily Note-Current Subjective Pt found seated in recliner upon entry. Agreed to PT. Reports that she is feeling good today. States that she is ready to go home. Pain Section J - Health Conditions 1. Rarely or not at all 2. Occasionally 3. Frequently 4. Almost constantly 8. Unable to answer Pain Effect on Sleep: 1 Pain Interference with Therapy: 1 Pain Interference w/Day-to-Day: 1 Mental Status Patient Orientation: Person Transfers SCALE: Activities may be completed with or without assistive devices. 0-[id number] completes the activity by him/herself with no assistance from a helper. 5-Set-up or Clean-up Assistance-helper sets up or cleans up; patient completes activity. [place] assists only prior to or following the activity. 4-Supervision or Touching Assistance-helper provides verbal cues and/or touching/steadying and/or contact guard assistance as patient completes activity. Assistance may be provided throughout the activity or intermittently. 3-Partial/Moderate Assistance-helper does LESS THAN HALF the effort. [place] lifts, holds or supports trunk or limbs, but provides less than half the effort. 2-Substantial/Maximal Assistance-helper does MORE THAN HALF the effort. [place] lifts or holds trunk or limbs and provides more than half the effort. 4-Mwgkyztjf-kwidsj does ALL the effort. Patient does none of the effort to complete the activity. Or, the assistance of 2 or more helpers is required for the patient to complete the activity. If activity was not attempted, code reason: 7-Patient Refused. 9-Not Applicable-not attempted and the patient did not perform the activity before the current illness, exacerbation or injury. 10-Not Attempted due to Environmental Limitations-(lack of equipment, weather restraints, etc.). 88-Not Attempted due to Medical Conditions or Safety Concerns. Sit to Stand (QC): 6 Weight Bearing Right Lower Extremity: Right Weight Bearing/Tolerated Left Lower Extremity: Left Weight Bearing/Tolerated Gait Training Does the Patient Walk?: Yes Distance: 300, 300 Walk 10 feet (QC): 4 Walk 50 ft with 2 Turns(QC): 4 Walk 150 ft (QC): 4 Gait Persons Needed: 1 Gait Assistive Device: None Assessment Current Status: Good Progress Pt performs sit to stand transfer from recliner independently /c no signs of instability. She ambulated 300 feet /c and 300 feet without use of a FWW. Pt occasionally drags R foot on floor during swing phase and displays a slight loss of balance but is able to recover balance without steadying assistance. Required CGA during ambulation without use of an AD due to balance deficits. Pt also required verbal cues for correct head posture while ambulating. She demonstrates good stride lengths and gait speed /c limited heel strike on R side. Pt left in recliner post-treatment /c call light in place and all needs met. Continue to progress pt per POC. 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 Hydraulic Lift Operator Goals PT Correction Goals Time Frame: Mar 31, 2023 Roll Left & Right (QC): 4 Sit to Lying (QC): 4 Lying-Sitting on Side/Bed(QC): 4 Sit to Stand (QC): 4 Chair/Oth-pn-Brnha Xfer(QC): 4 Toilet Transfer (QC): 4 Walk 10 feet (QC): 4 Walk 50ft with 2 Turns (QC): 4 Walk 150 ft (QC): 4 PT Plan Treatment/Plan Treatment Plan: Continue Plan of Care Treatment Plan: Bed Mobility, Education, Functional Activity Kevin, Functional Strength, Gait, Safety, Therapeutic Exercise, Transfers Treatment Duration: Mar 31, 2023 Frequency: 5 times per week Estimated Hrs Per Day: .25 hour per day Time Time In: 1129 Time Out: 1143 DATE: Mar 21, 2023 Total Billed Treatment Time: 14 Total Billed Treatment 1 visit GT x 1 CAMERON MAK FUELER Mar 21, 2023 11:50
[2023-03-21 12:14] VITALS: BP 133/73
--- NOTE | 2023-03-21 12:26 | Progress Note ---
BRANDY SMITH 03/21/23 1226: Progress Note Ms. Jeronimo is an 88 y/o female who fell at home the night of 03/17. She is extremely hard of hearing and has PMH of DM. She lives alone, but her niece checks in on her. 03/18 the niece did not hear from Ms. Jeronimo and went to her home to check on her. Ms. Jeronimo was found on the floor outside the bathroom door. She was reported confused and unlike herself when found down. EMS reported a blood glucose "too high to read". The PT does not recall any previous falls. CT shows nodular thyroid. There were no cardiopulmonary changes per chest XR. She was placed in the ICU and put on an insulin drip. She had leukocytosis during her stay and Chest XR and UA were ordered to rule out pneumonia or UTI as the cause. Today the patient has no complaints. She is alert and oriented x3 this morning and feeling well. She will be transferred to inpatient rehab. ALLISON ORELLANA DO 03/21/23 2007: Supervisory-Addendum Brief Verification & Attestation Participated in pt care: history, MDM, physical Personally performed: exam, history, MDM, supervision of care Care discussed with: Medical Student Procedures: n/a Results interpretation: Verified all documentation Verification and Attestation of Medical Student E/M Service A medical student performed and documented this service in my presence. I reviewed and verified all information documented by the medical student and made modifications to such information, when appropriate. I personally performed the physical exam and medical decision making. Allison Orellana Mar 21, 2023,20:07 BRANDY SMITH Mar 21, 2023 12:26 ALLISON ORELLANA DO Mar 21, 2023 20:07
--- NOTE | 2023-03-21 12:37 | Occupational Ther Daily Note ---
OT Current Status-Daily Note Subjective Agreeable to participate. Pain Numeric Pain Scale: 0-No Pain Mental Status/Objective Patient Orientation: Person, Place, Time, Situation Sometimes difficult, to understand ADL-Treatment Transfer from recliner tot toilet/bathroom, standing hand hygiene w/ VC and OT physically moving FWW for safety. Therapy Code Descriptions/Definitions Functional [place] Measure: 0=Not Assessed/NA 4=Minimal Assistance 1=Total Assistance 5=Supervision or Setup 2=Maximal Assistance 6=Modified [place] 3=Moderate Assistance 7=Complete IndependenceSCALE: Activities may be completed with or without assistive devices. 7-Dvbookulzu-dqbemjz completes the activity by him/herself with no assistance from a helper. 5-Set-up or Clean-up Assistance-helper sets up or cleans up; patient completes activity. [place] assists only prior to or following the activity. 4-Supervision or Touching Assistance-helper provides verbal cues and/or touching/steadying and/or contact guard assistance as patient completes acti vity. Assistance may be provided throughout the activity or intermittently. 3-Partial/Moderate Assistance-helper does LESS THAN HALF the effort. [place] lifts, holds or supports trunk or limbs, but provides less than half the effort. 2-Substantial/Maximal Assistance-helper does MORE THAN HALF the effort. [place] lifts or holds trunk or limbs and provides more than half the effort. 5-Aftyirpmq-jblgoy does ALL the effort. Patient does none of the effort to complete the activity. Or, the assistance of 2 or more helpers is required for the patient to complete the activity. If activity was not attempted, code reason: 7-Patient Refused. 9-Not Applicable-not attempted and the patient did not perform the activity before the current illness, exacerbation or injury. 10-Not Attempted due to Environmental Limitations-(lack of equipment, weather restraints, etc.). 88-Not Attempted due to Medical Conditions or Safety Concerns. Eating (QC): 6 Oral Hygiene (QC): 5 Upper Body Dressing (QC): 5 Lower Body Dressing (QC): 5 On/Off Footwear: 5 Toileting Hygiene (QC): 5 Toilet Transfer (QC): 5 Education OT Patient Education: Correct positioning, Modified ADL techniques, Progress toward Goal/Update tx plan, Purpose of tx/functional activities, Safety issues, Transfer techniques, Use of adapted equipment Teaching Recipient: Patient Teaching Methods: Demonstration, Discussion Response to Teaching: Return Demonstration OT Senior Care Goals Senior Sales Representative Goals Eating (QC): 5 Oral Hygiene (QC): 5 Toileting Hygiene (QC): 4 Shower/Bathe Self (QC): 4 Upper Body Dressing (QC): 4 Lower Body Dressing (QC): 4 On/Off Footwear (QC): 4 1=Demonstrate adherence to instructed precautions during ADL tasks. 2=Patient will verbalize/demonstrate understanding of assistive devices/modifications for ADL. 3=Patient will improve strength/tolerance for activity to enable patient to per form ADL's. OT Education/Plan Problem List/Assessment Assessment: Decreased Safety Aware Discharge Recommendations Plan/Recommendations: Discharge/Goals Met Treatment Plan/Plan of Care Patient would benefit from OT for education, treatment and training to promote independence in ADL's, mobility, safety and/or upper extremity function for ADL's. Plan of Care: ADL Retraining, Cognitive Retraining, Concurrent Therapy, Functional Mobility, Group Exercise/Act as Ind, UE Funct Exercise/Act, UE Neuromus Re-Ed/Coord Treatment Duration: Mar 23, 2023 Frequency: 3 times per week (3-5 times per week) Estimated Hrs Per Day: .25 hour per day Agreement: Yes Rehab Potential: Fair Time Start Time: 11:12 Stop Time: 11:24 DATE: Mar 21, 2023 Total Time Billed (hr/min): 12 Billed Treatment Time ADL 12 min DANGELO CAMPOS OT Mar 21, 2023 12:37
[2023-03-21 13:13] VITALS: BP 133/73
== END 2023-03-21 13:16 | DRG 638 ==
LOC: EDUNIT# 13:44 → ER 13:46 → ICU 16:01 → 4TH 03-20 11:15
PROVIDERS: ADMIT Internal Medicine; ATTEND Internal Medicine
DX: E11.10 Type 2 diabetes mellitus with ketoacidosis without coma (principal); M62.82 Rhabdomyolysis; N17.9 Acute kidney failure, unspecified; R41.0 Disorientation, unspecified; H91.13 Presbycusis, bilateral; M25.551 Pain in right hip; E78.00 Pure hypercholesterolemia, unspecified; I10 Essential (primary) hypertension; K21.9 Gastro-esophageal reflux disease without esophagitis; K57.90 Diverticulosis of intestine, part unspecified, without perforation or abscess without bleeding; M54.9 Dorsalgia, unspecified; G89.29 Other chronic pain; M19.90 Unspecified osteoarthritis, unspecified site; E03.9 Hypothyroidism, unspecified; D72.829 Elevated white blood cell count, unspecified; E04.2 Nontoxic multinodular goiter; H54.7 Unspecified visual loss; Z79.899 Other long term (current) drug therapy; Z79.891 Long term (current) use of opiate analgesic; Z79.4 Long term (current) use of insulin; Z79.84 Long term (current) use of oral hypoglycemic drugs; W19.XXXA Unspecified fall, initial encounter
CPT/HCPCS: 36415; 36600; 51702; 70450; 71045; 72125; 73522; 80048; 80053; 80076; 81000; 82010; 82550; 82805; 82947; 83036; 83735; 84100; 84443; 85007; 85025; 85027; 87081; 94760; 96372; 96374

== ENCOUNTER 2023-03-21 10:11 | Inpatient (IN) | payer MEDICARE ==
[~2023-03-21] VITALS: Ht 154 cm; Wt 79.6 kg
[~2023-03-21 10:11] MED LIST changes: +MELO10CA3 PO
--- NOTE | 2023-03-21 12:42 | PM&R Post Admission Assessment ---
PM&R HP Date of Visit: Mar 21, 2023 Time of Visit: 13:30 History of Present Illness CC: Debility following fall and DKA HPI: This is an 88yoWF who presents to ARU following a critical illness of DKA requiring several days in ICU on insulin drip. Per acute care chart: HPI: Ms. Jeronimo is an 88 y/o female who fell at home the night of 03/17. She is extremely hard of hearing and has PMH of DM. She lives alone, but her niece checks in on her. 03/18 the niece did not hear from Ms. Jeronimo and went to her home to check on her. Ms. Jeronimo was found on the floor outside the bathroom door. She was reported confused and unlike herself when found down. EMS reported a blood glucose "too high to read". The PT does not recall any previous falls. CT shows nodular thyroid. There were no cardiopulmonary changes per chest XR. Today the patient has no complaints. She is alert and oriented x3 this morning, but obtaining a further history is difficult per hearing problems. Currently she is doing much better and walking better but she has stairs in her home and we need to focus on regaining independence in order to safely return home. Past Hssuoba-Kibvri-Tyjwct Hx Past Med/Social Hx: Reviewed Nursing Past Med/Soc Hx, Reviewed and Corrections made Patient Social History Marrital Status: single Employed/Student: retired Alcohol Use: Denies Use Smoking Status: Never a Smoker 2nd Hand Smoke Exposure: No Recent Hopitalizations: No Immunizations Up To Date Tetanus Booster (TDap): Unknown Seasonal Allergies Seasonal Allergies: No Past Medical History Surgeries: Abdominal, Orthopedic Currently Using CPAP: No Currently Using BIPAP: No Cardiac: High Cholesterol, Hypertension Reproductive: No Sexually Transmitted Disease: No HIV/AIDS: No Female Reproductive Disorders: Denies Genitourinary: UTI-Chronic Gastrointestinal: Gastroesophageal Reflux, Diverticulosis Musculoskeletal: Arthritis, Chronic Back Pain Endocrine: Diabetes, Insulin dep HEENT: Cataract Loss of Vision: Denies Hearing Impairment: Hard of Hearing History of Blood Disorders: No Adverse Reaction to Blood Z[place]: No Family History Cardiovascular disease 19 FATHER Colon cancer 19 MOTHER Diabetes mellitus 19 MOTHER G8 BROTHER FH: cancer 19 MOTHER (brain) G8 BROTHER (prostate, ) G8 SISTER (breast) Myocardial infarction 19 FATHER Heart Disease PM&R Allergy/Meds/Data Review Allergies Coded Allergies: No Known Drug Allergies (Verified , 02/27/07) Home Medications Scheduled Amlodipine Besylate (Amlodipine Besylate), 10 MG PO DAILY, (Reported) Insulin Glargine,Hum.rec.anlog (Lantus Solostar), 38 UNITS SQ HS, (Reported) Levothyroxine Sodium (Levothyroxine Sodium), 50 MCG PO DAILY, (Reported) Lisinopril (Lisinopril), 40 MG PO DAILY, (Reported) Lovastatin (Lovastatin), 40 MG PO DAILY, (Reported) Meloxicam (Meloxicam), 15 MG PO DAILY, (Reported) Metformin HCl (Metformin HCl), 500 MG PO DAILY, (Reported) Discontinued Medications Acetaminophen (Acetaminophen), 500 MG PO Q6HR PRN for PAIN-MILD Discontinued Reason: No Longer Taking Bisacodyl (Bisac-Evac), 10 MG MT DAILY PRN for CONSTIPATION-4TH LINE Discontinued Reason: No Longer Taking Cefdinir (Cefdinir), 300 MG PO BID Discontinued Reason: No Longer Taking Cefdinir (Cefdinir), 300 MG PO BID Discontinued Reason: No Longer Taking Cholecalciferol (Vitamin D), 2,000 UNIT PO DAILY, (Reported) Discontinued Reason: No Longer Taking Clonazepam (Clonazepam), 0.5 MG PO UD Discontinued Reason: No Longer Taking Fluconazole (Fluconazole), 100 MG PO DAILY Discontinued Reason: No Longer Taking Hydrocodone Bit/Acetaminophen (Lortab 5 Mg Tablet), 1 TAB PO TID Discontinued Reason: No Longer Taking Hyoscyamine Sulfate (Oscimin), 0.125 MG PO AC PRN for SPASMS Discontinued Reason: No Longer Taking L. Acidophilus/Bulgaricus (Floranex Tablet), 1 TAB.CHEW PO BID Discontinued Reason: No Longer Taking Magnesium Oxide (Magnesium), 800 MG PO Q48H, (Reported) Discontinued Reason: No Longer Taking Meloxicam, Submicronized (Meloxicam), 15 MG PO DAILY, (Reported) Discontinued Reason: Prescription changed Potassium Chloride (Klor-Con M20), 40 MEQ PO DAILY@0700 Discontinued Reason: No Longer Taking Simethicone (Simethicone), 80 MG PO PCHS Discontinued Reason: No Longer Taking Current Medications Current Medications Reviewed Review of Systems Constitutional: see HPI, malaise, weakness EENTM: hearing loss Respiratory: no symptoms reported Cardiovascular: no symptoms reported Gastrointestinal: no symptoms reported Genitourinary: no symptoms reported Musculoskeletal: back pain, joint pain Skin: no symptoms reported Psychiatric/Neurological: No Symptoms Reported All Other Systems Reviewed Negative Unless Noted: Yes Physical Exam Physical Exam Vital Signs Capillary Refill : Height, Weight, BMI Height: 5'0.00" Weight: 133lbs. 0.0oz. 60.301326zg; 29.13 BMI Method:Stated General Appearance: No Apparent Distress, WD/WN, Chronically ill, Obese Eyes: Bilateral Eye Normal Inspection, Bilateral Eye PERRL HEENT: PERRL/EOMI, Normal ENT Inspection, Pharynx Normal Neck: Full Range of Motion, Normal Inspection, Non Tender, Supple, Carotid Bruit Respiratory: Chest Non Tender, Lungs Clear, Normal Breath Sounds, No Accessory Muscle Use, No Respiratory Distress, Decreased Breath Sounds Cardiovascular: Regular Rate, Rhythm, No Edema, No Gallop, No JVD, No Murmur, Normal Peripheral Pulses Gastrointestinal: Normal Bowel Sounds, No Organomegaly, No Pulsatile Mass, Non Tender, Soft Back: Normal Inspection, No CVA Tenderness, No Vertebral Tenderness Extremity: Normal Capillary Refill, Normal Inspection, Normal Range of Motion, Non Tender, No Calf Tenderness, No Pedal Edema Neurologic/Psychiatric: Alert, Oriented x3, Normal Mood/Affect, council on aging director II-XII Norm as Tested, Abnormal Gait (slow), Motor Weakness (generalized weakness all extremities 4/5) Skin: Normal Color, Warm/Dry Lymphatic: No Adenopathy PM&R Medical Assessment & Plan REHAB/MEDICAL ASSESSMENT AND PLAN: REHAB IMPAIRMENT GROUP: Other disabling impairments ETIOLOGIC DIAGNOSIS: Acute kidney injury, DKA The comorbidities that impact the patients function and/or functional outcome by: advanced age, fall risk, lives alone, slow gait, dugars out of control REHAB PLAN: The patient is being admitted to our comprehensive inpatient rehabilitation facility and can tolerate the intensity of service consisting of at least: 180 minutes of therapy a day, 5 out of 7 days a week Rehab treatment will consist of: PT OT will focus on regaining function with use of AD and increasing independence in ADL's in order to safely return home The patient/family has a good understanding of our discharge process and will benefit from an interdisciplinary inpatient rehabilitation program. The patient has potential to make improvement and is in need of at least two of the follow ing multidisciplinary therapies including but not limited to physical, occupational, speech, and prosthetics and orthotics. Additionally the patient will need services from respiratory, nutritional services, wound care, psychology, etc. (Customize this to each patient). Given the patients complex condition and risk of further medical complications, rehabilitation services cannot be safely or effectively provided at a lower level of care such as a fpc facility. BARRIERS TO DISCHARGE: Lives alone ESTIMATED LOS: 7 days DISPOSITION: Home RELEVANT CHANGES SINCE PREADMISSION SCREENING: I have compared the patients medical and functional status at the time of the preadmission screening and there are: no changes PROGNOSIS: Good REHABILITATION GOALS: 1.PT OT will focus on regaining function with use of AD and increasing independence in ADL's in order to safely return home All the above goals were reviewed with the patient and he/she is in agreement. By signing this document, I acknowledge that I have personally performed a full physical examination on this patient within 24 hours of admission to this inpatient rehabilitation facility and have determined the patient to be able to tolerate the above course of treatment at an intensive level for a reasonable period of time. I will be completing a detailed individualized Plan of Care for this patient by day #4 of the patients stay based upon the Preadmission Screen, the Post-Admission Evaluation, and the therapy evaluations. Admission Dx/Comorbidities: (1) Debility ICD Codes: R53.81 - Other malaise Assessment/Plan Assessment and Plan Assess & Plan/Chief Complaint Assessment: Debility s/p DKA DM OOC HTN OA Advanced age s/p JULITO Plan: PT OT Monitor closely Home meds Insulin ANGELICA ORELLANA DO Mar 21, 2023 12:42
[2023-03-21] MEDS ORDERED: ALPRAZolam 0.25 MG TABLET PO PRN (12:45)
[2023-03-21] MEDS ORDERED: diphenhydrAMINE 25 MG TABLET PO PRN ×2 (12:45→17:45)
[2023-03-21] MEDS ORDERED: LACTULOSE SYRUP 10GM/15ML 30ML UDC PO PRN ×2 (12:45→17:45)
[2023-03-21] MEDS ORDERED: CALCIUM CARBONATE 500 MG CHEW TABLET PO PRN ×2 (12:45→17:45)
[2023-03-21] MEDS ORDERED: guaiFENesin/CODEINE 10ML UDC PO PRN (12:45)
[2023-03-21] MEDS ORDERED: DOCUSATE SODIUM 100 MG CAPSULE PO PRN (12:45)
[2023-03-21] MEDS ORDERED: LOPERAMIDE 2 MG CAPSULE PO PRN (12:45)
[2023-03-21] MEDS ORDERED: ONDANSETRON 4 MG ORAL DISSOLVE TABLET PO PRN ×2 (12:45→17:45)
[2023-03-21] MEDS ORDERED: Sodium Phosphate/Sodium Biphosphate ADULT enema PR PRN (12:45)
[2023-03-21] MEDS ORDERED: MELATONIN 3 MG TABLET PO PRN ×2 (12:45→17:45)
[2023-03-21] MEDS ORDERED: BISACODYL 10 MG SUPPOSITORY PR PRN ×2 (12:45→17:45)
--- OUTSIDE RECORDS SUMMARY | 2023-03-21 13:30 | XMS REPORT | Clinical Summary ---
Author Author [facility] Organization [facility] Address Unknown Phone Unavailable Care Team Providers Care Computer Science Professor Name Role Phone Roxana No MD PCP [phone] Source Comments Some departments are not documenting in the electronic medical record. If you do not see the information that you expected, contact Release of Information in the Health Information Management department at [phone] for further assistance in locating additional records.[facility] Allergies Active Allergy Reactions Criticality Noted Date Comments Morphine MENTAL STATUS CHANGES Medium 06/01/2017 Hallucinations, agitation Medications Medication Sig Dispensed Refills Start Date End Date Status metFORMIN (GLUCOPHAGE) 500 mg tablet Take 500 mg by mouth twice daily with meals. 0 Active meloxicam (MOBIC) 15 mg tablet Take 15 mg by mouth daily. 0 Active lovastatin(+) (MEVACOR) 40 mg tablet Take 40 mg by mouth at bedtime daily. 0 Active traMADol (ULTRAM) 50 mg tablet Take 50 mg by mouth every 8 hours as needed for Pain. 0 Active insulin glargine (LANTUS) 100 unit/mL injection Inject 20 Units under the skin at bedtime daily. 1 vial contains 10mL 0 Active levothyroxine (SYNTHROID) 50 mcg tablet Take 50 mcg by mouth daily 30 minutes before breakfast. 0 Active amLODIPine (NORVASC) 10 mg tablet Take 10 mg by mouth daily. 0 Active lisinopril (PRINIVIL, ZESTRIL) 40 mg tablet Take 40 mg by mouth daily. 0 Active clonazePAM (KLONOPIN) 0.5 mg tablet Take 0.5 mg by mouth at bedtime as needed. 0 Active magnesium oxide (MAG-OX) 400 mg tablet Take 600 mg by mouth daily. 0 Active cholecalciferol(+) (VITAMIN D3) 2,000 unit tablet Take 2,000 Units by mouth daily. 0 Active ascorbic acid (VITAMIN C) 500 mg tablet Take 500 mg by mouth daily. 0 Active methylPREDNIsolone (MEDROL DOSEPAK) 4 mg tablet Take medication as directed on package for 6 days. Take with food. 21 tablet 0 09/02/2018 Active traMADol ER(+) (ULTRAM-ER) 100 mg tablet Take one tablet by mouth daily. 20 tablet 0 09/02/2018 Active acetaminophen SR(+) (TYLENOL) 650 mg tablet Take one tablet by mouth every 6 hours as needed for Pain. 30 tablet 0 09/02/2018 Active Active Problems Problem Noted Date Diagnosed Date Hearing loss, neural 06/08/2018 Ureteral obstruction 08/15/2017 Ureteral stricture, left 03/23/2017 Overview: Added automatically from request for surgery [id number] Ventral hernia 03/23/2017 Overview: Added automatically from request for surgery [id number] Diverticulitis of large inte eddie with perforation and abscess without bleeding 03/23/2017 S/P laparoscopic colectomy 03/23/2017 Immunizations Name Administration Dates Next Due FLU VACCINE >3YO 03/28/2018 Pneumococcal Vaccine (23-Gloria Adult) 03/28/2018 Surgical History Surgery Date Site/Laterality Comments HX BACK SURGERY 05/21/2011 - 05/20/2012 for lumbar stenosis HX CATARACT REMOVAL Bilateral COLECTOMY 12/19/2016 - 01/18/2017 removed mass OOPHORECTOMY 12/19/2016 - 01/18/2017 Left EYE SURGERY laser HX SURGERY raised stomch for acid reflux URETHROPLASTY 08/15/2017 Ureter/Left LEFT URETERAL RE-IMPLANT performed by Rohan Nav[facility]re[facility] Medical devices from this surgery are in the Medical Devices section. VENTRAL HERNIA REPAIR 08/15/2017 Abdomen/N/A PARASTOMAL HERNIA REPAIR performed by Rohan Navarrete MD at [facility] Medical devices from this surgery are in the Medical Devices section. COCHLEAR IMPLANT 09/02/2018 Left IMPLANTATION COCHLEAR DEVICE performed by Andre Rivera MD at [facility] Medical devices from this surgery are in the Medical Devices section. Medical History Medical History Date Comments Arthritis Acquired hypothyroidism Hypertension Diverticulitis Low back pain Lumbar stenosis DM (diabetes mellitus) (HCC) Hyperlipidemia GERD (gastroesophageal reflux disease) Septic shock due to urinary tract infection 10/20 017 Hearing loss Social History Tobacco Use Types Packs/Day Years Used Date Smoking Tobacco: Never Smokeless Tobacco: Never Alcohol Use Standard Drinks/Week Comments Yes 0 (1 standard drink = 0.6 oz pur e alcohol) rare Alcohol Use Answer Date Recorded Alcohol Use Yes 07/28/2021 Male: 9+ ounces (15+ Standard Drinks) per week T hreshold Not on file 07/28/2021 Female: 4.8+ ounces (8+ Standard Drinks) per wee k Threshold 0 07/28/2021 Sex and Gender Information Value Date Recorded Sex Assigned at Not on file Gender Identity Not on file Sexual Orientation Not on file Obstetrics History Last Filed Vital Signs Vital Sign Reading Time Taken Comments Blood Pressure 172/94 09/19/2018 9:01 AM CDT Pulse 88 09/19/2018 9:01 AM CDT Temperature 36.8 C (98.2 F) 09/02/2018 4:06 PM C DT Respiratory Rate 18 01/22/2018 10:45 AM CDT Oxygen Saturation 96% 09/02/2018 4:30 PM CDT Inhaled Oxygen Concentration - - Weight 73.3 kg (161 lb 9.6 oz) 09/19/2018 9:01 AM CDT Height 151.1 cm (4' 11.5") 09/19/2018 9:01 AM C DT Body Mass Index 32.09 09/19/2018 9:01 AM CDT Plan of Treatment Health Maintenance Due Date Last Done Comments MEDICARE ANNUAL WELLNESS VISIT 1935 COVID-19 VACCINE (#1) 1935 DTAP/TDAP VACCINES (1 - Tdap) 01/14/1954 PHYSICAL (COMPREHENSIVE) EXAM 01/14/1954 SHINGLES RECOMBINANT VACCINE (1 of 2) 01/14/1986 OSTEOPOROSIS SCREENING/MONITORING 01/14/2001 PNEUMOCOCCAL VACCINE 65+ YRS (2 - PCV) 03/28/2019 ADVANCE CARE PLANNING DISCUSSION AND DOCUMENTATION 05/2022 DEPRESSION SCREENING 05/21/2022 INFLUENZA VACCINE (#1) 2022 03/28/2018 Medical Devices Implanted Type Area Fixing Machine Operator Device Identifier Shelf Expiration Date Model / Serial / Lot Matrix Tissue [id number] Strattice Porcine Dermis - [id number] Implanted:Qty: 1 on 08/15/2017 by Rohan Navarrete MD at [facility] Mesh N/A: Abdomen LIFECELL 03/20/2019 [id number] / [id number] / [id number] Barrier Adhesion 3x5in Procedure Pack Bioresorbable Membrane - [id number] Implanted:Qty: 1 on 08/15/2017 by Rohan Navarrete MD at [facility] Other N/A: Ureter GENZYME 04/19/2020 [id number] / [id number] / [id number] Stent Ureteral 6fr 26cm Pigtail Curve Taper Tip Bladder Yuan - [id number] Implanted:Qty: 1 on 08/15/2017 by Rohan Navarrete MD at [facility] Stent Left: Ureter Digerati UROLOGY 05/07/2020 [id number] / [id number] / [id number] Implant Cochlear 2.1mm Space .4mm 28mm 23.1mm .8mm .5mm Fle - [id number] Implanted:Qty: 1 on 09/02/2018 by Andre Rivera MD at [facility] Left: Ear UNIDENTIFIED MFG 06/06/2021 [id number] / [id number] / [id number] Advance Directives Documents on File Type Date Recorded Patient Account Development Specialist Expl anation Advance Directive/DPOA 09/18/2014 12:00 AM Latest Code Status on File Code Status Date Activated Date Inactivated Comments Full Code 08/15/2017 8:06 PM 08/22/2017 1:18 PM Question Answer Comments Provider has discussed Code Status w/Patient or Family? No, discussion not necessary based on Dx Care Teams Computer Science Professor Relationship Specialty Start Date End Date Roxana No MD [address] [place] [address] PCP - General Family Medicine 03/20/17
--- OUTSIDE RECORDS SUMMARY | 2023-03-21 13:30 | XMS REPORT ---
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 confirmed [id number] ALLERGIES No Known Allergies ENCOUNTERS from 1935 to 2023-03-19 Encounter Location Date Provider Diagnosis [facility] [address] [place] [address] Jan, TINA NELSON Type 2 diabetes mellitus without complications E11.9 ; FDC (current) use of insulin Z79.4 ; S/P complete thyroidectomy E89.0 ; 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 Not at all In the last 2 weeks, how oft en have you been feeling down, depressed, or hopeless? Not at all Total PHQ2 Score 0 REASON FOR REFERRAL No Information VITAL SIGNS Weight 164.8 lbs Jan, Weight-kg 74.75 kg 14 Jan, 2023 Temperature 97.9 degrees Fahrenheit Jan, Heart Rate 100 bpm Jan, Respiratory Rate 20 bpm Jan, Oximetry 100 % Jan, Blood pressure systolic 120 mmHg Jan, Blood pressure diastolic 80 mmHg Jan, MEDICATIONS Medication SIG (Take, Route, Frequency, Duration) Notes Start Date End Date Status Meloxicam 15 MG 1 tablet Orally Once a day Active Lantus 100 UNIT/ML as directed Subcutaneous Active Levothyroxine Sodium 50 MCG 1 tablet in the morning on an empty stomach Orally Once a day Active amLODIPine Besylate 10 MG 1 tablet Orall y Once a day Active Lovastatin 40 MG 1 tablet with the ev ening meal Orally Once a day Active metFORMIN HCl 500 MG 1 tablet with a johnnie l Orally Once a day Active Lisinopril 40 MG 1 tablet Orally Once a day Active FreeStyle InsuLinx Test - as directed In Vitro Active PROCEDURES from 1935 to 2023-03-19 Procedure Date Ordered Date Performed Result Body Sit e ROUTINE VENIPUNCTURE 2023-02-01 2023-02-02 N/A RESULTS REASON FOR VISIT Establish Care, wants to leave urine sample to check for UTI - viki, No concerns; wants a medication review to make sure she is on the right things; and will try to get urine for a sample bsherman MEDICAL (GENERAL) HISTORY Type Description Date Medical History Surgery on intense Medical History surgery on thyroid; half of it MENTAL STATUS No Information ASSESSMENTS Encounter Date Diagnosis Assessment Notes Treatment Notes Treatment Clinical Notes Jan, Type 2 diabetes mellitus without complications (ICD-10 - E11.9) -A1C was 9.6 today. Disucssed normal blood sugar ranges and goal of A1C of 7.0 Also discussed the risks associated with elevated blood sugars. Continue current CGM at this time. Uses Freestyle Kali -Decrease sugars, discussed healthy DM diet -Will get CBC, CMP and Lipid today -Will wait until labs come back to address any medication changes if needed Jan, FDC (current) use of insulin (ICD-10 - Z79.4) Jan, S/P complete thyroidectomy (ICD-10 - E89.0) -H/o of complete thyroidectomy -Will get TSH today Jan, Cochlear implant in place (ICD-10 - Z96.21) -Has cochlear implant of left ear 14 Sep, 2023 Screening for lipid disorders (ICD-10 - Z13.220) -Lipid ordered today Jan, History of recurrent UTIs (ICD-10 - Z87.440) Jan, Other This note wa s scribed by Ric Vang under the direct supervision of Dr. Wilman WHITLOCK who directed the entire visit and performed the exam. PLAN OF TREATMENT Treatment Notes Assessment Notes Clinical Notes Type 2 diabetes mellitus wit hout complications -A1C was 9.6 today. Disucssed normal blood sugar ranges and goal of A1C of 7.0 Also discussed the risks associated with elevated blood sugars. Continue current CGM at this time. Uses Freestyle Kali -Decrease sugars, discussed healthy DM diet -Will get CBC, CMP and Lipid today -Will wait until labs come back to address any medication changes if needed S/P complete thyroidectomy -H/o of compl ete thyroidectomy -Will get TSH today Cochlear implant in place -Has cochlear implant of left ear Screening for lipid disorders -Lipid ord ered today Future Test Test Name Order Date UA LONG DIP (IN HOUSE) [id number] Next Appt Details 3 Months with Wilman ibarra Carol Reason: Insurance Providers Payer Name Payer Address Payer Phone Insured Name Patient Relationship to Insured Coverage Start Date Coverage End Date Subscriber Number Group Number NGS MEDICARE Part A [facility] [employer] [address] [facility] [phone] Shauna Jeronimo 1 [id number] [employer] OF [place] [address] [place] [address] Shauna Jeronimo [id number]
[2023-03-21 13:40] VITALS: BP 150/67
--- NOTE | 2023-03-21 13:51 | Physical Therapy Evaluation ---
PT Evaluation-General Medical Diagnosis Admission Date Mar 21, 2023 at 13:15 Medical Diagnosis: debility, DKA, JULITO Onset Date: Apr 17, 2023 Therapy Diagnosis Therapy Diagnosis: debility, decreased gait/mobility, weakness, falls at home Height/Weight Height (Feet): 5 Height (Inches): 0.00 Weight (Pounds): 133 Weight (Ounces): 0.0 Precautions Precautions/Isolations: Fall Prevention, Standard Precautions Weight Bear Status Full Weight Bearing Full Weight Bearing Referral Physician: Jenna Reason for Referral: Evaluation/Treatment Medical History Pertinent Medical History: Arthritis, DM, GERD, HTN, Hypothroidism Current History Fell at home 03/17/23. Family member found patient laying on floor on 03/18/23 - brought to ER in DKA. Reviewed History: Yes Social History Home: Single Level (Duplex) Current Living Status: Alone PT Steps Into Home: 0 PT Steps Inside Home: 0 Other Obstacles: Has a dog named Elizabeth Prior Prior Level of Function SCALE: Activities may be completed with or without assistive devices. 0-Jlectzsstd-vfycspe completes the activity by him/herself with no assistance from a helper. 5-Set-up or Clean-up Assistance-helper sets up or cleans up; patient completes activity. [place] assists only prior to or following the activity. 4-Supervision or Touching Assistance-helper provides verbal cues and/or touching/steadying and/or contact guard assistance as patient completes activity. Assistance may be provided throughout the activity or intermittently. 3-Partial/Moderate Assistance-helper does LESS THAN HALF the effort. [place] lifts, holds or supports trunk or limbs, but provides less than half the effort. 2-Substantial/Maximal Assistance-helper does MORE THAN HALF the effort. [place] lifts or holds trunk or limbs and provides more than half the effort. 9-Hhtaxvktv-ohipvq does ALL the effort. Patient does none of the effort to complete the activity. Or, the assistance of 2 or more helpers is required for the patient to complete the activity. If activity was not attempted, code reason: 7-Patient Refused. 9-Not Applicable-not attempted and the patient did not perform the activity before the current illness, exacerbation or injury. 10-Not Attempted due to Environmental Limitations-(lack of equipment, weather restraints, etc.). 88-Not Attempted due to Medical Conditions or Safety Concerns. Bed Mobility: 6 Transfers (B,C,W/C): 6 Gait: 6 (walker prn) Stairs: 6 Wheelchair Mobility: 9 Indoor Mobility (Ambulation): Independent Stairs: Independent Prior Devices Use: Walker Prior Device Use: also has 2 reachers at home Patient states Isabel (daughter in law) checks on her frequently, sometimes brings meals, sometimes helps with housekeeping and helps pay patient's bills. Patient states she manages her own meds with a weekly pill box. She states she drives and does her own shopping. PT Evaluation-Current Subjective No c/o pain, but does state she has a "bad" (L). Is [place], but can understand this therapist's voice and reads lips. Patient also has a disposble stethoscope in her room that can be used for communication. Pain Section J - Health Conditions 1. Rarely or not at all 2. Occasionally 3. Frequently 4. Almost constantly 8. Unable to answer Pain Effect on Sleep: 1 Pain Interference with Therapy: 1 Pain Interference w/Day-to-Day: 1 Pt/Family Goals To return to her home Objective Patient Orientation: Person, Place, Situation O2 saturations at rest prior to walkin-95%. Did have some mild SOB with gait, however sats were 98-98% /p ambulation. On room air. ROM/Strength ROM Upper Extremities Defer to OT ROM Lower Extremities WFL (B) LE's in sitting Strength Upper Extremities Defer to OT Strength Lower Extremities (R) hip flexor 3/5/, (L) hip flexor 4/5. Quads 5/5 (B). Hamstrings 4+/5 (B). Hip abduction/adduction 4+/5 (B). Ankle DF 4/5, PF 5/5 (B) with MMT in sitting. Sensory Vision: Wears Glasses Hearing: Impaired Sensation Lower Extremities States no numbness, tingling, pins and needles in LE's nor feet. Transfers Roll Left & Right (QC): 4 (CGA /s railings up) Sit to Lying (QC): 4 (to guard hip while lifting legs onto mattress) Lying to Sitting/Side of Bed(Q: 3 (Min (A) with support offered to 1 UE to push up) Sit to Stand (QC): 5 (set up of FWW) Chair/Oeb-rw-Vfmyi Xfer(QC): 5 (/c setup of FWW) Toilet Transfer (QC): 5 (set up of FWW) Car Transfer (QC): 1 (had to stop patient due to unsafe technique (wanting to step into car prior to sitting). Was then mod (A) to lift LE's in/out. ) Gait Mode of Locomotion: Walk Anticipated Mode of Locomotion: Walk Walk 10 feet (QC): 4 (SBA) Walk 50 ft with 2 Turns(QC): 4 (SBA /c FWW) Walk 150 ft (QC): 3 (Had 1 episode of catching (R) toe and stumbling, requiring min (A) to steady patient) Walking 10ft/uneven surface-QC: 4 (CGA /c FWW) Distance: 273' Gait Assistive Device: FWW Wheelchair Training Does the Pt Use a Wheelchair?: No Wheel 50 ft with 2 turns (QC): 9 Wheel 150 ft (QC): 9 Stairs 1 Step (curb) (QC): 4 (CGA /c FWW, no cues required) 4 Steps (QC): 4 (CGA /c (B) handrails) 12 Steps (QC): 4 (CGA /c (B) handrails) Walking Assistive Device: Walker Balance Sitting Static: Normal Sitting Dynamic: Good Standing Static: Good Standing Dynamic: Fair Picking up an Object (QC): 3 (Min (A) to steady while retrieving brush off floor, while using walker for support. ) Special Test Comments Elderly Mobility Scale: 15/20 Assessment/Needs Patient is an 88 year old female who was admitted to the ARU s/p a fall at home, DKA, JULITO and debility. She will benefit from PT while on ARU to maximize her strength, balance, endurance and functional mobility prior to returning home alone to her duplex. Rehab Potential: Good Equipment Needs Has a 4WW at home; will continue to assess possible need of FWW. PT Elevator Builder Goals Elevator Builder Goals PT Elevator Builder Goals Time Frame: Mar 28, 2023 Roll Left to Right (QC): 6 Sit to Lying (QC): 6 Lying-Sitting on Side/Bed(QC): 6 Sit to Stand (QC): 6 Chair/Chx-rb-Iglgu Xfer(QC): 6 (/c walker) Toilet/Commode Transfer (QC): 6 (/c walker) Car Transfer (QC): 6 (/c walker) Does the Patient Walk: Yes Walk 10 feet (QC): 6 (/c walker) Walk 10ft-Uneven Surface(QC): 6 (/c walker) Walk 50ft with 2 Turns (QC): 6 (/c walker) Walk 150 ft (QC): 6 (/c walker) Does the Pt use WC or Scooter?: No Wheel 50 feet with 2 turns (QC: 9 Wheel 150 feet: 9 1 Step (curb) (QC): 6 (/c walker) 4 Steps (QC): 6 (/c (B) railings) 12 Steps (QC): 6 (/c (B) railings) Picking up an Object (QC): 6 (/c or without glass cutter helper) Elderly Mobility Index: 17 PT Plan Problem List Problem List: Activity Tolerance, Functional Strength, Safety, Balance, Gait, Transfer, Bed Mobility Treatment/Plan Treatment Plan: Continue Plan of Care Treatment Plan: Bed Mobility, Education, Functional Activity Kevin, Functional Strength, Group Therapy, Gait, Safety, Therapeutic Exercise, Transfers Treatment Duration: Mar 28, 2023 Frequency: At least 5 of 7 days/Wk (IRF) Estimated Hrs Per Day: 1.5 hours per day Safety Risks/Education Safety Risk Comments: Fall risk Patient Education: Gait Training, Transfer Techniques, Steps Teaching Recipient: Patient Teaching Methods: Demonstration, Discussion Response to Teaching: Verbalize Understanding Discharge Recommendations Therapy Discharge Recommendati: Meals on Wheels, Bath Aide, Homemaker Support, Home & Family Equpiment Recommendations-D/C: Front Wheeled Walker Time Time In: 1345 Time Out: 1420 DATE: Mar 21, 2023 Total Billed Treatment Time: 35 Total Billed Treatment 35' Glenny Mandujano PT Mar 21, 2023 13:51
--- NOTE | 2023-03-21 14:42 | Occupational Therapy Eval ---
OT Evaluation-General/PLF Medical Diagnosis Admission Date Mar 21, 2023 at 13:15 Medical Diagnosis: debility, DKA, JULITO Onset Date: Apr 17, 2023 Therapy Diagnosis Therapy Diagnosis: decreased ADL status, weakness Height/Weight Height (Feet): 5 Height (Inches): 0.00 Weight (Pounds): 133 Weight (Ounces): 0.0 Precautions Precautions/Isolations: Fall Prevention, Standard Precautions Referral Physician: Jenna Referral Reason: Evaluation/Treatment Medical History Pertinent Medical History: Arthritis, DM, GERD, HTN, Hypothroidism Additional Medical History DM, extreme [place], HTN, chronic UTI, GERD, arthritis, diverticulosis, cataract Current History 03/17/23 fall at home, 03/18 family had not heard from pt, checked on her and pt found down on floor outside of her bathroom door, confused. Per EMS report, blood glucose "too high to read". 03/21/23 admit to ARU Social History Home: Single Level (Duplex) Current Living Status: Alone Entry Into Home: Level Entry Steps Into Home: 0 Steps Inside Home: 0 Other Obstacles: Has a dog named Elizabeth ADL-Prior Level of Function SCALE: Activities may be completed with or without assistive devices. 0-Olcmojgtpg-kowsouc completes the activity by him/herself with no assistance from a helper. 5-Set-up or Clean-up Assistance-helper sets up or cleans up; patient completes activity. [place] assists only prior to or following the activity. 4-Supervision or Touching Assistance-helper provides verbal cues and/or touching/steadying and/or contact guard assistance as patient completes activity. Assistance may be provided throughout the activity or intermittently. 3-Partial/Moderate Assistance-helper does LESS THAN HALF the effort. [place] lifts, holds or supports trunk or limbs, but provides less than half the effort. 2-Substantial/Maximal Assistance-helper does MORE THAN HALF the effort. [place] lifts or holds trunk or limbs and provides more than half the effort. 9-Pmreasfyh-fkbycm does ALL the effort. Patient does none of the effort to complete the activity. Or, the assistance of 2 or more helpers is required for the patient to complete the activity. If activity was not attempted, code reason: 7-Patient Refused. 9-Not Applicable-not attempted and the patient did not perform the activity before the current illness, exacerbation or injury. 10-Not Attempted due to Environmental Limitations-(lack of equipment, weather restraints, etc.). 88-Not Attempted due to Medical Conditions or Safety Concerns. ADL PLOF Comments Pt reports IND with ADLs and functional mobility at PLOF, using 4WW. She initially reports she has help with cleaning/cooking, but later states she completed herself. Assistance level with IADLs unknown at this time. Pt reports IND with medication management, driving, shopping. Assistance from daughter in law from daughter in law, Isabel, with bills. Self Care: Independent Functional Cognition: Needed Some Help DME/Equipment: Bath Chair, Grab Bars, Shower DME/Equipment Comments 4WW Drive Self: Yes OT Current Status Subjective Pt agreeable to OT Tx. [place], but pt able to understand therapist with louder voice and through lip reading. Disposable stethoscope used as amplifier during PLOF questions. Mental Status/Objective Patient Orientation: Person, Place, Time, Situation Current Glasses/Contacts: Yes Hearing Aids: No ([place] (Deaf L ear; decreased hearing R ear)) Dentures/Partials: Yes Upper Extremity ROM WFL, BUE shoulder flexion to approx 160 degrees Upper Extremity Coordination WFL Upper Extremity Sensation WFL per pt report. Upper Extremity Strength grossly 4/5 ADL-Treatment Eating (QC): 6 (Per pt report with lunch) Oral Hygiene (QC): 4 (SBA) Shower/Bathe Self (QC): 3 (Min A washing/dring L lower leg/foot per pt report) Upper Body Dressing (QC): 4 (CGA-SBA in standing to don bra and shirt.) Lower Body Dressing (QC): 3 (Min A overall. Assist threading L foot, pt able to thread R and perform pant hike with SBA-CGA.) On/Off Footwear (QC): 3 (Pt able to doff b/l shoes/socks. Min assist donning L sock and shoe. Pt able to don R sock and shoe. ) Toileting Hygiene (QC): 4 (CGA) Other Treatments OT evaluation complete. Pt provided information about PLOF and home set up and participated in UE screen. Pt stood from recliner, SBA, CGA-SBA transfer to w/c with FWW. Pt declines showering, due to showering this AM. Pt stood at FWW to [facility] gown and don bra/shirt, CGA-SBA during task. Pt initially donned bra inside out, able to notice error and correct without cues. Pt attempted to don pants in standing, requiring VC to sit down first for safety. Pt completed lower body dressing and footwear as outlined above. Post tx, pt in w/c, call light in reach and all needs met. PT present for evaluation. Some impulsivity noted during session with safety concerns. Example includes pt standing from w/c prior to walker being placed in front of her and prior to full instructions being given. Education OT Patient Education: Correct positioning, Energy conservation, Modified ADL techniques, Progress toward Goal/Update tx plan, Purpose of tx/functional activities, Rehab process Teaching Recipient: Patient Teaching Methods: Discussion Response to Teaching: Verbalize Understanding BIMS CAM BIMS Expression of Ideas and Wants: Without Difficulty Understanding Verbal Content: Sometimes Understands (very [place]) Brief Interview/Mental Status: Yes IRF WENDY BIMS: IRF WENDY BIMS Response (Comments) Value Repitition of Three Words One 1 Recalls Socks No, Could Not Recall 0 Recalls Blue Yes, After Cueing (Color) 1 Recalls Bed No, Could Not Recall 0 Year Correct 3 Month Accurate Within 5 Days 2 Day Correct 1 Total 8 Patient Normally Able to Recal: Current Session, Location of own room, That he/she in a hsp Should Staff Asses. Mental St.: No Memory/Recall Ability: Current Season, Location of Own Room, That He/She in Hospitall CAM Mental Status Change/Baseline: 1 Inattention: 0 Disorganized thinkin Altered level of consciousness: 0 OT Short Term Goals Short Term Goals Time Frame: Mar 30, 2023 Shower/bathe self: 5 Upper body dressin Lower body dressin Putting on/taking off footwear: 5 OT Fci Goals Fci Goals Time Frame: Apr 06, 2023 Eating (QC): 6 Oral Hygiene (QC): 6 Toileting Hygiene (QC): 6 Shower/Bathe Self (QC): 6 Upper Body Dressing (QC): 6 Lower Body Dressing (QC): 6 On/Off Footwear (QC): 6 Additional Goals: 1-Demonstrate ADL Tasks, 2-Verbalize Understanding, 3- ImproveStrength/Kevin 1=Demonstrate adherence to instructed precautions during ADL tasks. 2=Patient will verbalize/demonstrate understanding of assistive devices/modifications for ADL. 3=Patient will improve strength/tolerance for activity to enable patient to perform ADL's. OT Education/Plan Problem List/Assessment Assessment: Decreased Activ Tolerance, Decreased Safety Aware, Decreased UE Strength, Impaired Funct Balance, Impaired I ADL's, Impaired Self-Care Skills Discharge Recommendations Plan/Recommendations: Continue POC Treatment Plan/Plan of Care Patient would benefit from OT for education, treatment and training to promote independence in ADL's, mobility, safety and/or upper extremity function for ADL's. Plan of Care: ADL Retraining, Functional Mobility, Group Exercise/Act as Ind, UE Funct Exercise/Act Treatment Duration: Apr 06, 2023 Frequency: At least 5 of 7 days/Wk (IRF) Estimated Hrs Per Day: 1.5 hours per day Agreement: Yes Rehab Potential: Good Time Start Time: 13:10 Stop Time: 13:45 DATE: Mar 21, 2023 Total Time Billed (hr/min): 35 Billed Treatment Time GEOVANNY Deleon ADDISON OT Mar 21, 2023 14:42
--- NOTE | 2023-03-21 15:20 | ST Cognitive Linguistic Eval ---
Speech Evaluation-General Medical Diagnosis debility, DKA, JULITO Onset Date: Apr 17, 2023 Therapy Diagnosis Therapy Diagnosis: Debility Precautions Precautions/Isolations: Standard Precautions Referral Referring Physician: Dr. West Reason for Referral: Consult Medical History Pertinent Medical History: Arthritis, DM, GERD, HTN, Hypothroidism Current History The pt had fall at home on 03/17/23, found by family member on 03/18/23. The pt was confused when found, diagnosis of diabetic ketoacidosis [facility]. Reviewed History: Yes Social History Home: Single Level Current Living Status: Alone Speech PLF-Current Status Prior Level of Function The pt lives alone with intermittent assistance from her niece. She does light housekeeping, laundry and simple meal prep. She uses a medication organizer for meds, niece ensures accuracy. Niece also supervises the pt's finances, and provides some meals. Language Eval: Auditory Comprehends Simple Yes/No Ques: Functional Follows Complex Directions: Functional Significantly hard of hearing, good language comprehension when she is able to hear adequately. Language Eval: Verbal Language Completes Spontaneous Greeting: Functional Requests Basic Needs: Functional States Basic Personal Info: Functional Expresses Complex Ideas: Functional Occasional word substitutions noted which the pt immediately self-corrected, e.g. stating "brother" for nephew when asked about her family. Language Evaluation: Reading Follows Simple Written Direct: Functional Language Evaluation: Writing Writes Personal Information: Functional Writes Short Phrases: Functional Objective Formal/Standardized Tests MMSE Results The pt earned 26/30 points on the MMSE, which is WFL for age on the screening tool. The pt was fully oriented, also able to provide timeline of fall and hospitalization. Registration was 2/3, recall was 3/3 after 3-minute filled interval. Long-term recall was 2/3 (25-minute interval). The pt received 3/5 for reverse spelling. Figure copy and sentence writing were intact, the pt was able to follow 3-part command without difficulty. The pt was able to describe her medications and how she organizes her prescr iptions weekly. She was able to sequence steps for making a sandwich, and list monthly bills that she pays (expressed concern that her rent is due today and should be paid by her niece). Oral Motor/Speech Production Mildly loud vocal volume due to hearing loss, speech was intelligible Impression The pt demonstrates appropriate cognitive ability for age, earning a score of 26/30 on a standardized cognitive screening. The pt occasionally appeared confused when she did not understand speaker's message and expressed an unrelated response, however when message was restated for pt understanding, responses were appropriate and functional. Speech-Plan Patient/Family Goals Patient/Family Goals: The pt plans to return home with continued assistance of family Treatment Plan Speech Therapy Treatment Plan: Discontinue ST Frequency: Modified Program (IRF) (no treatment indicated) Estimated Hrs Per Day: Other (no treatment indicated) Rehab Potential: Good Discharge Recommendations Home & Family Time Speech Therapy Time In: 14:35 Speech Therapy Time Out: 15:05 DATE: Mar 21, 2023 Total Billed Time: 30 Billed Treatment Time 1 SPSNDCOMP (30 min) MJ MOSELEY Mar 21, 2023 15:20
--- NOTE | 2023-03-21 15:40 | Occupational Ther Daily Note ---
OT Current Status-Daily Note Subjective Pt alert, sitting in recliner. Pt agrees to therapy. Pt very [place], R ear better than L ear. Co-treat with PT [id number], skills of 2 clinicians required to decrease fall risk while completing higher level standing/ambulating balance tasks. PT focusing on all mobility while OT focusing on functional mobility. Mental Status/Objective Patient Orientation: Person, Place, Time, Situation ADL-Treatment SBA for toileting and toilet transfer. Pt stood at sink to wash hands with SBA. Therapy Code Descriptions/Definitions Functional [place] Measure: 0=Not Assessed/NA 4=Minimal Assistance 1=Total Assistance 5=Supervision or Setup 2=Maximal Assistance 6=Modified [place] 3=Moderate Assistance 7=Complete IndependenceSCALE: Activities may be completed with or without assistive devices. 0-Szytharzhr-fflimry completes the activity by him/herself with no assistance from a helper. 5-Set-up or Clean-up Assistance-helper sets up or cleans up; patient completes activity. [place] assists only prior to or following the activity. 4-Supervision or Touching Assistance-helper provides verbal cues and/or touching/steadying and/or contact guard assistance as patient completes activity. Assistance may be provided throughout the activity or intermittently. 3-Partial/Moderate Assistance-helper does LESS THAN HALF the effort. [place] lifts, holds or supports trunk or limbs, but provides less than half the effort. 2-Substantial/Maximal Assistance-helper does MORE THAN HALF the effort. [place] lifts or holds trunk or limbs and provides more than half the effort. 1-Rsptlrkez-omhbus does ALL the effort. Patient does none of the effort to complete the activity. Or, the assistance of 2 or more helpers is required for the patient to complete the activity. If activity was not attempted, code reason: 7-Patient Refused. 9-Not Applicable-not attempted and the patient did not perform the activity before the current illness, exacerbation or injury. 10-Not Attempted due to Environmental Limitations-(lack of equipment, weather restraints, etc.). 88-Not Attempted due to Medical Conditions or Safety Concerns. Toileting Hygiene (QC): 4 Toilet Transfer (QC): 4 Other Treatment Cones placed at varying heights from chest height to floor for pt to worm picker and hand to SLIVER HANDLER. Pt able to reach, grasp and place in designated area without any LOB or safety issues. Pt then demonstrated ability to ambulate using FWW around ARU without any LOB. Discussed pt asking family to bring 4WW to ARU for pt to use throughout stay. After session, pt sitting in ARU commons area. Nrsg aware of pt's position. All needs met. OT Short Term Goals Short Term Goals Time Frame: Mar 30, 2023 Shower/bathe self: 5 Upper body dressin Lower body dressin Putting on/taking off footwear: 5 OT Fci Goals Air Chipper Goals Time Frame: Apr 06, 2023 Acute change in mental status: 1 Inattention: 0 Disorganized thinkin Altered level of consciousness: 0 Eating (QC): 6 Oral Hygiene (QC): 6 Toileting Hygiene (QC): 6 Shower/Bathe Self (QC): 6 Upper Body Dressing (QC): 6 Lower Body Dressing (QC): 6 On/Off Footwear (QC): 6 Additional Goals: 1-Demonstrate ADL Tasks, 2-Verbalize Understanding, 3- ImproveStrength/Kevin 1=Demonstrate adherence to instructed precautions during ADL tasks. 2=Patient will verbalize/demonstrate understanding of assistive devices /modifications for ADL. 3=Patient will improve strength/tolerance for activity to enable patient to perform ADL's. OT Education/Plan Problem List/Assessment Assessment: Decreased Activ Tolerance, Impaired Funct Balance Discharge Recommendations Plan/Recommendations: Continue POC Treatment Plan/Plan of Care Patient would benefit from OT for education, treatment and training to promote independence in ADL's, mobility, safety and/or upper extremity function for ADL's. Plan of Care: ADL Retraining, Functional Mobility, Group Exercise/Act as Ind, UE Funct Exercise/Act Treatment Duration: Apr 06, 2023 Frequency: At least 5 of 7 days/Wk (IRF) Estimated Hrs Per Day: 1.5 hours per day Agreement: Yes Rehab Potential: Good Time Start Time: 15:05 Stop Time: 15:45 DATE: Mar 21, 2023 Total Time Billed (hr/min): 40 Billed Treatment Time 1 visit-ADL 1 (10 min) FA 2 (30 min) co-treat for 40 min JAYLENE JOSE Mar 21, 2023 15:40
--- NOTE | 2023-03-21 15:42 | Physical Therapy Daily Note ---
PT Daily Note-Current Subjective Pt sitting in recliner in room upon arrival. Pt agrees to PT. Pt very [place], R ear better than L ear. Co-treat with PT [id number], skills of 2 clinicians required to decrease fall risk while completing higher level standing/ambulating balance tasks. PT focusing on all mobility while OT focusing on functional mobility. Pain Location: No Pain Reported Section J - Health Conditions 1. Rarely or not at all 2. Occasionally 3. Frequently 4. Almost constantly 8. Unable to answer Pain Effect on Sleep: 1 Pain Interference with Therapy: 1 Pain Interference w/Day-to-Day: 1 Mental Status Patient Orientation: Person, Place, Situation Transfers SCALE: Activities may be completed with or without assistive devices. 0-Klmkpqjfty-dwxwigk completes the activity by him/herself with no assistance from a helper. 5-Set-up or Clean-up Assistance-helper sets up or cleans up; patient completes activity. [place] assists only prior to or following the activity. 4-Supervision or Touching Assistance-helper provides verbal cues and/or touchi ng/steadying and/or contact guard assistance as patient completes activity. Assistance may be provided throughout the activity or intermittently. 3-Partial/Moderate Assistance-helper does LESS THAN HALF the effort. [place] lifts, holds or supports trunk or limbs, but provides less than half the effort. 2-Substantial/Maximal Assistance-helper does MORE THAN HALF the effort. [place] lifts or holds trunk or limbs and provides more than half the effort. 1-Xxbjnyziw-jzivma does ALL the effort. Patient does none of the effort to complete the activity. Or, the assistance of 2 or more helpers is required for the patient to complete the activity. If activity was not attempted, code reason: 7-Patient Refused. 9-Not Applicable-not attempted and the patient did not perform the activity before the current illness, exacerbation or injury. 10-Not Attempted due to Environmental Limitations-(lack of equipment, weather restraints, etc.). 88-Not Attempted due to Medical Conditions or Safety Concerns. Sit to Stand (QC): 4 Toilet Transfer (QC): 4 Weight Bearing Full Weight Bearing Full Weight Bearing Gait Training Does the Patient Walk?: Yes Distance: 500' Walk 10 feet (QC): 5 Walk 50 ft with 2 Turns(QC): 4 Walk 150 ft (QC): 4 Gait Assistive Device: FWW Treatments Cones placed at varying heights from chest height to floor for pt to pick up truck driver and hand to NETWORK INTERN. Pt able to reach, grasp and place in designated area without any LOB or safety issues. Pt then demonstrated ability to ambulate using FWW around ARU without any LOB. Discussed pt asking family to bring 4WW to ARU for pt to use throughout stay. After session, pt sitting in ARU commons area. Nrsg aware of pt's position. All needs met. Assessment Current Status: Good Progress Pt is walking well but will continue to work on safety and activity tolerance. PT Usp Goals Usp Goals PT Dietetic Intern Goals Time Frame: Mar 28, 2023 Roll Left & Right (QC): 6 Sit to Lying (QC): 6 Lying-Sitting on Side/Bed(QC): 6 Sit to Stand (QC): 6 Chair/Uwh-cy-Txzsn Xfer(QC): 6 (/c walker) Toilet Transfer (QC): 6 (/c walker) Car Transfer (QC): 6 (/c walker) Does the Patient Walk: Yes Walk 10 feet (QC): 6 (/c walker) Walk 50ft with 2 Turns (QC): 6 (/c walker) Walk 150 ft (QC): 6 (/c walker) Walking 10ft on Uneven Surface: 6 (/c walker) 1 Step (curb) (QC): 6 (/c walker) 4 Steps (QC): 6 (/c (B) railings) 12 Steps (QC): 6 (/c (B) railings) Picking up an Object (QC): 6 (/c or without visual designer) Does the Pt use WC or Scooter?: No Wheel 50 feet with 2 turns (QC: 9 Wheel 150 feet: 9 PT Plan Problem List Problem List: Safety Treatment/Plan Treatment Plan: Continue Plan of Care Treatment Plan: Bed Mobility, Education, Functional Activity Kevin, Functional Strength, Group Therapy, Gait, Safety, Therapeutic Exercise, Transfers Treatment Duration: Mar 28, 2023 Frequency: At least 5 of 7 days/Wk (IRF) Estimated Hrs Per Day: 1.5 hours per day Safety Risks/Education Patient Education: Safety Issues Teaching Recipient: Patient Teaching Methods: Discussion Response to Teaching: Verbalize Understanding Time Time In: 1505 Time Out: 1545 DATE: Mar 21, 2023 Total Billed Treatment Time: 40 Total Billed Treatment Co-treat w/OT for 40m 1, GT (15m) & FA x2 (25m) GILL SUAREZ NETWORK INTERN Mar 21, 2023 15:42
[2023-03-21] MEDS: inSUlin ASPART 1 UNIT/0.01 ML (PER UNIT) SC SCH ×2 (16:13→20:56)
[2023-03-21] MEDS ORDERED: FLU HIGH DOSE (65+ YOA) 240 MCG/0.7 ML 2023-24 (FLUZONE) IM ONE (16:45)
[2023-03-21] MEDS ORDERED: diphenhydrAMINE INJ 50 MG/ML VIAL IVP PRN (17:45)
[2023-03-21] MEDS ORDERED: oxyCODONE IMMEDIATE RELEASE 5 MG TABLET PO PRN (17:45)
[2023-03-21] MEDS ORDERED: ACETAMINOPHEN 325 MG TABLET PO PRN (17:45)
[2023-03-21] MEDS ORDERED: ONDANSETRON INJECTION 4 MG/2 ML (SDV) IV PRN (17:45)
[2023-03-21] MEDS ORDERED: MILK OF MAGNESIA 400 MG/5 ML 30 ML UDC PO PRN (17:45)
[2023-03-21] MEDS ORDERED: hydrALAZINE INJECTION 20 MG/ML VIAL IV PRN (17:45)
[2023-03-21] MEDS ORDERED: ANTACID SUSPENSION 30 ML UDC PO PRN (17:45)
[2023-03-21] MEDS: ENOXAPARIN 40 MG/0.4 ML SYRINGE SC SCH (18:55)
[2023-03-21 19:48] VITALS: BP 136/78
[2023-03-21] MEDS: inSUlin DETERMIR 1 UNIT/0.01 ML (CHARGE PER UNIT) SQ SCH (20:56)
[2023-03-21] MEDS: SENNOSIDES 8.6 MG TABLET PO SCH (20:58)
[2023-03-21] MEDS: DOCUSATE SODIUM 100 MG CAPSULE PO SCH (20:58)
[2023-03-21] MEDS ORDERED: DOCUSATE SODIUM 100 MG CAPSULE PO SCH (21:00)
[2023-03-21] MEDS ORDERED: SENNA W/DOCUSATE TABLET PO SCH (21:00)
[2023-03-22 05:51] LABS: BASOPHILS % (AUTO) 0 % (0-10); EOSINOPHILS # (AUTO) 0.1 10^3/uL (0.0-0.3); EOSINOPHILS % (AUTO) 2 % (0-10); HEMATOCRIT 38 % (35-52); HEMOGLOBIN 13.1 g/dL (11.5-16.0); LYMPHOCYTES # (AUTO) 1.8 10^3/uL (1.0-4.0); LYMPHOCYTES % (AUTO) 33 % (12-44); MEAN CORPUSCULAR HEMOGLOBIN 33 pg (25-34); MEAN CORPUSCULAR HGB CONC 34 g/dL (32-36); MEAN CORPUSCULAR VOLUME 96 fL (80-99); MEAN PLATELET VOLUME 11.8 fL (9.0-12.2); MONOCYTES # (AUTO) 0.5 10^3/uL (0.0-1.0); MONOCYTES % (AUTO) 8 % (0-12); NEUTROPHILS # (AUTO) 3.1 10^3/uL (1.8-7.8); NEUTROPHILS % (AUTO) 56 % (42-75); PLATELET COUNT 179 10^3/uL (130-400); WHITE BLOOD COUNT 5.5 10^3/uL (4.3-11.0)
[2023-03-22 06:10] LABS: ALBUMIN 3.1 GM/DL (3.2-4.5); BILIRUBIN,TOTAL 0.5 MG/DL (0.1-1.0); CALCIUM 9.3 MG/DL (8.5-10.1); CREATININE SERUM 0.94 MG/DL (0.60-1.30); POTASSIUM 3.6 MMOL/L (3.6-5.0); TOTAL PROTEIN 5.3 GM/DL (6.4-8.2)
[2023-03-22] MEDS: inSUlin ASPART 1 UNIT/0.01 ML (PER UNIT) SC SCH ×7 (06:17→20:10)
[2023-03-22] MEDS: LEVOTHYROXINE 50 MCG TABLET PO SCH (06:29)
[2023-03-22 07:13] VITALS: BP 165/74
[2023-03-22] MEDS: DOCUSATE SODIUM 100 MG CAPSULE PO SCH ×2 (08:12→20:10)
[2023-03-22] MEDS: amLODIPine 10 MG TABLET PO SCH (08:12)
[2023-03-22] MEDS: inSUlin DETERMIR 1 UNIT/0.01 ML (CHARGE PER UNIT) SQ SCH ×2 (08:13→20:10)
[2023-03-22] MEDS: SENNOSIDES 8.6 MG TABLET PO SCH ×2 (08:13→20:10)
[2023-03-22 10:02] VITALS: BP 131/59
--- NOTE | 2023-03-22 10:08 | Occupational Ther Daily Note ---
OT Current Status-Daily Note Subjective Pt. alert sitting on toilet. No c/o pain. Pt. agreed to therapy. Mental Status/Objective Patient Orientation: Person, Place, Time, Situation ADL-Treatment Pt. declined shower and changing clothing. Therapy Code Descriptions/Definitions Functional [place] Measure: 0=Not Assessed/NA 4=Minimal Assistance 1=Total Assistance 5=Supervision or Setup 2=Maximal Assistance 6=Modified [place] 3=Moderate Assistance 7=Complete IndependenceSCALE: Activities may be completed with or without assistive devices. 7-Eanasouecm-qjawevw completes the activity by him/herself with no assistance from a helper. 5-Set-up or Clean-up Assistance-helper sets up or cleans up; patient completes activity. [place] assists only prior to or following the activity. 4-Supervision or Touching Assistance-helper provides verbal cues and/or touching/steadying and/or contact guard assistance as patient completes activity. Assistance may be provided throughout the activity or intermittently. 3-Partial/Moderate Assistance-helper does LESS THAN HALF the effort. [place] lifts, holds or supports trunk or limbs, but provides less than half the effort. 2-Substantial/Maximal Assistance-helper does MORE THAN HALF the effort. [place] lifts or holds trunk or limbs and provides more than half the effort. 0-Gzoquvkfp-jwwbli does ALL the effort. Patient does none of the effort to complete the activity. Or, the assistance of 2 or more helpers is required for the patient to complete the activity. If activity was not attempted, code reason: 7-Patient Refused. 9-Not Applicable-not attempted and the patient did not perform the activity before the current illness, exacerbation or injury. 10-Not Attempted due to Environmental Limitations-(lack of equipment, weather restraints, etc.). 88-Not Attempted due to Medical Conditions or Safety Concerns. Oral Hygiene (QC): 6 (Pt. able to complete grooming/oral hygiene while standing at sink with no LOB.) On/Off Footwear: 6 (Shoes next to chair, Pt. able to reach and don shoes by self while seated. ) Toileting Hygiene (QC): 6 (Pt. hiked underwear/pants using grabbars and is able to cleanse all areas by self. ) Toilet Transfer (QC): 6 (Pt. used walker and grabbars to complete toilet transfers independently. ) Other Treatment Pt. able to ambulate from room/gym using FWW by self. Pt. given HEP and theraband for B UE exercises in room. Pt. completed B UE exercises using medium resistance theraband 1 set of 10 reps to help with strengthening to work on with functional daily task. Skilled instructions and modifications when needed. Dynamic standing activity using FWW to stabilize self with no LOB. After session, pt sitting ARU commons area nrsg aware and all needs met. Education OT Patient Education: Exercise program, Home exercise program Teaching Recipient: Patient Teaching Methods: Demonstration, Handout, Discussion Response to Teaching: Verbalize Understanding, Return Demonstration, Reinforcement Needed OT Short Term Goals Short Term Goals Time Frame: Mar 30, 2023 Shower/bathe self: 5 Upper body dressin Lower body dressin Putting on/taking off footwear: 5 OT Business Strategist Goals Business Strategist Goals Time Frame: Apr 06, 2023 Acute change in mental status: 1 Inattention: 0 Disorganized thinkin Altered level of consciousness: 0 Eating (QC): 6 Oral Hygiene (QC): 6 Toileting Hygiene (QC): 6 Shower/Bathe Self (QC): 6 Upper Body Dressing (QC): 6 Lower Body Dressing (QC): 6 On/Off Footwear (QC): 6 Additional Goals: 1-Demonstrate ADL Tasks, 2-Verbalize Understanding, 3- ImproveStrength/Kevin 1=Demonstrate adherence to instructed precautions during ADL tasks. 2=Patient will verbalize/demonstrate understanding of assistive devices/modifications for ADL. 3=Patient will improve strength/tolerance for activity to enable patient to perform ADL's. OT Education/Plan Problem List/Assessment Assessment: Decreased Activ Tolerance, Decreased UE Strength, Impaired Funct Balance Discharge Recommendations Plan/Recommendations: Continue POC Treatment Plan/Plan of Care Patient would benefit from OT for education, treatment and training to promote independence in ADL's, mobility, safety and/or upper extremity function for ADL's. Plan of Care: ADL Retraining, Functional Mobility, Group Exercise/Act as Ind, UE Funct Exercise/Act Treatment Duration: Apr 06, 2023 Frequency: At least 5 of 7 days/Wk (IRF) Estimated Hrs Per Day: 1.5 hours per day Agreement: Yes Rehab Potential: Good Time Start Time: 08:45 Stop Time: 10:15 DATE: Mar 22, 2023 Total Time Billed (hr/min): 90 Billed Treatment Time 1 visit- ADL 1 (20 mins) EX 1 (15 mins) FA 4 (55 mins) JAYLENE JOSE Mar 22, 2023 10:08
--- NOTE | 2023-03-22 12:17 | PM&R Progress Note ---
Subjective HPI/CC On Admission Date Seen by Provider: Mar 22, 2023 Time Seen by Provider: 10:30 Subjective/Events-last exam 03/22/2023: Patient doing well Working on a puzzle for occupational therapy Denies any pain Blood sugars reviewed We will monitor closely Review of Systems General: Fatigue, Malaise Objective Exam Vital Signs Vital Signs Date Time Temp Pulse Resp B/P (MAP) Pulse Ox O2 Delivery O2 Flow Rate FiO2 03/22/23 20:30 Room Air 03/22/23 20:08 36.3 96 18 124/71 (88) 97 Capillary Refill : General Appearance: No Apparent Distress, WD/WN, Chronically ill, Obese HEENT: PERRL/EOMI, Normal ENT Inspection, Pharynx Normal Neck: Full Range of Motion, Normal Inspection, Non Tender, Supple, Carotid Bruit Respiratory: Chest Non Tender, Lungs Clear, Normal Breath Sounds, No Accessory Muscle Use, No Respiratory Distress, Decreased Breath Sounds Cardiovascular: Regular Rate, Rhythm, No Edema, No Gallop, No JVD, No Murmur, Normal Peripheral Pulses Gastrointestinal: Normal Bowel Sounds, No Organomegaly, No Pulsatile Mass, Non Tender, Soft Back: Normal Inspection, No CVA Tenderness, No Vertebral Tenderness Extremity: Normal Capillary Refill, Normal Inspection, Normal Range of Motion, Non Tender, No Calf Tenderness, No Pedal Edema Neurologic/Psychiatric: Alert, Oriented x3, Normal Mood/Affect, finisher hand II-XII Norm as Tested, Abnormal Gait (slow), Motor Weakness (generalized weakness all extremities 4/5) Skin: Normal Color, Warm/Dry Lymphatic: No Adenopathy Results/Procedures Lab Laboratory Tests 03/22/23 05:32 Patient resulted labs reviewed. FIM Transfers Therapy Code Descriptions/Definitions Functional [place] Measure: 0=Not Assessed/NA 4=Minimal Assistance 1=Total Assistance 5=Supervision or Setup 2=Maximal Assistance 6=Modified [place] 3=Moderate Assistance 7=Complete IndependenceSCALE: Activities may be completed with or without assistive devices. 3-Qqspfjcmgp-bleofza completes the activity by him/herself with no assistance from a helper. 5-Set-up or Clean-up Assistance-helper sets up or cleans up; patient completes activity. [place] assists only prior to or following the activity. 4-Supervision or Touching Assistance-helper provides verbal cues and/or touching/steadying and/or contact guard assistance as patient completes activity. Assistance may be provided throughout the activity or intermittently. 3-Partial/Moderate Assistance-helper does LESS THAN HALF the effort. [place] lifts, holds or supports trunk or limbs, but provides less than half the effort. 2-Substantial/Maximal Assistance-helper does MORE THAN HALF the effort. [place] lifts or holds trunk or limbs and provides more than half the effort. 4-Uyhoagatt-xxokth does ALL the effort. Patient does none of the effort to complete the activity. Or, the assistance of 2 or more helpers is required for the patient to complete the activity. If activity was not attempted, code reason: 7-Patient Refused. 9-Not Applicable-not attempted and the patient did not perform the activity before the current illness, exacerbation or injury. 10-Not Attempted due to Environmental Limitations-(lack of equipment, weather restraints, etc.). 88-Not Attempted due to Medical Conditions or Safety Concerns. Roll Left to Right (QC): 4 (CGA /s railings up) Sit to Lying (QC): 4 (to guard hip while lifting legs onto mattress) Sit to Stand (QC): 4 Chair/Zmf-xl-Rscuz Xfer(QC): 5 (/c setup of FWW) Car Transfer (QC): 1 (had to stop patient due to unsafe technique (wanting to step into car prior to sitting). Was then mod (A) to lift LE's in/out. ) Gait Training Does the Patient Walk?: Yes Distance: 500' Walk 10 feet (QC): 5 Walk 50 ft with 2 Turns(QC): 4 Walk 150 ft (QC): 4 Walking 10ft/uneven surface-QC: 4 (CGA /c FWW) Gait Assistive Device: FWW Wheelchair Training Does the Pt Use a Wheelchair?: No Wheel 50 ft with 2 turns (QC): 9 Wheel 150 ft (QC): 9 Stair Training 1 Step (curb) (QC): 4 (CGA /c FWW, no cues required) 4 Steps (QC): 4 (CGA /c (B) handrails) 12 Steps (QC): 4 (CGA /c (B) handrails) Balance Picking up an Object (QC): 3 (Min (A) to steady while retrieving brush off floor, while using walker for support. ) ADL-Treatment Eating (QC): 6 (Per pt report with lunch) Oral Hygiene (QC): 6 (Pt. able to complete grooming/oral hygiene while standing at sink with no LOB.) Shower/Bathe Self (QC): 3 (Min A washing/dring L lower leg/foot per pt report) Upper Body Dressing (QC): 4 (CGA-SBA in standing to don bra and shirt.) Lower Body Dressing (QC): 3 (Min A overall. Assist threading L foot, pt able to thread R and perform pant hike with SBA-CGA.) On/Off Footwear (QC): 6 (Shoes next to chair, Pt. able to reach and don shoes by self while seated. ) Toileting Hygiene (QC): 6 (Pt. hiked underwear/pants using grabbars and is able to cleanse all areas by self. ) Toilet Transfer (QC): 6 (Pt. used walker and grabbars to complete toilet transfers independently. ) Assessment/Plan Assessment and Plan Assess & Plan/Chief Complaint Assessment: Debility s/p DKA DM OOC HTN OA Advanced age s/p JULITO Plan: PT OT Monitor closely Home meds Insulin 03/22/2023: Supportive care Insulin (1) Debility ANGELICA ORELLANA DO Mar 22, 2023 12:17
--- NOTE | 2023-03-22 12:18 | Individualized Plan of Care ---
Individualized Plan of Care Rehab Nursing IPOC Order Admission Date Mar 21, 2023 at 13:15 Current Orders Orders Admission Order(Inpt,Obs,Sdc) (03/21/23 12:39) Vital Signs: Per Unit Policy ( 08,16,00 (03/21/23 12:39) Damien Senior 09,21 (03/21/23 12:39) Sequential Compression Device Q12HX1 (03/21/23 12:39) Computer Customer Support Specialist-Inpt Rehab Con (03/21/23 12:39) Rehab Nursing Orders-Ipoc (03/21/23 12:39) Physical Therapy Rehab Orders (03/21/23 12:39) Occupational Therapy Rehab Ord (03/21/23 12:39) Speech Therapy Rehab Orders (03/21/23 12:39) Cbc And Automated Diff (03/22/23 06:00) Comprehensive Metabolic Panel (03/22/23 06:00) Precautions (Aru) (03/21/23 12:39) Weekly Weight WEEK (03/21/23 12:39) Rehab-Intensity Of Therapy (03/21/23 12:39) Initiate Admission Nursing Pro .admission (03/21/23 12:39) Alprazolam Tablet (Alprazolam Tablet) (03/21/23 12:45) Calcium Carbonate Chew Tablet (Calcium C (03/21/23 12:45) Diphenhydramine Tablet (Diphenhydramine (03/21/23 12:45) Docusate Sodium Capsule (Docusate Sodium (03/21/23 21:00) Docusate Sodium Capsule (Docusate Sodium (03/21/23 12:45) Bisacodyl Suppository (Bisacodyl Supposi (03/21/23 12:45) Lactulose Oral Solution (Enulose Oral So (03/21/23 12:45) Na Phos/Na Biphos Adult Enema (Na Phos/N (03/21/23 12:45) Guaifenesin/Codeine Syrup (Guaifenesin/C (03/21/23 12:45) Loperamide Capsule (Loperamide Capsule) (03/21/23 12:45) Melatonin Tablet (Melatonin Tablet) (03/21/23 12:45) Polyethylene Glycol Powder (Polyethylen (03/21/23 21:00) Ondansetron Oral Dissolve Tab (Ondanset (03/21/23 12:45) Senna W/Docusate Tablet (Senna W/Docusat (03/21/23 21:00) Acetaminophen Tablet (Acetaminophen Ta (03/21/23 12:45) Initiate Admission Nursing Pro .admission (03/21/23 12:39) Accucheck Achs ACHS (03/21/23 12:39) Insulin Aspart (Per Unit) (Insulin Aspar (03/21/23 16:00) Admission Arrival Bed Request (03/21/23 13:17) Flu High Dose Quad 9214-1879 (Fluzone Hi (03/21/23 16:45) Cho 60g/M 3snack (16-2000 [place]) (03/21/23 Dinner) Code/Resuscitation (03/21/23 17:32) Catheter(Urinary) Discontinue (03/21/23 17:32) Damien Senior (03/21/23 17:32) Diphenhydramine Injection (Diphenhydram (03/21/23 17:45) Enoxaparin Injection (Enoxaparin Injecti (03/21/23 18:00) Lactulose Oral Solution (Enulose Oral So (03/21/23 17:45) Levothyroxine Tablet (Levothyroxine Tabl (03/22/23 07:00) Melatonin Tablet (Melatonin Tablet) (03/21/23 17:45) Milk Of Magnesia Oral Susp (Milk Of Magn (03/21/23 17:45) Polyethylene Glycol Powder (Polyethylen (03/21/23 17:45) Antacid Suspension (Antacid Suspension (03/21/23 17:45) Sennosides Tablet (Sennosides Tablet) (03/21/23 21:00) Calcium Carbonate Chew Tablet (Calcium C (03/21/23 17:45) Acetaminophen Tablet (Acetaminophen Ta (03/21/23 17:45) Ondansetron Injection (Ondansetron Inj (03/21/23 17:45) Ondansetron Oral Dissolve Tab (Ondanset (03/21/23 17:45) Amlodipine Tablet (Amlodipine Tablet) (03/22/23 09:00) Clonidine Tablet (Clonidine Tablet) (03/21/23 17:45) Hydralazine Injection (Hydralazine Injec (03/21/23 17:45) Insulin Aspart (Per Unit) (Insulin Aspar (03/22/23 07:00) Insulin Determir (Per Unit) (Insulin Det (03/21/23 21:00) Lisinopril Tablet (Lisinopril Tablet) (03/22/23 09:00) Oxycodone Immediate Rel Tablet (Oxycodon (03/21/23 17:45) Mat Initiate Protocol (03/21/23 17:32) Sequential Compression Device Q12HX1 (03/21/23 17:32) Diphenhydramine Tablet (Diphenhydramine (03/21/23 17:45) Docusate Sodium Capsule (Docusate Sodium (03/21/23 21:00) Bisacodyl Suppository (Bisacodyl Supposi (03/21/23 17:45) Patient Visit (03/21/23 ) Pt Eval Moderate Complexity (03/21/23 ) Patient Visit (03/21/23 ) Gait Training, Ea 15 Min (03/21/23 ) Functional Activities, Ea 15 (03/21/23 ) Patient Visit (03/21/23 ) Speech Sound Lang Comp (03/21/23 ) Patient Visit (03/22/23 ) Gait Training, Ea 15 Min (03/22/23 ) Functional Activities, Ea 15 (03/22/23 ) Ex Neuromuscular, Ea 15 Min (03/22/23 ) Rehab Nursing Orders: Ongoing Assess. of Cognitive Status, Ongoing Assess. of Function Status, Bladder Management, Bladder Scan, Bladder Training, Bowel Management, Bowel Training, Disease Management & Educaiton, DVT Prophylaxis, Fall Prevention, Fluid/Electrolyte/Nutrition Mgmt, Infection Prevention, Medication Management & Education, Management of Risks & Complications, Management of Skin Intergrity, Nutrition Management, Pain Management, Patient/Family Support, Safety Management Intensity of Therapy to be met Patient to be seen: Min.3h per day/5 of 7d PT IPOC Problem List: Safety Treatment Plan: Continue Plan of Care Bed Mobility, Education, Functional Activity Kevin, Functional Strength, Group Therapy, Gait, Safety, Therapeutic Exercise, Transfers Treatment Duration: Mar 28, 2023 Frequency: At least 5 of 7 days/Wk (IRF) Estimated Hrs Per Day: 1.5 hours per day OT IPOC Problems: Decreased Activ Tolerance, Decreased UE Strength, Impaired Funct Balance OT Treatment, Training and Edu: Yes Plan of Care: ADL Retraining, Functional Mobility, Group Exercise/Act as Ind, UE Funct Exercise/Act Treatment Duration: Apr 06, 2023 Frequency: At least 5 of 7 days/Wk (IRF) Estimated Hrs Per Day: 1.[address] IPOC Speech Therapy Treatment Plan: Discontinue ST Treatment Duration: Mar 22, 2023 Frequency: Modified Program (IRF) (no treatment indicated) Estimated Hrs Per Day: Other (no treatment indicated) Computer Customer Support Specialist/Case Mgmt Computer Customer Support Specialist/Case Managemen: Discharge Planning Dietitian/Dock Superintendent Dietitian/Dock Superintendent to monitor nutritional status and make changes and/or recommendations as needed and work with speech pathology on dietary upgrades as the occur. Physician IPOC Medical Issues being managed closely and that require the 24 hour availability of a physician: Recent DKA with continued blood sugar variation will require close monitoring with insulin regimen along with close monitoring for communication due to severe presbycusis high risk for decompensation Medical Issues: Bowel/Bladder Function, DVT Prophylaxis, Falls Precautions, Fluid/Electrolyte/Nutrition Balance, Infection Protection, Pain Management Brief Synthesis of Preadmission Screen, Post-Admission Evaluation, and Therapy Evaluations: PT and OT will focus on regaining function with use of assistive devices in order to prevent falls while gaining strength and stamina with ADLs in order to return home Medical Prognosis: Good Anticipated Length of Stay: 7 days ANGELICA ORELLANA DO Mar 22, 2023 12:18
--- NOTE | 2023-03-22 15:31 | Physical Therapy Daily Note ---
PT Daily Note-Current Subjective Pt presents sitting at table in commons area working on a puzzle. Pt agrees to tx. Pt denies pain. Pt is very [place]. Pain Section J - Health Conditions 1. Rarely or not at all 2. Occasionally 3. Frequently 4. Almost constantly 8. Unable to answer Pain Effect on Sleep: 1 Pain Interference with Therapy: 1 Pain Interference w/Day-to-Day: 1 Transfers SCALE: Activities may be completed with or without assistive devices. 9-Pqcwwpaxzo-vwnnaew completes the activity by him/herself with no assistance from a helper. 5-Set-up or Clean-up Assistance-helper sets up or cleans up; patient completes activity. [place] assists only prior to or following the activity. 4-Supervision or Touching Assistance-helper provides verbal cues and/or touching/steadying and/or contact guard assistance as patient completes activity. Assistance may be provided throughout the activity or intermittently. 3-Partial/Moderate Assistance-helper does LESS THAN HALF the effort. [place] lifts, holds or supports trunk or limbs, but provides less than half the effort. 2-Substantial/Maximal Assistance-helper does MORE THAN HALF the effort. [place] lifts or holds trunk or limbs and provides more than half the effort. 9-Wibkjsetl-jjaeny does ALL the effort. Patient does none of the effort to complete the activity. Or, the assistance of 2 or more helpers is required for the patient to complete the activity. If activity was not attempted, code reason: 7-Patient Refused. 9-Not Applicable-not attempted and the patient did not perform the activity before the current illness, exacerbation or injury. 10-Not Attempted due to Environmental Limitations-(lack of equipment, weather restraints, etc.). 88-Not Attempted due to Medical Conditions or Safety Concerns. Sit to Stand (QC): 5 Chair/Fwa-di-Xsqdz Xfer(QC): 5 Toilet Transfer (QC): 4 Weight Bearing Full Weight Bearing Full Weight Bearing Gait Training Does the Patient Walk?: Yes Walk 10 feet (QC): 5 Walk 50 ft with 2 Turns(QC): 5 Walk 150 ft (QC): 4 Gait Assistive Device: FWW Pt demonstrated ability to amb 300+' /c FWW around ARU with no LOB. Exercises THER EX: In Parallel Bars, BLE x 20: Side-step, Hip ABD, Hip ADD, Heel raises, Toe raises. Mini squats in (II) x 5. NuStep Minutes: 20 NuStep Workload: 3 Neuromuscular Standing zuleta bag toss /c UE support on FWW x 10 zuleta bags x 5 reps, for balance and stability. Treatments Pt amb around ARU to PT gym. Pt demonstrated dynamic standing balance skills with a "zuleta bag toss" game. Pt bicycled on NuStep with workload 3 x 20 min, for endurance and strengthening. Pt conducted (II) ther ex for strengthening. Pt amb from PT gym<>room. Pt conducted toilet xfer /c FWW, SBA for safety. Post tx with pt seated in recliner, call light within reach and all needs met. Assessment Current Status: Good Progress Pt required multiple rest breaks secondary to fatigue. PT Motor Home Electrical Foreman Goals Motor Home Electrical Foreman Goals PT Motor Home Electrical Foreman Goals Time Frame: Mar 28, 2023 Roll Left & Right (QC): 6 Sit to Lying (QC): 6 Lying-Sitting on Side/Bed(QC): 6 Sit to Stand (QC): 6 Chair/Zoz-dw-Vjmfw Xfer(QC): 6 (/c walker) Toilet Transfer (QC): 6 (/c walker) Car Transfer (QC): 6 (/c walker) Does the Patient Walk: Yes Walk 10 feet (QC): 6 (/c walker) Walk 50ft with 2 Turns (QC): 6 (/c walker) Walk 150 ft (QC): 6 (/c walker) Walking 10ft on Uneven Surface: 6 (/c walker) 1 Step (curb) (QC): 6 (/c walker) 4 Steps (QC): 6 (/c (B) railings) 12 Steps (QC): 6 (/c (B) railings) Picking up an Object (QC): 6 (/c or without director of social work) Does the Pt use WC or Scooter?: No Wheel 50 feet with 2 turns (QC: 9 Wheel 150 feet: 9 PT Plan Problem List Problem List: Activity Tolerance, Safety Treatment/Plan Treatment Plan: Continue Plan of Care Treatment Plan: Bed Mobility, Education, Functional Activity Kevin, Functional Strength, Group Therapy, Gait, Safety, Therapeutic Exercise, Transfers Treatment Duration: Mar 28, 2023 Frequency: At least 5 of 7 days/Wk (IRF) Estimated Hrs Per Day: 1.5 hours per day Safety Risks/Education Patient Education: Safety Issues Teaching Recipient: Patient Teaching Methods: Discussion Response to Teaching: Verbalize Understanding Discharge Recommendations Plan Continue with tx per pt POC. Time Time In: 1100 Time Out: 1230 DATE: Mar 22, 2023 Total Billed Treatment Time: 90 Total Billed Treatment 1, GT2 (30m), FA2 (30m), NM2 (30m) BAKARI CHAU ARBORICULTURIST Mar 22, 2023 15:31
[2023-03-22] MEDS: ENOXAPARIN 40 MG/0.4 ML SYRINGE SC SCH (17:13)
[2023-03-22 20:08] VITALS: BP 124/71
[2023-03-23] MEDS: LEVOTHYROXINE 50 MCG TABLET PO SCH (06:29)
[2023-03-23] MEDS: inSUlin ASPART 1 UNIT/0.01 ML (PER UNIT) SC SCH ×7 (06:29→20:42)
--- NOTE | 2023-03-23 07:03 | PM&R Progress Note ---
Subjective HPI/CC On Admission Date Seen by Provider: Mar 23, 2023 Time Seen by Provider: 10:00 Subjective/Events-last exam 03/23/2023: Patient doing pretty well Working with therapy Sugars are labile Adjusting insulin down 03/22/2023: Patient doing well Working on a puzzle for occupational therapy Denies any pain Blood sugars reviewed We will monitor closely Review of Systems General: Fatigue, Malaise Objective Exam Vital Signs Vital Signs Date Time Temp Pulse Resp B/P (MAP) Pulse Ox O2 Delivery O2 Flow Rate FiO2 03/23/23 09:23 Room Air 03/23/23 08:30 95 0.00 03/23/23 08:00 36.4 89 19 177/81 (113) Capillary Refill : General Appearance: No Apparent Distress, WD/WN, Chronically ill, Obese HEENT: PERRL/EOMI, Normal ENT Inspection, Pharynx Normal Neck: Full Range of Motion, Normal Inspection, Non Tender, Supple, Carotid Bruit Respiratory: Chest Non Tender, Lungs Clear, Normal Breath Sounds, No Accessory Muscle Use, No Respiratory Distress, Decreased Breath Sounds Cardiovascular: Regular Rate, Rhythm, No Edema, No Gallop, No JVD, No Murmur, Normal Peripheral Pulses Gastrointestinal: Normal Bowel Sounds, No Organomegaly, No Pulsatile Mass, Non Tender, Soft Back: Normal Inspection, No CVA Tenderness, No Vertebral Tenderness Extremity: Normal Capillary Refill, Normal Inspection, Normal Range of Motion, Non Tender, No Calf Tenderness, No Pedal Edema Neurologic/Psychiatric: Alert, Oriented x3, Normal Mood/Affect, illuminating engineer II-XII Norm as Tested, Abnormal Gait (slow), Motor Weakness (generalized weakness all extremities 4/5) Skin: Normal Color, Warm/Dry Lymphatic: No Adenopathy Results/Procedures Lab Patient resulted labs reviewed. FIM Transfers Therapy Code Descriptions/Definitions Functional [place] Measure: 0=Not Assessed/NA 4=Minimal Assistance 1=Total Assistance 5=Supervision or Setup 2=Maximal Assistance 6=Modified [place] 3=Moderate Assistance 7=Complete IndependenceSCALE: Activities may be completed with or without assistive devices. 2-Uikmlqcynd-krvuced completes the activity by him/herself with no assistance from a helper. 5-Set-up or Clean-up Assistance-helper sets up or cleans up; patient completes activity. [place] assists only prior to or following the activity. 4-Supervision or Touching Assistance-helper provides verbal cues and/or touching/steadying and/or contact guard assistance as patient completes activity. Assistance may be provided throughout the activity or intermittently. 3-Partial/Moderate Assistance-helper does LESS THAN HALF the effort. [place] lifts, holds or supports trunk or limbs, but provides less than half the effort. 2-Substantial/Maximal Assistance-helper does MORE THAN HALF the effort. [place] lifts or holds trunk or limbs and provides more than half the effort. 1-Actksqbby-xhetsr does ALL the effort. Patient does none of the effort to complete the activity. Or, the assistance of 2 or more helpers is required for the patient to complete the activity. If activity was not attempted, code reason: 7-Patient Refused. 9-Not Applicable-not attempted and the patient did not perform the activity before the current illness, exacerbation or injury. 10-Not Attempted due to Environmental Limitations-(lack of equipment, weather restraints, etc.). 88-Not Attempted due to Medical Conditions or Safety Concerns. Roll Left to Right (QC): 4 (CGA /s railings up) Sit to Lying (QC): 4 (to guard hip while lifting legs onto mattress) Sit to Stand (QC): 5 Chair/Ymx-xx-Cptxl Xfer(QC): 5 Car Transfer (QC): 1 (had to stop patient due to unsafe technique (wanting to step into car prior to sitting). Was then mod (A) to lift LE's in/out. ) Gait Training Does the Patient Walk?: Yes Distance: 500' Walk 10 feet (QC): 5 Walk 50 ft with 2 Turns(QC): 5 Walk 150 ft (QC): 4 Walking 10ft/uneven surface-QC: 4 (CGA /c FWW) Gait Assistive Device: FWW Wheelchair Training Does the Pt Use a Wheelchair?: No Wheel 50 ft with 2 turns (QC): 9 Wheel 150 ft (QC): 9 Stair Training 1 Step (curb) (QC): 4 (CGA /c FWW, no cues required) 4 Steps (QC): 4 (CGA /c (B) handrails) 12 Steps (QC): 4 (CGA /c (B) handrails) Balance Picking up an Object (QC): 3 (Min (A) to steady while retrieving brush off floor, while using walker for support. ) ADL-Treatment Eating (QC): 6 (Per pt report with lunch) Oral Hygiene (QC): 6 (Pt. able to complete grooming/oral hygiene while standing at sink with no LOB.) Shower/Bathe Self (QC): 3 (Min A washing/dring L lower leg/foot per pt report) Upper Body Dressing (QC): 4 (CGA-SBA in standing to don bra and shirt.) Lower Body Dressing (QC): 3 (Min A overall. Assist threading L foot, pt able to thread R and perform pant hike with SBA-CGA.) On/Off Footwear (QC): 6 (Shoes next to chair, Pt. able to reach and don shoes by self while seated. ) Toileting Hygiene (QC): 6 (Pt. hiked underwear/pants using grabbars and is able to cleanse all areas by self. ) Toilet Transfer (QC): 6 (Pt. used walker and grabbars to complete toilet transfers independently. ) Assessment/Plan Assessment and Plan Assess & Plan/Chief Complaint Assessment: Debility s/p DKA DM OOC HTN OA Advanced age s/p JULITO Plan: PT OT Monitor closely Home meds Insulin 03/22/2023: Supportive care Insulin 03/23/2023: Supportive care Monitor closely Decrease insulin (1) Debility ANGELICA ORELLANA DO Mar 23, 2023 07:02
--- NOTE | 2023-03-23 07:35 | Occupational Ther Daily Note ---
OT Current Status-Daily Note Subjective Pt alert, sitting in recliner. Pt agrees to therapy. No c/o pain. Mental Status/Objective Patient Orientation: Person, Place, Time, Situation ADL-Treatment Therapy Code Descriptions/Definitions Functional [place] Measure: 0=Not Assessed/NA 4=Minimal Assistance 1=Total Assistance 5=Supervision or Setup 2=Maximal Assistance 6=Modified [place] 3=Moderate Assistance 7=Complete IndependenceSCALE: Activities may be completed with or without assistive devices. 6-Gcgcyadzam-fbohgse completes the activity by him/herself with no assistance f rom a helper. 5-Set-up or Clean-up Assistance-helper sets up or cleans up; patient completes activity. [place] assists only prior to or following the activity. 4-Supervision or Touching Assistance-helper provides verbal cues and/or touching/steadying and/or contact guard assistance as patient completes activity. Assistance may be provided throughout the activity or intermittently. 3-Partial/Moderate Assistance-helper does LESS THAN HALF the effort. [place] lifts, holds or supports trunk or limbs, but provides less than half the effort. 2-Substantial/Maximal Assistance-helper does MORE THAN HALF the effort. [place] lifts or holds trunk or limbs and provides more than half the effort. 9-Wsculdxpl-lzgvdt does ALL the effort. Patient does none of the effort to complete the activity. Or, the assistance of 2 or more helpers is required for the patient to complete the activity. If activity was not attempted, code reason: 7-Patient Refused. 9-Not Applicable-not attempted and the patient did not perform the activity before the current illness, exacerbation or injury. 10-Not Attempted due to Environmental Limitations-(lack of equipment, weather restraints, etc.). 88-Not Attempted due to Medical Conditions or Safety Concerns. Eating (QC): 6 (Pt able to open containers/packages and uses utensils to eat independently. ) Nrsg present in room. Call light/phone in reach. All needs met in room. OT Short Term Goals Short Term Goals Time Frame: Mar 30, 2023 Shower/bathe self: 5 Upper body dressin Lower body dressin Putting on/taking off footwear: 5 OT Automat Watcher Goals Automat Watcher Goals Time Frame: Apr 06, 2023 Acute change in mental status: 1 Inattention: 0 Disorganized thinkin Altered level of consciousness: 0 Eating (QC): 6 Oral Hygiene (QC): 6 Toileting Hygiene (QC): 6 Shower/Bathe Self (QC): 6 Upper Body Dressing (QC): 6 Lower Body Dressing (QC): 6 On/Off Footwear (QC): 6 Additional Goals: 1-Demonstrate ADL Tasks, 2-Verbalize Understanding, 3- ImproveStrength/Kevin 1=Demonstrate adherence to instructed precautions during ADL tasks. 2=Patient will verbalize/demonstrate understanding of assistive devices/modifications for ADL. 3=Patient will improve strength/tolerance for activity to enable patient to perform ADL's. OT Education/Plan Problem List/Assessment Assessment: Impaired Self-Care Skills Discharge Recommendations Plan/Recommendations: Continue POC Treatment Plan/Plan of Care Patient would benefit from OT for education, treatment and training to promote independence in ADL's, mobility, safety and/or upper extremity function for ADL's. Plan of Care: ADL Retraining, Functional Mobility, Group Exercise/Act as Ind, UE Funct Exercise/Act Treatment Duration: Apr 06, 2023 Frequency: At least 5 of 7 days/Wk (IRF) Estimated Hrs Per Day: 1.5 hours per day Agreement: Yes Rehab Potential: Good Time Start Time: 07:15 Stop Time: 07:30 DATE: Mar 23, 2023 Total Time Billed (hr/min): 15 Billed Treatment Time 1 visit-ADL 1 (15 min) JAYLENE JOSE Mar 23, 2023 07:35
[2023-03-23 08:00] VITALS: BP 177/81
[2023-03-23] MEDS: SENNOSIDES 8.6 MG TABLET PO SCH ×2 (08:02→21:40)
[2023-03-23] MEDS: amLODIPine 10 MG TABLET PO SCH (08:02)
[2023-03-23] MEDS: DOCUSATE SODIUM 100 MG CAPSULE PO SCH ×2 (08:02→21:39)
[2023-03-23] MEDS: inSUlin DETERMIR 1 UNIT/0.01 ML (CHARGE PER UNIT) SQ SCH ×2 (08:03→21:51)
--- NOTE | 2023-03-23 11:46 | Occupational Ther Daily Note ---
OT Current Status-Daily Note Subjective Pt alert, sitting in recliner. Pt agrees to therapy. No c/o pain. Mental Status/Objective Patient Orientation: Person, Place, Time, Situation Attachments: IV ADL-Treatment Pt agrees to shower. Pt gathered clothing using FWW by self. Pt completed shower after setup by self using grabbars, hand held shower and shower bench. Pt completed UBD/LBD independently. Independent with toileting and toilet transfer. Pt educated on using sock aide to don socks, doffs socks by self. Pt's shoes modified to be slip on shoes. Pt able to don shoes by self though becomes SOA when bending over to tie shoes. Pt then ambulated around [facility] using FWW without LOB. After session, pt sitting at [facility] table completing puzzle and drinking coffee. Nrsg aware of pt's position. All needs met. Therapy Code Descriptions/Definitions Functional [place] Measure: 0=Not Assessed/NA 4=Minimal Assistance 1=Total Assistance 5=Supervision or Setup 2=Maximal Assistance 6=Modified [place] 3=Moderate Assistance 7=Complete IndependenceSCALE: Activities may be completed with or without assistive devices. 3-Gvdtpxdlnu-kgyenva completes the activity by him/herself with no assistance from a helper. 5-Set-up or Clean-up Assistance-helper sets up or cleans up; patient completes activity. [place] assists only prior to or following the activity. 4-Supervision or Touching Assistance-helper provides verbal cues and/or touching/steadying and/or contact guard assistance as patient completes activity. Assistance may be provided throughout the activity or intermittently. 3-Partial/Moderate Assistance-helper does LESS THAN HALF the effort. [place] lifts, holds or supports trunk or limbs, but provides less than half the effort. 2-Substantial/Maximal Assistance-helper does MORE THAN HALF the effort. [place] lifts or holds trunk or limbs and provides more than half the effort. 4-Amoazybgs-jgiqoc does ALL the effort. Patient does none of the effort to complete the activity. Or, the assistance of 2 or more helpers is required for the patient to complete the activity. If activity was not attempted, code reason: 7-Patient Refused. 9-Not Applicable-not attempted and the patient did not perform the activity before the current illness, exacerbation or injury. 10-Not Attempted due to Environmental Limitations-(lack of equipment, weather restraints, etc.). 88-Not Attempted due to Medical Conditions or Safety Concerns. Oral Hygiene (QC): 6 Shower/Bathe Self (QC): 5 Upper Body Dressing (QC): 6 Lower Body Dressing (QC): 6 On/Off Footwear: 4 Toileting Hygiene (QC): 6 Toilet Transfer (QC): 6 OT Short Term Goals Short Term Goals Time Frame: Mar 30, 2023 Shower/bathe self: 5 Upper body dressin Lower body dressin Putting on/taking off footwear: 5 OT Fpc Goals Fpc Goals Time Frame: Apr 06, 2023 Acute change in mental status: 1 Inattention: 0 Disorganized thinkin Altered level of consciousness: 0 Eating (QC): 6 Oral Hygiene (QC): 6 Toileting Hygiene (QC): 6 Shower/Bathe Self (QC): 6 Upper Body Dressing (QC): 6 Lower Body Dressing (QC): 6 On/Off Footwear (QC): 6 Additional Goals: 1-Demonstrate ADL Tasks, 2-Verbalize Understanding, 3- ImproveStrength/Kevin 1=Demonstrate adherence to instructed precautions during ADL tasks. 2=Patient will verbalize/demonstrate understanding of assistive devices/modifications for ADL. 3=Patient will improve strength/tolerance for activity to enable patient to perform ADL's. OT Education/Plan Problem List/Assessment Assessment: Decreased Activ Tolerance, Impaired Self-Care Skills Discharge Recommendations Plan/Recommendations: Continue POC Treatment Plan/Plan of Care Patient would benefit from OT for education, treatment and training to promote independence in ADL's, mobility, safety and/or upper extremity function for ADL's. Plan of Care: ADL Retraining, Functional Mobility, Group Exercise/Act as Ind, UE Funct Exercise/Act Treatment Duration: Apr 06, 2023 Frequency: At least 5 of 7 days/Wk (IRF) Estimated Hrs Per Day: 1.5 hours per day Agreement: Yes Rehab Potential: Good Time Start Time: 09:00 Stop Time: 10:15 DATE: Mar 23, 2023 Total Time Billed (hr/min): 75 Billed Treatment Time 1 visit-ADL3 (45 min) FA 2 (30 min) JAYLENE JOSE Mar 23, 2023 11:46
--- NOTE | 2023-03-23 14:22 | Physical Therapy Daily Note ---
PT Daily Note-Current Subjective Pt presents sitting in recliner with B feet elevated. Pt denies pain. Pt agrees to PT tx. Pt is extremely [facility], (R) ear is better than (L). Pain Section J - Health Conditions 1. Rarely or not at all 2. Occasionally 3. Frequently 4. Almost constantly 8. Unable to answer Pain Effect on Sleep: 1 Pain Interference with Therapy: 1 Pain Interference w/Day-to-Day: 1 Mental Status Patient Orientation: Person, Place, Time Transfers SCALE: Activities may be completed with or without assistive devices. 4-Xjviroqxve-aqazkcz completes the activity by him/herself with no assistance from a helper. 5-Set-up or Clean-up Assistance-helper sets up or cleans up; patient completes activity. [place] assists only prior to or following the activity. 4-Supervision or Touching Assistance-helper provides verbal cues and/or touching/steadying and/or contact guard assistance as patient completes activity. Assistance may be provided throughout the activity or intermittently. 3-Partial/Moderate Assistance-helper does LESS THAN HALF the effort. [place] lifts, holds or supports trunk or limbs, but provides less than half the effort. 2-Substantial/Maximal Assistance-helper does MORE THAN HALF the effort. [place] lifts or holds trunk or limbs and provides more than half the effort. 9-Fqneqnxot-buckmy does ALL the effort. Patient does none of the effort to complete the activity. Or, the assistance of 2 or more helpers is required for the patient to complete the activity. If activity was not attempted, code reason: 7-Patient Refused. 9-Not Applicable-not attempted and the patient did not perform the activity before the current illness, exacerbation or injury. 10-Not Attempted due to Environmental Limitations-(lack of equipment, weather restraints, etc.). 88-Not Attempted due to Medical Conditions or Safety Concerns. Sit to Stand (QC): 6 Chair/Tru-aj-Vnkqy Xfer(QC): 6 Weight Bearing Full Weight Bearing Full Weight Bearing Gait Training Does the Patient Walk?: Yes Walk 10 feet (QC): 6 Walk 50 ft with 2 Turns(QC): 6 Walk 150 ft (QC): 6 Gait Assistive Device: FWW Pt amb 360' x 2 /c FWW, (I). HEAVY EQUIPMENT OPERATOR/PAVER on stand-by for safety. Wheelchair Training Does the Pt Use a Wheelchair?: No Exercises THER EX: B LE Ankle pumps x 15 reps Treatments Pt amb multiple times around ARU. Pt performed ankle ther ex in room. Post tx with pt in recliner, B feet elevated, call light within reach and all needs met. Assessment Current Status: Good Progress Pt amb with good carlita, good speed and fair stride length. PT Group Home Goals Group Home Goals PT Deburring Machine Operator Goals Time Frame: Mar 28, 2023 Roll Left & Right (QC): 6 Sit to Lying (QC): 6 Lying-Sitting on Side/Bed(QC): 6 Sit to Stand (QC): 6 Chair/Sjs-wm-[place] Xfer(QC): 6 (/c walker) Toilet Transfer (QC): 6 (/c walker) Car Transfer (QC): 6 (/c walker) Does the Patient Walk: Yes Walk 10 feet (QC): 6 (/c walker) Walk 50ft with 2 Turns (QC): 6 (/c walker) Walk 150 ft (QC): 6 (/c walker) Walking 10ft on Uneven Surface: 6 (/c walker) 1 Step (curb) (QC): 6 (/c walker) 4 Steps (QC): 6 (/c (B) railings) 12 Steps (QC): 6 (/c (B) railings) Picking up an Object (QC): 6 (/c or without retail bakery manager) Does the Pt use WC or Scooter?: No Wheel 50 feet with 2 turns (QC: 9 Wheel 150 feet: 9 PT Plan Problem List Problem List: Safety Treatment/Plan Treatment Plan: Continue Plan of Care Treatment Plan: Bed Mobility, Education, Functional Activity Kevin, Functional Strength, Group Therapy, Gait, Safety, Therapeutic Exercise, Transfers Treatment Duration: Mar 28, 2023 Frequency: At least 5 of 7 days/Wk (IRF) Estimated Hrs Per Day: 1.5 hours per day Safety Risks/Education Patient Education: Safety Issues Teaching Recipient: Patient Teaching Methods: Discussion Response to Teaching: Verbalize Understanding Discharge Recommendations Plan Continue with tx per pt POC. Time Time In: 1400 Time Out: 1430 DATE: Mar 23, 2023 Total Billed Treatment Time: 30 Total Billed Treatment 1, GT2 (30m) BAKARI CHAU HEAVY EQUIPMENT OPERATOR/PAVER Mar 23, 2023 14:22
--- NOTE | 2023-03-23 14:58 | Physical Therapy Daily Note ---
PT Daily Note-Current Subjective Pt presents in sitting in chair in commons area working on a puzzle. Pt denies pain. Pt agrees to PT tx. Pain Section J - Health Conditions 1. Rarely or not at all 2. Occasionally 3. Frequently 4. Almost constantly 8. Unable to answer Pain Effect on Sleep: 1 Pain Interference with Therapy: 1 Pain Interference w/Day-to-Day: 1 Transfers SCALE: Activities may be completed with or without assistive devices. 0-Wgrdcstyys-qpossyu completes the activity by him/herself with no assistance from a helper. 5-Set-up or Clean-up Assistance-helper sets up or cleans up; patient completes a ctivity. [place] assists only prior to or following the activity. 4-Supervision or Touching Assistance-helper provides verbal cues and/or touching/steadying and/or contact guard assistance as patient completes activity. Assistance may be provided throughout the activity or intermittently. 3-Partial/Moderate Assistance-helper does LESS THAN HALF the effort. [place] lifts, holds or supports trunk or limbs, but provides less than half the effort. 2-Substantial/Maximal Assistance-helper does MORE THAN HALF the effort. [place] lifts or holds trunk or limbs and provides more than half the effort. 3-Qtmpyqcvj-aygafv does ALL the effort. Patient does none of the effort to complete the activity. Or, the assistance of 2 or more helpers is required for the patient to complete the activity. If activity was not attempted, code reason: 7-Patient Refused. 9-Not Applicable-not attempted and the patient did not perform the activity before the current illness, exacerbation or injury. 10-Not Attempted due to Environmental Limitations-(lack of equipment, weather restraints, etc.). 88-Not Attempted due to Medical Conditions or Safety Concerns. Sit to Stand (QC): 6 Toilet Transfer (QC): 6 Weight Bearing Full Weight Bearing Full Weight Bearing Gait Training Does the Patient Walk?: Yes Walk 10 feet (QC): 6 Walk 50 ft with 2 Turns(QC): 6 Walk 150 ft (QC): 4 (SBA for safety) Gait Assistive Device: FWW Pt amb 300' around ARU /c FWW, SBA for safety. Exercises NuStep Minutes: 15 NuStep Workload: 3 Neuromuscular Pt demonstrated dynamic standing balance /c LOB and no UE support. Pt demonstrated dynamic modified tandem standing balance with good gross motor UE skills /c no LOB and FWW for steadying when needed. Treatments Pt amb around ARU and to PT gym. Pt bicycled on NuStep for cardio and UE & LE strengthening. Pt conducted neuromuscular re-education with UE & LE for e ndurance, balance and stabilization skills. Pt amb back to room and utilized restroom (I) with FWW. Post tx with pt in recliner with B feet elevated, call light within reach and all needs met. Assessment Current Status: Good Progress Pt needs constant vc's for safety to use FWW instead of walking (I). PT Cathode Washer Goals Cathode Washer Goals PT Cathode Washer Goals Time Frame: Mar 28, 2023 Roll Left & Right (QC): 6 Sit to Lying (QC): 6 Lying-Sitting on Side/Bed(QC): 6 Sit to Stand (QC): 6 Chair/Stj-ai-Pkbkq Xfer(QC): 6 (/c walker) Toilet Transfer (QC): 6 (/c walker) Car Transfer (QC): 6 (/c walker) Does the Patient Walk: Yes Walk 10 feet (QC): 6 (/c walker) Walk 50ft with 2 Turns (QC): 6 (/c walker) Walk 150 ft (QC): 6 (/c walker) Walking 10ft on Uneven Surface: 6 (/c walker) 1 Step (curb) (QC): 6 (/c walker) 4 Steps (QC): 6 (/c (B) railings) 12 Steps (QC): 6 (/c (B) railings) Picking up an Object (QC): 6 (/c or without tannery gummer) Does the Pt use WC or Scooter?: No Wheel 50 feet with 2 turns (QC: 9 Wheel 150 feet: 9 PT Plan Problem List Problem List: Safety Treatment/Plan Treatment Plan: Continue Plan of Care Treatment Plan: Bed Mobility, Education, Functional Activity Kevin, Functional Strength, Group Therapy, Gait, Safety, Therapeutic Exercise, Transfers Treatment Duration: Mar 28, 2023 Frequency: At least 5 of 7 days/Wk (IRF) Estimated Hrs Per Day: 1.5 hours per day Safety Risks/Education Patient Education: Safety Issues Teaching Recipient: Patient Teaching Methods: Discussion Response to Teaching: Verbalize Understanding Discharge Recommendations Plan Continue tx per pt POC. Time Time In: 1100 Time Out: 1200 DATE: Mar 23, 2023 Total Billed Treatment Time: 60 Total Billed Treatment 1, NM3 (45m), GT (15m) BAKARI CHAU MANAGER ASSET Mar 23, 2023 14:58
[2023-03-23] MEDS: ENOXAPARIN 40 MG/0.4 ML SYRINGE SC SCH (17:31)
[2023-03-23 20:15] VITALS: BP 147/77
[2023-03-23] MEDS ORDERED: inSUlin DETERMIR 1 UNIT/0.01 ML (CHARGE PER UNIT) SQ SCH (21:00)
--- NOTE | 2023-03-24 06:07 | PM&R Progress Note ---
Subjective HPI/CC On Admission Date Seen by Provider: Mar 24, 2023 Time Seen by Provider: 12:00 Subjective/Events-last exam 03/24/2023: Patient doing well Blood sugars improved Brittle diabetes noted 03/23/2023: Patient doing pretty well Working with therapy Sugars are labile Adjusting insulin down 03/22/2023: Patient doing well Working on a puzzle for occupational therapy Denies any pain Blood sugars reviewed We will monitor closely Review of Systems General: Fatigue, Malaise Objective Exam Vital Signs Vital Signs Date Time Temp Pulse Resp B/P (MAP) Pulse Ox O2 Delivery O2 Flow Rate FiO2 03/24/23 23:07 135/73 (93) 03/24/23 21:02 88 94 03/24/23 21:00 Room Air 03/24/23 20:29 36.6 16 03/23/23 08:30 0.00 Capillary Refill : General Appearance: No Apparent Distress, WD/WN, Chronically ill, Obese HEENT: PERRL/EOMI, Normal ENT Inspection, Pharynx Normal Neck: Full Range of Motion, Normal Inspection, Non Tender, Supple, Carotid Bruit Respiratory: Chest Non Tender, Lungs Clear, Normal Breath Sounds, No Accessory Muscle Use, No Respiratory Distress, Decreased Breath Sounds Cardiovascular: Regular Rate, Rhythm, No Edema, No Gallop, No JVD, No Murmur, Normal Peripheral Pulses Gastrointestinal: Normal Bowel Sounds, No Organomegaly, No Pulsatile Mass, Non Tender, Soft Back: Normal Inspection, No CVA Tenderness, No Vertebral Tenderness Extremity: Normal Capillary Refill, Normal Inspection, Normal Range of Motion, Non Tender, No Calf Tenderness, No Pedal Edema Neurologic/Psychiatric: Alert, Oriented x3, Normal Mood/Affect, watch band assembler II-XII Norm as Tested, Abnormal Gait (slow), Motor Weakness (generalized weakness all ext remities 4/5) Skin: Normal Color, Warm/Dry Lymphatic: No Adenopathy Results/Procedures Lab Patient resulted labs reviewed. FIM Transfers Therapy Code Descriptions/Definitions Functional [place] Measure: 0=Not Assessed/NA 4=Minimal Assistance 1=Total Assistance 5=Supervision or Setup 2=Maximal Assistance 6=Modified [place] 3=Moderate Assistance 7=Complete IndependenceSCALE: Activities may be completed with or without assistive devices. 7-Ozftsutppg-xmktnud completes the activity by him/herself with no assistance from a helper. 5-Set-up or Clean-up Assistance-helper sets up or cleans up; patient completes activity. [place] assists only prior to or following the activity. 4-Supervision or Touching Assistance-helper provides verbal cues and/or touching/steadying and/or contact guard assistance as patient completes activity. Assistance may be provided throughout the activity or intermittently. 3-Partial/Moderate Assistance-helper does LESS THAN HALF the effort. [place] lifts, holds or supports trunk or limbs, but provides less than half the effort. 2-Substantial/Maximal Assistance-helper does MORE THAN HALF the effort. [place] lifts or holds trunk or limbs and provides more than half the effort. 9-Vagzatzvz-ikjfrb does ALL the effort. Patient does none of the effort to complete the activity. Or, the assistance of 2 or more helpers is required for the patient to complete the activity. If activity was not attempted, code reason: 7-Patient Refused. 9-Not Applicable-not attempted and the patient did not perform the activity before the current illness, exacerbation or injury. 10-Not Attempted due to Environmental Limitations-(lack of equipment, weather restraints, etc.). 88-Not Attempted due to Medical Conditions or Safety Concerns. Roll Left to Right (QC): 4 (CGA /s railings up) Sit to Lying (QC): 4 (to guard hip while lifting legs onto mattress) Sit to Stand (QC): 6 Chair/Mza-ru-Lyyzd Xfer(QC): 6 Car Transfer (QC): 1 (had to stop patient due to unsafe technique (wanting to step into car prior to sitting). Was then mod (A) to lift LE's in/out. ) Gait Training Does the Patient Walk?: Yes Distance: 500' Walk 10 feet (QC): 6 Walk 50 ft with 2 Turns(QC): 6 Walk 150 ft (QC): 4 (SBA for safety) Walking 10ft/uneven surface-QC: 4 (CGA /c FWW) Gait Assistive Device: FWW Wheelchair Training Does the Pt Use a Wheelchair?: No Wheel 50 ft with 2 turns (QC): 9 Wheel 150 ft (QC): 9 Stair Training 1 Step (curb) (QC): 4 (CGA /c FWW, no cues required) 4 Steps (QC): 4 (CGA /c (B) handrails) 12 Steps (QC): 4 (CGA /c (B) handrails) Balance Picking up an Object (QC): 3 (Min (A) to steady while retrieving brush off floor, while using walker for support. ) ADL-Treatment Eating (QC): 6 (Pt able to open containers/packages and uses utensils to eat independently. ) Oral Hygiene (QC): 6 Shower/Bathe Self (QC): 5 Upper Body Dressing (QC): 6 Lower Body Dressing (QC): 6 On/Off Footwear (QC): 4 Toileting Hygiene (QC): 6 Toilet Transfer (QC): 6 Assessment/Plan Assessment and Plan Assess & Plan/Chief Complaint Assessment: Debility s/p DKA DM OOC HTN OA Advanced age s/p JULITO Plan: PT OT Monitor closely Home meds Insulin 03/22/2023: Supportive care Insulin 03/23/2023: Supportive care Monitor closely Decrease insulin 03/24/2023: Manage brittle diabetes (1) Debility ANGELICA ORELLANA DO Mar 24, 2023 06:07
[2023-03-24] MEDS: inSUlin ASPART 1 UNIT/0.01 ML (PER UNIT) SC SCH ×7 (06:40→20:40)
[2023-03-24] MEDS: LEVOTHYROXINE 50 MCG TABLET PO SCH (07:26)
[2023-03-24 07:30] VITALS: BP 141/66
[2023-03-24 08:30] VITALS: BP 141/60
[2023-03-24] MEDS: DOCUSATE SODIUM 100 MG CAPSULE PO SCH ×2 (08:39→20:40)
[2023-03-24] MEDS: inSUlin DETERMIR 1 UNIT/0.01 ML (CHARGE PER UNIT) SQ SCH ×2 (08:39→21:11)
[2023-03-24] MEDS: amLODIPine 10 MG TABLET PO SCH (08:39)
[2023-03-24] MEDS: SENNOSIDES 8.6 MG TABLET PO SCH ×2 (08:39→20:40)
[2023-03-24] MEDS: ENOXAPARIN 40 MG/0.4 ML SYRINGE SC SCH (16:59)
[2023-03-24 20:29] VITALS: BP 171/77
[2023-03-24] MEDS: cloNIDine 0.1 MG TABLET PO PRN (21:10)
[2023-03-24 23:07] VITALS: BP 135/73
--- NOTE | 2023-03-25 06:15 | PM&R Progress Note ---
Subjective HPI/CC On Admission Date Seen by Provider: Mar 25, 2023 Time Seen by Provider: 12:00 Subjective/Events-last exam 03/25/2023: Patient doing well Blood sugars improved No hypoglycemia No falls 03/24/2023: Patient doing well Blood sugars improved Brittle diabetes noted 03/23/2023: Patient doing pretty well Working with therapy Sugars are labile Adjusting insulin down 03/22/2023: Patient doing well Working on a puzzle for occupational therapy Denies any pain Blood sugars reviewed We will monitor closely Review of Systems General: Fatigue, Malaise Objective Exam Vital Signs Vital Signs Date Time Temp Pulse Resp B/P (MAP) Pulse Ox O2 Delivery O2 Flow Rate FiO2 03/25/23 09:18 Room Air 03/25/23 08:00 36.8 91 18 144/73 (96) 93 03/23/23 08:30 0.00 Capillary Refill : General Appearance: No Apparent Distress, WD/WN, Chronically ill, Obese HEENT: PERRL/EOMI, Normal ENT Inspection, Pharynx Normal Neck: Full Range of Motion, Normal Inspection, Non Tender, Supple, Carotid Bruit Respiratory: Chest Non Tender, Lungs Clear, Normal Breath Sounds, No Accessory Muscle Use, No Respiratory Distress, Decreased Breath Sounds Cardiovascular: Regular Rate, Rhythm, No Edema, No Gallop, No JVD, No Murmur, Normal Peripheral Pulses Gastrointestinal: Normal Bowel Sounds, No Organomegaly, No Pulsatile Mass, Non Tender, Soft Back: Normal Inspection, No CVA Tenderness, No Vertebral Tenderness Extremity: Normal Capillary Refill, Normal Inspection, Normal Range of Motion, Non Tender, No Calf Tenderness, No Pedal Edema Neurologic/Psychiatric: Alert, Oriented x3, Normal Mood/Affect, unit nurse II-XII Norm as Tested, Abnormal Gait (slow), Motor Weakness (generalized weakness all extremities 4/5) Skin: Normal Color, Warm/Dry Lymphatic: No Adenopathy Results/Procedures Lab Patient resulted labs reviewed. FIM Transfers Therapy Code Descriptions/Definitions Functional [place] Measure: 0=Not Assessed/NA 4=Minimal Assistance 1=Total Assistance 5=Supervision or Setup 2=Maximal Assistance 6=Modified [place] 3=Moderate Assistance 7=Complete IndependenceSCALE: Activities may be completed with or without assistive devices. 6-Wphcolelsv-fjrsdsi completes the activity by him/herself with no assistance from a helper. 5-Set-up or Clean-up Assistance-helper sets up or cleans up; patient completes activity. [place] assists only prior to or following the activity. 4-Supervision or Touching Assistance-helper provides verbal cues and/or touching/steadying and/or contact guard assistance as patient completes activity. Assistance may be provided throughout the activity or intermittently. 3-Partial/Moderate Assistance-helper does LESS THAN HALF the effort. [place] lifts, holds or supports trunk or limbs, but provides less than half the effort. 2-Substantial/Maximal Assistance-helper does MORE THAN HALF the effort. [place] lifts or holds trunk or limbs and provides more than half the effort. 7-Wstpretvc-isjfnp does ALL the effort. Patient does none of the effort to complete the activity. Or, the assistance of 2 or more helpers is required for the patient to complete the activity. If activity was not attempted, code reason: 7-Patient Refused. 9-Not Applicable-not attempted and the patient did not perform the activity before the current illness, exacerbation or injury. 10-Not Attempted due to Environmental Limitations-(lack of equipment, weather restraints, etc.). 88-Not Attempted due to Medical Conditions or Safety Concerns. Roll Left to Right (QC): 4 (CGA /s railings up) Sit to Lying (QC): 4 (to guard hip while lifting legs onto mattress) Sit to Stand (QC): 6 Chair/Clm-zq-Vqnuv Xfer(QC): 6 Car Transfer (QC): 1 (had to stop patient due to unsafe technique (wanting to step into car prior to sitting). Was then mod (A) to lift LE's in/out. ) Gait Training Does the Patient Walk?: Yes Distance: 500' Walk 10 feet (QC): 6 Walk 50 ft with 2 Turns(QC): 6 Walk 150 ft (QC): 4 (SBA for safety) Walking 10ft/uneven surface-QC: 4 (CGA /c FWW) Gait Assistive Device: FWW Wheelchair Training Does the Pt Use a Wheelchair?: No Wheel 50 ft with 2 turns (QC): 9 Wheel 150 ft (QC): 9 Stair Training 1 Step (curb) (QC): 4 (CGA /c FWW, no cues required) 4 Steps (QC): 4 (CGA /c (B) handrails) 12 Steps (QC): 4 (CGA /c (B) handrails) Balance Picking up an Object (QC): 3 (Min (A) to steady while retrieving brush off floor, while using walker for support. ) ADL-Treatment Eating (QC): 6 (Pt able to open containers/packages and uses utensils to eat independently. ) Oral Hygiene (QC): 6 Shower/Bathe Self (QC): 5 Upper Body Dressing (QC): 6 Lower Body Dressing (QC): 6 On/Off Footwear (QC): 4 Toileting Hygiene (QC): 6 Toilet Transfer (QC): 6 Assessment/Plan Assessment and Plan Assess & Plan/Chief Complaint Assessment: Debility s/p DKA DM OOC HTN OA Advanced age s/p JULITO Plan: PT OT Monitor closely Home meds Insulin 03/22/2023: Supportive care Insulin 03/23/2023: Supportive care Monitor closely Decrease insulin 03/24/2023: Manage brittle diabetes 03/25/2023: Monitor blood sugar (1) Debility ANGELICA ORELLANA DO Mar 25, 2023 06:15
[2023-03-25] MEDS: LEVOTHYROXINE 50 MCG TABLET PO SCH (06:22)
[2023-03-25] MEDS: inSUlin ASPART 1 UNIT/0.01 ML (PER UNIT) SC SCH ×7 (06:25→21:12)
[2023-03-25] MEDS: ACETAMINOPHEN 325 MG TABLET PO PRN ×2 (07:39→20:05)
[2023-03-25 08:00] VITALS: BP 144/73
[2023-03-25] MEDS: inSUlin DETERMIR 1 UNIT/0.01 ML (CHARGE PER UNIT) SQ SCH ×2 (09:09→21:16)
[2023-03-25] MEDS: DOCUSATE SODIUM 100 MG CAPSULE PO SCH ×2 (09:09→20:05)
[2023-03-25] MEDS: amLODIPine 10 MG TABLET PO SCH (09:09)
[2023-03-25] MEDS: SENNOSIDES 8.6 MG TABLET PO SCH ×2 (09:09→20:05)
[2023-03-25] MEDS: ENOXAPARIN 40 MG/0.4 ML SYRINGE SC SCH (16:54)
[2023-03-25 19:28] VITALS: BP 168/81
[2023-03-25] MEDS: cloNIDine 0.1 MG TABLET PO PRN (20:05)
[2023-03-25 21:00] VITALS: BP 151/75
--- NOTE | 2023-03-26 05:02 | PM&R Progress Note ---
Subjective HPI/CC On Admission Date Seen by Provider: Mar 26, 2023 Time Seen by Provider: 09:00 Subjective/Events-last exam 03/26/2023: Hypotension noted so started IVF INR monitoring closely due to FQ finishing up Pain controlled Family at bedside 03/25/2023: Patient doing well Blood sugars improved No hypoglycemia No falls 03/24/2023: Patient doing well Blood sugars improved Brittle diabetes noted 03/23/2023: Patient doing pretty well Working with therapy Sugars are labile Adjusting insulin down 03/22/2023: Patient doing well Working on a puzzle for occupational therapy Denies any pain Blood sugars reviewed We will monitor closely Review of Systems General: Fatigue, Malaise Objective Exam Vital Signs Vital Signs Date Time Temp Pulse Resp B/P (MAP) Pulse Ox O2 Delivery O2 Flow Rate FiO2 03/27/23 09:13 92 141/67 (91) 03/27/23 07:35 36.6 16 94 Room Air 03/25/23 19:28 0.00 0.00 Capillary Refill : General Appearance: No Apparent Distress, WD/WN, Chronically ill, Obese HEENT: PERRL/EOMI, Normal ENT Inspection, Pharynx Normal Neck: Full Range of Motion, Normal Inspection, Non Tender, Supple, Carotid Bruit Respiratory: Chest Non Tender, Lungs Clear, Normal Breath Sounds, No Accessory Muscle Use, No Respiratory Distress, Decreased Breath Sounds Cardiovascular: Regular Rate, Rhythm, No Edema, No Gallop, No JVD, No Murmur, N ormal Peripheral Pulses Gastrointestinal: Normal Bowel Sounds, No Organomegaly, No Pulsatile Mass, Non Tender, Soft Back: Normal Inspection, No CVA Tenderness, No Vertebral Tenderness Extremity: Normal Capillary Refill, Normal Inspection, Normal Range of Motion, Non Tender, No Calf Tenderness, No Pedal Edema Neurologic/Psychiatric: Alert, Oriented x3, Normal Mood/Affect, button sewer II-XII Norm as Tested, Abnormal Gait (slow), Motor Weakness (generalized weakness all extremities 4/5) Skin: Normal Color, Warm/Dry Lymphatic: No Adenopathy Results/Procedures Lab Patient resulted labs reviewed. FIM Transfers Therapy Code Descriptions/Definitions Functional [place] Measure: 0=Not Assessed/NA 4=Minimal Assistance 1=Total Assistance 5=Supervision or Setup 2=Maximal Assistance 6=Modified [place] 3=Moderate Assistance 7=Complete IndependenceSCALE: Activities may be completed with or without assistive devices. 4-Mlsxdeplxn-fvsbgoo completes the activity by him/herself with no assistance from a helper. 5-Set-up or Clean-up Assistance-helper sets up or cleans up; patient completes activity. [place] assists only prior to or following the activity. 4-Supervision or Touching Assistance-helper provides verbal cues and/or touching/steadying and/or contact guard assistance as patient completes activity. Assistance may be provided throughout the activity or intermittently. 3-Partial/Moderate Assistance-helper does LESS THAN HALF the effort. [place] lifts, holds or supports trunk or limbs, but provides less than half the effort. 2-Substantial/Maximal Assistance-helper does MORE THAN HALF the effort. [place] lifts or holds trunk or limbs and provides more than half the effort. 0-Irqavwwam-wduhvf does ALL the effort. Patient does none of the effort to complete the activity. Or, the assistance of 2 or more helpers is required for the patient to complete the activity. If activity was not attempted, code reason: 7-Patient Refused. 9-Not Applicable-not attempted and the patient did not perform the activity before the current illness, exacerbation or injury. 10-Not Attempted due to Environmental Limitations-(lack of equipment, weather restraints, etc.). 88-Not Attempted due to Medical Conditions or Safety Concerns. Roll Left to Right (QC): 4 (CGA /s railings up) Sit to Lying (QC): 4 (to guard hip while lifting legs onto mattress) Sit to Stand (QC): 6 Chair/Vva-ys-Yeshm Xfer(QC): 6 Car Transfer (QC): 1 (had to stop patient due to unsafe technique (wanting to step into car prior to sitting). Was then mod (A) to lift LE's in/out. ) Gait Training Does the Patient Walk?: Yes Distance: 500' Walk 10 feet (QC): 6 Walk 50 ft with 2 Turns(QC): 6 Walk 150 ft (QC): 4 (SBA for safety) Walking 10ft/uneven surface-QC: 4 (CGA /c FWW) Gait Assistive Device: FWW Wheelchair Training Does the Pt Use a Wheelchair?: No Wheel 50 ft with 2 turns (QC): 9 Wheel 150 ft (QC): 9 Stair Training 1 Step (curb) (QC): 4 (CGA /c FWW, no cues required) 4 Steps (QC): 4 (CGA /c (B) handrails) 12 Steps (QC): 4 (CGA /c (B) handrails) Balance Picking up an Object (QC): 3 (Min (A) to steady while retrieving brush off floor, while using walker for support. ) ADL-Treatment Eating (QC): 6 (Pt able to open containers/packages and uses utensils to eat independently. ) Oral Hygiene (QC): 6 Shower/Bathe Self (QC): 5 Upper Body Dressing (QC): 6 Lower Body Dressing (QC): 6 On/Off Footwear (QC): 4 Toileting Hygiene (QC): 6 Toilet Transfer (QC): 6 Assessment/Plan Assessment and Plan Assess & Plan/Chief Complaint Assessment: Debility s/p DKA DM OOC HTN OA Advanced age s/p JULITO Orthostatic hypotension Plan: PT OT Monitor closely Home meds Insulin 03/22/2023: Supportive care Insulin 03/23/2023: Supportive care Monitor closely Decrease insulin 03/24/2023: Manage brittle diabetes 03/25/2023: Monitor blood sugar 03/26/2023: IVF Monitor INR (1) Debility ANGELICA ORELLANA DO Mar 26, 2023 05:02
[2023-03-26 05:39] LABS: BASOPHILS % (AUTO) 0 % (0-10); EOSINOPHILS # (AUTO) 0.1 10^3/uL (0.0-0.3); EOSINOPHILS % (AUTO) 3 % (0-10); HEMATOCRIT 37 % (35-52); HEMOGLOBIN 12.8 g/dL (11.5-16.0); LYMPHOCYTES # (AUTO) 1.7 10^3/uL (1.0-4.0); LYMPHOCYTES % (AUTO) 41 % (12-44); MEAN CORPUSCULAR HEMOGLOBIN 34 pg (25-34); MEAN CORPUSCULAR HGB CONC 34 g/dL (32-36); MEAN CORPUSCULAR VOLUME 98 fL (80-99); MEAN PLATELET VOLUME 10.8 fL (9.0-12.2); MONOCYTES # (AUTO) 0.5 10^3/uL (0.0-1.0); MONOCYTES % (AUTO) 12 % (0-12); NEUTROPHILS # (AUTO) 1.7 10^3/uL (1.8-7.8); NEUTROPHILS % (AUTO) 41 % (42-75); PLATELET COUNT 232 10^3/uL (130-400); WHITE BLOOD COUNT 4.1 10^3/uL (4.3-11.0)
[2023-03-26 05:49] LABS: ALBUMIN 3.1 GM/DL (3.2-4.5); POTASSIUM 4.1 MMOL/L (3.6-5.0)
[2023-03-26 05:50] LABS: CALCIUM 9.2 MG/DL (8.5-10.1)
[2023-03-26 05:51] LABS: TOTAL PROTEIN 5.6 GM/DL (6.4-8.2)
[2023-03-26 05:53] LABS: BILIRUBIN,TOTAL 0.4 MG/DL (0.1-1.0)
[2023-03-26 05:55] LABS: CREATININE SERUM 1.07 MG/DL (0.60-1.30)
[2023-03-26] MEDS: inSUlin ASPART 1 UNIT/0.01 ML (PER UNIT) SC SCH ×7 (06:54→20:28)
[2023-03-26] MEDS: LEVOTHYROXINE 50 MCG TABLET PO SCH (06:55)
[2023-03-26 07:41] VITALS: BP 136/65
[2023-03-26] MEDS: DOCUSATE SODIUM 100 MG CAPSULE PO SCH ×2 (08:39→20:30)
[2023-03-26] MEDS: SENNOSIDES 8.6 MG TABLET PO SCH ×2 (08:39→20:30)
[2023-03-26] MEDS: amLODIPine 10 MG TABLET PO SCH (08:40)
[2023-03-26] MEDS: inSUlin DETERMIR 1 UNIT/0.01 ML (CHARGE PER UNIT) SQ SCH ×2 (08:42→20:28)
[2023-03-26] MEDS: ACETAMINOPHEN 325 MG TABLET PO PRN ×2 (08:45→20:29)
--- NOTE | 2023-03-26 10:29 | Occupational Ther Daily Note ---
OT Current Status-Daily Note Subjective Pt. alert laying in bed. No c/o pain. Pt. agreed to therapy. Mental Status/Objective Patient Orientation: Person, Place, Time, Situation ADL-Treatment Pt agrees to shower. Pt gathered clothing using FWW by self with no LOB. Therapy Code Descriptions/Definitions Functional [place] Measure: 0=Not Assessed/NA 4=Minimal Assistance 1=Total Assistance 5=Supervision or Setup 2=Maximal Assistance 6=Modified [place] 3=Moderate Assistance 7=Complete IndependenceSCALE: Activities may be completed with or without assistive devices. 3-Duottqnyht-cjjehet completes the activity by him/herself with no assistance from a helper. 5-Set-up or Clean-up Assistance-helper sets up or cleans up; patient completes activity. [place] assists only prior to or following the activity. 4-Supervision or Touching Assistance-helper provides verbal cues and/or touching/steadying and/or contact guard assistance as patient completes activity. Assistance may be provided throughout the activity or intermittently. 3-Partial/Moderate Assistance-helper does LESS THAN HALF the effort. [place] lifts, holds or supports trunk or limbs, but provides less than half the effort. 2-Substantial/Maximal Assistance-helper does MORE THAN HALF the effort. [place] lifts or holds trunk or limbs and provides more than half the effort. 5-Ljtfkmoij-odiwmp does ALL the effort. Patient does none of the effort to complete the activity. Or, the assistance of 2 or more helpers is required for the patient to complete the activity. If activity was not attempted, code reason: 7-Patient Refused. 9-Not Applicable-not attempted and the patient did not perform the activity before the current illness, exacerbation or injury. 10-Not Attempted due to Environmental Limitations-(lack of equipment, weather restraints, etc.). 88-Not Attempted due to Medical Conditions or Safety Concerns. Eating (QC): 6 (Pt. has demonstrated eating independently. ) Oral Hygiene (QC): 6 (Pt. able to stand at sink completing grooming/oral hygiene using FWW for stabilizing. ) Bathing Location: L Arm, R Arm, L Upper Leg, R Upper Leg, L Lower Leg (including foot), R Lower Leg (including foot), Chest, Abdomen, Buttocks, Perineal Area Shower/Bathe Self (QC): 6 (Pt. able to bathe all areas while seated on shower bench 100% of the time while using grabbars, hand held shower. ) Upper Body Dressing (QC): 6 (Pt. completed UB clothing independently. ) Lower Body Dressing (QC): 6 (Pt. able to thread feet through pants while seated then stands to hike pants over hips. ) On/Off Footwear: 6 (Reviewed how to use sock aide to don socks then used sock aide to don sock, doffs socks by self.) Toileting Hygiene (QC): 6 (Pt. able to manipulate LB clothing using grabbars and is able to cleanse all areas by self.) Toilet Transfer (QC): 6 (Pt. used walker and grabbars to complete toilet transfers independently.) Other Treatment Pt. completed B UE theraband exercises with light resistance to increase strength for daily functional tasks 1 set of 10 reps. Skilled instructions for correct technique and modification when needed. After session, pt in recliner with call light/phone in reach and all needs met. Education Response to Teaching: Verbalize Understanding, Return Demonstration, Reinforcement Needed BIMS CAM BIMS Expression of Ideas and Wants: Without Difficulty Understanding Verbal Content: Understands Brief Interview/Mental Status: No IRF WENDY BIMS: IRF WENDY BIMS Response (Comments) Value Repitition of Three Words Three 3 Recalls Socks Yes, After Cueing (Wear) 1 Recalls Blue Yes, After Cueing (Color) 1 Recalls Bed Yes, After Cueing 1 Year Correct 3 Month Accurate Within 5 Days 2 Day Correct 1 Total 12 Patient Normally Able to Recal: Current Session, Location of own room, Staff Names and faces, That he/she in a [facility] Should Staff Asses. Mental St.: No Memory/Recall Ability: Current Season, Location of Own Room, Staff Names and Faces, That He[facility]She in [facility] Mental Status Change/Baseline: 0 Inattention: 0 Disorganized thinkin Altered level of consciousness: 0 OT Short Term Goals Short Term Goals Time Frame: Mar 30, 2023 Shower/bathe self: 5 Upper body dressin Lower body dressin Putting on/taking off footwear: 5 OT Entry Level Paralegal Goals Custodial Goals Time Frame: Apr 06, 2023 Acute change in mental status: 1 Inattention: 0 Disorganized thinkin Altered level of consciousness: 0 Eating (QC): 6 Oral Hygiene (QC): 6 Toileting Hygiene (QC): 6 Shower/Bathe Self (QC): 6 Upper Body Dressing (QC): 6 Lower Body Dressing (QC): 6 On/Off Footwear (QC): 6 Additional Goals: 1-Demonstrate ADL Tasks, 2-Verbalize Understanding, 3- ImproveStrength/Kevin 1=Demonstrate adherence to instructed precautions during ADL tasks. 2=Patient will verbalize/demonstrate understanding of assistive devices/modifications for ADL. 3=Patient will improve strength/tolerance for activity to enable patient to perform ADL's. OT Education/Plan Problem List/Assessment Assessment: Decreased UE Strength, Impaired Funct Balance Discharge Recommendations Plan/Recommendations: Continue POC Treatment Plan/Plan of Care Patient would benefit from OT for education, treatment and training to promote independence in ADL's, mobility, safety and/or upper extremity function for ADL's. Plan of Care: ADL Retraining, Functional Mobility, Group Exercise/Act as Ind, UE Funct Exercise/Act Treatment Duration: Apr 06, 2023 Frequency: At least 5 of 7 days/Wk (IRF) Estimated Hrs Per Day: 1.5 hours per day Agreement: Yes Rehab Potential: Good Time Start Time: 09:00 Stop Time: 10:30 DATE: Mar 26, 2023 Total Time Billed (hr/min): 90 Billed Treatment Time 1 visit- ADL 4 (60 mins) FA 2 (30 mins) JAYLENE JOSE Mar 26, 2023 10:29
--- NOTE | 2023-03-26 10:52 | Progress Note ---
MORGAN VELAZQUEZ 03/26/23 1052: Progress Note 88 year old female, here for recovery from a fall over one week ago. Pt is doing well. She only has a complaint for left hip soreness, reports this as a chronic issue with no new sx. She is currently graded a 6 on ADLs. Pt performed a shower today. Pt is to continue performing rehab as instructed. The goal for the pt is to completely independent of all ADLs and transfers. Reviewed pts sugar levels. Reviewed the current therapy plan with the pt. ALLISON ORELLANA DO 03/27/232052: Supervisory-Addendum Brief Verification & Attestation Participated in pt care: history, MDM, physical Personally performed: exam, history, MDM, supervision of care Care discussed with: Medical Student Procedures: n/a Results interpretation: Verified all documentation Verification and Attestation of Medical Student E/M Service A medical student performed and documented this service in my presence. I reviewed and verified all information documented by the medical student and made modifications to such information, when appropriate. I personally performed the physical exam and medical decision making. Allison Orellana, Mar 27, 2023,20:53 MORGAN VELAZQUEZ Mar 26, 2023 10:52 ALLISON ORELLANA DO Mar 27, 2023 20:53
--- NOTE | 2023-03-26 11:02 | Physical Therapy Daily Note ---
PT Daily Note-Current Subjective No c/o other than needing to toilet. Pain Section J - Health Conditions 1. Rarely or not at all 2. Occasionally 3. Frequently 4. Almost constantly 8. Unable to answer Pain Effect on Sleep: 1 Pain Interference with Therapy: 1 Pain Interference w/Day-to-Day: 1 Transfers SCALE: Activities may be completed with or without assistive devices. 5-Rkvdvdwovn-yhptqrq completes the activity by him/herself with no assistance from a helper. 5-Set-up or Clean-up Assistance-helper sets up or cleans up; patient completes activity. [place] assists only prior to or following the activity. 4-Supervision or Touching Assistance-helper provides verbal cues and/or touching/steadying and/or contact guard assistance as patient completes activity. Assistance may be provided throughout the activity or intermittently. 3-Partial/Moderate Assistance-helper does LESS THAN HALF the effort. [place] lifts, holds or supports trunk or limbs, but provides less than half the effort. 2-Substantial/Maximal Assistance-helper does MORE THAN HALF the effort. [place] lifts or holds trunk or limbs and provides more than half the effort. 4-Wyzssnxsl-yjnhzj does ALL the effort. Patient does none of the effort to complete the activity. Or, the assistance of 2 or more helpers is required for the patient to complete the activity. If activity was not attempted, code reason: 7-Patient Refused. 9-Not Applicable-not attempted and the patient did not perform the activity before the current illness, exacerbation or injury. 10-Not Attempted due to Environmental Limitations-(lack of equipment, weather restraints, etc.). 88-Not Attempted due to Medical Conditions or Safety Concerns. Sit to Stand (QC): 6 Chair/Kqx-ng-Skagj Xfer(QC): 6 (/c FWW) Toilet Transfer (QC): 6 (/c FWW) Car Transfer (QC): 4 (v.c. for safe technique) Manage all clothing and toilet hygiene (I). Extensive time taken with this task - BM. Weight Bearing Full Weight Bearing Full Weight Bearing Exercises NuStep Minutes: 15 NuStep Workload: 3 PT Art Preparator Goals Long-Term Goals PT Long-Term Goals Time Frame: Mar 28, 2023 Roll Left & Right (QC): 6 Sit to Lying (QC): 6 Lying-Sitting on Side/Bed(QC): 6 Sit to Stand (QC): 6 Chair/Xga-lp-Xtnwl Xfer(QC): 6 (/c walker) Toilet Transfer (QC): 6 (/c walker) Car Transfer (QC): 6 (/c walker) Does the Patient Walk: Yes Walk 10 feet (QC): 6 (/c walker) Walk 50ft with 2 Turns (QC): 6 (/c walker) Walk 150 ft (QC): 6 (/c walker) Walking 10ft on Uneven Surface: 6 (/c walker) 1 Step (curb) (QC): 6 (/c walker) 4 Steps (QC): 6 (/c (B) railings) 12 Steps (QC): 6 (/c (B) railings) Picking up an Object (QC): 6 (/c or without vascular physician) Does the Pt use WC or Scooter?: No Wheel 50 feet with 2 turns (QC: 9 Wheel 150 feet: 9 PT Plan Treatment/Plan Treatment Plan: Continue Plan of Care Treatment Plan: Bed Mobility, Education, Functional Activity Kevin, Functional Strength, Group Therapy, Gait, Safety, Therapeutic Exercise, Transfers Treatment Duration: Mar 28, 2023 Frequency: At least 5 of 7 days/Wk (IRF) Estimated Hrs Per Day: 1.5 hours per day Time Time In: 1030 Time Out: 1115 DATE: Mar 26, 2023 Total Billed Treatment Time: 45 Total Billed Treatment 1, Gt, Ex, FA Glenny Aquino PT Mar 26, 2023 11:01
[2023-03-26 12:13] VITALS: BP 146/69
[2023-03-26] MEDS: hydrALAZINE 25 MG TABLET PO SCH ×3 (12:15→20:28)
--- NOTE | 2023-03-26 13:31 | Physical Therapy Daily Note ---
PT Daily Note-Current Subjective Pt presents sitting up in recliner with B feet elevated. Pt reports slight pain in (L) hip but says it is always there. Pt agrees to tx. Pain Section J - Health Conditions 1. Rarely or not at all 2. Occasionally 3. Frequently 4. Almost constantly 8. Unable to answer Pain Effect on Sleep: 1 Pain Interference with Therapy: 1 Pain Interference w/Day-to-Day: 1 Mental Status Patient Orientation: Person, Place, Time, Situation Transfers SCALE: Activities may be completed with or without assistive devices. 8-Ymbudufnkk-tmrxzgz completes the activity by him/herself with no assistance from a helper. 5-Set-up or Clean-up Assistance-helper sets up or cleans up; patient completes activity. [place] assists only prior to or following the activity. 4-Supervision or Touching Assistance-helper provides verbal cues and/or touching/steadying and/or contact guard assistance as patient completes activity. Assistance may be provided throughout the activity or intermittently. 3-Partial/Moderate Assistance-helper does LESS THAN HALF the effort. [place] li fts, holds or supports trunk or limbs, but provides less than half the effort. 2-Substantial/Maximal Assistance-helper does MORE THAN HALF the effort. [place] lifts or holds trunk or limbs and provides more than half the effort. 7-Rehrwzxsl-nhwjuw does ALL the effort. Patient does none of the effort to complete the activity. Or, the assistance of 2 or more helpers is required for the patient to complete the activity. If activity was not attempted, code reason: 7-Patient Refused. 9-Not Applicable-not attempted and the patient did not perform the activity before the current illness, exacerbation or injury. 10-Not Attempted due to Environmental Limitations-(lack of equipment, weather restraints, etc.). 88-Not Attempted due to Medical Conditions or Safety Concerns. Roll Left & Right (QC): 5 Sit to Lying (QC): 6 Lying to Sitting/Side of Bed(Q: 5 Sit to Stand (QC): 6 Chair/Nsd-ik-Mujld Xfer(QC): 6 Toilet Transfer (QC): 6 Car Transfer (QC): 6 Weight Bearing Full Weight Bearing Full Weight Bearing Gait Training Does the Patient Walk?: Yes Walk 10 feet (QC): 6 Walk 50 ft with 2 Turns(QC): 4 (SBA for vc's) Walk 150 ft (QC): 4 (SBA for vc's) Walking 10ft/uneven surface-QC: 6 Gait Assistive Device: FWW Wheelchair Training Does the Pt Use a Wheelchair?: No Stair Training Stair Training: Handrails/: 2 handrails 1 Step (curb) (QC): 6 4 Steps (QC): 4 12 Steps (QC): 4 (CGA for safety) Stairs: Pattern: Reciprocal Balance Picking up an Object (QC): 6 (With process developer and FWW) Exercises NuStep Minutes: 10 (Pt completed 1000 steps.) NuStep Workload: 3 Treatments DISPATCHER [place] conducted Quality Code checks with pt for tx session. Pt bicycled on NuStep for 10m (1000 steps) at workload 3, for strengthening and endurance. Post tx with pt in recliner, call light within reach and all needs met. Assessment Current Status: Good Progress Pt endurance with amb is improving. Pt only requires minimal rest breaks during tx. PT Assisted Goals Assisted Goals PT Assisted Goals Time Frame: Mar 28, 2023 Roll Left & Right (QC): 6 Sit to Lying (QC): 6 Lying-Sitting on Side/Bed(QC): 6 Sit to Stand (QC): 6 Chair/Idp-uu-Fxyoj Xfer(QC): 6 (/c walker) Toilet Transfer (QC): 6 (/c walker) Car Transfer (QC): 6 (/c walker) Does the Patient Walk: Yes Walk 10 feet (QC): 6 (/c walker) Walk 50ft with 2 Turns (QC): 6 (/c walker) Walk 150 ft (QC): 6 (/c walker) Walking 10ft on Uneven Surface: 6 (/c walker) 1 Step (curb) (QC): 6 (/c walker) 4 Steps (QC): 6 (/c (B) railings) 12 Steps (QC): 6 (/c (B) railings) Picking up an Object (QC): 6 (/c or without process developer) Does the Pt use WC or Scooter?: No Wheel 50 feet with 2 turns (QC: 9 Wheel 150 feet: 9 PT Plan Treatment/Plan Treatment Plan: Continue Plan of Care Treatment Plan: Bed Mobility, Education, Functional Activity Kevin, Functional Strength, Group Therapy, Gait, Safety, Therapeutic Exercise, Transfers Treatment Duration: Mar 28, 2023 Frequency: At least 5 of 7 days/Wk (IRF) Estimated Hrs Per Day: 1.5 hours per day Safety Risks/Education Patient Education: Steps, Safety Issues Teaching Recipient: Patient Teaching Methods: Discussion Response to Teaching: Verbalize Understanding, Return Demonstration Discharge Recommendations Plan D/C on 03/27/2023 per pt POC. Time Time In: 1255 Time Out: 1340 DATE: Mar 26, 2023 Total Billed Treatment Time: 45 Total Billed Treatment 1, FA2 (30m), GT (15m) BAKARI CHAU DISPATCHER [place] Mar 26, 2023 13:31
[2023-03-26 17:31] VITALS: BP 124/60
[2023-03-26] MEDS: ENOXAPARIN 40 MG/0.4 ML SYRINGE SC SCH (17:36)
[2023-03-26 20:48] VITALS: BP 188/80
[2023-03-27] VITALS (7 sets, daily range): BP systolic 117–182; BP diastolic 55–85
[2023-03-27] MEDS: hydrALAZINE 25 MG TABLET PO SCH ×4 (00:22→12:38)
[2023-03-27] MEDS: LEVOTHYROXINE 50 MCG TABLET PO SCH (06:18)
[2023-03-27] MEDS: inSUlin ASPART 1 UNIT/0.01 ML (PER UNIT) SC SCH ×4 (07:08→12:38)
--- NOTE | 2023-03-27 08:18 | Therapy Team Discharge Summary ---
Therapy Discharge Summary Discharge Recommendations Date of Discharge Physical Therapy Roll Left to Right (QC): 5 Sit to Lying (QC): 6 Lying to Sitting/Side of Bed(Q: 5 Sit to Stand (QC): 6 Chair/Sud-xt-Jljrq Xfer(QC): 6 Toilet Transfer (QC): 5 Car Transfer (QC): 6 Does the Patient Walk: Yes Mode of Locomotion: Walk Anticipated Mode of Locomotion: Walk Walk 10 feet (QC): 6 Walk 50 ft with 2 Turns(QC): 4 (SBA for vc's) Walk 150 ft (QC): 4 (SBA for vc's) Walking 10ft on uneven surface: 6 Distance: 273' Gait Assistive Device: FWW Does the Pt Use a Wheelchair: No Wheel 50 ft with 2 turns (QC): 9 Wheel 150 ft (QC): 9 1 Step (curb) (QC): 6 4 Steps (QC): 4 12 Steps (QC): 4 (CGA for safety) Walking Assistive Device: Walker Balance Sitting Static: Normal Balance Sitting Dynamic: Good Balance-Standing Static: Good Picking up an Object (QC): 6 (With accounts receivable bookkeeper and FWW) Occupational Therapy Pt admitted to ARU with debility. At [facility], pt was independent with ADLs and functional mobility. Upon initial evaluation, pt was independent with eating, required CGA-SBA with oral care, UBD, and toileting, min-mod A with showering, LBD and footwear. OT tx focused on increasing BUE strength and activity tolerance, and increasing safety and independence with ADLs and functional mobility. Pt made good progress towards goals, attaining IND level with all ADLs and meeting all LTGs. Pt scheduled to d/c from ARU on this date, d/c from OT. Decreased UE Strength, Impaired Funct Balance Eating (QC): 6 (Pt. has demonstrated eating independently. ) Oral Hygiene (QC): 6 (Pt. able to stand at sink completing grooming/oral hygiene using FWW for stabilizing. ) Shower/Bathe Self (QC): 6 (Pt. able to bathe all areas while seated on shower bench 100% of the time while using grabbars, hand held shower. ) Upper Body Dressing (QC): 6 (Pt. completed UB clothing independently. ) Lower Body Dressing (QC): 6 (Pt. able to thread feet through pants while seated then stands to hike pants over hips. ) On/Off Footwear (QC): 6 (Reviewed how to use sock aide to don socks then used sock aide to don sock, doffs socks by self.) Toileting Hygiene (QC): 6 (Pt. able to manipulate LB clothing using grabbars and is able to cleanse all areas by self.) PT Senior Living Goals Computer Clerk Goals PT Senior Living Goals Time Frame: Mar 28, 2023 Roll Left to Right (QC): 6 Sit to Lying (QC): 6 Lying-Sitting on Side/Bed(QC): 6 Sit to Stand (QC): 6 Chair/Yrp-cn-Tbtnx Xfer(QC): 6 (/c walker) Toilet/Commode Transfer (QC): 6 (/c walker) Car Transfer (QC): 6 (/c walker) Does the Patient Walk: Yes Walk 10 feet (QC): 6 (/c walker) Walk 10ft-Uneven Surface(QC): 6 (/c walker) Walk 50ft with 2 Turns (QC): 6 (/c walker) Walk 150 ft (QC): 6 (/c walker) Does the Pt use WC or Scooter?: No Wheel 50 feet with 2 turns (QC: 9 Wheel 150 feet: 9 1 Step (curb) (QC): 6 (/c walker) 4 Steps (QC): 6 (/c (B) railings) 12 Steps (QC): 6 (/c (B) railings) Picking up an Object (QC): 6 (/c or without accounts receivable bookkeeper) OT Senior Living Goals Computer Clerk Goals Time Frame: Apr 06, 2023 Acute change in mental status: 0 Inattention: 0 Disorganized thinkin Altered level of consciousness: 0 Eating (QC): 6 Oral Hygiene (QC): 6 Toileting Hygiene (QC): 6 Shower/Bathe Self (QC): 6 Upper Body Dressing (QC): 6 Lower Body Dressing (QC): 6 On/Off Footwear (QC): 6 Additional Goals: 1-Demonstrate ADL Tasks, 2-Verbalize Understanding, 3- ImproveStrength/Kevin 1=Demonstrate adherence to instructed precautions during ADL tasks. 2=Patient will verbalize/demonstrate understanding of assistive devices/modifi cations for ADL. 3=Patient will improve strength/tolerance for activity to enable patient to perform ADL's. LEAH ANTONIO OT Mar 27, 2023 08:18
[2023-03-27] MEDS: inSUlin DETERMIR 1 UNIT/0.01 ML (CHARGE PER UNIT) SQ SCH (09:10)
[2023-03-27] MEDS: DOCUSATE SODIUM 100 MG CAPSULE PO SCH (09:14)
[2023-03-27] MEDS: amLODIPine 10 MG TABLET PO SCH (09:15)
[2023-03-27] MEDS: SENNOSIDES 8.6 MG TABLET PO SCH (09:19)
--- NOTE | 2023-03-27 10:09 | Progress Note ---
MORGAN VELAZQUEZ 03/27/23 1008: Progress Note Magalys Jeronimo is a 88 year old female with a history of lumbar stenosis, diverticulitis of large intestine, cholelithiasis, DKA, DMII, JULITO, and debility. The pt was admitted on 03/21 for debility and DKA. On 03/18 imaging was performed: 03/18/[address] head/cervical spine wo contrast. IMPRESSION: 1. No h emorrhage or focal intra-axial mass. No CT evidence of large acute territorial ischemia. 2. No acute fracture or dislocation in the cervical spine.3. Generalized parenchymal volume loss with chronic microvascular disease.4. Nodular thyroid. Recommend correlation with TSH levels and if indicated thyroid ultrasound to further evaluate. PELVIS/DAVION HIPS 3-4 VIEWS IMPRESSION: 1. No acute bony abnormality of the pelvis or either hip. On 03/21 PT gave her a 3-5 range on various transfers and gait testing. Throug hout her admission she was showing gradual improvements with her ADLs, exercise toleration, gait, and her transfers. She has been able to perform 1000 consecutive steps and her endurance has been improving. As of 03/26 the pt has reached all of our goals of reaching a 6 in ADLs, gait, and transfers. Throughout her stay I have been monitoring her sugars and adjusting her insulin accordingly. We have been able to keep them stable. Today the pt is very eager to go home. She has no complaints. I will be discharging the pt today. ALLISON ORELLANA DO 03/27/238: Supervisory-Addendum Brief Verification & Attestation Participated in pt care: history, MDM, physical Personally performed: exam, history, MDM, supervision of care Care discussed with: Medical Student Procedures: n/a Results interpretation: Verified all documentation Verification and Attestation of Medical Student E/M Service A medical student performed and documented this service in my presence. I reviewed and verified all information documented by the medical student and made modifications to such information, when appropriate. I personally performed the physical exam and medical decision making. Allison Orellana, Mar 27, 2023,21:08 MORGAN VELAZQUEZ Mar 27, 2023 10:08 ALLISON ORELLANA DO Mar 27, 2023 21:08
[2023-03-27] MEDS ORDERED: HYDR-3923 PO (10:27)
--- NOTE | 2023-03-27 10:28 | Discharge Summary ---
Diagnosis/Chief Complaint Date of Admission Mar 21, 2023 at 13:15 Date of Discharge Discharge Date: Mar 27, 2023 Discharge Diagnosis Assessment: Debility s/p DKA DM OOC HTN OA Advanced age s/p JULITO Orthostatic hypotension Plan: PT OT Monitor closely Home meds Insulin 03/22/2023: Supportive care Insulin 03/23/2023: Supportive care Monitor closely Decrease insulin 03/24/2023: Manage brittle diabetes 03/25/2023: Monitor blood sugar 03/26/2023: IVF Monitor INR (1) Debility Discharge Summary Discharge Physical Examination Allergies: Coded Allergies: morphine (Verified Allergy, Unknown, MENTAL STATUS CHANGES, 03/22/23) Vitals & I&Os Vital Signs Date Time Temp Pulse Resp B/P (MAP) Pulse Ox O2 Delivery O2 Flow Rate FiO2 03/27/23 16:20 36.6 85 16 137/62 94 Room Air 0.00 General Appearance: Alert, Oriented X3, Cooperative Respiratory: Clear to Auscultation Cardiovascular: Regular Rate Psych/Mental Status: Mental Status NL Hospital Course Was the Problem List Reviewed?: Yes Magalys Jeronimo is a 88 year old female with a history of lumbar stenosis, diverticulitis of large intestine, cholelithiasis, DKA, DMII, JULITO, and debility. The pt was admitted on 03/21 for debility and DKA. On 03/18 imaging was performe d: 03/18/[address] head/cervical spine wo contrast. IMPRESSION: 1. No hemorrhage or focal intra-axial mass. No CT evidence of large acute territorial ischemia. 2. No acute fracture or dislocation in the cervical spine.3. Generalized parenchymal volume loss with chronic microvascular disease.4. Nodular thyroid. Recommend correlation with TSH levels and if indicated thyroid ultrasound to further evaluate. PELVIS/DAVION HIPS 3-4 VIEWS IMPRESSION: 1. No acute bony abnormality of the pelvis or either hip. On 03/21 PT gave her a 3-5 range on various transfers and gait testing. Throughout her admission she was showing gradual improvements with her ADLs, exercise toleration, gait, and her transfers. She has been able to perform 1000 consecutive steps and her endurance has been improving. As of 03/26 the pt has reached all of our goals of reaching a 6 in ADLs, gait, and transfers. Throughout her stay I have been monitoring her sugars and adjusting her insulin accordingly. We have been able to keep them stable. Today the pt is very eager to go home. She has no complaints. I will be discharging the pt today. Labs (last 24 hrs) Laboratory Tests 03/21/23 15:51: Glucometer 280H 03/21/23 20:39: Glucometer 249H 03/22/23 05:32: White Blood Count 5.5, Red Blood Count 4.00, Hemoglobin 13.1, Hematocrit 38, Mean Corpuscular Volume 96, Mean Corpuscular Hemoglobin 33, Mean Corpuscular Hemoglobin Concent 34, Red Cell Distribution Width 13.2, Platelet Count 179, Mean Platelet Volume 11.8, Immature Granulocyte % (Auto) 1, Neutrophils (%) (Auto) 56, Lymphocytes (%) (Auto) 33, Monocytes (%) (Auto) 8, Eosinophils (%) (Auto) 2, Basophils (%) (Auto) 0, Neutrophils # (Auto) 3.1, Lymphocytes # (Auto) 1.8, Monocytes # (Auto) 0.5, Eosinophils # (Auto) 0.1, Basophils # (Auto) 0.0, Immature Granulocyte # (Auto) 0.0, Sodium Level 140, Potassium Level 3.6, Chloride Level 112H, Carbon Dioxide Level 22, Anion Gap 6, Blood Urea Nitrogen 11, Creatinine 0.94, Estimat Glomerular Filtration Rate 59, BUN/Creatinine Ratio 12, Glucose Level 110H, Calcium Level 9.3, Corrected Calcium 10.0, Total Bilirubin 0.5, Aspartate Amino Transf (AST/SGOT) 19, Alanine Aminotransferase (ALT/SGPT) 27, Alkaline Phosphatase 55, Total Protein 5.3L, Albumin 3.1L 03/22/23 10:55: Glucometer 118H 03/22/23 16:24: Glucometer 143H 03/22/23 20:01: Glucometer 132H 03/23/23 06:23: Glucometer 83 03/23/23 11:00: Glucometer 152H 03/23/23 16:16: Glucometer 55*L 03/23/23 20:33: Glucometer 233H 03/24/23 06:25: Glucometer 96 03/24/23 11:34: Glucometer 140H 03/24/23 15:23: Glucometer 231H 03/24/23 20:28: Glucometer 109 03/25/23 06:19: Glucometer 183H 03/25/23 11:05: Glucometer 196H 03/25/23 15:49: Glucometer 167H 03/25/23 20:39: Glucometer 145H 03/26/23 05:24: White Blood Count 4.1L, Red Blood Count 3.82, Hemoglobin 12.8, Hematocrit 37, Mean Corpuscular Volume 98, Mean Corpuscular Hemoglobin 34, Mean Corpuscular Hemoglobin Concent 34, Red Cell Distribution Width 13.3, Platelet Count 232, Mean Platelet Volume 10.8, Immature Granulocyte % (Auto) 2, Neutrophils (%) (Auto) 41L, Lymphocytes (%) (Auto) 41, Monocytes (%) (Auto) 12, Eosinophils (%) (Auto) 3, Basophils (%) (Auto) 0, Neutrophils # (Auto) 1.7L, Lymphocytes # (Auto) 1.7, Monocytes # (Auto) 0.5, Eosinophils # (Auto) 0.1, Basophils # (Auto) 0.0, Immature Granulocyte # (Auto) 0.1, Sodium Level 138, Potassium Level 4.1, Chloride Level 107, Carbon Dioxide Level 21, Anion Gap 10, Blood Urea Nitrogen 15, Creatinine 1.07, Estimat Glomerular Filtration Rate 50, BUN/Creatinine Ratio 14, Glucose Level 198H, Calcium Level 9.2, Corrected Calcium 9.9, Total Bilirubin 0.4, Aspartate Amino Transf (AST/SGOT) 24, Alanine Aminotransferase (ALT/SGPT) 24, Alkaline Phosphatase 55, Total Protein 5.6L, Albumin 3.1L 03/26/23 08:38: Glucometer 351H 03/26/23 11:19: Glucometer 217H 03/26/23 16:09: Glucometer 66L 03/26/23 16:57: Glucometer 108 03/26/23 20:24: Glucometer 348H 03/27/23 06:24: Glucometer 163H 03/27/23 09:05: Glucometer 238H 03/27/23 11:01: Glucometer 213H 03/27/23 16:22: Glucometer 174H Pending Labs Laboratory Tests 03/21/23 15:51: Glucometer 280 03/21/23 20:39: Glucometer 249 03/22/23 05:32: White Blood Count 5.5, Red Blood Count 4.00, Hemoglobin 13.1, Hematocrit 38, Mean Corpuscular Volume 96, Mean Corpuscular Hemoglobin 33, Mean Corpuscular Hemoglobin Concent 34, Red Cell Distribution Width 13.2, Platelet Count 179, Mean Platelet Volume 11.8, Immature Granulocyte % (Auto) 1, Neutrophils (%) (Auto) 56, Lymphocytes (%) (Auto) 33, Monocytes (%) (Auto) 8, Eosinophils (%) (Auto) 2, Basophils (%) (Auto) 0, Neutrophils # (Auto) 3.1, Lymphocytes # (Auto) 1.8, Monocytes # (Auto) 0.5, Eosinophils # (Auto) 0.1, Basophils # (Auto) 0.0, Immature Granulocyte # (Auto) 0.0, Sodium Level 140, Potassium Level 3.6, Chloride Level 112, Carbon Dioxide Level 22, Anion Gap 6, Blood Urea Nitrogen 11, Creatinine 0.94, Estimat Glomerular Filtration Rate 59, BUN/Creatinine Ratio 12, Glucose Level 110, Calcium Level 9.3, Corrected Calcium 10.0, Total Bilirubin 0.5, Aspartate Amino Transf (AST/SGOT) 19, Alanine Aminotransferase (ALT/SGPT) 27, Alkaline Phosphatase 55, Total Protein 5.3, Albumin 3.1 03/22/23 10:55: Glucometer 118 03/22/23 16:24: Glucometer 143 03/22/23 20:01: Glucometer 132 03/23/23 06:23: Glucometer 83 03/23/23 11:00: Glucometer 152 03/23/23 16:16: Glucometer 55 03/23/23 20:33: Glucometer 233 03/24/23 06:25: Glucometer 96 03/24/23 11:34: Glucometer 140 03/24/23 15:23: Glucometer 231 03/24/23 20:28: Glucometer 109 03/25/23 06:19: Glucometer 183 03/25/23 11:05: Glucometer 196 03/25/23 15:49: Glucometer 167 03/25/23 20:39: Glucometer 145 03/26/23 05:24: White Blood Count 4.1, Red Blood Count 3.82, Hemoglobin 12.8, Hematocrit 37, Mean Corpuscular Volume 98, Mean Corpuscular Hemoglobin 34, Mean Corpuscular Hemoglobin Concent 34, Red Cell Distribution Width 13.3, Platelet Count 232, Mean Platelet Volume 10.8, Immature Granulocyte % (Auto) 2, Neutrophils (%) (Auto) 41, Lymphocytes (%) (Auto) 41, Monocytes (%) (Auto) 12, Eosinophils (%) (Auto) 3, Basophils (%) (Auto) 0, Neutrophils # (Auto) 1.7, Lymphocytes # (Auto) 1.7, Monocytes # (Auto) 0.5, Eosinophils # (Auto) 0.1, Basophils # (Auto) 0.0, Immature Granulocyte # (Auto) 0.1, Sodium Level 138, Potassium Level 4.1, Chloride Level 107, Carbon Dioxide Level 21, Anion Gap 10, Blood Urea Nitrogen 15, Creatinine 1.07, Estimat Glomerular Filtration Rate 50, BUN/Creatinine Ratio 14, Glucose Level 198, Calcium Level 9.2, Corrected Calcium 9.9, Total Bilirubin 0.4, Aspartate Amino Transf (AST/SGOT) 24, Alanine Aminotransferase (ALT/SGPT) 24, Alkaline Phosphatase 55, Total Protein 5.6, Albumin 3.1 03/26/23 08:38: Glucometer 351 03/26/23 11:19: Glucometer 217 03/26/23 16:09: Glucometer 66 03/26/23 16:57: Glucometer 108 03/26/23 20:24: Glucometer 348 03/27/23 06:24: Glucometer 163 03/27/23 09:05: Glucometer 238 03/27/23 11:01: Glucometer 213 03/27/23 16:22: Glucometer 174 Discharge Home Medications: Active Scripts Active Hydralazine HCl 25 Mg Tablet 25 Mg PO BID Reported Metformin HCl 500 Mg Tablet 500 Mg PO DAILY LAST FILLED 06-08-2022 # DAY SUPPLY Amlodipine Besylate 10 Mg Tablet 10 Mg PO DAILY LAST FILLED 09-16-2022 # DAY SUPPLY Lovastatin 40 Mg Tablet 40 Mg PO DAILY LAST FILLED 09-02-2022 # DAY SUPPLY Lisinopril 40 Mg Tablet 40 Mg PO DAILY LAST FILLED 09-02-2022 # DAY SUPPLY Levothyroxine Sodium 50 Mcg Tablet 50 Mcg PO DAILY Lantus Solostar (Insulin Glargine,Hum.rec.anlog) 100 Unit/Ml (3 Ml) Insuln.pen 38 Units SQ HS Instructions to patient/family Please see electronic discharge instructions given to patient. Diagnosis/Problems Diagnosis/Problems (1) Debility ANGELICA ORELLANA DO Mar 27, 2023 10:28
--- NOTE | 2023-03-27 10:28 | D/C HH Face to Face Order ---
D/C Face to Face Orders Reconcile Patient Problems Problems Reviewed?: Yes Instructions for Patient Via [facility], Patient Instructions/FollowUp: PCP 1 week Physician to follow Patient: [facility] Discharge Diet for Home: ADA Diet Patient Problems: DKA weakness Patient Data-Allergies,Ht & Wt Patient Allergies: Coded Allergies: morphine (Verified Allergy, Unknown, MENTAL STATUS CHANGES, 03/22/23) Height (Feet): 5 Height (Inches): 0.00 Weight (Pounds): 133 Weight (Ounces): 0.0 Home Health Need/Face to Face Date of Face to Face: Mar 27, 2023 Clinical Findings: Generalized weakness and fatigue I have seen Pt [id number]: Yes Discharged To: Home Diagnosis/Conditions: DKA Patient is Homebound due to: CognItive deficits, Muscle weakness Homebound Status Due to the above stated illness, injury or surgical procedure (medical condition or diagnosis) and associated clinical findings, the patient is homebound because of his/her inability to leave home except with aid of a supportive device and/or person AND leaving the home requires a considerable and taxing effort or is medically contraindicated. Pt req the following assistanc: Walker Home Health Nursing Orders Home Health Services Order: Nursing Services, Painter Spray-Evaluate & Treat, Physical Therapy-Evaluate & Treat Certify Stmt I certify that this patient is under my care and that I, a nurse practitioner or a physician; a facilities assistant working with me, had a face to face encounter that - meets the physician face to face encounter requirements with this patient as dated. ANGELICA ORELLANA DO Mar 27, 2023 10:28
--- NOTE | 2023-03-27 10:39 | Therapy Team Discharge Summary ---
Therapy Discharge Summary Discharge Recommendations Date of Discharge Physical Therapy Patient admitted to ARU 03/21/23 for debility, DKA, JULITO. At time of discharge, patient was (I) with all bed mobility and transfers /c FWW. She was able walk 200'+ with FWW (I) /s cues. She was (I) /c a crub step, CGA-SBA with 4 and 12 steps using (B) rails. She was able to pick an object up off the floor without assist. She scored a 19/20 on the Elderly Mobility Scale at D/C (compared to 15/20 at eval) - this equates to the patient being safe and (I) in mobility and basic ADL function. Roll Left to Right (QC): 6 Sit to Lying (QC): 6 Lying to Sitting/Side of Bed(Q: 6 Sit to Stand (QC): 6 Chair/Rws-ou-Lwjnz Xfer(QC): 6 Toilet Transfer (QC): 6 Car Transfer (QC): 6 Does the Patient Walk: Yes Mode of Locomotion: Walk Anticipated Mode of Locomotion: Walk Walk 10 feet (QC): 6 Walk 50 ft with 2 Turns(QC): 6 Walk 150 ft (QC): 6 Walking 10ft on uneven surface: 6 Distance: 273' Gait Assistive Device: FWW Does the Pt Use a Wheelchair: No Wheel 50 ft with 2 turns (QC): 9 Wheel 150 ft (QC): 9 1 Step (curb) (QC): 6 4 Steps (QC): 4 12 Steps (QC): 4 (CGA for safety) Walking Assistive Device: Walker Balance Sitting Static: Normal Balance Sitting Dynamic: Good Balance-Standing Static: Good Picking up an Object (QC): 6 (With horse show judge and FWW) Occupational Therapy Decreased UE Strength, Impaired Funct Balance Eating (QC): 6 (Pt. has demonstrated eating independently. ) Oral Hygiene (QC): 6 (Pt. able to stand at sink completing grooming/oral hygiene using FWW for stabilizing. ) Shower/Bathe Self (QC): 6 (Pt. able to bathe all areas while seated on shower bench 100% of the time while using grabbars, hand held shower. ) Upper Body Dressing (QC): 6 (Pt. completed UB clothing independently. ) Lower Body Dressing (QC): 6 (Pt. able to thread feet through pants while seated then stands to hike pants over hips. ) On/Off Footwear (QC): 6 (Reviewed how to use sock aide to don socks then used sock aide to don sock, doffs socks by self.) Toileting Hygiene (QC): 6 (Pt. able to manipulate LB clothing using grabbars a nd is able to cleanse all areas by self.) PT Alf Goals Alf Goals PT Sales Trainee Goals Time Frame: Mar 28, 2023 Roll Left to Right (QC): 6 Sit to Lying (QC): 6 Lying-Sitting on Side/Bed(QC): 6 Sit to Stand (QC): 6 Chair/Uyn-dc-Twjda Xfer(QC): 6 (/c walker) Toilet/Commode Transfer (QC): 6 (/c walker) Car Transfer (QC): 6 (/c walker) Does the Patient Walk: Yes Walk 10 feet (QC): 6 (/c walker) Walk 10ft-Uneven Surface(QC): 6 (/c walker) Walk 50ft with 2 Turns (QC): 6 (/c walker) Walk 150 ft (QC): 6 (/c walker) Does the Pt use WC or Scooter?: No Wheel 50 feet with 2 turns (QC: 9 Wheel 150 feet: 9 1 Step (curb) (QC): 6 (/c walker) 4 Steps (QC): 6 (/c (B) railings) 12 Steps (QC): 6 (/c (B) railings) Picking up an Object (QC): 6 (/c or without horse show judge) OT Alf Goals Alf Goals Time Frame: Apr 06, 2023 Acute change in mental status: 0 Inattention: 0 Disorganized thinkin Altered level of consciousness: 0 Eating (QC): 6 Oral Hygiene (QC): 6 Toileting Hygiene (QC): 6 Shower/Bathe Self (QC): 6 Upper Body Dressing (QC): 6 Lower Body Dressing (QC): 6 On/Off Footwear (QC): 6 Additional Goals: 1-Demonstrate ADL Tasks, 2-Verbalize Understanding, 3- ImproveStrength/Kevin 1=Demonstrate adherence to instructed precautions during ADL tasks. 2=Patient will verbalize/demonstrate understanding of assistive devices/modifications for ADL. 3=Patient will improve strength/tolerance for activity to enable patient to perform ADL's. Glenny Aquino PT Mar 27, 2023 10:39
--- NOTE | 2023-03-27 10:56 | PM&R Progress Note ---
Subjective HPI/CC On Admission Date Seen by Provider: Mar 27, 2023 Time Seen by Provider: 12:00 Subjective/Events-last exam 03/27/2023: 03/26/2023: Hypotension noted so started IVF INR monitoring closely due to FQ finishing up Pain controlled Family at bedside 03/25/2023: Patient doing well Blood sugars improved No hypoglycemia No falls 03/24/2023: Patient doing well Blood sugars improved Brittle diabetes noted 03/23/2023: Patient doing pretty well Working with therapy Sugars are labile Adjusting insulin down 03/22/2023: Patient doing well Working on a puzzle for occupational therapy Denies any pain Blood sugars reviewed We will monitor closely Review of Systems General: Fatigue, Malaise Objective Exam Vital Signs Vital Signs Date Time Temp Pulse Resp B/P (MAP) Pulse Ox O2 Delivery O2 Flow Rate FiO2 03/27/23 09:13 92 141/67 (91) 03/27/23 07:35 36.6 16 94 Room Air 03/25/23 19:28 0.00 0.00 Capillary Refill : General Appearance: No Apparent Distress, WD/WN, Chronically ill, Obese HEENT: PERRL/EOMI, Normal ENT Inspection, Pharynx Normal Neck: Full Range of Motion, Normal Inspection, Non Tender, Supple, Carotid Bruit Respiratory: Chest Non Tender, Lungs Clear, Normal Breath Sounds, No Accessory Muscle Use, No Respiratory Distress, Decreased Breath Sounds Cardiovascular: Regular Rate, Rhythm, No Edema, No Gallop, No JVD, No Murmur, Normal Peripheral Pulses Gastrointestinal: Normal Bowel Sounds, No Organomegaly, No Pulsatile Mass, Non Tender, Soft Back: Normal Inspection, No CVA Tenderness, No Vertebral Tenderness Extremity: Normal Capillary Refill, Normal Inspection, Normal Range of Motion, Non Tender, No Calf Tenderness, No Pedal Edema Neurologic/Psychiatric: Alert, Oriented x3, Normal Mood/Affect, agency service coordinator II-XII Norm as Tested, Abnormal Gait (slow), Motor Weakness (generalized weakness all extremities 4/5) Skin: Normal Color, Warm/Dry Lymphatic: No Adenopathy Results/Procedures Lab Patient resulted labs reviewed. FIM Transfers Therapy Code Descriptions/Definitions Functional [place] Measure: 0=Not Assessed/NA 4=Minimal Assistance 1=Total Assistance 5=Supervision or Setup 2=Maximal Assistance 6=Modified [place] 3=Moderate Assistance 7=Complete IndependenceSCALE: Activities may be completed with or without assistive devices. 1-Eqijzykrdr-ctgtcyb completes the activity by him/herself with no assistance from a helper. 5-Set-up or Clean-up Assistance-helper sets up or cleans up; patient completes activity. [place] assists only prior to or following the activity. 4-Supervision or Touching Assistance-helper provides verbal cues and/or touching/steadying and/or contact guard assistance as patient completes activity. Assistance may be provided throughout the activity or intermittently. 3-Partial/Moderate Assistance-helper does LESS THAN HALF the effort. [place] lifts, holds or supports trunk or limbs, but provides less than half the effort. 2-Substantial/Maximal Assistance-helper does MORE THAN HALF the effort. [place] lifts or holds trunk or limbs and provides more than half the effort. 9-Tzlthehcd-yzxhpc does ALL the effort. Patient does none of the effort to complete the activity. Or, the assistance of 2 or more helpers is required for the patient to complete the activity. If activity was not attempted, code reason: 7-Patient Refused. 9-Not Applicable-not attempted and the patient did not perform the activity before the current illness, exacerbation or injury. 10-Not Attempted due to Environmental Limitations-(lack of equipment, weather restraints, etc.). 88-Not Attempted due to Medical Conditions or Safety Concerns. Roll Left to Right (QC): 6 Sit to Lying (QC): 6 Sit to Stand (QC): 6 Chair/Yln-gy-Kkwsg Xfer(QC): 6 Car Transfer (QC): 6 Gait Training Does the Patient Walk?: Yes Distance: 500' Walk 10 feet (QC): 6 Walk 50 ft with 2 Turns(QC): 6 Walk 150 ft (QC): 6 Walking 10ft/uneven surface-QC: 6 Gait Assistive Device: FWW Wheelchair Training Does the Pt Use a Wheelchair?: No Wheel 50 ft with 2 turns (QC): 9 Wheel 150 ft (QC): 9 Stair Training Stair Training: Handrails/: 2 handrails 1 Step (curb) (QC): 6 4 Steps (QC): 4 12 Steps (QC): 4 (CGA for safety) Stairs: Pattern: Reciprocal Balance Picking up an Object (QC): 6 (With relationship advisor and FWW) ADL-Treatment Eating (QC): 6 (Pt. has demonstrated eating independently. ) Oral Hygiene (QC): 6 (Pt. able to stand at sink completing grooming/oral hygiene using FWW for stabilizing. ) Bathing Location: L Arm, R Arm, L Upper Leg, R Upper Leg, L Lower Leg (including foot), R Lower Leg (including foot), Chest, Abdomen, Buttocks, Perineal Area Shower/Bathe Self (QC): 6 (Pt. able to bathe all areas while seated on shower bench 100% of the time while using grabbars, hand held shower. ) Upper Body Dressing (QC): 6 (Pt. completed UB clothing independently. ) Lower Body Dressing (QC): 6 (Pt. able to thread feet through pants while seated then stands to hike pants over hips. ) On/Off Footwear (QC): 6 (Reviewed how to use sock aide to don socks then used sock aide to don sock, doffs socks by self.) Toileting Hygiene (QC): 6 (Pt. able to manipulate LB clothing using grabbars and is able to cleanse all areas by self.) Toilet Transfer (QC): 6 (Pt. used walker and grabbars to complete toilet transfers independently.) Assessment/Plan Assessment and Plan Assess & Plan/Chief Complaint Assessment: Debility s/p DKA DM OOC HTN OA Advanced age s/p JULITO Orthostatic hypotension Plan: PT OT Monitor closely Home meds Insulin 03/22/2023: Supportive care Insulin 03/23/2023: Supportive care Monitor closely Decrease insulin 03/24/2023: Manage brittle diabetes 03/25/2023: Monitor blood sugar 03/26/2023: IVF Monitor INR 03/27/2023: (1) Debility ANGELICA ORELLANA DO Mar 27, 2023 10:56
== END 2023-03-27 16:20 | disposition home health service (06) | DRG 948 ==
PROVIDERS: ADMIT Internal Medicine; ATTEND Internal Medicine
DX: R53.81 Other malaise (principal); E11.65 Type 2 diabetes mellitus with hyperglycemia; I95.1 Orthostatic hypotension; M48.061 Spinal stenosis, lumbar region without neurogenic claudication; E78.00 Pure hypercholesterolemia, unspecified; I10 Essential (primary) hypertension; E04.1 Nontoxic single thyroid nodule; K21.9 Gastro-esophageal reflux disease without esophagitis; K57.90 Diverticulosis of intestine, part unspecified, without perforation or abscess without bleeding; M19.90 Unspecified osteoarthritis, unspecified site; M54.9 Dorsalgia, unspecified; G89.29 Other chronic pain; H91.90 Unspecified hearing loss, unspecified ear; Z79.4 Long term (current) use of insulin; Z79.84 Long term (current) use of oral hypoglycemic drugs; Z79.899 Other long term (current) drug therapy; Z23 Encounter for immunization
CPT/HCPCS: 36415; 80053; 82947; 85025; 90662; 94760